=== PATIENT | male | born 1960 | race African-American/Black ===

== ENCOUNTER → 2018-05-09 | Outpatient (CLI) | payer OTHER ==
[2018-04-10 11:23] VITALS: BP 132/78
[~2018-05-09] MED LIST: AMLO10TA4 PO; ASPI-482 PO; ASPI81TA50 PO; CELE200C PO; CYCL10TA2 PO; EXEN10PE3 SQ; EXEN2PEN SQ; FLUT16SP2 NS; Fluconazole PO; GLIM4TAB2 PO; HYDR-2762 PO; INDA1.25 PO; IPRA4AER IH; METF100010 PO; METO-247 PO; PANT40TA5 PO; PROAIR HFA8.5 GM INH; SITA100T PO; TRIA15OI TP; VALS320T2 PO; [UNRECOGNIZED DRUG - CODE] MC
--- NOTE | 2018-05-10 15:22 | SLEEP ---
DATE OF STUDY: 05/09/2018 SLEEP STUDY ATTENDING PHYSICIAN: Dr. Segun Howard. REFERRED BY: Dr. Martinez. The patient is 57 years old who weighs 335 pounds with a BMI of 62. The patient's [place] score was 16. The patient gained 30 pounds since last sleep study in 2009. The patient underwent split night study at [facility]. During the night study, the patient spent 429 minutes in bed and slept for 365 minutes with a sleep efficiency of 85%. Sleep latency was 50 minutes with a REM latency of 357 minutes. Overall, sleep architecture showed increased stage 1 and stage 2 sleep, reduced slow wave and reduced REM sleep. During the initial diagnostic portion of the study, the patient slept for 147 minutes. During that time, the patient had no obstructive apneas. There was 1 mixed and 1 central apnea and 44 hypopneas. The patient's apnea hypopnea index was 19 per hour, supine index 19 per hour. REM sleep was not seen during the diagnostic portion of the study. EKG monitoring revealed normal sinus rhythm, average heart rate was 87 beats per minute. Nocturnal oximetry study revealed an average oxygen saturation of 93% with the lowest of 89%. 3% of time oxygen saturation remained between 80% and 89%. No clinically significant PLMS observed. The patient met the criteria for CPAP initiation. We started at 5 cm water and titrated up to 12 cm water. At the final pressure, the patient slept for 49 minutes. The patient had supine as well as REM sleep. The patient's AHI was reduced to 4 per hour and oxygen saturations remained above 90%. The patient used a large size nasal mask. IMPRESSION: 1. Moderate sleep apnea-hypopnea syndrome at an AHI of 19 per hour. Absence of REM sleep during the diagnostic portion of the study can underestimate the severity of sleep apnea. 2. No clinically significant periodic limb movements of sleep. 3. No clinically significant nocturnal hypoxia. RECOMMENDATIONS: 1. CPAP at 12 cm water completely eliminated the patient's sleep apnea and should be used on a nightly basis. 2. Follow up in 4-6 weeks to assess compliance with CPAP and to document clinical improvement. 3. Weight loss is strongly advised. 4. Avoid CITY MAGISTRATE depressants. 5. Caution regarding driving until symptoms of sleep apnea resolve with the use of CPAP. ALEXA GARCIA MD DR: PRETTY/mervat JOB#: [id number] / [id number] ZULEMA Maravilla MD, WILLIAM MD [facility]
== END | disposition home or self-care (01) ==
LOC: RT 17:45
PROVIDERS: ATTEND Internal Medicine Pulmonary Disease
DX: G47.33 Obstructive sleep apnea (adult) (pediatric) (principal)
CPT/HCPCS: 95810

== ENCOUNTER → 2018-07-05 | Outpatient (CLI) | payer OTHER ==
[2018-04-10 11:23] VITALS: BP 132/78
[~2018-07-05] MED LIST changes: +ALBU2.5V8 INH; -HYDR-2762 PO; +HYDR-2765 PO; -PROAIR HFA8.5 GM INH
--- NOTE | 2018-07-05 15:26 | RAD ---
CHEST PA LATERAL History: clearance for surgery, sob, hx of asthma, hx of copd and hypertension. Comparison: April 08, 2018 Heart size: Within normal limits. Radha/mediastinum: Within normal limits Lungs: Low lung volumes likely due to lack of inspiration. No focal consolidation. Mild linear markings likely due to atelectasis. Pleura: No evidence of pleural effusion. Pneumothorax: None visualized Bones: Regional skeleton appears grossly intact. Miscellaneous: None Impression: Low lung volumes, no consolidating infiltrate. Electronically signed by: Narendra Cai MD (07/05/2018 3:22 PM) [facility]
== END | disposition home or self-care (01) ==
LOC: RAD 13:40
PROVIDERS: ATTEND Internal Medicine Pulmonary Disease
DX: R06.02 Shortness of breath (principal); J44.9 Chronic obstructive pulmonary disease, unspecified; I10 Essential (primary) hypertension
CPT/HCPCS: 71046

== ENCOUNTER 2018-09-01 09:11 | Inpatient (IN) | payer OTHER ==
[~2018-09-01] VITALS: Ht 157.5 cm; Wt 142.6 kg
--- NOTE | 2018-09-01 09:53 | PHYS DOC ---
Past Medical History Past Medical History: A-Fib, Anxiety, Asthma, COPD, Diabetes-Type II, DVT, GERD , Hypertension, Other Additional Past Medical Histor: SLEEP APNEA, obesity Past Surgical History: Cholecystectomy, Tonsillectomy Alcohol Use: None Drug Use: None Adult General Chief Complaint Chief Complaint: CHEST PAIN HPI HPI Patient is a 58 year old male who presents with shortness of breath, chest pain, productive cough, vomiting, epigastric abdominal pain, and dizziness. Characterizes chest pain as a squeezing sensation, rated 8/10. No alleviating/aggravating factors. Reports shortness of breath woke him this morning at 0600. Reports blood tinged sputum x3 days. Denies fever or chills.[] Review of Systems Review of Systems Constitutional: Denies fever or chills [] Eyes: Denies change in visual acuity, redness, or eye pain [] HENT: Denies nasal congestion or sore throat [] Respiratory: Productive cough and shortness of breath. Denies hemoptysis [] Cardiovascular: No additional information not addressed in HPI [] GI: Epigastric abdominal pain, nausea, vomiting, Denies bloody stools or diarrhea [] : Denies dysuria or hematuria [] Musculoskeletal: Bilateral calf pain [] Integument: Denies rash or skin lesions [] Neurologic: Denies headache, focal weakness or sensory changes [] Endocrine: Denies polyuria or polydipsia [] All other systems were reviewed and found to be within normal limits, except as documented in this note. Current Medications Current Medications Current Medications Medications (Trade) Dose Ordered Sig/Yumi Start Time Stop Time Status Last Admin Dose Admin Info (CONTRAST GIVEN -- Rx MONITORING) 1 each PRN DAILY PRN 09/01/18 10:45 09/03/18 10:44 Iohexol (Omnipaque 350 Mg/ml) 90 ml 1X ONCE 09/01/18 10:45 09/01/18 10:46 DC 09/01/18 10:42 90 ML Ketorolac Tromethamine (Toradol 15mg Vial) 15 mg 1X ONCE 09/01/18 11:30 09/01/18 11:34 DC 09/01/18 11:49 15 MG Morphine Sulfate (Morphine Sulfate) 4 mg 1X ONCE 09/01/18 10:15 09/01/18 10:16 DC 09/01/18 10:19 4 MG Multi-Ingredient Mouthwash/Gargle (Gi Cocktail) 20 ml 1X ONCE 09/01/18 11:30 09/01/18 11:34 DC 09/01/18 11:49 20 ML Sodium Chloride 1,000 ml @ 100 mls/hr Q10H 09/01/18 11:30 09/02/18 11:29 09/01/18 11:51 100 MLS/HR Allergies Allergies Allergies Coded Allergies Type Severity Reaction Last Updated Verified No Known Drug Allergies 09/17/13 No Physical Exam Physical Exam Constitutional: Well developed, well nourished, MODERATE distress, non-toxic appearance. [] HENT: Normocephalic, atraumatic, bilateral external ears normal, oropharynx moist, no oral exudates, nose normal. [] Eyes: PERRLA, EOMI, conjunctiva normal, no discharge. [] Neck: Normal range of motion, no tenderness, supple, no stridor. [] Cardiovascular:Heart rate regular rhythm, no murmur [] Lungs & Thorax: Bilateral breath sounds clear to auscultation [] Abdomen: Bowel sounds normal, soft, EPIGASTRIC and periumbilical tenderness, no masses, no pulsatile masses. [] Skin: Warm, dry, no erythema, no rash. [] Back: No tenderness, no CVA tenderness. [] Extremities: No tenderness, no cyanosis, no clubbing, ROM intact, no edema. [] Neurologic: Alert and oriented X 3, normal motor function, normal sensory function, no focal deficits noted. [] Psychologic: Affect normal, judgement normal, mood anxious Current Patient Data Vital Signs Vital Signs Date Time Temp Pulse Resp B/P (MAP) Pulse Ox O2 Delivery O2 Flow Rate FiO2 09/01/18 10:49 20 96 Room Air 09/01/18 10:19 106 129/68 (88) 09/01/18 09:20 97.8 97.8 Lab Values Laboratory Tests Test 09/01/18 10:10 White Blood Count 18.5 x10^3/uL (4.0-11.0) H Red Blood Count 5.02 x10^6/uL (4.30-5.70) Hemoglobin 14.5 g/dL (13.0-17.5) Hematocrit 44.7 % (39.0-53.0) Mean Corpuscular Volume 89 fL (79-100) Mean Corpuscular Hemoglobin 29 pg (25-35) Mean Corpuscular Hemoglobin Concent 32 g/dL (31-37) Red Cell Distribution Width 14.9 % (11.5-14.5) H Platelet Count 262 x10^3/uL (140-400) Neutrophils (%) (Auto) 82 % (31-73) H Lymphocytes (%) (Auto) 9 % (24-48) L Monocytes (%) (Auto) 8 % (0-9) Eosinophils (%) (Auto) 1 % (0-3) Basophils (%) (Auto) 0 % (0-3) Neutrophils # (Auto) 15.1 x10^3uL (1.8-7.7) H Lymphocytes # (Auto) 1.7 x10^3/uL (1.0-4.8) Monocytes # (Auto) 1.5 x10^3/uL (0.0-1.1) H Eosinophils # (Auto) 0.1 x10^3/uL (0.0-0.7) Basophils # (Auto) 0.1 x10^3/uL (0.0-0.2) Prothrombin Time 12.9 SEC (11.7-14.0) Prothrombin Time INR 1.0 (0.8-1.1) Sodium Level 135 mmol/L (136-145) L Potassium Level 4.5 mmol/L (3.5-5.1) Chloride Level 96 mmol/L (98-107) L Carbon Dioxide Level 29 mmol/L (21-32) Anion Gap 10 (6-14) Blood Urea Nitrogen 47 mg/dL (8-26) H Creatinine 1.7 mg/dL (0.7-1.3) H Estimated GFR (Cockcroft-Gault) 50.5 BUN/Creatinine Ratio 28 (6-20) H Glucose Level 165 mg/dL (70-99) H Calcium Level 9.9 mg/dL (8.5-10.1) Total Bilirubin 0.3 mg/dL (0.2-1.0) Aspartate Amino Transferase (AST) 18 U/L (15-37) Alanine Aminotransferase (ALT) 68 U/L (16-63) H Alkaline Phosphatase 72 U/L (46-116) Troponin I Quantitative < 0.017 ng/mL (0.000-0.055) Total Protein 6.4 g/dL (6.4-8.2) Albumin 3.2 g/dL (3.4-5.0) L Albumin/Globulin Ratio 1.0 (1.0-1.7) Lipase 87 U/L (73-393) Laboratory Tests 09/01/18 10:10 Laboratory Tests 09/01/18 10:10 EKG EKG Sinus tachycardia, no ST segment changes, infrequent PVC, QTc 432 [] Radiology/Procedures Radiology/Procedures [] Impressions: IMPRESSION: 1. No acute intra-abdominal findings 2. Evaluation for pulmonary embolus is limited as there is not enough contrast within the pulmonary artery and its branches. 3. A 1.3 cm hypodensity identified in the right kidney which could be a intrarenal mass or cyst containing debris. Recommend follow-up nonemergent ultrasound kidneys for further evaluation. 4. Small hypodense nodules identified in the right and left lobes of thyroid gland with the largest measuring 1.8 cm on the right. Follow-up nonemergent ultrasound thyroid is recommended. Electronically signed by: Bubba Chan MD (09/01/2018 11:04 AM) [facility] DICTATED and SIGNED BY: BUBBA CHAN MD DATE: 09/01/18 1056 Course & Med Decision Making Course & Med Decision Making Pt is a 58 year old male with past medical history of hypertension, type 2 DM, asthma, obstructive sleep apnea, and anxiety presents with chest pain and abrupt onset shortness of breath. Pt has history of bilateral DVT approximately 1.5 years ago and has not been on anticoagulation since his cardiac catheterization 5 months ago. Cardiac cath indicated no coronary artery disease. Given the patient's history and symptom presentation, rule out PE vs. pneumonia vs. MSK related pain vs. anxiety. Pertinent Labs and Imaging studies reviewed. (See chart for details) Plan: EKG, no acute changes CXR CTA CT abdomen LE duplex, negative CBC, CMP final plan ct scan indeterminate for pe wbc unclear etiology. has been high in the past but also has been normal mild bump in creatinine, pt hydrated after contrast. will admit for serial trops, v/q scan and monitoring of the wbc/creatinine d/w riffel u/a pending Dragon Disclaimer Aniya Disclaimer This electronic medical record was generated, in whole or in part, using a voice recognition dictation system. Departure Departure Impression: Primary Impression: Leukocytosis Disposition: ADMITTED INPATIENT Condition: STABLE JORGE BATISTA MD Sep 01, 2018 09:53
[2018-09-01] MEDS ORDERED: MORPHINE SULFATE 4 MG/ML VIAL. IV ONE (10:15)
[2018-09-01 10:20] LABS: BASO # 0.1 x10^3/uL (0.0-0.2); BASO % 0 % (0-3); EOS # 0.1 x10^3/uL (0.0-0.7); EOS % 1 % (0-3); HEMATOCRIT 44.7 % (39.0-53.0); HEMOGLOBIN 14.5 g/dL (13.0-17.5); LYMPH # 1.7 x10^3/uL (1.0-4.8); LYMPH % 9 % (24-48); MEAN CORPUSCULAR HEMOGLOBIN 29 pg (25-35); MEAN CORPUSCULAR HGB CONC 32 g/dL (31-37); MEAN CORPUSCULAR VOLUME 89 fL (79-100); MONO # 1.5 x10^3/uL (0.0-1.1); MONO % 8 % (0-9); NEUT # 15.1 x10^3uL (1.8-7.7); NEUT % 82 % (31-73); PLATELET COUNT 262 x10^3/uL (140-400); RED BLOOD COUNT 5.02 x10^6/uL (4.30-5.70); RED CELL DISTRIBUTION WIDTH 14.9 % (11.5-14.5); WHITE BLOOD COUNT 18.5 x10^3/uL (4.0-11.0)
[2018-09-01 10:30] LABS: CALCIUM 9.9 mg/dL (8.5-10.1); CREATININE 1.7 mg/dL (0.7-1.3); GFR 50.5; POTASSIUM 4.5 mmol/L (3.5-5.1); PROTHROMBIN TIME PATIENT 12.9 SEC (11.7-14.0)
--- NOTE | 2018-09-01 10:30 | EKG ---
[facility] [address] [place] [address] Test Date: 2018-09-01 Test Time: 09:16:41 Pat Name: VANCE HERNANDEZ Department: Room: Gender: M Manager Contracting: JOSE FRANCISCO : 1960 Requested By: JORGE BATISTA Order Number: [id number] Reading MD: Andrzej Cooper Measurements Intervals [place] Rate: 106 P: 44 SC: 110 QRS: 0 QRSD: 78 T: 46 QT: 324 QTc: 432 Interpretive Statements SINUS TACHYCARDIA VENTRICULAR PREMATURE COMPLEX(ES) LEFTWARD AXIS Electronically Signed On 09-04-2018 10:46:30 FICTION AND NONFICTION AUTHOR by Andrzej Cooper
[2018-09-01] MEDS ORDERED: IV NORMAL SALINE 1000ML BAG 1,000 ML IV ONE (10:45)
[2018-09-01] MEDS ORDERED: IOHEXOL 350 MG/ML 100 ML VIAL. IV ONE (10:45)
[2018-09-01] MEDS ORDERED: CONTRAST GIVEN. MC PRN (10:45)
--- NOTE | 2018-09-01 10:45 | RAD ---
Examination: Lower Extremity Venous Doppler Ultrasound History: Bilateral lower extremity swelling Comparison: None Procedure: Sales scale, color flow 2D and spectal waveform analysis images are obtained with and without compression in the area of the common femoral vein, superficial femoral vein - femoral vein junction, main femoral vein (superficial femoral vein) and popliteal vein. Veins of the proximal calf are also imaged. Findings: There is normal duplex flow, color flow and compressibility of all visualized vein segments. No evidence of deep venous thrombus is present. Impression: No evidence of DVT the visualized bilateral lower extremity venous system. Electronically signed by: Bubba Chan MD (09/01/2018 10:42 AM) [place] [id number]
[2018-09-01 10:46] LABS: ALBUMIN 3.2 g/dL (3.4-5.0); TOTAL BILIRUBIN 0.3 mg/dL (0.2-1.0); TOTAL PROTEIN 6.4 g/dL (6.4-8.2)
--- NOTE | 2018-09-01 11:07 | RAD ---
Examination: CT angiography chest and CT abdomen pelvis with IV contrast HISTORY: History of chest pain, shortness of breath, history of pulmonary embolism, abdominal pain, swelling COMPARISON: None available TECHNIQUE: Axial CT angiography images were performed with IV contrast. Coronal and sagittal 3-D MIP reformats are performed. Axial CT images of the abdomen pelvis were performed with IV contrast. Cholecystectomy, so performed Exposure: One or more of the following individualized dose reduction techniques were utilized for this examination: 1. Automated exposure control 2. Adjustment of the mA and/or kV according to patient size 3. Use of iterative reconstruction technique. Findings: Small hypodense nodules identified in the right and left lobes of thyroid gland with the largest measuring 1.8 cm on the right. The central airways are patent The heart size grossly appears unremarkable No evidence of pericardial effusion The caliber of the aorta grossly appears unremarkable. There is not enough contrast within the pulmonary artery and its branches for evaluation of the pulmonary arteries Minimal bibasilar lung atelectasis. Calcified granulomas identified in the right upper lobe of the lung. The visualized liver, spleen, adrenals grossly appears unremarkable The stomach is mildly distended The visualized pancreas demonstrates mild fatty atrophic changes. Cholecystectomy changes identified Small bowel is nondilated. Feces and gas noted in the colon The urinary bladder is mildly distended. The bilateral kidneys enhance symmetrically. There is a hypodense structure identified in the right kidney measuring 1.3 cm. Urinary bladder is mildly distended. The caliber of the aorta grossly appears unremarkable Moderate degenerative changes visualized lumbar spine. Small fat-containing left inguinal hernia. IMPRESSION: 1. No acute intra-abdominal findings 2. Evaluation for pulmonary embolus is limited as there is not enough contrast within the pulmonary artery and its branches. 3. A 1.3 cm hypodensity identified in the right kidney which could be a intrarenal mass or cyst containing debris. Recommend follow-up nonemergent ultrasound kidneys for further evaluation. 4. Small hypodense nodules identified in the right and left lobes of thyroid gland with the largest measuring 1.8 cm on the right. Follow-up nonemergent ultrasound thyroid is recommended. Electronically signed by: Bubba Chan MD (09/01/2018 11:04 AM) [place] [id number]
--- NOTE | 2018-09-01 11:23 | RAD ---
Portable chest, 09/01/2018: HISTORY: Midsternal chest pain, dizziness Comparison is made to a study from 07/05/2018. The depth of inspiration is suboptimal. The heart is at the upper limits of normal in size. The pulmonary vascularity is normal. There is a calcified granuloma in the right lower chest. No acute infiltrate is seen. There is no evidence of pleural fluid. IMPRESSION: No acute cardiopulmonary abnormality is detected. Electronically signed by: Brennon Lewis MD (09/01/2018 11:20 AM) [facility]
[2018-09-01] MEDS ORDERED: KETOROLAC 15 MG/ML VIAL. IV ONE (11:30)
[2018-09-01] MEDS ORDERED: LIDO:MAALOX 1:1 20 ML SINGLE DOSE. SWSW ONE (11:30)
[2018-09-01] MEDS ORDERED: IV NORMAL SALINE 1000ML BAG 1,000 ML IV SCH (11:30)
[2018-09-01 12:13] LABS: BILIRUBIN,URINE NEGATIVE (NEG); CLARITY,URINE CLEAR; COLOR,URINE YELLOW; NITRITE,URINE NEGATIVE (NEG); PROTEIN,URINE NEGATIVE (NEG-TRACE); UROBILINOGEN,URINE 0.2 mg/dL (0.2 mg/dL)
[2018-09-01 12:19] LABS: BACTERIA,URINE FEW /HPF (0-FEW); RBC,URINE RARE /HPF (0-2); WBC,URINE RARE /HPF (0-4)
[2018-09-01 12:28] LABS: INFLUENZA A PATIENT NEGATIVE (NEGATIVE); INFLUENZA B PATIENT NEGATIVE (NEGATIVE)
[2018-09-01 12:50] VITALS: BP 117/59
--- NOTE | 2018-09-01 13:40 | PDOC1 ---
History and Physical Date of Admission Date of Admission DATE: 09/01/18 TIME: 13:39 Identification/Chief Complaint Chief Complaint Chest pain Source Source: Chart review, Patient History of Present Illness History of Present Illness 58 year old AA male w/ PMHx A Fib, HTN, BLE DVT, COPD, VIOLET, DM, OA, vit D deficiency, GERD, colon polyp, chronic back pain, cholecystectomy, tonsillectomy /adenoidectomy who presents with shortness of breath, chest pain, productive cough, vomiting, epigastric abdominal pain, and dizziness. Characterizes chest pain as a squeezing sensation, rated 8/10. No alleviating/aggravating factors. Reports shortness of breath woke him this morning at 0600. Reports blood tinged sputum x3 days. He has felt ill for 10 days, feels it began after shoveling snow. Reports stabbing pain from midchest to navel area - constant, worse w/ moving around and taking deep breaths, can be worse after eating as well. Also associated w/ weakness, dizziness, vomiting, and diarrhea. Meloxicam and ibuprofen didn't help pain at home. Has pain currently but hasn't had diarrhea today and tolerated a fish sandwich this afternoon w/o vomiting. Labs note WBC 18.5, BUN 47, Cr 1.7, ALT 68. Last A1c (in 03/2018) 8.8. Troponin Negative. No EKG abnormalities. Rapid flu negative in ED. No fevers On imaging: mildly distended stomach, mild fatty atrophic changes in pancreas, feces and gas in the colon, and unremarkable liver. Past Medical History Cardiovascular: AFIB, HTN Pulmonary: COPD, Other GI: GERD Heme/Onc: Other Musculoskeletal: Osteoarthritis Infectious disease: No pertinent hx Renal/: No pertinent hx Endocrine: Diabetes Past Surgical History Past Surgical History: Cholecystectomy, Tonsillectomy Family History Family History: Hypertension Social History ALCOHOL: none Drugs: None Current Medications Current Medications Current Medications Morphine Sulfate (Morphine Sulfate) 4 mg 1X ONCE IV Last administered on at 10:19; Start 09/01/18 at 10:15; Stop 09/01/18 at 10:16; Status DC Sodium Chloride 1,000 ml @ 1,000 mls/hr 1X ONCE IV Last administered on at 10:58; Start 09/01/18 at 10:45; Stop 09/01/18 at 11:44; Status DC Iohexol (Omnipaque 350 Mg/ml) 90 ml 1X ONCE IV Last administered on 09/01/18at 10:42; Start 09/01/18 at 10:45; Stop 09/01/18 at 10:46; Status DC Info (CONTRAST GIVEN -- Rx MONITORING) 1 each PRN DAILY PRN MC SEE COMMENTS; Start 09/01/18 at 10:45; Stop 09/03/18 at 10:44 Multi-Ingredient Mouthwash/Gargle (Gi Cocktail) 20 ml 1X ONCE SWSW Last administered on 09/01/18at 11:49; Start 09/01/18 at 11:30; Stop 09/01/18 at 11:34 ; Status DC Ketorolac Tromethamine (Toradol 15mg Vial) 15 mg 1X ONCE IV Last administered on 09/01/18at 11:49; Start 09/01/18 at 11:30; Stop 09/01/18 at 11:34; Status DC Sodium Chloride 1,000 ml @ 100 mls/hr Q10H IV Last administered on 09/01/18at 11:51; Start 09/01/18 at 11:30; Stop 09/02/18 at 11:29 Active Scripts Active [Fluconazole] 100 MG Tablet 200 Mg PO DAILY 14 Days Reported Proair Hfa Inhaler (Albuterol Sulfate) 8.5 Gm Hfa.aer.ad 1 Puff INH PRN Q4HRS PRN Hydrocodone-Apap 7.5-325 (Hydrocodone Bit/Acetaminophen) 1 Each Tablet 1 Tab PO PRN TID PRN Combivent Respimat Inhal (Ipratropium/Albuterol Sulfate) 4 Gm Aer.w.adap 2 Inh IH BID Triamcinolone Acetonide 0.1% Oint (Triamcinolone Acetonide) 15 Gm Oint...g. 1 Heriberto TP BID MIX WITH EUCERIN DIRECTED BY PHYSICIAN Rad (Sitagliptin Phosphate) 100 Mg Tablet 1 Tab PO DAILY Bydureon Pen (Exenatide Microspheres) 2 Mg/0.65 Ml Pen.injctr 2 Mg SQ WEEKLY Indapamide 1.25 Mg Tablet 1 Tab PO DAILY Glimepiride 4 Mg Tablet 1 Tab PO BID Cyclobenzaprine Hcl 10 Mg Tablet 1 Tab PO QHS Aspir 81 (Aspirin) 81 Mg Tablet.dr 81 Mg PO DAILY Celebrex (Celecoxib) 200 Mg Capsule 200 Mg PO DAILY Pantoprazole Sodium 40 Mg Tablet.dr 40 Mg PO DAILY Flonase (Fluticasone Propionate) 16 Gm [place].susp 16 Gm NS DAILY Diovan (Valsartan) 320 Mg Tablet 320 Mg PO DAILY Norvasc (Amlodipine Besylate) 10 Mg Tablet 10 Mg PO DAILY Metformin Hcl Er (Metformin Hcl) 1,000 Mg Tab.er.24 1,000 Mg PO BID Allergies Allergies: Coded Allergies: No Known Drug Allergies (Unverified , 09/17/13) ROS General: YES: Fatigue, Malaise, Appetite PSYCHOLOGICAL ROS: No: Anxiety, Behavioral Disorder, Concentration difficultie , Decreased libido, Depression, Disorientation, Hallucinations, Hostility, Irritablity, Memory difficulties, Mood Swings, Obsessive thoughts, Physical abuse, Sexual abuse, Sleep disturbances, Suicidal ideation, Other Eyes: No Blurry vision, No Decreased vision, No Double vision, No Dry eyes, No Excessive tearing, No Eye Pain, No Itchy Eyes, No Loss of vision, No Photophobia , No Scotomata, No Uses contacts, No Uses glasses, No Other HEENT: No: Heacaches, Visual Changes, Hearing change, Nasal congestion, Nasal discharge, Oral lesions, Sinus pain, Sore Throat, Epistaxis, Sneezing, Snoring, Tinnitus, Vertigo, Vocal changes, Other ALLERGY AND IMMUNOLOGY: No: Hives, Insect Bite Sensitivity, Itchy/Watery Eyes, Nasal Congestion, Post Nasal Drip, Seasonal Allergies, Other Hematological and Lymphatic: No: Bleeding Problems, Blood Clots, Blood Transfusions, Brusing, Night Sweats, Pallor, Swollen Lymph Nodes, Other ENDOCRINE: No: Breast Changes, Galactorrhea, Hair Pattern Changes, Hot Flashes , Malaise/lethargy, Mood Swings, Palpitations, Polydipsia/polyuria, Skin Changes , Temperature Intolerance, Unexpected Weight Changes, Other Breast: No New/Changing Breast Lumps, No Nipple changes, No Nipple discharge, No Other Respiratory: YES: Cough, Shortness of breath, Tachypnea, Wheezing; No: Hemoptysis, Orthopnea, Pleuritic Pain, SOB with excertion, Sputum Changes , Stridor, Other Cardiovascular: yes Chest Pain, yes Palpitations; No Orthopnea, No Paroxysmal Noc. Dyspnea, No Edema, No Lt Headedness, No Other Gastrointestinal: Yes Nausea, Yes Vomiting, Yes Abdominal Pain, Yes Diarrhea Genitourinary: No Dysuria, No Frequency, No Incontinence, No Hematuria, No Retention, No Discharge, No Urgency, No Pain, No Flank Pain, No Other, No , No , No , No , No , No , No Musculoskeletal: No Gait Disturbance, No Joint Pain, No Joint Stiffness, No Joint Swelling, No Muscle Pain, No Muscular Weakness, No Pain In:, No Swelling In:, No Other Neurological: No Behavorial Changes, No Bowel/Bladder ControlChng, No Confusion , No Dizziness, No Gait Disturbance, No Headaches, No Impaired Coord/balance, No Memory Loss, No Numbness/Tingling, No Seizures, No Speech Problems, No Tremors, No Visual Changes, No Weakness, No Other Skin: No Dry Skin, No Eczema, No Hair Changes, No Lumps, No Mole Changes, No Mottling, No Nail Changes, No Pruritus, No Rash, No Skin Lesion Changes, No Other, No Acne Physical Exam General: Alert, Oriented X3, Cooperative, No acute distress HEENT: Atraumatic, PERRLA, EOMI, Mucous membr. moist/pink Lungs: Other (Scattered wheezing) Heart: S1S2, irregularly irregular Abdomen: Normal bowel sounds, Soft, Other (diffuse mild tenderness) Rectal Exam: not examined Extremities: No clubbing, No cyanosis, No edema, Normal pulses, No tenderness/ swelling Skin: No rashes, No breakdown, No significant lesion Neuro: Normal gait, Normal speech, Strength at 5/5 X4 ext, Normal tone, Sensation intact, Cranial nerves 3-12 NL, Reflexes 2+ Psych/Mental Status: Mental status NL, Mood NL Vitals Vitals Vital Signs Date Time Temp Pulse Resp B/P (MAP) Pulse Ox O2 Delivery O2 Flow Rate FiO2 09/01/18 12:50 98.1 91 20 117/59 (78) 98 Room Air 98.1 Labs Labs Laboratory Tests Test 09/01/18 10:10 09/01/18 12:00 09/01/18 12:04 White Blood Count 18.5 x10^3/uL (4.0-11.0) Red Blood Count 5.02 x10^6/uL (4.30-5.70) Hemoglobin 14.5 g/dL (13.0-17.5) Hematocrit 44.7 % (39.0-53.0) Mean Corpuscular Volume 89 fL (79-100) Mean Corpuscular Hemoglobin 29 pg (25-35) Mean Corpuscular Hemoglobin Concent 32 g/dL (31-37) Red Cell Distribution Width 14.9 % (11.5-14.5) Platelet Count 262 x10^3/uL (140-400) Neutrophils (%) (Auto) 82 % (31-73) Lymphocytes (%) (Auto) 9 % (24-48) Monocytes (%) (Auto) 8 % (0-9) Eosinophils (%) (Auto) 1 % (0-3) Basophils (%) (Auto) 0 % (0-3) Neutrophils # (Auto) 15.1 x10^3uL (1.8-7.7) Lymphocytes # (Auto) 1.7 x10^3/uL (1.0-4.8) Monocytes # (Auto) 1.5 x10^3/uL (0.0-1.1) Eosinophils # (Auto) 0.1 x10^3/uL (0.0-0.7) Basophils # (Auto) 0.1 x10^3/uL (0.0-0.2) Prothrombin Time 12.9 SEC (11.7-14.0) Prothromb Time International Ratio 1.0 (0.8-1.1) Sodium Level 135 mmol/L (136-145) Potassium Level 4.5 mmol/L (3.5-5.1) Chloride Level 96 mmol/L (98-107) Carbon Dioxide Level 29 mmol/L (21-32) Anion Gap 10 (6-14) Blood Urea Nitrogen 47 mg/dL (8-26) Creatinine 1.7 mg/dL (0.7-1.3) Estimated GFR (Cockcroft-Gault) 50.5 BUN/Creatinine Ratio 28 (6-20) Glucose Level 165 mg/dL (70-99) Calcium Level 9.9 mg/dL (8.5-10.1) Total Bilirubin 0.3 mg/dL (0.2-1.0) Aspartate Amino Transf (AST/SGOT) 18 U/L (15-37) Alanine Aminotransferase (ALT/SGPT) 68 U/L (16-63) Alkaline Phosphatase 72 U/L (46-116) Troponin I Quantitative < 0.017 ng/mL (0.000-0.055) Total Protein 6.4 g/dL (6.4-8.2) Albumin 3.2 g/dL (3.4-5.0) Albumin/Globulin Ratio 1.0 (1.0-1.7) Lipase 87 U/L (73-393) Urine Collection Type Void Urine Color Yellow Urine Clarity Clear Urine pH 6.0 Urine Specific [place] >=1.030 Urine Protein Negative mg/dL (NEG-TRACE) Urine Glucose (UA) >=1000 mg/dL (NEG) Urine Ketones (Stick) Negative mg/dL (NEG) Urine Blood Negative (NEG) Urine Nitrite Negative (NEG) Urine Bilirubin Negative (NEG) Urine Urobilinogen Dipstick 0.2 mg/dL (0.2 mg/dL) Urine Leukocyte Esterase Negative (NEG) Urine RBC Rare /HPF (0-2) Urine WBC Rare /HPF (0-4) Urine Squamous Epithelial Cells None /LPF Urine Bacteria Few /HPF (0-FEW) Influenza Type A Antigen Negative (NEGATIVE) Influenza Type B Antigen Negative (NEGATIVE) Laboratory Tests Test 09/01/18 10:10 09/01/18 12:00 09/01/18 12:04 White Blood Count 18.5 x10^3/uL (4.0-11.0) Red Blood Count 5.02 x10^6/uL (4.30-5.70) Hemoglobin 14.5 g/dL (13.0-17.5) Hematocrit 44.7 % (39.0-53.0) Mean Corpuscular Volume 89 fL (79-100) Mean Corpuscular Hemoglobin 29 pg (25-35) Mean Corpuscular Hemoglobin Concent 32 g/dL (31-37) Red Cell Distribution Width 14.9 % (11.5-14.5) Platelet Count 262 x10^3/uL (140-400) Neutrophils (%) (Auto) 82 % (31-73) Lymphocytes (%) (Auto) 9 % (24-48) Monocytes (%) (Auto) 8 % (0-9) Eosinophils (%) (Auto) 1 % (0-3) Basophils (%) (Auto) 0 % (0-3) Neutrophils # (Auto) 15.1 x10^3uL (1.8-7.7) Lymphocytes # (Auto) 1.7 x10^3/uL (1.0-4.8) Monocytes # (Auto) 1.5 x10^3/uL (0.0-1.1) Eosinophils # (Auto) 0.1 x10^3/uL (0.0-0.7) Basophils # (Auto) 0.1 x10^3/uL (0.0-0.2) Prothrombin Time 12.9 SEC (11.7-14.0) Prothromb Time International Ratio 1.0 (0.8-1.1) Sodium Level 135 mmol/L (136-145) Potassium Level 4.5 mmol/L (3.5-5.1) Chloride Level 96 mmol/L (98-107) Carbon Dioxide Level 29 mmol/L (21-32) Anion Gap 10 (6-14) Blood Urea Nitrogen 47 mg/dL (8-26) Creatinine 1.7 mg/dL (0.7-1.3) Estimated GFR (Cockcroft-Gault) 50.5 BUN/Creatinine Ratio 28 (6-20) Glucose Level 165 mg/dL (70-99) Calcium Level 9.9 mg/dL (8.5-10.1) Total Bilirubin 0.3 mg/dL (0.2-1.0) Aspartate Amino Transf (AST/SGOT) 18 U/L (15-37) Alanine Aminotransferase (ALT/SGPT) 68 U/L (16-63) Alkaline Phosphatase 72 U/L (46-116) Troponin I Quantitative < 0.017 ng/mL (0.000-0.055) Total Protein 6.4 g/dL (6.4-8.2) Albumin 3.2 g/dL (3.4-5.0) Albumin/Globulin Ratio 1.0 (1.0-1.7) Lipase 87 U/L (73-393) Urine Collection Type Void Urine Color Yellow Urine Clarity Clear Urine pH 6.0 Urine Specific [place] >=1.030 Urine Protein Negative mg/dL (NEG-TRACE) Urine Glucose (UA) >=1000 mg/dL (NEG) Urine Ketones (Stick) Negative mg/dL (NEG) Urine Blood Negative (NEG) Urine Nitrite Negative (NEG) Urine Bilirubin Negative (NEG) Urine Urobilinogen Dipstick 0.2 mg/dL (0.2 mg/dL) Urine Leukocyte Esterase Negative (NEG) Urine RBC Rare /HPF (0-2) Urine WBC Rare /HPF (0-4) Urine Squamous Epithelial Cells None /LPF Urine Bacteria Few /HPF (0-FEW) Influenza Type A Antigen Negative (NEGATIVE) Influenza Type B Antigen Negative (NEGATIVE) Images Images CTA chest/abd/pelv - 1. No acute intra-abdominal findings 2. Evaluation for pulmonary embolus is limited as there is not enough contrast within the pulmonary artery and its branches. 3. A 1.3 cm hypodensity identified in the right kidney which could be a intrarenal mass or cyst containing debris. Recommend follow-up nonemergent ultrasound kidneys for further evaluation. 4. Small hypodense nodules identified in the right and left lobes of thyroid gland with the largest measuring 1.8 cm on the right. Follow-up nonemergent ultrasound thyroid is recommended. VTE Prophylaxis Ordered VTE Prophylaxis Devices: Yes VTE Pharmacological Prophylaxi: Yes Assessment/Plan Assessment/Plan A/P: Chest pain - trend trops. This may be esophageal considering his history of GERD and esophageal dilation. I will consult GI as well Abdominal pain - with N/V/D could be a viral gastroenteritis, ALT slightly elevated, otherwise his CT was not too revealing except for renal mass on right Dizziness - likely from his SHOSHANA, fluid loss from his GI illness. Will hydrate SIRS - meets sepsis criteria with Leukocytosis, tachycardia and viral gastroenteritis as likely source, it would not be prudent to empirically treat with antibiotics as he is hemodynamically stable, I would prefer GI consult, stool cultures, blood cultures, urine cultures and to give supportive care as the risk of antibiotics for a gastroenteritis causing side effects is high SHOSHANA - likely vasomotor nephropathy, will give fluids and check right kidney US Elevated ALT - can screen for hepatitis per patient request, check TSH, ferritin as well. No hx of alpha-1 and says he has screened negative for this in the past GERD - with h/o dysphagia/odynophagia - on PPI and H2 isela, recent EGD w/ dilation, tertiary contractions on esophagram A Fib and DVTs - on ASA VIOLET - on CPAP? DM - well managed on GLP-1, SGLT-2, metformin, sulfonylurea and insulin. will hold his GLP-1, SGLT-2, metformin, sulfonylurea for SHOSHANA. Basal bolus plus insulin while in house Morbid obesity - on phentermine and GLP-1 and has been counseled on weight loss. Will hold his weight loss meds whil acutely ill COPD - may be OHS, will give nebs for his wheezing. Right renal mass - looks irregular, will evaluate with US. No hx of hematuria Thyroid nodules - found incidentally. I did not palpate them initially. Will check TSH, thyroid US for large nodule is indicated FEN - LR 100cc/hr, ADA diet PPX - Heparin FULL CODE Inpatient for likely infectious gastroenteritis with intractable nausea and vomiting with multiple comorbids and meeting sepsis criteria, at least 2 midnights inpatient. NICOLETTE DOAN MD Sep 01, 2018 13:40
--- NOTE | 2018-09-01 14:21 | RAD ---
VQ Scan: Clinical History: Dyspnea. Technique: 18 mCi of xenon-133 was administered for ventilation scan and spot views were obtained on a gamma camera for a Nuclear Medicine ventilation examination. 5.5 mCi of Tc 99m MAA was administered intravenously and spot views were obtained on the gamma camera for a Nuclear Medicine perfusion examination. Static images were reviewed as a V/Q scan in order to exclude pulmonary embolism. Findings: There is mild diffuse heterogeneity of activity on the ventilation study. Perfusion images are homogeneous without perfusion defects. This is very low probability for pulmonary embolism based on the modified PIOPED criteria. Impression: Very low probability for pulmonary embolism. Electronically signed by: Bubba Chan MD (09/01/2018 2:18 PM) [place] [id number]
[2018-09-01 15:00] VITALS: BP 119/99
--- NOTE | 2018-09-01 15:00 | NUR ---
The patient, VANCE HERNANDEZ, 58 y/o, M admitted by NICOLETTE DOAN MD, was given written information regarding hospital policies, unit procedures and contact persons. Discussed risk of falls, activity, and diet. Valuables were checked and patient stated he did not have any he wanted to lock. Patient is resting comfortably in his bed, locked in low position, with call light within reach.
[2018-09-01] MEDS ORDERED: ONDANSETRON PF 4 MG/2 ML VIAL. IV PRN (15:45)
[2018-09-01] MEDS ORDERED: DEXTROSE 50% 25 GM / 50ML DISP.SYRIN. IV PRN (15:45)
[2018-09-01] MEDS ORDERED: LACTULOSE 20 GM/30 ML SOLUTION. PO PRN (15:45)
[2018-09-01] MEDS ORDERED: GLIM2TAB2 PO (16:43)
--- NOTE | 2018-09-01 16:45 | PDOC2 ---
GI CONSULT Reason For Consult: ALT elevated, gastroenteritis HPI: HPI: 58 y/o male who has been ill for 1.5 weeks since shoveling snow. Reports stabbing pain from midchest to nav area - constant, worse w/ moving around and taking deep breaths, can be worse after eating as well. Also associated w/ weakness, dizziness (feels like room is spinning and that he's moving), vomiting (immediately after eating - food and bile), and diarrhea. Meloxicam and ibuprofen didn't help pain at home. Has pain currently but hasn't had diarrhea today and tolerated a fish sandwich this afternoon w/o vomiting. Labs note WBC 18.5, BUN 47, Cr 1.7, ALT 68. Last A1c (in 03/2018) 8.8. Says glucose has been "good" at home - usually 140. On imaging: mildly distended stomach, mild fatty atrophic changes in pancreas, feces and gas in the colon, and unremarkable liver. H/o GERD on PPI Q a.m. and H2 isela Q p.m. GI cocktail might have helped a little in ER. We have seen him in the past for dysphagia/odynophagia (food caught in oropharynx, stabbing pain with swallowing) - esophagram last year showed mild tertiary contractions in distal esophagus. No hematemesis, hematochezia, or melena. Typically no diarrhea or constipation. Says he might have lost 8-10 pounds recently. S/p cholecystectomy for stone. Denies liver, pancreas, or PUD history history. Had EGD and colonoscopy at [facility] in May or June - says esophagus was dilated and colon polyp was removed. In addition to NSAIDs listed about, takes ASA (h/o A Fib and DVTs). PMH: PMH: A Fib, HTN, BLE DVT, COPD, VIOLET, DM, OA, vit D deficiency, GERD, colon polyp, chronic back pain cholecystectomy, tonsillectomy/adenoidectomy FH: Family History: DM, Other (CKD) Social History: Smoke: No ALCOHOL: none Drugs: None ROS: GEN: Denies fevers, chills, sweats HEENT: Denies blurred vision, sore throat CV: +chest pain RESP: +shortness of air +cough GI: Per HPI : Denies hematuria, dysuria ENDO: +weight loss NEURO: +dizziness MSK: +back pain +weakness SKIN: Denies jaundice, pruritus Vitals: Vitals: Vital Signs Date Time Temp Pulse Resp B/P (MAP) Pulse Ox O2 Delivery O2 Flow Rate FiO2 09/01/18 15:00 98.6 103 16 119/99 (106) 99 Room Air 98.6 Labs: Labs: Laboratory Tests Test 09/01/18 10:10 09/01/18 12:00 09/01/18 12:04 09/01/18 14:30 White Blood Count 18.5 x10^3/uL (4.0-11.0) Red Blood Count 5.02 x10^6/uL (4.30-5.70) Hemoglobin 14.5 g/dL (13.0-17.5) Hematocrit 44.7 % (39.0-53.0) Mean Corpuscular Volume 89 fL (79-100) Mean Corpuscular Hemoglobin 29 pg (25-35) Mean Corpuscular Hemoglobin Concent 32 g/dL (31-37) Red Cell Distribution Width 14.9 % (11.5-14.5) Platelet Count 262 x10^3/uL (140-400) Neutrophils (%) (Auto) 82 % (31-73) Lymphocytes (%) (Auto) 9 % (24-48) Monocytes (%) (Auto) 8 % (0-9) Eosinophils (%) (Auto) 1 % (0-3) Basophils (%) (Auto) 0 % (0-3) Neutrophils # (Auto) 15.1 x10^3uL (1.8-7.7) Lymphocytes # (Auto) 1.7 x10^3/uL (1.0-4.8) Monocytes # (Auto) 1.5 x10^3/uL (0.0-1.1) Eosinophils # (Auto) 0.1 x10^3/uL (0.0-0.7) Basophils # (Auto) 0.1 x10^3/uL (0.0-0.2) Prothrombin Time 12.9 SEC (11.7-14.0) Prothromb Time International Ratio 1.0 (0.8-1.1) Sodium Level 135 mmol/L (136-145) Potassium Level 4.5 mmol/L (3.5-5.1) Chloride Level 96 mmol/L (98-107) Carbon Dioxide Level 29 mmol/L (21-32) Anion Gap 10 (6-14) Blood Urea Nitrogen 47 mg/dL (8-26) Creatinine 1.7 mg/dL (0.7-1.3) Estimated GFR (Cockcroft-Gault) 50.5 BUN/Creatinine Ratio 28 (6-20) Glucose Level 165 mg/dL (70-99) Calcium Level 9.9 mg/dL (8.5-10.1) Total Bilirubin 0.3 mg/dL (0.2-1.0) Aspartate Amino Transf (AST/SGOT) 18 U/L (15-37) Alanine Aminotransferase (ALT/SGPT) 68 U/L (16-63) Alkaline Phosphatase 72 U/L (46-116) Troponin I Quantitative < 0.017 ng/mL (0.000-0.055) < 0.017 ng/mL (0.000-0.055) Total Protein 6.4 g/dL (6.4-8.2) Albumin 3.2 g/dL (3.4-5.0) Albumin/Globulin Ratio 1.0 (1.0-1.7) Lipase 87 U/L (73-393) Urine Collection Type Void Urine Color Yellow Urine Clarity Clear Urine pH 6.0 Urine Specific [place] >=1.030 Urine Protein Negative mg/dL (NEG-TRACE) Urine Glucose (UA) >=1000 mg/dL (NEG) Urine Ketones (Stick) Negative mg/dL (NEG) Urine Blood Negative (NEG) Urine Nitrite Negative (NEG) Urine Bilirubin Negative (NEG) Urine Urobilinogen Dipstick 0.2 mg/dL (0.2 mg/dL) Urine Leukocyte Esterase Negative (NEG) Urine RBC Rare /HPF (0-2) Urine WBC Rare /HPF (0-4) Urine Squamous Epithelial Cells None /LPF Urine Bacteria Few /HPF (0-FEW) Influenza Type A Antigen Negative (NEGATIVE) Influenza Type B Antigen Negative (NEGATIVE) Allergies: Coded Allergies: No Known Drug Allergies (Unverified , 09/17/13) Medications: Current Medications Medications (Trade) Dose Ordered Sig/Yumi Route PRN Reason Start Time Stop Time Status Last Admin Dose Admin Morphine Sulfate (Morphine Sulfate) 4 mg 1X ONCE IV 09/01/18 10:15 09/01/18 10:16 DC 09/01/18 10:19 Sodium Chloride 1,000 ml @ 1,000 mls/hr 1X ONCE IV 09/01/18 10:45 09/01/18 11:44 DC 09/01/18 10:58 Iohexol (Omnipaque 350 Mg/ml) 90 ml 1X ONCE IV 09/01/18 10:45 09/01/18 10:46 DC 09/01/18 10:42 Multi-Ingredient Mouthwash/Gargle (Gi Cocktail) 20 ml 1X ONCE SWSW 09/01/18 11:30 09/01/18 11:34 DC 09/01/18 11:49 Ketorolac Tromethamine (Toradol 15mg Vial) 15 mg 1X ONCE IV 09/01/18 11:30 09/01/18 11:34 DC 09/01/18 11:49 Sodium Chloride 1,000 ml @ 100 mls/hr Q10H IV 09/01/18 11:30 09/02/18 11:29 09/01/18 11:51 Imaging: Imaging: VQ scan 09/01/18 Impression: Very low probability for pulmonary embolism. Chest CTA, CT A/P Findings: Small hypodense nodules identified in the right and left lobes of thyroid gland with the largest measuring 1.8 cm on the right. The central airways are patent. The heart size grossly appears unremarkable. No evidence of pericardial effusion. The caliber of the aorta grossly appears unremarkable. There is not enough contrast within the pulmonary artery and its branches for evaluation of the pulmonary arteries. Minimal bibasilar lung atelectasis. Calcified granulomas identified in the right upper lobe of the lung. The visualized liver, spleen, adrenals grossly appears unremarkable. The stomach is mildly distended. The visualized pancreas demonstrates mild fatty atrophic changes. Cholecystectomy changes identified. Small bowel is nondilated. Feces and gas noted in the colon The urinary bladder is mildly distended. The bilateral kidneys enhance symmetrically. There is a hypodense structure identified in the right kidney measuring 1.3 cm. Urinary bladder is mildly distended. The caliber of the aorta grossly appears unremarkable Moderate degenerative changes visualized lumbar spine. Small fat-containing left inguinal hernia. IMPRESSION: 1. No acute intra-abdominal findings 2. Evaluation for pulmonary embolus is limited as there is not enough contrast within the pulmonary artery and its branches. 3. A 1.3 cm hypodensity identified in the right kidney which could be a intrarenal mass or cyst containing debris. Recommend follow-up nonemergent ultrasound kidneys for further evaluation. 4. Small hypodense nodules identified in the right and left lobes of thyroid gland with the largest measuring 1.8 cm on the right. Follow-up nonemergent ultrasound thyroid is recommended. BLE US Impression: No evidence of DVT the visualized bilateral lower extremity venous system. CXR IMPRESSION: No acute cardiopulmonary abnormality is detected. PE: GEN: looks a bit uncomfortable HEENT: Atraumatic, PERRL LUNGS: diminished anteriorly HEART: mild tachycardia, distant heart sounds, midchest TTP ABD: obese so exam a bit challenging, tender periumbilical area to epigastrium EXTREMITY: No edema SKIN: No rashes, no jaundice NEURO/PSYCH: A & O 3 A/P: A/P: Chest and abd pain, dizziness, n/v, diarrhea Leukocytosis, SHOSHANA, mildly elevated ALT GERD, h/o dysphagia/odynophagia (currently asymptomatic) - on PPI and H2 isela , recent EGD w/ dilation, tertiary contractions on esophagram CRC screen, h/o colon polyp - UTD (2018) S/p cholecystectomy +NSAIDs H/o A Fib and DVTs on ASA, VIOLET, DM, morbid obesity -- ?MSK ?infectious ?vertigo Agree w/ PPI and stool studies. Can use GI cocktail or viscous lidocaine PRN. Monitor LFTs, can check liver US. ?records from [facility] JULI DUTTON Sep 01, 2018 16:45
[2018-09-01] MEDS ORDERED: EMPA10TA PO (16:54)
[2018-09-01] MEDS ORDERED: MULT1TAB52 PO (16:54)
[2018-09-01] MEDS ORDERED: meloxicam (16:54)
[2018-09-01] MEDS ORDERED: PHEN37.53 PO (16:54)
[2018-09-01] MEDS: IV RINGERS,LACTATED 1000ML 1,000 ML IV SCH (17:16)
[2018-09-01] MEDS: ASPIRIN ENTERIC COATED 81 MG TABLET.DR. PO SCH (17:26)
[2018-09-01] MEDS: amLODIPine BESYLATE 10 MG TABLET PO SCH (17:26)
[2018-09-01] MEDS: PANTOPRAZOLE 40 MG TABLET.DR. PO SCH (17:26)
[2018-09-01] MEDS: INSULIN LISPRO 300 UNITS/3 ML INSULN.PEN. SQ SCH (17:29)
--- NOTE | 2018-09-01 17:58 | NUR ---
pt had several PVC's with some tachycardia. asymptomatic. pg sent to Dr. Zhang. New orders for morphine as pt is admitted with chest pain. this editorial writer inquired about cardiology consult. Not ordered at this time. Dr. Zhang will leave that up to Dr. Trotter's discretion tomorrow. IV protonix ordered but RN had already given PO. order for protonix nonadmin.
[2018-09-01] MEDS ORDERED: PANTOPRAZOLE IV PUSH 40 MG VIAL. IVP ONE (18:30)
[2018-09-01] MEDS: MORPHINE SULFATE 4 MG/ML VIAL. IV PRN ×2 (18:35→23:25)
[2018-09-01 19:00] VITALS: BP 96/58
[2018-09-01] MEDS: IPRATRPIUM/ALBUTEROL 0.5/2.5MG 3 ML NEBU. NEB SCH (19:49)
[2018-09-01] MEDS: CYCLOBENZAPRINE 10 MG TABLET. PO SCH (20:25)
[2018-09-01] MEDS: TRIAMCINOLONE ACETONIDE 0.1% TOPICAL OINTMENT 15GM TUBE. TP SCH (20:26)
[2018-09-01] MEDS ORDERED: NON FORMULARY ITEM (Ipratropium/Albuterol Sulfate (Combivent Respimat Inhal) 2 INH) IH SCH (21:00)
[2018-09-01] MEDS: HEPARIN for SUB-Q USE 5,000 UNIT/ML VIAL. SQ SCH (21:24)
[2018-09-01 23:00] VITALS: BP 110/66
[2018-09-02] VITALS (7 sets, daily range): BP systolic 105–133; BP diastolic 58–83
[2018-09-02] MEDS: LIDOCAINE 2% VISCOUS 15 ML SOLUTION. SWSW PRN ×3 (00:05→21:38)
[2018-09-02] MEDS: IV RINGERS,LACTATED 1000ML 1,000 ML IV SCH ×3 (02:57→23:34)
[2018-09-02 04:00] LABS: BASO % 0 % (0-3); EOS # 0.1 x10^3/uL (0.0-0.7); EOS % 1 % (0-3); HEMATOCRIT 40.3 % (39.0-53.0); HEMOGLOBIN 13.2 g/dL (13.0-17.5); LYMPH % 13 % (24-48); MEAN CORPUSCULAR HEMOGLOBIN 29 pg (25-35); MEAN CORPUSCULAR HGB CONC 33 g/dL (31-37); MEAN CORPUSCULAR VOLUME 89 fL (79-100); MONO # 1.4 x10^3/uL (0.0-1.1); MONO % 9 % (0-9); NEUT # 12.1 x10^3uL (1.8-7.7); NEUT % 77 % (31-73); PLATELET COUNT 228 x10^3/uL (140-400); RED BLOOD COUNT 4.51 x10^6/uL (4.30-5.70); RED CELL DISTRIBUTION WIDTH 14.8 % (11.5-14.5); WHITE BLOOD COUNT 15.7 x10^3/uL (4.0-11.0)
[2018-09-02 04:17] LABS: ALBUMIN 2.8 g/dL (3.4-5.0); CALCIUM 9.2 mg/dL (8.5-10.1); CREATININE 1.3 mg/dL (0.7-1.3); GFR 68.8; POTASSIUM 4.3 mmol/L (3.5-5.1); TOTAL BILIRUBIN 0.3 mg/dL (0.2-1.0); TOTAL PROTEIN 5.5 g/dL (6.4-8.2)
[2018-09-02] MEDS: HEPARIN for SUB-Q USE 5,000 UNIT/ML VIAL. SQ SCH ×3 (05:35→20:58)
[2018-09-02] MEDS: MORPHINE SULFATE 4 MG/ML VIAL. IV PRN ×2 (05:38→09:23)
[2018-09-02] MEDS: IPRATRPIUM/ALBUTEROL 0.5/2.5MG 3 ML NEBU. NEB SCH ×5 (07:18→20:02)
[2018-09-02] MEDS: INSULIN LISPRO 300 UNITS/3 ML INSULN.PEN. SQ SCH ×5 (08:00→17:18)
[2018-09-02] MEDS: HYDROcodone/APAP 7.5/325MG 1 TAB TABLET PO PRN (08:10)
[2018-09-02] MEDS: PANTOPRAZOLE 40 MG TABLET.DR. PO SCH (08:10)
--- NOTE | 2018-09-02 08:50 | RAD ---
Indication:elevated lfts, pain
prev ld. TECHNIQUE: Grayscale, color Doppler and spectral waveform is of the abdomen obtained. COMPARISON: CT abdomen pelvis from 09/01/2018. FINDINGS: Pancreas is not well visualized due to overlying bowel gas. Main portal vein is patent with hepatopedal flow. Liver measures 17 cm in longest dimension with diffusely increased echogenicity and decreased through transmission. CBD measures 3 mm in diameter and is within normal limits. Status post cholecystectomy. Right kidney measures 11.2 cm in length without hydronephrosis. There is a 1.7 x 1.6 x 1.7 cm hypoechoic mass in the right interpolar kidney without internal vascularity. IMPRESSION: 1. Hepatic steatosis. 2. Right renal lesion corresponding to abnormality seen on the same day CT. The hyperechoic nature of these lesion suggests internal fat contents however no fat density was appreciated on the CT abdomen pelvis. Differential diagnoses includes atypical angiomyolipoma, complicated cyst or solid renal neoplasm. Either a triple phase CT abdomen with renal mass protocol or MRI abdomen with IV contrast is recommended for further evaluation. Electronically signed by: Otis Weiss DO (09/02/2018 8:47 AM) [facility]
--- NOTE | 2018-09-02 08:51 | RAD ---
Indication: Mass seen on the right kidney. TECHNIQUE: Ultrasound of the kidneys COMPARISON: CT from same day FINDINGS: Suboptimal evaluation of kidneys. The right kidney measures 12.5 x 5.5 x 5.8 cm (longitudinal, AP, transverse) without hydronephrosis. The prevoid bladder volume of 228 cc. The left kidney measures 10.7 x 6.3 x 6.4 cm without hydronephrosis. No mass is seen in the right kidney although technique is suboptimal. IMPRESSION: Suboptimal visualization of right renal lesion seen on CT. MRI of the abdomen with IV contrast is recommended for further evaluation. Electronically signed by: Otis Weiss DO (09/02/2018 8:49 AM) [facility]
[2018-09-02] MEDS: amLODIPine BESYLATE 10 MG TABLET PO SCH (09:17)
[2018-09-02] MEDS: ASPIRIN ENTERIC COATED 81 MG TABLET.DR. PO SCH (09:17)
[2018-09-02] MEDS: TRIAMCINOLONE ACETONIDE 0.1% TOPICAL OINTMENT 15GM TUBE. TP SCH ×2 (09:18→10:02)
[2018-09-02] MEDS: FLUTICASONE 50MCG/NASAL SPRAY 16GM BOTTLE. NS SCH (10:02)
--- NOTE | 2018-09-02 12:59 | PDOC ---
PROGRESS NOTES Chief Complaint Chief Complaint Chest pain - esophageal w/ GERD and esophageal dilation. I Abdominal pain - with diarrhea - viral gastroenteritis, SIRS - meets sepsis criteria with Leukocytosis, tachycardia and viral gastroenteritis as likely source, vasomotor nephropathy, cont IV fluid Elevated ALT - A Fib and DVTs - on ASA VIOLET - mrobid obesity, BMI 56. DM - well managed on GLP-1, SGLT-2, metformin, sulfonylurea and insulin. History of Present Illness History of Present Illness some dyspnea, some weakness, diarrhea better stool shows white cells, no cx, Vitals Vitals Vital Signs Date Time Temp Pulse Resp B/P (MAP) Pulse Ox O2 Delivery O2 Flow Rate FiO2 09/02/18 12:32 97.4 96 17 133/83 (100) 96 Nasal Cannula 2.0 97.4 Physical Exam General: Alert, Oriented X3, Cooperative, No acute distress Lungs: Clear Abdomen: Normal bowel sounds, Soft, Other (diffuse mild tenderness) Extremities: No clubbing, No cyanosis, No edema, Normal pulses, No tenderness/ swelling Skin: No rashes, No breakdown, No significant lesion Labs LABS Laboratory Tests Test 09/01/18 14:30 09/01/18 16:28 09/01/18 17:45 09/01/18 17:46 Troponin I Quantitative < 0.017 ng/mL (0.000-0.055) < 0.017 ng/mL (0.000-0.055) Glucose (Fingerstick) 197 mg/dL (70-99) Thyroid Stimulating Hormone (TSH) 0.785 uIU/mL (0.358-3.74) Hepatitis A IgM Antibody Nonreactive (Nonreactive) Hepatitis B Surface Antigen Nonreactive (Nonreactive) Hepatitis B Core IgM Antibody Nonreactive (Nonreactive) Hepatitis C IgG Antibody Nonreactive (Nonreactive) Test 09/01/18 20:35 09/02/18 03:10 09/02/18 11:00 Glucose (Fingerstick) 170 mg/dL (70-99) 267 mg/dL (70-99) White Blood Count 15.7 x10^3/uL (4.0-11.0) Red Blood Count 4.51 x10^6/uL (4.30-5.70) Hemoglobin 13.2 g/dL (13.0-17.5) Hematocrit 40.3 % (39.0-53.0) Mean Corpuscular Volume 89 fL (79-100) Mean Corpuscular Hemoglobin 29 pg (25-35) Mean Corpuscular Hemoglobin Concent 33 g/dL (31-37) Red Cell Distribution Width 14.8 % (11.5-14.5) Platelet Count 228 x10^3/uL (140-400) Neutrophils (%) (Auto) 77 % (31-73) Lymphocytes (%) (Auto) 13 % (24-48) Monocytes (%) (Auto) 9 % (0-9) Eosinophils (%) (Auto) 1 % (0-3) Basophils (%) (Auto) 0 % (0-3) Neutrophils # (Auto) 12.1 x10^3uL (1.8-7.7) Lymphocytes # (Auto) 2.0 x10^3/uL (1.0-4.8) Monocytes # (Auto) 1.4 x10^3/uL (0.0-1.1) Eosinophils # (Auto) 0.1 x10^3/uL (0.0-0.7) Basophils # (Auto) 0.0 x10^3/uL (0.0-0.2) Sodium Level 135 mmol/L (136-145) Potassium Level 4.3 mmol/L (3.5-5.1) Chloride Level 98 mmol/L (98-107) Carbon Dioxide Level 27 mmol/L (21-32) Anion Gap 10 (6-14) Blood Urea Nitrogen 34 mg/dL (8-26) Creatinine 1.3 mg/dL (0.7-1.3) Estimated GFR (Cockcroft-Gault) 68.8 BUN/Creatinine Ratio 26 (6-20) Glucose Level 158 mg/dL (70-99) Calcium Level 9.2 mg/dL (8.5-10.1) Total Bilirubin 0.3 mg/dL (0.2-1.0) Aspartate Amino Transf (AST/SGOT) 14 U/L (15-37) Alanine Aminotransferase (ALT/SGPT) 53 U/L (16-63) Alkaline Phosphatase 61 U/L (46-116) Total Protein 5.5 g/dL (6.4-8.2) Albumin 2.8 g/dL (3.4-5.0) Albumin/Globulin Ratio 1.0 (1.0-1.7) Review of Systems Review of Systems loose stool, no n..v no fever Comment Review of Relevant I have reviewed the following items brigette (where applicable) has been applied. Labs Laboratory Tests Test 09/01/18 10:10 09/01/18 12:00 09/01/18 12:04 09/01/18 14:30 White Blood Count 18.5 x10^3/uL (4.0-11.0) Red Blood Count 5.02 x10^6/uL (4.30-5.70) Hemoglobin 14.5 g/dL (13.0-17.5) Hematocrit 44.7 % (39.0-53.0) Mean Corpuscular Volume 89 fL (79-100) Mean Corpuscular Hemoglobin 29 pg (25-35) Mean Corpuscular Hemoglobin Concent 32 g/dL (31-37) Red Cell Distribution Width 14.9 % (11.5-14.5) Platelet Count 262 x10^3/uL (140-400) Neutrophils (%) (Auto) 82 % (31-73) Lymphocytes (%) (Auto) 9 % (24-48) Monocytes (%) (Auto) 8 % (0-9) Eosinophils (%) (Auto) 1 % (0-3) Basophils (%) (Auto) 0 % (0-3) Neutrophils # (Auto) 15.1 x10^3uL (1.8-7.7) Lymphocytes # (Auto) 1.7 x10^3/uL (1.0-4.8) Monocytes # (Auto) 1.5 x10^3/uL (0.0-1.1) Eosinophils # (Auto) 0.1 x10^3/uL (0.0-0.7) Basophils # (Auto) 0.1 x10^3/uL (0.0-0.2) Prothrombin Time 12.9 SEC (11.7-14.0) Prothromb Time International Ratio 1.0 (0.8-1.1) Sodium Level 135 mmol/L (136-145) Potassium Level 4.5 mmol/L (3.5-5.1) Chloride Level 96 mmol/L (98-107) Carbon Dioxide Level 29 mmol/L (21-32) Anion Gap 10 (6-14) Blood Urea Nitrogen 47 mg/dL (8-26) Creatinine 1.7 mg/dL (0.7-1.3) Estimated GFR (Cockcroft-Gault) 50.5 BUN/Creatinine Ratio 28 (6-20) Glucose Level 165 mg/dL (70-99) Calcium Level 9.9 mg/dL (8.5-10.1) Total Bilirubin 0.3 mg/dL (0.2-1.0) Aspartate Amino Transf (AST/SGOT) 18 U/L (15-37) Alanine Aminotransferase (ALT/SGPT) 68 U/L (16-63) Alkaline Phosphatase 72 U/L (46-116) Troponin I Quantitative < 0.017 ng/mL (0.000-0.055) < 0.017 ng/mL (0.000-0.055) Total Protein 6.4 g/dL (6.4-8.2) Albumin 3.2 g/dL (3.4-5.0) Albumin/Globulin Ratio 1.0 (1.0-1.7) Lipase 87 U/L (73-393) Urine Collection Type Void Urine Color Yellow Urine Clarity Clear Urine pH 6.0 Urine Specific [place] >=1.030 Urine Protein Negative mg/dL (NEG-TRACE) Urine Glucose (UA) >=1000 mg/dL (NEG) Urine Ketones (Stick) Negative mg/dL (NEG) Urine Blood Negative (NEG) Urine Nitrite Negative (NEG) Urine Bilirubin Negative (NEG) Urine Urobilinogen Dipstick 0.2 mg/dL (0.2 mg/dL) Urine Leukocyte Esterase Negative (NEG) Urine RBC Rare /HPF (0-2) Urine WBC Rare /HPF (0-4) Urine Squamous Epithelial Cells None /LPF Urine Bacteria Few /HPF (0-FEW) Influenza Type A Antigen Negative (NEGATIVE) Influenza Type B Antigen Negative (NEGATIVE) Test 09/01/18 16:28 09/01/18 17:45 09/01/18 17:46 09/01/18 20:35 Glucose (Fingerstick) 197 mg/dL (70-99) 170 mg/dL (70-99) Thyroid Stimulating Hormone (TSH) 0.785 uIU/mL (0.358-3.74) Troponin I Quantitative < 0.017 ng/mL (0.000-0.055) Hepatitis A IgM Antibody Nonreactive (Nonreactive) Hepatitis B Surface Antigen Nonreactive (Nonreactive) Hepatitis B Core IgM Antibody Nonreactive (Nonreactive) Hepatitis C IgG Antibody Nonreactive (Nonreactive) Test 09/02/18 03:10 09/02/18 11:00 White Blood Count 15.7 x10^3/uL (4.0-11.0) Red Blood Count 4.51 x10^6/uL (4.30-5.70) Hemoglobin 13.2 g/dL (13.0-17.5) Hematocrit 40.3 % (39.0-53.0) Mean Corpuscular Volume 89 fL (79-100) Mean Corpuscular Hemoglobin 29 pg (25-35) Mean Corpuscular Hemoglobin Concent 33 g/dL (31-37) Red Cell Distribution Width 14.8 % (11.5-14.5) Platelet Count 228 x10^3/uL (140-400) Neutrophils (%) (Auto) 77 % (31-73) Lymphocytes (%) (Auto) 13 % (24-48) Monocytes (%) (Auto) 9 % (0-9) Eosinophils (%) (Auto) 1 % (0-3) Basophils (%) (Auto) 0 % (0-3) Neutrophils # (Auto) 12.1 x10^3uL (1.8-7.7) Lymphocytes # (Auto) 2.0 x10^3/uL (1.0-4.8) Monocytes # (Auto) 1.4 x10^3/uL (0.0-1.1) Eosinophils # (Auto) 0.1 x10^3/uL (0.0-0.7) Basophils # (Auto) 0.0 x10^3/uL (0.0-0.2) Sodium Level 135 mmol/L (136-145) Potassium Level 4.3 mmol/L (3.5-5.1) Chloride Level 98 mmol/L (98-107) Carbon Dioxide Level 27 mmol/L (21-32) Anion Gap 10 (6-14) Blood Urea Nitrogen 34 mg/dL (8-26) Creatinine 1.3 mg/dL (0.7-1.3) Estimated GFR (Cockcroft-Gault) 68.8 BUN/Creatinine Ratio 26 (6-20) Glucose Level 158 mg/dL (70-99) Calcium Level 9.2 mg/dL (8.5-10.1) Total Bilirubin 0.3 mg/dL (0.2-1.0) Aspartate Amino Transf (AST/SGOT) 14 U/L (15-37) Alanine Aminotransferase (ALT/SGPT) 53 U/L (16-63) Alkaline Phosphatase 61 U/L (46-116) Total Protein 5.5 g/dL (6.4-8.2) Albumin 2.8 g/dL (3.4-5.0) Albumin/Globulin Ratio 1.0 (1.0-1.7) Glucose (Fingerstick) 267 mg/dL (70-99) Laboratory Tests Test 09/01/18 14:30 09/01/18 16:28 09/01/18 17:45 09/01/18 17:46 Troponin I Quantitative < 0.017 ng/mL (0.000-0.055) < 0.017 ng/mL (0.000-0.055) Glucose (Fingerstick) 197 mg/dL (70-99) Thyroid Stimulating Hormone (TSH) 0.785 uIU/mL (0.358-3.74) Hepatitis A IgM Antibody Nonreactive (Nonreactive) Hepatitis B Surface Antigen Nonreactive (Nonreactive) Hepatitis B Core IgM Antibody Nonreactive (Nonreactive) Hepatitis C IgG Antibody Nonreactive (Nonreactive) Test 09/01/18 20:35 09/02/18 03:10 09/02/18 11:00 Glucose (Fingerstick) 170 mg/dL (70-99) 267 mg/dL (70-99) White Blood Count 15.7 x10^3/uL (4.0-11.0) Red Blood Count 4.51 x10^6/uL (4.30-5.70) Hemoglobin 13.2 g/dL (13.0-17.5) Hematocrit 40.3 % (39.0-53.0) Mean Corpuscular Volume 89 fL (79-100) Mean Corpuscular Hemoglobin 29 pg (25-35) Mean Corpuscular Hemoglobin Concent 33 g/dL (31-37) Red Cell Distribution Width 14.8 % (11.5-14.5) Platelet Count 228 x10^3/uL (140-400) Neutrophils (%) (Auto) 77 % (31-73) Lymphocytes (%) (Auto) 13 % (24-48) Monocytes (%) (Auto) 9 % (0-9) Eosinophils (%) (Auto) 1 % (0-3) Basophils (%) (Auto) 0 % (0-3) Neutrophils # (Auto) 12.1 x10^3uL (1.8-7.7) Lymphocytes # (Auto) 2.0 x10^3/uL (1.0-4.8) Monocytes # (Auto) 1.4 x10^3/uL (0.0-1.1) Eosinophils # (Auto) 0.1 x10^3/uL (0.0-0.7) Basophils # (Auto) 0.0 x10^3/uL (0.0-0.2) Sodium Level 135 mmol/L (136-145) Potassium Level 4.3 mmol/L (3.5-5.1) Chloride Level 98 mmol/L (98-107) Carbon Dioxide Level 27 mmol/L (21-32) Anion Gap 10 (6-14) Blood Urea Nitrogen 34 mg/dL (8-26) Creatinine 1.3 mg/dL (0.7-1.3) Estimated GFR (Cockcroft-Gault) 68.8 BUN/Creatinine Ratio 26 (6-20) Glucose Level 158 mg/dL (70-99) Calcium Level 9.2 mg/dL (8.5-10.1) Total Bilirubin 0.3 mg/dL (0.2-1.0) Aspartate Amino Transf (AST/SGOT) 14 U/L (15-37) Alanine Aminotransferase (ALT/SGPT) 53 U/L (16-63) Alkaline Phosphatase 61 U/L (46-116) Total Protein 5.5 g/dL (6.4-8.2) Albumin 2.8 g/dL (3.4-5.0) Albumin/Globulin Ratio 1.0 (1.0-1.7) Microbiology 09/01/18 Fecal Leukocyte Stain - Final, Complete Medications Current Medications Morphine Sulfate (Morphine Sulfate) 4 mg 1X ONCE IV Last administered on at 10:19; Start 09/01/18 at 10:15; Stop 09/01/18 at 10:16; Status DC Sodium Chloride 1,000 ml @ 1,000 mls/hr 1X ONCE IV Last administered on 10:58; Start 09/01/18 at 10:45; Stop 09/01/18 at 11:44; Status DC Iohexol (Omnipaque 350 Mg/ml) 90 ml 1X ONCE IV Last administered on 09/01/18at 10:42; Start 09/01/18 at 10:45; Stop 09/01/18 at 10:46; Status DC Info (CONTRAST GIVEN -- Rx MONITORING) 1 each PRN DAILY PRN MC SEE COMMENTS; Start 09/01/18 at 10:45; Stop 09/03/18 at 10:44 Multi-Ingredient Mouthwash/Gargle (Gi Cocktail) 20 ml 1X ONCE SWSW Last administered on 09/01/18at 11:49; Start 09/01/18 at 11:30; Stop 09/01/18 at 11:34 ; Status DC Ketorolac Tromethamine (Toradol 15mg Vial) 15 mg 1X ONCE IV Last administered on 09/01/18at 11:49; Start 09/01/18 at 11:30; Stop 09/01/18 at 11:34; Status DC Sodium Chloride 1,000 ml @ 100 mls/hr Q10H IV Last administered on 09/01/18at 11:51; Start 09/01/18 at 11:30; Stop 09/01/18 at 17:48; Status DC Albuterol Sulfate (Ventolin Neb Soln) 2.5 mg PRN Q4HRS PRN INH SHORTNESS OF BREATH; Start 09/01/18 at 15:45 Amlodipine Besylate (Norvasc) 10 mg DAILY PO Last administered on 09/02/18 09: 17; Start 09/01/18 at 17:00 Aspirin (Ecotrin) 81 mg DAILY PO Last administered on 09/02/18 09:17; Start at 17:00 Cyclobenzaprine HCl (Flexeril) 10 mg QHS PO Last administered on 09/01/18 20: 25; Start 09/01/18 at 21:00 Fluticasone Propionate (Flonase) 1 spray DAILY NS Last administered on 10:02; Start 09/02/18 at 09:00 Acetaminophen/ Hydrocodone Bitart (Lortab 7.5/325) 1 tab PRN TID PRN PO PAIN Last administered on 09/02/18 08:10; Start 09/01/18 at 15:45 Pantoprazole Sodium (Protonix) 40 mg DAILYAC PO Last administered on 09/02/18 08:10; Start 09/01/18 at 17:00 Triamcinolone Acetonide (Kenalog) 1 heriberto BID TP Last administered on 09/02/18at 10:02; Start 09/01/18 at 21:00 Non-Formulary Medication (Ipratropium/ Albuterol Sulfate (Combivent Respimat Inhal)) 2 inh BID IH ; Start 09/01/18 at 21:00; Status UNV Ringer's Solution 1,000 ml @ 100 mls/hr Q10H IV Last administered on at 02:57; Start 09/01/18 at 15:36 Ondansetron HCl (Zofran) 4 mg PRN Q6HRS PRN IV NAUSEA/VOMITING; Start 09/01/18 at 15:45 Acetaminophen (Tylenol) 650 mg PRN Q6HRS PRN PO Headaches, Temp > 101.5F; Start 09/01/18 at 15:45 Lactulose (Lactulose) 20 gm PRN Q12HR PRN PO CONSTIPATION; Start 09/01/18 at 15 :45 Heparin Sodium (Porcine) (Heparin Sodium) 5,000 unit Q8HRS SQ Last administered on 09/02/18at 05:35; Start 09/01/18 at 22:00 Insulin Human Lispro (HumaLOG) 0-7 UNITS TIDWMEALS SQ Last administered on 09/02at 12:05; Start 09/01/18 at 17:00 Dextrose (Dextrose 50%-Water Syringe) 12.5 gm PRN Q15MIN PRN IV SEE COMMENTS; Start 09/01/18 at 15:45 Albuterol/ Ipratropium (Duoneb) 3 ml RTBID NEB Last administered on 09/02/18at 07:18; Start 09/01/18 at 20:00; Stop 09/02/18 at 07:34; Status DC Lidocaine HCl (Viscous Lidocaine) 15 ml PRN Q4HRS PRN SWSW chest/abd pain Last administered on 09/02/18at 10:57; Start 09/01/18 at 16:45 Pantoprazole Sodium (PROTONIX VIAL for IV PUSH) 40 mg 1X ONCE IVP ; Start 09/01 at 18:30; Stop 09/01/18 at 18:31; Status DC Morphine Sulfate (Morphine Sulfate) 2 mg PRN Q3HRS PRN IV PAIN Last administered on 09/02/18at 09:23; Start 09/01/18 at 18:00 Albuterol/ Ipratropium (Duoneb) 3 ml RTQID NEB ; Start 09/02/18 at 08:00 Insulin Human Lispro (HumaLOG) 8 units TIDWMEALS SQ Last administered on at 12:06; Start 09/02/18 at 12:00 Active Scripts Active Reported Jardiance (Empagliflozin) 10 Mg Tablet 10 Mg PO DAILY Phentermine Hcl 37.5 Mg Capsule 1 Cap PO DAILYWBKFT 30 Days Multivitamins (Multivitamin) 1 Each Tablet 1 Tab PO DAILY 30 Days [meloxicam] Glimepiride 2 Mg Tablet 2 Mg PO BID 30 Days Proair Hfa Inhaler (Albuterol Sulfate) 8.5 Gm Hfa.aer.ad 1 Puff INH PRN Q4HRS PRN Hydrocodone-Apap 7.5-325 (Hydrocodone Bit/Acetaminophen) 1 Each Tablet 1 Tab PO PRN TID PRN Combivent Respimat Inhal (Ipratropium/Albuterol Sulfate) 4 Gm Aer.w.adap 2 Inh IH BID Triamcinolone Acetonide 0.1% Oint (Triamcinolone Acetonide) 15 Gm Oint...g. 1 Heriberto TP BID MIX WITH EUCERIN DIRECTED BY PHYSICIAN Manny Pen (Exenatide Microspheres) 2 Mg/0.65 Ml Pen.injctr 2 Mg SQ WEEKLY Indapamide 1.25 Mg Tablet 1 Tab PO DAILY Cyclobenzaprine Hcl 10 Mg Tablet 1 Tab PO QHS Aspir 81 (Aspirin) 81 Mg Tablet.dr 81 Mg PO DAILY Celebrex (Celecoxib) 200 Mg Capsule 200 Mg PO DAILY Pantoprazole Sodium 40 Mg Tablet.dr 40 Mg PO DAILY Flonase (Fluticasone Propionate) 16 Gm [place].susp 16 Gm NS DAILY Diovan (Valsartan) 320 Mg Tablet 320 Mg PO DAILY Norvasc (Amlodipine Besylate) 10 Mg Tablet 10 Mg PO DAILY Metformin Hcl Er (Metformin Hcl) 1,000 Mg Tab.er.24 500 Mg PO DAILY 30 Days Vitals/I & O Vital Sign - Last 24 Hours 09/01/18 09/01/18 09/01/18 09/01/18 15:00 15:00 17:26 18:35 Temp 98.6 98.6 Pulse 103 103 Resp 16 18 B/P (MAP) 119/99 (106) 119/99 Pulse Ox 99 O2 Delivery Room Air Room Air Room Air 09/01/18 09/01/18 09/01/18 09/01/18 19:00 19:26 19:54 23:00 Temp 98.5 97.8 98.5 97.8 Pulse 87 81 Resp 18 18 B/P (MAP) 96/58 (71) 110/66 (81) Pulse Ox 94 98 97 O2 Delivery Room Air Room Air Room Air Room Air 09/01/18 09/02/18 09/02/18 09/02/18 23:25 02:55 05:38 07:00 Temp 97.7 97.4 97.7 97.4 Pulse 82 107 Resp 18 18 B/P (MAP) 123/66 (85) 131/76 (94) Pulse Ox 97 96 96 97 O2 Delivery Nasal Cannula Nasal Cannula Nasal Cannula Nasal Cannula O2 Flow Rate 2.0 2.0 2.0 2.0 09/02/18 09/02/18 09/02/18 09/02/18 07:19 07:50 08:10 09:17 Pulse 107 B/P (MAP) 131/76 Pulse Ox 97 97 O2 Delivery Nasal Cannula Nasal Cannula Nasal Cannula O2 Flow Rate 2.0 2.0 2.0 09/02/18 09/02/18 09/02/18 09/02/18 09:23 09:53 09:53 12:32 Temp 97.4 97.4 Pulse 96 Resp 17 17 B/P (MAP) 133/83 (100) Pulse Ox 97 97 96 O2 Delivery Nasal Cannula Nasal Cannula Nasal Cannula Nasal Cannula O2 Flow Rate 2.0 2.0 2.0 2.0 Intake and Output 09/01/18 09/01/18 09/02/18 15:00 23:00 07:00 Intake Total 1000 ml 780 ml 360 ml Balance 1000 ml 780 ml 360 ml MAY FOLEY MD Sep 02, 2018 12:59
--- NOTE | 2018-09-02 13:22 | PDOC ---
G I PROGRESS NOTE Subjective Still some upper abdominal discomfort. Diarrhea better. Physical Exam Lungs clear. RRR Abdomen soft, mild diffuse tenderness. Review of Relevant I have reviewed the following items brigette (where applicable) has been applied. Labs Laboratory Tests Test 09/01/18 10:10 09/01/18 12:00 09/01/18 12:04 09/01/18 14:30 White Blood Count 18.5 x10^3/uL (4.0-11.0) Red Blood Count 5.02 x10^6/uL (4.30-5.70) Hemoglobin 14.5 g/dL (13.0-17.5) Hematocrit 44.7 % (39.0-53.0) Mean Corpuscular Volume 89 fL (79-100) Mean Corpuscular Hemoglobin 29 pg (25-35) Mean Corpuscular Hemoglobin Concent 32 g/dL (31-37) Red Cell Distribution Width 14.9 % (11.5-14.5) Platelet Count 262 x10^3/uL (140-400) Neutrophils (%) (Auto) 82 % (31-73) Lymphocytes (%) (Auto) 9 % (24-48) Monocytes (%) (Auto) 8 % (0-9) Eosinophils (%) (Auto) 1 % (0-3) Basophils (%) (Auto) 0 % (0-3) Neutrophils # (Auto) 15.1 x10^3uL (1.8-7.7) Lymphocytes # (Auto) 1.7 x10^3/uL (1.0-4.8) Monocytes # (Auto) 1.5 x10^3/uL (0.0-1.1) Eosinophils # (Auto) 0.1 x10^3/uL (0.0-0.7) Basophils # (Auto) 0.1 x10^3/uL (0.0-0.2) Prothrombin Time 12.9 SEC (11.7-14.0) Prothromb Time International Ratio 1.0 (0.8-1.1) Sodium Level 135 mmol/L (136-145) Potassium Level 4.5 mmol/L (3.5-5.1) Chloride Level 96 mmol/L (98-107) Carbon Dioxide Level 29 mmol/L (21-32) Anion Gap 10 (6-14) Blood Urea Nitrogen 47 mg/dL (8-26) Creatinine 1.7 mg/dL (0.7-1.3) Estimated GFR (Cockcroft-Gault) 50.5 BUN/Creatinine Ratio 28 (6-20) Glucose Level 165 mg/dL (70-99) Calcium Level 9.9 mg/dL (8.5-10.1) Total Bilirubin 0.3 mg/dL (0.2-1.0) Aspartate Amino Transf (AST/SGOT) 18 U/L (15-37) Alanine Aminotransferase (ALT/SGPT) 68 U/L (16-63) Alkaline Phosphatase 72 U/L (46-116) Troponin I Quantitative < 0.017 ng/mL (0.000-0.055) < 0.017 ng/mL (0.000-0.055) Total Protein 6.4 g/dL (6.4-8.2) Albumin 3.2 g/dL (3.4-5.0) Albumin/Globulin Ratio 1.0 (1.0-1.7) Lipase 87 U/L (73-393) Urine Collection Type Void Urine Color Yellow Urine Clarity Clear Urine pH 6.0 Urine Specific [place] >=1.030 Urine Protein Negative mg/dL (NEG-TRACE) Urine Glucose (UA) >=1000 mg/dL (NEG) Urine Ketones (Stick) Negative mg/dL (NEG) Urine Blood Negative (NEG) Urine Nitrite Negative (NEG) Urine Bilirubin Negative (NEG) Urine Urobilinogen Dipstick 0.2 mg/dL (0.2 mg/dL) Urine Leukocyte Esterase Negative (NEG) Urine RBC Rare /HPF (0-2) Urine WBC Rare /HPF (0-4) Urine Squamous Epithelial Cells None /LPF Urine Bacteria Few /HPF (0-FEW) Influenza Type A Antigen Negative (NEGATIVE) Influenza Type B Antigen Negative (NEGATIVE) Test 09/01/18 16:28 09/01/18 17:45 09/01/18 17:46 09/01/18 20:35 Glucose (Fingerstick) 197 mg/dL (70-99) 170 mg/dL (70-99) Thyroid Stimulating Hormone (TSH) 0.785 uIU/mL (0.358-3.74) Troponin I Quantitative < 0.017 ng/mL (0.000-0.055) Hepatitis A IgM Antibody Nonreactive (Nonreactive) Hepatitis B Surface Antigen Nonreactive (Nonreactive) Hepatitis B Core IgM Antibody Nonreactive (Nonreactive) Hepatitis C IgG Antibody Nonreactive (Nonreactive) Test 09/02/18 03:10 09/02/18 11:00 White Blood Count 15.7 x10^3/uL (4.0-11.0) Red Blood Count 4.51 x10^6/uL (4.30-5.70) Hemoglobin 13.2 g/dL (13.0-17.5) Hematocrit 40.3 % (39.0-53.0) Mean Corpuscular Volume 89 fL (79-100) Mean Corpuscular Hemoglobin 29 pg (25-35) Mean Corpuscular Hemoglobin Concent 33 g/dL (31-37) Red Cell Distribution Width 14.8 % (11.5-14.5) Platelet Count 228 x10^3/uL (140-400) Neutrophils (%) (Auto) 77 % (31-73) Lymphocytes (%) (Auto) 13 % (24-48) Monocytes (%) (Auto) 9 % (0-9) Eosinophils (%) (Auto) 1 % (0-3) Basophils (%) (Auto) 0 % (0-3) Neutrophils # (Auto) 12.1 x10^3uL (1.8-7.7) Lymphocytes # (Auto) 2.0 x10^3/uL (1.0-4.8) Monocytes # (Auto) 1.4 x10^3/uL (0.0-1.1) Eosinophils # (Auto) 0.1 x10^3/uL (0.0-0.7) Basophils # (Auto) 0.0 x10^3/uL (0.0-0.2) Sodium Level 135 mmol/L (136-145) Potassium Level 4.3 mmol/L (3.5-5.1) Chloride Level 98 mmol/L (98-107) Carbon Dioxide Level 27 mmol/L (21-32) Anion Gap 10 (6-14) Blood Urea Nitrogen 34 mg/dL (8-26) Creatinine 1.3 mg/dL (0.7-1.3) Estimated GFR (Cockcroft-Gault) 68.8 BUN/Creatinine Ratio 26 (6-20) Glucose Level 158 mg/dL (70-99) Calcium Level 9.2 mg/dL (8.5-10.1) Total Bilirubin 0.3 mg/dL (0.2-1.0) Aspartate Amino Transf (AST/SGOT) 14 U/L (15-37) Alanine Aminotransferase (ALT/SGPT) 53 U/L (16-63) Alkaline Phosphatase 61 U/L (46-116) Total Protein 5.5 g/dL (6.4-8.2) Albumin 2.8 g/dL (3.4-5.0) Albumin/Globulin Ratio 1.0 (1.0-1.7) Glucose (Fingerstick) 267 mg/dL (70-99) Laboratory Tests Test 09/01/18 14:30 09/01/18 16:28 09/01/18 17:45 09/01/18 17:46 Troponin I Quantitative < 0.017 ng/mL (0.000-0.055) < 0.017 ng/mL (0.000-0.055) Glucose (Fingerstick) 197 mg/dL (70-99) Thyroid Stimulating Hormone (TSH) 0.785 uIU/mL (0.358-3.74) Hepatitis A IgM Antibody Nonreactive (Nonreactive) Hepatitis B Surface Antigen Nonreactive (Nonreactive) Hepatitis B Core IgM Antibody Nonreactive (Nonreactive) Hepatitis C IgG Antibody Nonreactive (Nonreactive) Test 09/01/18 20:35 09/02/18 03:10 09/02/18 11:00 Glucose (Fingerstick) 170 mg/dL (70-99) 267 mg/dL (70-99) White Blood Count 15.7 x10^3/uL (4.0-11.0) Red Blood Count 4.51 x10^6/uL (4.30-5.70) Hemoglobin 13.2 g/dL (13.0-17.5) Hematocrit 40.3 % (39.0-53.0) Mean Corpuscular Volume 89 fL (79-100) Mean Corpuscular Hemoglobin 29 pg (25-35) Mean Corpuscular Hemoglobin Concent 33 g/dL (31-37) Red Cell Distribution Width 14.8 % (11.5-14.5) Platelet Count 228 x10^3/uL (140-400) Neutrophils (%) (Auto) 77 % (31-73) Lymphocytes (%) (Auto) 13 % (24-48) Monocytes (%) (Auto) 9 % (0-9) Eosinophils (%) (Auto) 1 % (0-3) Basophils (%) (Auto) 0 % (0-3) Neutrophils # (Auto) 12.1 x10^3uL (1.8-7.7) Lymphocytes # (Auto) 2.0 x10^3/uL (1.0-4.8) Monocytes # (Auto) 1.4 x10^3/uL (0.0-1.1) Eosinophils # (Auto) 0.1 x10^3/uL (0.0-0.7) Basophils # (Auto) 0.0 x10^3/uL (0.0-0.2) Sodium Level 135 mmol/L (136-145) Potassium Level 4.3 mmol/L (3.5-5.1) Chloride Level 98 mmol/L (98-107) Carbon Dioxide Level 27 mmol/L (21-32) Anion Gap 10 (6-14) Blood Urea Nitrogen 34 mg/dL (8-26) Creatinine 1.3 mg/dL (0.7-1.3) Estimated GFR (Cockcroft-Gault) 68.8 BUN/Creatinine Ratio 26 (6-20) Glucose Level 158 mg/dL (70-99) Calcium Level 9.2 mg/dL (8.5-10.1) Total Bilirubin 0.3 mg/dL (0.2-1.0) Aspartate Amino Transf (AST/SGOT) 14 U/L (15-37) Alanine Aminotransferase (ALT/SGPT) 53 U/L (16-63) Alkaline Phosphatase 61 U/L (46-116) Total Protein 5.5 g/dL (6.4-8.2) Albumin 2.8 g/dL (3.4-5.0) Albumin/Globulin Ratio 1.0 (1.0-1.7) Microbiology 09/01/18 Fecal Leukocyte Stain - Final, Complete: Procedure Result FECAL WBC,GRAM STAIN Final WBCS OCCASIONAL Vitals/I & O Vital Sign - Last 24 Hours 09/01/18 09/01/18 09/01/18 09/01/18 15:00 15:00 17:26 18:35 Temp 98.6 98.6 Pulse 103 103 Resp 16 18 B/P (MAP) 119/99 (106) 119/99 Pulse Ox 99 O2 Delivery Room Air Room Air Room Air 09/01/18 09/01/18 09/01/18 09/01/18 19:00 19:26 19:54 23:00 Temp 98.5 97.8 98.5 97.8 Pulse 87 81 Resp 18 18 B/P (MAP) 96/58 (71) 110/66 (81) Pulse Ox 94 98 97 O2 Delivery Room Air Room Air Room Air Room Air 09/01/18 09/02/18 09/02/18 09/02/18 23:25 02:55 05:38 07:00 Temp 97.7 97.4 97.7 97.4 Pulse 82 107 Resp 18 18 B/P (MAP) 123/66 (85) 131/76 (94) Pulse Ox 97 96 96 97 O2 Delivery Nasal Cannula Nasal Cannula Nasal Cannula Nasal Cannula O2 Flow Rate 2.0 2.0 2.0 2.0 09/02/18 09/02/18 09/02/18 09/02/18 07:19 07:50 08:10 09:17 Pulse 107 B/P (MAP) 131/76 Pulse Ox 97 97 O2 Delivery Nasal Cannula Nasal Cannula Nasal Cannula O2 Flow Rate 2.0 2.0 2.0 09/02/18 09/02/18 09/02/18 09/02/18 09:23 09:53 09:53 12:32 Temp 97.4 97.4 Pulse 96 Resp 17 17 B/P (MAP) 133/83 (100) Pulse Ox 97 97 96 O2 Delivery Nasal Cannula Nasal Cannula Nasal Cannula Nasal Cannula O2 Flow Rate 2.0 2.0 2.0 2.0 Intake and Output 09/01/18 09/01/18 09/02/18 14:59 22:59 06:59 Intake Total 1000 ml 780 ml 360 ml Balance 1000 ml 780 ml 360 ml Assessment Likely infectious syndrome, likely viral. Plan of Care Note Continue general support, symptomatic treatment. PIERO WALDEN MD Sep 02, 2018 13:22
[2018-09-02] MEDS: VANCOMYCIN 125 MG/2.5 ML ORAL SOLUTION. PO SCH ×2 (15:27→20:54)
[2018-09-02] MEDS: CYCLOBENZAPRINE 10 MG TABLET. PO SCH (20:54)
[2018-09-03 03:00] VITALS: BP 104/74
[2018-09-03] MEDS: HYDROcodone/APAP 7.5/325MG 1 TAB TABLET PO PRN ×2 (03:56→13:55)
[2018-09-03] MEDS: ALBUTEROL SULFATE 2.5 MG/3 ML NEBU. INH PRN (04:11)
[2018-09-03] MEDS: HEPARIN for SUB-Q USE 5,000 UNIT/ML VIAL. SQ SCH ×3 (05:50→22:13)
[2018-09-03 07:00] VITALS: BP 116/81
[2018-09-03] MEDS: PANTOPRAZOLE 40 MG TABLET.DR. PO SCH (07:26)
--- NOTE | 2018-09-03 07:48 | PDOC ---
PROGRESS NOTES Chief Complaint Chief Complaint Chest pain - esophageal w/ GERD and esophageal dilation. C. difficile infection - with Abdominal pain/diarrhea. Community acquired Sepsis - 2/2 c. diff with Leukocytosis, tachycardia SHOSHANA - Vasomotor nephropathy, cont IV fluid Elevated ALT - A Fib and DVTs - on ASA VIOLET - mrobid obesity, BMI 56. DM - well managed on GLP-1, SGLT-2, metformin, sulfonylurea and insulin. History of Present Illness History of Present Illness 58yo male admitted with abdominal pain and diarrhea. Found with c. difficile positive, likely community acquired. some dyspnea, some weakness, diarrhea better. His substernal and epigastric pain improved with viscous lidocaine. stool shows white cells, C. diff positive from admission stool orders. Started oral vancomycin yesterday. Plan: Cont vancomycin oral, likely 20 day course, will d/w GI D/W GI outpatient f/u after d/c. Vitals Vitals Vital Signs Date Time Temp Pulse Resp B/P (MAP) Pulse Ox O2 Delivery O2 Flow Rate FiO2 09/03/18 07:31 Nasal Cannula 2.0 09/03/18 04:56 96 09/03/18 03:00 97.7 87 18 104/74 (84) 97.7 Physical Exam General: Alert, Oriented X3, Cooperative, No acute distress Lungs: Clear Abdomen: Normal bowel sounds, Soft, Other (diffuse mild tenderness) Extremities: No clubbing, No cyanosis, No edema, Normal pulses, No tenderness/ swelling Skin: No rashes, No breakdown, No significant lesion Labs LABS Laboratory Tests Test 09/02/18 11:00 09/02/18 16:44 09/02/18 20:35 Glucose (Fingerstick) 267 mg/dL (70-99) 105 mg/dL (70-99) 213 mg/dL (70-99) Comment Review of Relevant I have reviewed the following items brigette (where applicable) has been applied. Labs Laboratory Tests Test 09/01/18 10:10 09/01/18 12:00 09/01/18 12:04 09/01/18 14:30 White Blood Count 18.5 x10^3/uL (4.0-11.0) Red Blood Count 5.02 x10^6/uL (4.30-5.70) Hemoglobin 14.5 g/dL (13.0-17.5) Hematocrit 44.7 % (39.0-53.0) Mean Corpuscular Volume 89 fL (79-100) Mean Corpuscular Hemoglobin 29 pg (25-35) Mean Corpuscular Hemoglobin Concent 32 g/dL (31-37) Red Cell Distribution Width 14.9 % (11.5-14.5) Platelet Count 262 x10^3/uL (140-400) Neutrophils (%) (Auto) 82 % (31-73) Lymphocytes (%) (Auto) 9 % (24-48) Monocytes (%) (Auto) 8 % (0-9) Eosinophils (%) (Auto) 1 % (0-3) Basophils (%) (Auto) 0 % (0-3) Neutrophils # (Auto) 15.1 x10^3uL (1.8-7.7) Lymphocytes # (Auto) 1.7 x10^3/uL (1.0-4.8) Monocytes # (Auto) 1.5 x10^3/uL (0.0-1.1) Eosinophils # (Auto) 0.1 x10^3/uL (0.0-0.7) Basophils # (Auto) 0.1 x10^3/uL (0.0-0.2) Prothrombin Time 12.9 SEC (11.7-14.0) Prothromb Time International Ratio 1.0 (0.8-1.1) Sodium Level 135 mmol/L (136-145) Potassium Level 4.5 mmol/L (3.5-5.1) Chloride Level 96 mmol/L (98-107) Carbon Dioxide Level 29 mmol/L (21-32) Anion Gap 10 (6-14) Blood Urea Nitrogen 47 mg/dL (8-26) Creatinine 1.7 mg/dL (0.7-1.3) Estimated GFR (Cockcroft-Gault) 50.5 BUN/Creatinine Ratio 28 (6-20) Glucose Level 165 mg/dL (70-99) Calcium Level 9.9 mg/dL (8.5-10.1) Total Bilirubin 0.3 mg/dL (0.2-1.0) Aspartate Amino Transf (AST/SGOT) 18 U/L (15-37) Alanine Aminotransferase (ALT/SGPT) 68 U/L (16-63) Alkaline Phosphatase 72 U/L (46-116) Troponin I Quantitative < 0.017 ng/mL (0.000-0.055) < 0.017 ng/mL (0.000-0.055) Total Protein 6.4 g/dL (6.4-8.2) Albumin 3.2 g/dL (3.4-5.0) Albumin/Globulin Ratio 1.0 (1.0-1.7) Lipase 87 U/L (73-393) Urine Collection Type Void Urine Color Yellow Urine Clarity Clear Urine pH 6.0 Urine Specific [place] >=1.030 Urine Protein Negative mg/dL (NEG-TRACE) Urine Glucose (UA) >=1000 mg/dL (NEG) Urine Ketones (Stick) Negative mg/dL (NEG) Urine Blood Negative (NEG) Urine Nitrite Negative (NEG) Urine Bilirubin Negative (NEG) Urine Urobilinogen Dipstick 0.2 mg/dL (0.2 mg/dL) Urine Leukocyte Esterase Negative (NEG) Urine RBC Rare /HPF (0-2) Urine WBC Rare /HPF (0-4) Urine Squamous Epithelial Cells None /LPF Urine Bacteria Few /HPF (0-FEW) Influenza Type A Antigen Negative (NEGATIVE) Influenza Type B Antigen Negative (NEGATIVE) Test 09/01/18 16:28 09/01/18 17:30 09/01/18 17:45 09/01/18 17:46 Glucose (Fingerstick) 197 mg/dL (70-99) Clostridium difficile Toxin B Gene Positive (Negative) Thyroid Stimulating Hormone (TSH) 0.785 uIU/mL (0.358-3.74) Troponin I Quantitative < 0.017 ng/mL (0.000-0.055) Hepatitis A IgM Antibody Nonreactive (Nonreactive) Hepatitis B Surface Antigen Nonreactive (Nonreactive) Hepatitis B Core IgM Antibody Nonreactive (Nonreactive) Hepatitis C IgG Antibody Nonreactive (Nonreactive) Test 09/01/18 20:35 09/02/18 03:10 09/02/18 07:37 09/02/18 11:00 Glucose (Fingerstick) 170 mg/dL (70-99) 150 mg/dL (70-99) 267 mg/dL (70-99) White Blood Count 15.7 x10^3/uL (4.0-11.0) Red Blood Count 4.51 x10^6/uL (4.30-5.70) Hemoglobin 13.2 g/dL (13.0-17.5) Hematocrit 40.3 % (39.0-53.0) Mean Corpuscular Volume 89 fL (79-100) Mean Corpuscular Hemoglobin 29 pg (25-35) Mean Corpuscular Hemoglobin Concent 33 g/dL (31-37) Red Cell Distribution Width 14.8 % (11.5-14.5) Platelet Count 228 x10^3/uL (140-400) Neutrophils (%) (Auto) 77 % (31-73) Lymphocytes (%) (Auto) 13 % (24-48) Monocytes (%) (Auto) 9 % (0-9) Eosinophils (%) (Auto) 1 % (0-3) Basophils (%) (Auto) 0 % (0-3) Neutrophils # (Auto) 12.1 x10^3uL (1.8-7.7) Lymphocytes # (Auto) 2.0 x10^3/uL (1.0-4.8) Monocytes # (Auto) 1.4 x10^3/uL (0.0-1.1) Eosinophils # (Auto) 0.1 x10^3/uL (0.0-0.7) Basophils # (Auto) 0.0 x10^3/uL (0.0-0.2) Sodium Level 135 mmol/L (136-145) Potassium Level 4.3 mmol/L (3.5-5.1) Chloride Level 98 mmol/L (98-107) Carbon Dioxide Level 27 mmol/L (21-32) Anion Gap 10 (6-14) Blood Urea Nitrogen 34 mg/dL (8-26) Creatinine 1.3 mg/dL (0.7-1.3) Estimated GFR (Cockcroft-Gault) 68.8 BUN/Creatinine Ratio 26 (6-20) Glucose Level 158 mg/dL (70-99) Calcium Level 9.2 mg/dL (8.5-10.1) Total Bilirubin 0.3 mg/dL (0.2-1.0) Aspartate Amino Transf (AST/SGOT) 14 U/L (15-37) Alanine Aminotransferase (ALT/SGPT) 53 U/L (16-63) Alkaline Phosphatase 61 U/L (46-116) Total Protein 5.5 g/dL (6.4-8.2) Albumin 2.8 g/dL (3.4-5.0) Albumin/Globulin Ratio 1.0 (1.0-1.7) Test 09/02/18 16:44 09/02/18 20:35 Glucose (Fingerstick) 105 mg/dL (70-99) 213 mg/dL (70-99) Laboratory Tests Test 09/02/18 11:00 09/02/18 16:44 09/02/18 20:35 Glucose (Fingerstick) 267 mg/dL (70-99) 105 mg/dL (70-99) 213 mg/dL (70-99) Microbiology 09/01/18 Fecal Leukocyte Stain - Final, Complete Medications Current Medications Morphine Sulfate (Morphine Sulfate) 4 mg 1X ONCE IV Last administered on at 10:19; Start 09/01/18 at 10:15; Stop 09/01/18 at 10:16; Status DC Sodium Chloride 1,000 ml @ 1,000 mls/hr 1X ONCE IV Last administered on at 10:58; Start 09/01/18 at 10:45; Stop 09/01/18 at 11:44; Status DC Iohexol (Omnipaque 350 Mg/ml) 90 ml 1X ONCE IV Last administered on 09/01/18at 10:42; Start 09/01/18 at 10:45; Stop 09/01/18 at 10:46; Status DC Info (CONTRAST GIVEN -- Rx MONITORING) 1 each PRN DAILY PRN MC SEE COMMENTS; Start 09/01/18 at 10:45; Stop 09/03/18 at 10:44 Multi-Ingredient Mouthwash/Gargle (Gi Cocktail) 20 ml 1X ONCE SWSW Last administered on 09/01/18at 11:49; Start 09/01/18 at 11:30; Stop 09/01/18 at 11:34 ; Status DC Ketorolac Tromethamine (Toradol 15mg Vial) 15 mg 1X ONCE IV Last administered on 09/01/18at 11:49; Start 09/01/18 at 11:30; Stop 09/01/18 at 11:34; Status DC Sodium Chloride 1,000 ml @ 100 mls/hr Q10H IV Last administered on 09/01/18 11:51; Start 09/01/18 at 11:30; Stop 09/01/18 at 17:48; Status DC Albuterol Sulfate (Ventolin Neb Soln) 2.5 mg PRN Q4HRS PRN INH SHORTNESS OF BREATH Last administered on 09/03/18 04:11; Start 09/01/18 at 15:45 Amlodipine Besylate (Norvasc) 10 mg DAILY PO Last administered on 09/02/18 09: 17; Start 09/01/18 at 17:00 Aspirin (Ecotrin) 81 mg DAILY PO Last administered on 09/02/18 09:17; Start at 17:00 Cyclobenzaprine HCl (Flexeril) 10 mg QHS PO Last administered on 09/02/18 20: 54; Start 09/01/18 at 21:00 Fluticasone Propionate (Flonase) 1 spray DAILY NS Last administered on 10:02; Start 09/02/18 at 09:00 Acetaminophen/ Hydrocodone Bitart (Lortab 7.5/325) 1 tab PRN TID PRN PO PAIN Last administered on 09/03/18 03:56; Start 09/01/18 at 15:45 Pantoprazole Sodium (Protonix) 40 mg DAILYAC PO Last administered on 09/03/18 07:26; Start 09/01/18 at 17:00 Triamcinolone Acetonide (Kenalog) 1 heriberto BID TP Last administered on 09/02/18 10:02; Start 09/01/18 at 21:00 Non-Formulary Medication (Ipratropium/ Albuterol Sulfate (Combivent Respimat Inhal)) 2 inh BID IH ; Start 09/01/18 at 21:00; Status UNV Ringer's Solution 1,000 ml @ 100 mls/hr Q10H IV Last administered on 23:34; Start 09/01/18 at 15:36 Ondansetron HCl (Zofran) 4 mg PRN Q6HRS PRN IV NAUSEA/VOMITING; Start 09/01/18 at 15:45 Acetaminophen (Tylenol) 650 mg PRN Q6HRS PRN PO Headaches, Temp > 101.5F; Start 09/01/18 at 15:45 Lactulose (Lactulose) 20 gm PRN Q12HR PRN PO CONSTIPATION; Start 09/01/18 at 15 :45 Heparin Sodium (Porcine) (Heparin Sodium) 5,000 unit Q8HRS SQ Last administered on 09/03/18at 05:50; Start 09/01/18 at 22:00 Insulin Human Lispro (HumaLOG) 0-7 UNITS TIDWMEALS SQ Last administered on 09/02at 12:05; Start 09/01/18 at 17:00 Dextrose (Dextrose 50%-Water Syringe) 12.5 gm PRN Q15MIN PRN IV SEE COMMENTS; Start 09/01/18 at 15:45 Albuterol/ Ipratropium (Duoneb) 3 ml RTBID NEB Last administered on 09/02/18 07:18; Start 09/01/18 at 20:00; Stop 09/02/18 at 07:34; Status DC Lidocaine HCl (Viscous Lidocaine) 15 ml PRN Q4HRS PRN SWSW chest/abd pain Last administered on 09/02/18at 21:38; Start 09/01/18 at 16:45 Pantoprazole Sodium (PROTONIX VIAL for IV PUSH) 40 mg 1X ONCE IVP ; Start 09/01 at 18:30; Stop 09/01/18 at 18:31; Status DC Morphine Sulfate (Morphine Sulfate) 2 mg PRN Q3HRS PRN IV PAIN Last administered on 09/02/18 09:23; Start 09/01/18 at 18:00 Albuterol/ Ipratropium (Duoneb) 3 ml RTQID NEB Last administered on 09/02/18at 20:02; Start 09/02/18 at 08:00 Insulin Human Lispro (HumaLOG) 8 units TIDWMEALS SQ Last administered on 17:18; Start 09/02/18 at 12:00 Vancomycin HCl (Vancomycin Oral Solution) 125 mg [id number] PO Last administered on 09/02/18 20:54; Start 09/02/18 at 15:00 Active Scripts Active Reported Jardiance (Empagliflozin) 10 Mg Tablet 10 Mg PO DAILY Phentermine Hcl 37.5 Mg Capsule 1 Cap PO [id number] 30 Days Multivitamins (Multivitamin) 1 Each Tablet 1 Tab PO DAILY 30 Days [meloxicam] Glimepiride 2 Mg Tablet 2 Mg PO BID 30 Days Proair Hfa Inhaler (Albuterol Sulfate) 8.5 Gm Hfa.aer.ad 1 Puff INH PRN Q4HRS PRN Hydrocodone-Apap 7.5-325 (Hydrocodone Bit/Acetaminophen) 1 Each Tablet 1 Tab PO PRN TID PRN Combivent Respimat Inhal (Ipratropium/Albuterol Sulfate) 4 Gm Aer.w.adap 2 Inh IH BID Triamcinolone Acetonide 0.1% Oint (Triamcinolone Acetonide) 15 Gm Oint...g. 1 Heriberto TP BID MIX WITH EUCERIN DIRECTED BY PHYSICIAN Manny Pen (Exenatide Microspheres) 2 Mg/0.65 Ml Pen.injctr 2 Mg SQ WEEKLY Indapamide 1.25 Mg Tablet 1 Tab PO DAILY Cyclobenzaprine Hcl 10 Mg Tablet 1 Tab PO QHS Aspir 81 (Aspirin) 81 Mg Tablet.dr 81 Mg PO DAILY Celebrex (Celecoxib) 200 Mg Capsule 200 Mg PO DAILY Pantoprazole Sodium 40 Mg Tablet.dr 40 Mg PO DAILY Flonase (Fluticasone Propionate) 16 Gm [place].susp 16 Gm NS DAILY Diovan (Valsartan) 320 Mg Tablet 320 Mg PO DAILY Norvasc (Amlodipine Besylate) 10 Mg Tablet 10 Mg PO DAILY Metformin Hcl Er (Metformin Hcl) 1,000 Mg Tab.er.24 500 Mg PO DAILY 30 Days Vitals/I & O Vital Sign - Last 24 Hours 09/02/18 09/02/18 09/02/18 09/02/18 07:50 08:10 09:17 09:23 Pulse 107 Resp 17 B/P (MAP) 131/76 Pulse Ox 97 O2 Delivery Nasal Cannula Nasal Cannula Nasal Cannula O2 Flow Rate 2.0 2.0 2.0 09/02/18 09/02/18 09/02/18 09/02/18 09:53 11:00 12:32 12:57 Temp 97.4 97.4 97.4 97.4 Pulse 96 96 Resp 17 17 B/P (MAP) 133/83 (100) 133/83 (100) Pulse Ox 97 96 96 96 O2 Delivery Nasal Cannula Nasal Cannula Nasal Cannula Nasal Cannula O2 Flow Rate 2.0 2.0 2.0 2.0 09/02/18 09/02/18 09/02/18 09/02/18 15:00 16:31 19:00 19:51 Temp 97.6 98.4 97.6 98.4 Pulse 101 91 Resp 18 20 B/P (MAP) 105/70 (82) 115/58 (77) Pulse Ox 97 97 96 O2 Delivery Room Air Nasal Cannula Room Air Nasal Cannula O2 Flow Rate 2.0 2.0 09/02/18 09/02/18 09/03/18 09/03/18 20:03 23:00 03:00 03:56 Temp 97.8 97.7 97.8 97.7 Pulse 79 87 Resp 18 18 B/P (MAP) 120/66 (84) 104/74 (84) Pulse Ox 99 97 97 O2 Delivery Nasal Cannula Room Air Room Air Nasal Cannula O2 Flow Rate 2.0 2.0 09/03/18 09/03/18 09/03/18 04:02 04:56 07:31 Pulse Ox 96 96 O2 Delivery Nasal Cannula Nasal Cannula Nasal Cannula O2 Flow Rate 2.0 2.0 2.0 Intake and Output 09/02/18 09/02/18 09/03/18 14:59 22:59 06:59 Intake Total 360 ml 660 ml 780 ml Balance 360 ml 660 ml 780 ml NICOLETTE DOAN MD Sep 03, 2018 07:48
[2018-09-03] MEDS: INSULIN LISPRO 300 UNITS/3 ML INSULN.PEN. SQ SCH ×6 (08:00→17:28)
[2018-09-03] MEDS: ASPIRIN ENTERIC COATED 81 MG TABLET.DR. PO SCH (08:20)
[2018-09-03] MEDS: FLUTICASONE 50MCG/NASAL SPRAY 16GM BOTTLE. NS SCH (08:21)
[2018-09-03] MEDS: amLODIPine BESYLATE 10 MG TABLET PO SCH (08:21)
[2018-09-03] MEDS: TRIAMCINOLONE ACETONIDE 0.1% TOPICAL OINTMENT 15GM TUBE. TP SCH ×2 (08:22→21:00)
[2018-09-03] MEDS: VANCOMYCIN 125 MG/2.5 ML ORAL SOLUTION. PO SCH ×4 (08:26→20:59)
[2018-09-03] MEDS: IPRATRPIUM/ALBUTEROL 0.5/2.5MG 3 ML NEBU. NEB SCH ×4 (08:38→19:15)
[2018-09-03 08:52] LABS: ALBUMIN 2.7 g/dL (3.4-5.0); ALBUMIN/GLOBULIN RATIO 0.8 (1.0-1.7); CALCIUM 9.4 mg/dL (8.5-10.1); CREATININE 1.2 mg/dL (0.7-1.3); GFR 75.5; POTASSIUM 3.9 mmol/L (3.5-5.1); TOTAL BILIRUBIN 0.3 mg/dL (0.2-1.0); TOTAL PROTEIN 6.1 g/dL (6.4-8.2)
--- NOTE | 2018-09-03 09:01 | RAD ---
Thyroid ultrasound History: Thyroid nodule. COMPARISON: None Right thyroid measures 5.1 x 2.4 x 2.5 cm. Left thyroid measures 4.2 x 2.2 x 1.5 cm. This mass measures 5 mm. Multiple thyroid nodules are seen bilaterally and at the isthmus. Largest right side nodule is at the mid posterior lateral aspect measuring 17 x 17 x 13 mm. This demonstrates a mixed nature. Second largest nodule is at the left isthmus, measuring 12 x 10 x 8 mm with a heterogeneous but mostly solid nature and mild vascularity particularly around the margins. This also demonstrates some apparent reflectors or microcalcification. Smaller nodules are identified, particularly in the left upper thyroid in the lower right thyroid. IMPRESSION: 1. Multiple thyroid nodules. 2. Largest is on the right, measuring 17 x 17 x 13 mm with heterogeneous appearance. 2. Second largest is at the left isthmus, demonstrating mild vascularity and microcalcification. Electronically signed by: Narendra Cai MD (09/03/2018 8:58 AM) [facility]
[2018-09-03] MEDS: ACETAMINOPHEN 325 MG TABLET. PO PRN ×2 (09:14→19:09)
[2018-09-03] MEDS: IV RINGERS,LACTATED 1000ML 1,000 ML IV SCH ×2 (09:15→21:00)
[2018-09-03 11:00] VITALS: BP 131/108
--- NOTE | 2018-09-03 12:41 | PDOC ---
G I PROGRESS NOTE Subjective Says eating better. Physical Exam Lungs clear. RRR Abdomen soft, not tender. Review of Relevant I have reviewed the following items brigette (where applicable) has been applied. Labs Laboratory Tests Test 09/01/18 14:30 09/01/18 16:28 09/01/18 17:30 09/01/18 17:45 Troponin I Quantitative < 0.017 ng/mL (0.000-0.055) Glucose (Fingerstick) 197 mg/dL (70-99) Clostridium difficile Toxin B Gene Positive (Negative) Thyroid Stimulating Hormone (TSH) 0.785 uIU/mL (0.358-3.74) Test 09/01/18 17:46 09/01/18 20:35 09/02/18 03:10 09/02/18 07:37 Troponin I Quantitative < 0.017 ng/mL (0.000-0.055) Hepatitis A IgM Antibody Nonreactive (Nonreactive) Hepatitis B Surface Antigen Nonreactive (Nonreactive) Hepatitis B Core IgM Antibody Nonreactive (Nonreactive) Hepatitis C IgG Antibody Nonreactive (Nonreactive) Glucose (Fingerstick) 170 mg/dL (70-99) 150 mg/dL (70-99) White Blood Count 15.7 x10^3/uL (4.0-11.0) Red Blood Count 4.51 x10^6/uL (4.30-5.70) Hemoglobin 13.2 g/dL (13.0-17.5) Hematocrit 40.3 % (39.0-53.0) Mean Corpuscular Volume 89 fL (79-100) Mean Corpuscular Hemoglobin 29 pg (25-35) Mean Corpuscular Hemoglobin Concent 33 g/dL (31-37) Red Cell Distribution Width 14.8 % (11.5-14.5) Platelet Count 228 x10^3/uL (140-400) Neutrophils (%) (Auto) 77 % (31-73) Lymphocytes (%) (Auto) 13 % (24-48) Monocytes (%) (Auto) 9 % (0-9) Eosinophils (%) (Auto) 1 % (0-3) Basophils (%) (Auto) 0 % (0-3) Neutrophils # (Auto) 12.1 x10^3uL (1.8-7.7) Lymphocytes # (Auto) 2.0 x10^3/uL (1.0-4.8) Monocytes # (Auto) 1.4 x10^3/uL (0.0-1.1) Eosinophils # (Auto) 0.1 x10^3/uL (0.0-0.7) Basophils # (Auto) 0.0 x10^3/uL (0.0-0.2) Sodium Level 135 mmol/L (136-145) Potassium Level 4.3 mmol/L (3.5-5.1) Chloride Level 98 mmol/L (98-107) Carbon Dioxide Level 27 mmol/L (21-32) Anion Gap 10 (6-14) Blood Urea Nitrogen 34 mg/dL (8-26) Creatinine 1.3 mg/dL (0.7-1.3) Estimated GFR (Cockcroft-Gault) 68.8 BUN/Creatinine Ratio 26 (6-20) Glucose Level 158 mg/dL (70-99) Calcium Level 9.2 mg/dL (8.5-10.1) Total Bilirubin 0.3 mg/dL (0.2-1.0) Aspartate Amino Transf (AST/SGOT) 14 U/L (15-37) Alanine Aminotransferase (ALT/SGPT) 53 U/L (16-63) Alkaline Phosphatase 61 U/L (46-116) Total Protein 5.5 g/dL (6.4-8.2) Albumin 2.8 g/dL (3.4-5.0) Albumin/Globulin Ratio 1.0 (1.0-1.7) Test 09/02/18 11:00 09/02/18 16:44 09/02/18 20:35 09/03/18 06:50 Glucose (Fingerstick) 267 mg/dL (70-99) 105 mg/dL (70-99) 213 mg/dL (70-99) Sodium Level 135 mmol/L (136-145) Potassium Level 3.9 mmol/L (3.5-5.1) Chloride Level 100 mmol/L (98-107) Carbon Dioxide Level 26 mmol/L (21-32) Anion Gap 9 (6-14) Blood Urea Nitrogen 25 mg/dL (8-26) Creatinine 1.2 mg/dL (0.7-1.3) Estimated GFR (Cockcroft-Gault) 75.5 BUN/Creatinine Ratio 21 (6-20) Glucose Level 150 mg/dL (70-99) Calcium Level 9.4 mg/dL (8.5-10.1) Total Bilirubin 0.3 mg/dL (0.2-1.0) Aspartate Amino Transf (AST/SGOT) 18 U/L (15-37) Alanine Aminotransferase (ALT/SGPT) 53 U/L (16-63) Alkaline Phosphatase 59 U/L (46-116) Total Protein 6.1 g/dL (6.4-8.2) Albumin 2.7 g/dL (3.4-5.0) Albumin/Globulin Ratio 0.8 (1.0-1.7) Test 09/03/18 08:00 09/03/18 11:10 Glucose (Fingerstick) 149 mg/dL (70-99) 134 mg/dL (70-99) Laboratory Tests Test 09/02/18 16:44 09/02/18 20:35 09/03/18 06:50 09/03/18 08:00 Glucose (Fingerstick) 105 mg/dL (70-99) 213 mg/dL (70-99) 149 mg/dL (70-99) Sodium Level 135 mmol/L (136-145) Potassium Level 3.9 mmol/L (3.5-5.1) Chloride Level 100 mmol/L (98-107) Carbon Dioxide Level 26 mmol/L (21-32) Anion Gap 9 (6-14) Blood Urea Nitrogen 25 mg/dL (8-26) Creatinine 1.2 mg/dL (0.7-1.3) Estimated GFR (Cockcroft-Gault) 75.5 BUN/Creatinine Ratio 21 (6-20) Glucose Level 150 mg/dL (70-99) Calcium Level 9.4 mg/dL (8.5-10.1) Total Bilirubin 0.3 mg/dL (0.2-1.0) Aspartate Amino Transf (AST/SGOT) 18 U/L (15-37) Alanine Aminotransferase (ALT/SGPT) 53 U/L (16-63) Alkaline Phosphatase 59 U/L (46-116) Total Protein 6.1 g/dL (6.4-8.2) Albumin 2.7 g/dL (3.4-5.0) Albumin/Globulin Ratio 0.8 (1.0-1.7) Test 09/03/18 11:10 Glucose (Fingerstick) 134 mg/dL (70-99) Microbiology 09/01/18 Fecal Leukocyte Stain - Final, Complete Now C.diff positive. On vanc. Vitals/I & O Vital Sign - Last 24 Hours 09/02/18 09/02/18 09/02/18 09/02/18 12:57 15:00 16:31 19:00 Temp 97.6 98.4 97.6 98.4 Pulse 101 91 Resp 18 20 B/P (MAP) 105/70 (82) 115/58 (77) Pulse Ox 96 97 97 96 O2 Delivery Nasal Cannula Room Air Nasal Cannula Room Air O2 Flow Rate 2.0 2.0 09/02/18 09/02/18 09/02/18 09/03/18 19:51 20:03 23:00 03:00 Temp 97.8 97.7 97.8 97.7 Pulse 79 87 Resp 18 18 B/P (MAP) 120/66 (84) 104/74 (84) Pulse Ox 99 97 O2 Delivery Nasal Cannula Nasal Cannula Room Air Room Air O2 Flow Rate 2.0 2.0 09/03/18 09/03/18 09/03/18 09/03/18 03:56 04:02 04:56 07:00 Temp 98.1 98.1 Pulse 100 Resp 16 B/P (MAP) 116/81 (93) Pulse Ox 97 96 96 93 O2 Delivery Nasal Cannula Nasal Cannula Nasal Cannula Room Air O2 Flow Rate 2.0 2.0 2.0 09/03/18 09/03/18 09/03/18 09/03/18 07:31 08:21 08:38 11:00 Temp 98.1 98.1 Pulse 100 81 Resp 16 B/P (MAP) 116/81 131/108 (116) Pulse Ox 98 97 O2 Delivery Nasal Cannula Room Air Room Air O2 Flow Rate 2.0 09/03/18 11:52 O2 Delivery Room Air Intake and Output 09/02/18 09/02/18 09/03/18 14:59 22:59 06:59 Intake Total 360 ml 660 ml 780 ml Balance 360 ml 660 ml 780 ml Assessment Gastroenteritis, better C.diff positive, on treatment. Plan of Care: Continue current Tx, Mgmt Plan of Care Note Home if eating OK. Finish C.diff treatment as outpatient. PIEOR WALDEN MD Sep 03, 2018 12:41
[2018-09-03 15:00] VITALS: BP 114/82
[2018-09-03 19:00] VITALS: BP 133/78
[2018-09-03] MEDS: CYCLOBENZAPRINE 10 MG TABLET. PO SCH (20:59)
[2018-09-03] MEDS: FAMOTIDINE 20 MG TABLET. PO SCH (20:59)
[2018-09-03] MEDS: LIDOCAINE 2% VISCOUS 15 ML SOLUTION. SWSW PRN (20:59)
[2018-09-03] MEDS: MORPHINE SULFATE 4 MG/ML VIAL. IV PRN (21:47)
[2018-09-03 23:00] VITALS: BP 126/78
[2018-09-04] MEDS: HYDROcodone/APAP 7.5/325MG 1 TAB TABLET PO PRN (00:15)
[2018-09-04 03:00] VITALS: BP 144/94
[2018-09-04] MEDS: HEPARIN for SUB-Q USE 5,000 UNIT/ML VIAL. SQ SCH ×3 (06:15→22:00)
[2018-09-04] MEDS: MORPHINE SULFATE 4 MG/ML VIAL. IV PRN ×2 (06:20→21:13)
[2018-09-04 06:40] LABS: ALBUMIN 2.8 g/dL (3.4-5.0); ALBUMIN/GLOBULIN RATIO 0.8 (1.0-1.7); CALCIUM 9.3 mg/dL (8.5-10.1); CREATININE 1.1 mg/dL (0.7-1.3); GFR 83.5; POTASSIUM 4.3 mmol/L (3.5-5.1); TOTAL BILIRUBIN 0.2 mg/dL (0.2-1.0); TOTAL PROTEIN 6.2 g/dL (6.4-8.2)
[2018-09-04 07:00] VITALS: BP 154/84
[2018-09-04] MEDS: IPRATRPIUM/ALBUTEROL 0.5/2.5MG 3 ML NEBU. NEB SCH ×4 (07:27→19:54)
[2018-09-04] MEDS: INSULIN LISPRO 300 UNITS/3 ML INSULN.PEN. SQ SCH ×6 (08:00→18:07)
[2018-09-04] MEDS: FLUTICASONE 50MCG/NASAL SPRAY 16GM BOTTLE. NS SCH (08:18)
[2018-09-04] MEDS: ASPIRIN ENTERIC COATED 81 MG TABLET.DR. PO SCH (08:19)
[2018-09-04] MEDS: FAMOTIDINE 20 MG TABLET. PO SCH ×2 (08:19→21:12)
[2018-09-04] MEDS: LIDOCAINE 2% VISCOUS 15 ML SOLUTION. SWSW PRN ×3 (08:21→23:56)
[2018-09-04] MEDS: VANCOMYCIN 125 MG/2.5 ML ORAL SOLUTION. PO SCH ×4 (08:21→21:12)
[2018-09-04] MEDS: TRIAMCINOLONE ACETONIDE 0.1% TOPICAL OINTMENT 15GM TUBE. TP SCH ×2 (08:21→21:00)
--- NOTE | 2018-09-04 09:56 | NUR ---
IP: Pt is C.diff + requiring contact plus precautions using brown sign.
[2018-09-04 11:00] VITALS: BP 126/94
--- NOTE | 2018-09-04 11:48 | PDOC ---
PROGRESS NOTES Chief Complaint Chief Complaint C. difficile , community acquired-first episode Chest pain - esophageal w/ GERD and esophageal dilation. Sepsis - 2/2 c. diff with Leukocytosis, tachycardia SHOSHANA - Vasomotor nephropathy, cont IV fluid Elevated ALT - A Fib and DVTs - on ASA VIOLET - mrobid obesity, BMI 56. DM - well managed on GLP-1, SGLT-2, metformin, sulfonylurea and insulin. History of Present Illness History of Present Illness Still having loose stools, 6 episodes today No fever WBC 15 from 18 C. difficile B toxin + Potassium and creatinine good NO Issues with swallowing, but still poor intake Plan: Continue vancomycin 4 times a day started by colleague Continue IVF Ringer lactate-please rehook him back-has gotten 6 bags so far Not ready to DC yet Monitor leukocytosis, check CBC again tomorrow Vitals Vitals Vital Signs Date Time Temp Pulse Resp B/P (MAP) Pulse Ox O2 Delivery O2 Flow Rate FiO2 09/04/18 11:00 97.8 100 18 126/94 (105) 99 Room Air 97.8 09/04/18 07:27 2.0 Physical Exam General: Alert, Oriented X3, Cooperative, No acute distress Lungs: Clear Abdomen: Normal bowel sounds, Soft, Other (diffuse mild tenderness, hyper active bowel sounds) Extremities: No clubbing, No cyanosis, No edema, Normal pulses, No tenderness/ swelling Skin: No rashes, No breakdown, No significant lesion Labs LABS Laboratory Tests Test 09/03/18 16:58 09/03/18 20:52 09/04/18 05:50 09/04/18 07:30 Glucose (Fingerstick) 184 mg/dL (70-99) 161 mg/dL (70-99) 142 mg/dL (70-99) Sodium Level 137 mmol/L (136-145) Potassium Level 4.3 mmol/L (3.5-5.1) Chloride Level 100 mmol/L (98-107) Carbon Dioxide Level 26 mmol/L (21-32) Anion Gap 11 (6-14) Blood Urea Nitrogen 22 mg/dL (8-26) Creatinine 1.1 mg/dL (0.7-1.3) Estimated GFR (Cockcroft-Gault) 83.5 BUN/Creatinine Ratio 20 (6-20) Glucose Level 165 mg/dL (70-99) Calcium Level 9.3 mg/dL (8.5-10.1) Total Bilirubin 0.2 mg/dL (0.2-1.0) Aspartate Amino Transf (AST/SGOT) 23 U/L (15-37) Alanine Aminotransferase (ALT/SGPT) 62 U/L (16-63) Alkaline Phosphatase 59 U/L (46-116) Total Protein 6.2 g/dL (6.4-8.2) Albumin 2.8 g/dL (3.4-5.0) Albumin/Globulin Ratio 0.8 (1.0-1.7) Review of Systems Review of Systems Diarrhea, some mild abdominal cramping, the rest of ROS 14 point negative Comment Review of Relevant I have reviewed the following items brigette (where applicable) has been applied. Labs Laboratory Tests Test 09/02/18 16:44 09/02/18 20:35 09/03/18 06:50 09/03/18 08:00 Glucose (Fingerstick) 105 mg/dL (70-99) 213 mg/dL (70-99) 149 mg/dL (70-99) Sodium Level 135 mmol/L (136-145) Potassium Level 3.9 mmol/L (3.5-5.1) Chloride Level 100 mmol/L (98-107) Carbon Dioxide Level 26 mmol/L (21-32) Anion Gap 9 (6-14) Blood Urea Nitrogen 25 mg/dL (8-26) Creatinine 1.2 mg/dL (0.7-1.3) Estimated GFR (Cockcroft-Gault) 75.5 BUN/Creatinine Ratio 21 (6-20) Glucose Level 150 mg/dL (70-99) Calcium Level 9.4 mg/dL (8.5-10.1) Total Bilirubin 0.3 mg/dL (0.2-1.0) Aspartate Amino Transf (AST/SGOT) 18 U/L (15-37) Alanine Aminotransferase (ALT/SGPT) 53 U/L (16-63) Alkaline Phosphatase 59 U/L (46-116) Total Protein 6.1 g/dL (6.4-8.2) Albumin 2.7 g/dL (3.4-5.0) Albumin/Globulin Ratio 0.8 (1.0-1.7) Test 09/03/18 11:10 09/03/18 16:58 2/24/19 20:52 09/04/18 05:50 Glucose (Fingerstick) 134 mg/dL (70-99) 184 mg/dL (70-99) 161 mg/dL (70-99) Sodium Level 137 mmol/L (136-145) Potassium Level 4.3 mmol/L (3.5-5.1) Chloride Level 100 mmol/L (98-107) Carbon Dioxide Level 26 mmol/L (21-32) Anion Gap 11 (6-14) Blood Urea Nitrogen 22 mg/dL (8-26) Creatinine 1.1 mg/dL (0.7-1.3) Estimated GFR (Cockcroft-Gault) 83.5 BUN/Creatinine Ratio 20 (6-20) Glucose Level 165 mg/dL (70-99) Calcium Level 9.3 mg/dL (8.5-10.1) Total Bilirubin 0.2 mg/dL (0.2-1.0) Aspartate Amino Transf (AST/SGOT) 23 U/L (15-37) Alanine Aminotransferase (ALT/SGPT) 62 U/L (16-63) Alkaline Phosphatase 59 U/L (46-116) Total Protein 6.2 g/dL (6.4-8.2) Albumin 2.8 g/dL (3.4-5.0) Albumin/Globulin Ratio 0.8 (1.0-1.7) Test 09/04/18 07:30 Glucose (Fingerstick) 142 mg/dL (70-99) Laboratory Tests Test 09/03/18 16:58 09/03/18 20:52 09/04/18 05:50 09/04/18 07:30 Glucose (Fingerstick) 184 mg/dL (70-99) 161 mg/dL (70-99) 142 mg/dL (70-99) Sodium Level 137 mmol/L (136-145) Potassium Level 4.3 mmol/L (3.5-5.1) Chloride Level 100 mmol/L (98-107) Carbon Dioxide Level 26 mmol/L (21-32) Anion Gap 11 (6-14) Blood Urea Nitrogen 22 mg/dL (8-26) Creatinine 1.1 mg/dL (0.7-1.3) Estimated GFR (Cockcroft-Gault) 83.5 BUN/Creatinine Ratio 20 (6-20) Glucose Level 165 mg/dL (70-99) Calcium Level 9.3 mg/dL (8.5-10.1) Total Bilirubin 0.2 mg/dL (0.2-1.0) Aspartate Amino Transf (AST/SGOT) 23 U/L (15-37) Alanine Aminotransferase (ALT/SGPT) 62 U/L (16-63) Alkaline Phosphatase 59 U/L (46-116) Total Protein 6.2 g/dL (6.4-8.2) Albumin 2.8 g/dL (3.4-5.0) Albumin/Globulin Ratio 0.8 (1.0-1.7) Microbiology 09/01/18 Stool Culture - Preliminary, Resulted 09/01/18 Stool Culture Result 1 (FOREST) - Preliminary, Resulted 09/01/18 Campylobacter Antigen Assay - Preliminary, Resulted 09/01/18 Campylobactor Result 1 - Preliminary, Resulted 09/01/18 Shiga Toxin Test, Resulted Pending Medications Current Medications Morphine Sulfate (Morphine Sulfate) 4 mg 1X ONCE IV Last administered on at 10:19; Start 09/01/18 at 10:15; Stop 09/01/18 at 10:16; Status DC Sodium Chloride 1,000 ml @ 1,000 mls/hr 1X ONCE IV Last administered on at 10:58; Start 09/01/18 at 10:45; Stop 09/01/18 at 11:44; Status DC Iohexol (Omnipaque 350 Mg/ml) 90 ml 1X ONCE IV Last administered on 09/01/18at 10:42; Start 09/01/18 at 10:45; Stop 09/01/18 at 10:46; Status DC Info (CONTRAST GIVEN -- Rx MONITORING) 1 each PRN DAILY PRN MC SEE COMMENTS; Start 09/01/18 at 10:45; Stop 09/03/18 at 10:44; Status DC Multi-Ingredient Mouthwash/Gargle (Gi Cocktail) 20 ml 1X ONCE SWSW Last administered on 09/01/18at 11:49; Start 09/01/18 at 11:30; Stop 09/01/18 at 11:34 ; Status DC Ketorolac Tromethamine (Toradol 15mg Vial) 15 mg 1X ONCE IV Last administered on 2/22/19at 11:49; Start 09/01/18 at 11:30; Stop 09/01/18 at 11:34; Status DC Sodium Chloride 1,000 ml @ 100 mls/hr Q10H IV Last administered on 09/01/18 11:51; Start 09/01/18 at 11:30; Stop 09/01/18 at 17:48; Status DC Albuterol Sulfate (Ventolin Neb Soln) 2.5 mg PRN Q4HRS PRN INH SHORTNESS OF BREATH Last administered on 09/03/18 04:11; Start 09/01/18 at 15:45 Amlodipine Besylate (Norvasc) 10 mg DAILY PO Last administered on 09/03/18 08: 21; Start 09/01/18 at 17:00 Aspirin (Ecotrin) 81 mg DAILY PO Last administered on 09/04/18 08:19; Start at 17:00 Cyclobenzaprine HCl (Flexeril) 10 mg QHS PO Last administered on 09/03/18 20: 59; Start 09/01/18 at 21:00 Fluticasone Propionate (Flonase) 1 spray DAILY NS Last administered on 08:18; Start 09/02/18 at 09:00 Acetaminophen/ Hydrocodone Bitart (Lortab 7.5/325) 1 tab PRN TID PRN PO PAIN Last administered on 09/04/18 00:15; Start 09/01/18 at 15:45 Pantoprazole Sodium (Protonix) 40 mg DAILYAC PO Last administered on 09/03/18 07:26; Start 09/01/18 at 17:00; Stop 09/03/18 at 16:55; Status DC Triamcinolone Acetonide (Kenalog) 1 heriberto BID TP Last administered on 09/04/18 08:21; Start 09/01/18 at 21:00 Non-Formulary Medication (Ipratropium/ Albuterol Sulfate (Combivent Respimat Inhal)) 2 inh BID IH ; Start 09/01/18 at 21:00; Status UNV Ringer's Solution 1,000 ml @ 100 mls/hr Q10H IV Last administered on at 21:00; Start 09/01/18 at 15:36 Ondansetron HCl (Zofran) 4 mg PRN Q6HRS PRN IV NAUSEA/VOMITING; Start 09/01/18 at 15:45 Acetaminophen (Tylenol) 650 mg PRN Q6HRS PRN PO Headaches, Temp > 101.5F Last administered on 09/03/18 19:09; Start 09/01/18 at 15:45 Lactulose (Lactulose) 20 gm PRN Q12HR PRN PO CONSTIPATION; Start 09/01/18 at 15 :45 Heparin Sodium (Porcine) (Heparin Sodium) 5,000 unit Q8HRS SQ Last administered on 09/04/18 06:15; Start 09/01/18 at 22:00 Insulin Human Lispro (HumaLOG) 0-7 UNITS TIDWMEALS SQ Last administered on 09/03 17:28; Start 09/01/18 at 17:00 Dextrose (Dextrose 50%-Water Syringe) 12.5 gm PRN Q15MIN PRN IV SEE COMMENTS; Start 09/01/18 at 15:45 Albuterol/ Ipratropium (Duoneb) 3 ml RTBID NEB Last administered on 09/02/18 07:18; Start 09/01/18 at 20:00; Stop 09/02/18 at 07:34; Status DC Lidocaine HCl (Viscous Lidocaine) 15 ml PRN Q4HRS PRN SWSW chest/abd pain Last administered on 09/04/18 08:21; Start 09/01/18 at 16:45 Pantoprazole Sodium (PROTONIX VIAL for IV PUSH) 40 mg 1X ONCE IVP ; Start 09/01 at 18:30; Stop 09/01/18 at 18:31; Status DC Morphine Sulfate (Morphine Sulfate) 2 mg PRN Q3HRS PRN IV PAIN Last administered on 09/04/18 06:20; Start 09/01/18 at 18:00 Albuterol/ Ipratropium (Duoneb) 3 ml RTQID NEB Last administered on 09/04/18 07:27; Start 09/02/18 at 08:00 Insulin Human Lispro (HumaLOG) 8 units TIDWMEALS SQ Last administered on 08:31; Start 09/02/18 at 12:00 Vancomycin HCl (Vancomycin Oral Solution) 125 mg [id number] PO Last administered on 09/04/18at 08:21; Start 09/02/18 at 15:00 Famotidine (Pepcid) 20 mg BID PO Last administered on 09/04/18at 08:19; Start at 21:00 Active Scripts Active Reported Jardiance (Empagliflozin) 10 Mg Tablet 10 Mg PO DAILY Phentermine Hcl 37.5 Mg Capsule 1 Cap PO [id number] 30 Days Multivitamins (Multivitamin) 1 Each Tablet 1 Tab PO DAILY 30 Days [meloxicam] Glimepiride 2 Mg Tablet 2 Mg PO BID 30 Days Proair Hfa Inhaler (Albuterol Sulfate) 8.5 Gm Hfa.aer.ad 1 Puff INH PRN Q4HRS PRN Hydrocodone-Apap 7.5-325 (Hydrocodone Bit/Acetaminophen) 1 Each Tablet 1 Tab PO PRN TID PRN Combivent Respimat Inhal (Ipratropium/Albuterol Sulfate) 4 Gm Aer.w.adap 2 Inh IH BID Triamcinolone Acetonide 0.1% Oint (Triamcinolone Acetonide) 15 Gm Oint...g. 1 Heriberto TP BID MIX WITH EUCERIN DIRECTED BY PHYSICIAN Manny Pen (Exenatide Microspheres) 2 Mg/0.65 Ml Pen.injctr 2 Mg SQ WEEKLY Indapamide 1.25 Mg Tablet 1 Tab PO DAILY Cyclobenzaprine Hcl 10 Mg Tablet 1 Tab PO QHS Aspir 81 (Aspirin) 81 Mg Tablet.dr 81 Mg PO DAILY Celebrex (Celecoxib) 200 Mg Capsule 200 Mg PO DAILY Pantoprazole Sodium 40 Mg Tablet.dr 40 Mg PO DAILY Flonase (Fluticasone Propionate) 16 Gm [place].susp 16 Gm NS DAILY Diovan (Valsartan) 320 Mg Tablet 320 Mg PO DAILY Norvasc (Amlodipine Besylate) 10 Mg Tablet 10 Mg PO DAILY Metformin Hcl Er (Metformin Hcl) 1,000 Mg Tab.er.24 500 Mg PO DAILY 30 Days Vitals/I & O Vital Sign - Last 24 Hours 09/03/18 09/03/18 09/03/18 09/03/18 11:52 13:55 15:00 15:39 Temp 98.2 98.2 Pulse 103 Resp 18 B/P (MAP) 114/82 (93) Pulse Ox 98 O2 Delivery Room Air Room Air Room Air Nasal Cannula O2 Flow Rate 2.0 09/03/18 09/03/18 09/03/18 09/03/18 19:00 19:15 19:45 21:47 Temp 98.2 98.2 Pulse 89 Resp 20 B/P (MAP) 133/78 (96) Pulse Ox 97 O2 Delivery Room Air Nasal Cannula Nasal Cannula Nasal Cannula O2 Flow Rate 2.0 2.0 2.0 09/03/18 09/03/18 09/04/18 09/04/18 22:14 23:00 00:15 01:15 Temp 97.7 97.7 Pulse 89 Resp 18 B/P (MAP) 126/78 (94) Pulse Ox 97 O2 Delivery Nasal Cannula Room Air Nasal Cannula Nasal Cannula O2 Flow Rate 2.0 2.0 2.0 09/04/18 09/04/18 09/04/18 09/04/18 03:00 06:20 07:00 07:27 Temp 97.3 98.6 97.3 98.6 Pulse 87 88 Resp 18 16 B/P (MAP) 144/94 (111) 154/84 (107) Pulse Ox 98 100 100 O2 Delivery Room Air Room Air Nasal Cannula Nasal Cannula O2 Flow Rate 2.0 2.0 09/04/18 11:00 Temp 97.8 97.8 Pulse 100 Resp 18 B/P (MAP) 126/94 (105) Pulse Ox 99 O2 Delivery Room Air Intake and Output 09/03/18 09/03/18 09/04/18 15:00 23:00 07:00 Intake Total 360 ml 590 ml Balance 360 ml 590 ml ALMA SEGURA MD Sep 04, 2018 11:48
--- NOTE | 2018-09-04 12:37 | PDOC ---
Subjective: Subjective: Ongoing diarrhea - says 6 times overnight and 5 times so far today. Less chest/upper abd pain, gets some lower abd cramping. Tolerating PO. Objective: Vital Signs: Vital Signs Date Time Temp Pulse Resp B/P (MAP) Pulse Ox O2 Delivery O2 Flow Rate FiO2 09/04/18 11:49 Room Air 09/04/18 11:00 97.8 100 18 126/94 (105) 99 97.8 09/04/18 07:27 2.0 Labs: Laboratory Tests Test 09/03/18 16:58 09/03/18 20:52 09/04/18 05:50 09/04/18 07:30 Glucose (Fingerstick) 184 mg/dL 161 mg/dL 142 mg/dL Sodium Level 137 mmol/L Potassium Level 4.3 mmol/L Chloride Level 100 mmol/L Carbon Dioxide Level 26 mmol/L Anion Gap 11 Blood Urea Nitrogen 22 mg/dL Creatinine 1.1 mg/dL Estimated GFR (Cockcroft-Gault) 83.5 BUN/Creatinine Ratio 20 Glucose Level 165 mg/dL Calcium Level 9.3 mg/dL Total Bilirubin 0.2 mg/dL Aspartate Amino Transf (AST/SGOT) 23 U/L Alanine Aminotransferase (ALT/SGPT) 62 U/L Alkaline Phosphatase 59 U/L Total Protein 6.2 g/dL Albumin 2.8 g/dL Albumin/Globulin Ratio 0.8 Test 09/04/18 11:56 Glucose (Fingerstick) 103 mg/dL STOOL CULTURE Preliminary Preliminary report STOOL CULT RES 1 Preliminary Comment Microbiological testing to rule out the presence of possible pathogens is in progress. MANUELY Preliminary Preliminary report CAMPY RES 1 Preliminary Comment No Campylobacter species isolated. Performed at: [address], [place], [place] [id number] Nuclear Security Officer: FIDEL Lozada MD, Phone: [phone] SHIGA TOXIN PENDING FECAL WBC,GRAM STAIN Final WBCS OCCASIONAL Imaging: RUQ US IMPRESSION: 1. Hepatic steatosis. 2. Right renal lesion corresponding to abnormality seen on the same day CT. The hyperechoic nature of these lesion suggests internal fat contents however no fat density was appreciated on the CT abdomen pelvis. Differential diagnoses includes atypical angiomyolipoma, complicated cyst or solid renal neoplasm. Either a triple phase CT abdomen with renal mass protocol or MRI abdomen with IV contrast is recommended for further evaluation. Renal US IMPRESSION: Suboptimal visualization of right renal lesion seen on CT. MRI of the abdomen with IV contrast is recommended for further evaluation. Thyroid US IMPRESSION: 1. Multiple thyroid nodules. 2. Largest is on the right, measuring 17 x 17 x 13 mm with heterogeneous appearance. 3. Second largest is at the left isthmus, demonstrating mild vascularity and microcalcification. PE: GEN: NAD - sitting on edge of bed LUNGS: RT present for breathing treatment HEART: RRR ABD: obese, less tender NEURO/PSYCH: A & O 3 A/P: C Diff Leukocytosis (better), SHOSHANA (resolved) Mildly elevated ALT (resolved) - Hep panel neg, hepatic steatosis on US Thyroid nodules, right renal lesion -- Continue vanco for C Diff. Note PPI was stopped and he is now on H2 isela BID. JULI DUTTON Sep 04, 2018 12:37
[2018-09-04] MEDS: IV RINGERS,LACTATED 1000ML 1,000 ML IV SCH ×3 (13:36→23:57)
[2018-09-04] MEDS: amLODIPine BESYLATE 10 MG TABLET PO SCH (13:46)
[2018-09-04 15:00] VITALS: BP 159/95
[2018-09-04 19:00] VITALS: BP 119/82
[2018-09-04] MEDS: CYCLOBENZAPRINE 10 MG TABLET. PO SCH (21:12)
--- NOTE | 2018-09-04 22:14 | NUR ---
Patient has Heparin ordered Q8HRS, however, held 2200 dose due to previous dose was not given till 1806.
[2018-09-04 23:02] VITALS: BP 132/84
[2018-09-05 03:07] VITALS: BP 126/73
[2018-09-05] MEDS: LIDOCAINE 2% VISCOUS 15 ML SOLUTION. SWSW PRN (04:08)
[2018-09-05] MEDS: MORPHINE SULFATE 4 MG/ML VIAL. IV PRN ×2 (04:09→23:47)
[2018-09-05] MEDS: ALBUTEROL SULFATE 2.5 MG/3 ML NEBU. INH PRN ×2 (04:25→23:15)
[2018-09-05] MEDS: HEPARIN for SUB-Q USE 5,000 UNIT/ML VIAL. SQ SCH (05:45)
[2018-09-05 07:00] VITALS: BP 129/81
[2018-09-05 07:22] LABS: BASO # 0.1 x10^3/uL (0.0-0.2); BASO % 0 % (0-3); EOS # 0.1 x10^3/uL (0.0-0.7); EOS % 1 % (0-3); HEMATOCRIT 41.8 % (39.0-53.0); HEMOGLOBIN 13.5 g/dL (13.0-17.5); LYMPH # 2.8 x10^3/uL (1.0-4.8); LYMPH % 20 % (24-48); MEAN CORPUSCULAR HEMOGLOBIN 29 pg (25-35); MEAN CORPUSCULAR HGB CONC 32 g/dL (31-37); MEAN CORPUSCULAR VOLUME 91 fL (79-100); MONO # 1.5 x10^3/uL (0.0-1.1); MONO % 11 % (0-9); NEUT # 9.8 x10^3uL (1.8-7.7); NEUT % 68 % (31-73); PLATELET COUNT 219 x10^3/uL (140-400); RED BLOOD COUNT 4.61 x10^6/uL (4.30-5.70); RED CELL DISTRIBUTION WIDTH 15.5 % (11.5-14.5); WHITE BLOOD COUNT 14.3 x10^3/uL (4.0-11.0)
[2018-09-05] MEDS: IPRATRPIUM/ALBUTEROL 0.5/2.5MG 3 ML NEBU. NEB SCH ×4 (07:42→19:21)
[2018-09-05] MEDS: INSULIN LISPRO 300 UNITS/3 ML INSULN.PEN. SQ SCH ×6 (08:00→17:15)
--- NOTE | 2018-09-05 08:32 | NUR ---
SW following pt for anticipated dc needs. Chart reviewed. Pt lives at home with spouse. Rehab screen recommend PT/OT eval and tx order. ALYSSA Agudelo to order PT/OT. No SW needs indicated at this time. Will continue to evaluate needs.
[2018-09-05] MEDS: FAMOTIDINE 20 MG TABLET. PO SCH ×2 (08:48→21:03)
[2018-09-05] MEDS: amLODIPine BESYLATE 10 MG TABLET PO SCH (08:48)
[2018-09-05] MEDS: ASPIRIN ENTERIC COATED 81 MG TABLET.DR. PO SCH (08:48)
[2018-09-05] MEDS: FLUTICASONE 50MCG/NASAL SPRAY 16GM BOTTLE. NS SCH (08:48)
[2018-09-05] MEDS: TRIAMCINOLONE ACETONIDE 0.1% TOPICAL OINTMENT 15GM TUBE. TP SCH ×2 (08:49→21:00)
[2018-09-05] MEDS: IV RINGERS,LACTATED 1000ML 1,000 ML IV SCH (09:01)
[2018-09-05] MEDS: VANCOMYCIN 125 MG/2.5 ML ORAL SOLUTION. PO SCH ×4 (09:02→21:03)
[2018-09-05 11:00] VITALS: BP 148/94
--- NOTE | 2018-09-05 12:28 | PDOC ---
PROGRESS NOTES Chief Complaint Chief Complaint C. difficile , community acquired-first episode Chest pain - esophageal w/ GERD and esophageal dilation. Odynophagia Sepsis - 2/2 c. diff with Leukocytosis, tachycardia SHOSHANA - Vasomotor nephropathy, cont IV fluid Elevated ALT - A Fib and DVTs - on ASA VIOLET - mrobid obesity, BMI 56. DM - well managed on GLP-1, SGLT-2, metformin, sulfonylurea and insulin. History of Present Illness History of Present Illness 6 Stools last night, 4 stools today Hearty appetite Electrolytes okay Lactated Ringer's running at 100 mL an hour reports of odynophagia today-GI aware Now I see he has history of esophageal dilatation on my note Viscous lidocaine is helping somewhat PLAN: Continue vancomycin I did continue lactated Ringer's for now maybe current one to consume Continue Viscous Lidocaine until further conditions by GI Vitals Vitals Vital Signs Date Time Temp Pulse Resp B/P (MAP) Pulse Ox O2 Delivery O2 Flow Rate FiO2 09/05/18 11:02 Room Air 09/05/18 11:00 97.3 96 18 148/94 (112) 99 97.3 09/04/18 21:45 2.0 Physical Exam General: Alert, Oriented X3, Cooperative, No acute distress Lungs: Clear Abdomen: Normal bowel sounds, Soft, Other (diffuse mild tenderness, hyper active bowel sounds) Extremities: No clubbing, No cyanosis, No edema, Normal pulses, No tenderness/ swelling Skin: No rashes, No breakdown, No significant lesion Labs LABS Laboratory Tests Test 09/04/18 16:44 09/04/18 20:26 09/05/18 06:27 09/05/18 07:12 Glucose (Fingerstick) 148 mg/dL (70-99) 171 mg/dL (70-99) 138 mg/dL (70-99) White Blood Count 14.3 x10^3/uL (4.0-11.0) Red Blood Count 4.61 x10^6/uL (4.30-5.70) Hemoglobin 13.5 g/dL (13.0-17.5) Hematocrit 41.8 % (39.0-53.0) Mean Corpuscular Volume 91 fL (79-100) Mean Corpuscular Hemoglobin 29 pg (25-35) Mean Corpuscular Hemoglobin Concent 32 g/dL (31-37) Red Cell Distribution Width 15.5 % (11.5-14.5) Platelet Count 219 x10^3/uL (140-400) Neutrophils (%) (Auto) 68 % (31-73) Lymphocytes (%) (Auto) 20 % (24-48) Monocytes (%) (Auto) 11 % (0-9) Eosinophils (%) (Auto) 1 % (0-3) Basophils (%) (Auto) 0 % (0-3) Neutrophils # (Auto) 9.8 x10^3uL (1.8-7.7) Lymphocytes # (Auto) 2.8 x10^3/uL (1.0-4.8) Monocytes # (Auto) 1.5 x10^3/uL (0.0-1.1) Eosinophils # (Auto) 0.1 x10^3/uL (0.0-0.7) Basophils # (Auto) 0.1 x10^3/uL (0.0-0.2) Erythrocyte Sedimentation Rate 9 (0-15) Test 09/05/18 11:07 Glucose (Fingerstick) 122 mg/dL (70-99) Review of Systems Review of Systems odynophagia, diarrhea, the rest of ROS 14 point negative Comment Review of Relevant I have reviewed the following items brigette (where applicable) has been applied. Labs Laboratory Tests Test 09/03/18 16:58 09/03/18 20:52 09/04/18 05:50 09/04/18 07:30 Glucose (Fingerstick) 184 mg/dL (70-99) 161 mg/dL (70-99) 142 mg/dL (70-99) Sodium Level 137 mmol/L (136-145) Potassium Level 4.3 mmol/L (3.5-5.1) Chloride Level 100 mmol/L (98-107) Carbon Dioxide Level 26 mmol/L (21-32) Anion Gap 11 (6-14) Blood Urea Nitrogen 22 mg/dL (8-26) Creatinine 1.1 mg/dL (0.7-1.3) Estimated GFR (Cockcroft-Gault) 83.5 BUN/Creatinine Ratio 20 (6-20) Glucose Level 165 mg/dL (70-99) Calcium Level 9.3 mg/dL (8.5-10.1) Total Bilirubin 0.2 mg/dL (0.2-1.0) Aspartate Amino Transf (AST/SGOT) 23 U/L (15-37) Alanine Aminotransferase (ALT/SGPT) 62 U/L (16-63) Alkaline Phosphatase 59 U/L (46-116) Total Protein 6.2 g/dL (6.4-8.2) Albumin 2.8 g/dL (3.4-5.0) Albumin/Globulin Ratio 0.8 (1.0-1.7) Test 09/04/18 11:56 09/04/18 16:44 09/04/18 20:26 09/05/18 06:27 Glucose (Fingerstick) 103 mg/dL (70-99) 148 mg/dL (70-99) 171 mg/dL (70-99) White Blood Count 14.3 x10^3/uL (4.0-11.0) Red Blood Count 4.61 x10^6/uL (4.30-5.70) Hemoglobin 13.5 g/dL (13.0-17.5) Hematocrit 41.8 % (39.0-53.0) Mean Corpuscular Volume 91 fL (79-100) Mean Corpuscular Hemoglobin 29 pg (25-35) Mean Corpuscular Hemoglobin Concent 32 g/dL (31-37) Red Cell Distribution Width 15.5 % (11.5-14.5) Platelet Count 219 x10^3/uL (140-400) Neutrophils (%) (Auto) 68 % (31-73) Lymphocytes (%) (Auto) 20 % (24-48) Monocytes (%) (Auto) 11 % (0-9) Eosinophils (%) (Auto) 1 % (0-3) Basophils (%) (Auto) 0 % (0-3) Neutrophils # (Auto) 9.8 x10^3uL (1.8-7.7) Lymphocytes # (Auto) 2.8 x10^3/uL (1.0-4.8) Monocytes # (Auto) 1.5 x10^3/uL (0.0-1.1) Eosinophils # (Auto) 0.1 x10^3/uL (0.0-0.7) Basophils # (Auto) 0.1 x10^3/uL (0.0-0.2) Erythrocyte Sedimentation Rate 9 (0-15) Test 09/05/18 07:12 09/05/18 11:07 Glucose (Fingerstick) 138 mg/dL (70-99) 122 mg/dL (70-99) Laboratory Tests Test 09/04/18 16:44 09/04/18 20:26 09/05/18 06:27 09/05/18 07:12 Glucose (Fingerstick) 148 mg/dL (70-99) 171 mg/dL (70-99) 138 mg/dL (70-99) White Blood Count 14.3 x10^3/uL (4.0-11.0) Red Blood Count 4.61 x10^6/uL (4.30-5.70) Hemoglobin 13.5 g/dL (13.0-17.5) Hematocrit 41.8 % (39.0-53.0) Mean Corpuscular Volume 91 fL (79-100) Mean Corpuscular Hemoglobin 29 pg (25-35) Mean Corpuscular Hemoglobin Concent 32 g/dL (31-37) Red Cell Distribution Width 15.5 % (11.5-14.5) Platelet Count 219 x10^3/uL (140-400) Neutrophils (%) (Auto) 68 % (31-73) Lymphocytes (%) (Auto) 20 % (24-48) Monocytes (%) (Auto) 11 % (0-9) Eosinophils (%) (Auto) 1 % (0-3) Basophils (%) (Auto) 0 % (0-3) Neutrophils # (Auto) 9.8 x10^3uL (1.8-7.7) Lymphocytes # (Auto) 2.8 x10^3/uL (1.0-4.8) Monocytes # (Auto) 1.5 x10^3/uL (0.0-1.1) Eosinophils # (Auto) 0.1 x10^3/uL (0.0-0.7) Basophils # (Auto) 0.1 x10^3/uL (0.0-0.2) Erythrocyte Sedimentation Rate 9 (0-15) Test 09/05/18 11:07 Glucose (Fingerstick) 122 mg/dL (70-99) Microbiology 09/01/18 Stool Culture - Preliminary, Resulted 09/01/18 Stool Culture Result 1 (FOREST) - Preliminary, Resulted 09/01/18 Campylobacter Antigen Assay - Preliminary, Resulted 09/01/18 Campylobactor Result 1 - Preliminary, Resulted 09/01/18 Shiga Toxin Test - Final, Resulted Medications Current Medications Morphine Sulfate (Morphine Sulfate) 4 mg 1X ONCE IV Last administered on at 10:19; Start 09/01/18 at 10:15; Stop 09/01/18 at 10:16; Status DC Sodium Chloride 1,000 ml @ 1,000 mls/hr 1X ONCE IV Last administered on at 10:58; Start 09/01/18 at 10:45; Stop 09/01/18 at 11:44; Status DC Iohexol (Omnipaque 350 Mg/ml) 90 ml 1X ONCE IV Last administered on 09/01/18at 10:42; Start 09/01/18 at 10:45; Stop 09/01/18 at 10:46; Status DC Info (CONTRAST GIVEN -- Rx MONITORING) 1 each PRN DAILY PRN MC SEE COMMENTS; Start 09/01/18 at 10:45; Stop 09/03/18 at 10:44; Status DC Multi-Ingredient Mouthwash/Gargle (Gi Cocktail) 20 ml 1X ONCE SWSW Last administered on 09/01/18at 11:49; Start 09/01/18 at 11:30; Stop 09/01/18 at 11:34 ; Status DC Ketorolac Tromethamine (Toradol 15mg Vial) 15 mg 1X ONCE IV Last administered on 09/01/18at 11:49; Start 09/01/18 at 11:30; Stop 09/01/18 at 11:34; Status DC Sodium Chloride 1,000 ml @ 100 mls/hr Q10H IV Last administered on 09/01/18at 11:51; Start 09/01/18 at 11:30; Stop 09/01/18 at 17:48; Status DC Albuterol Sulfate (Ventolin Neb Soln) 2.5 mg PRN Q4HRS PRN INH SHORTNESS OF BREATH Last administered on 09/05/18at 04:25; Start 09/01/18 at 15:45 Amlodipine Besylate (Norvasc) 10 mg DAILY PO Last administered on 09/05/18at 08: 48; Start 09/01/18 at 17:00 Aspirin (Ecotrin) 81 mg DAILY PO Last administered on 09/05/18 08:48; Start at 17:00 Cyclobenzaprine HCl (Flexeril) 10 mg QHS PO Last administered on 09/04/18 21: 12; Start 09/01/18 at 21:00 Fluticasone Propionate (Flonase) 1 spray DAILY NS Last administered on 08:48; Start 09/02/18 at 09:00 Acetaminophen/ Hydrocodone Bitart (Lortab 7.5/325) 1 tab PRN TID PRN PO PAIN Last administered on 09/05/18 00:00; Start 09/01/18 at 15:45 Pantoprazole Sodium (Protonix) 40 mg DAILYAC PO Last administered on 09/03/18 07:26; Start 09/01/18 at 17:00; Stop 09/03/18 at 16:55; Status DC Triamcinolone Acetonide (Kenalog) 1 heriberto BID TP Last administered on 09/05/18 08:49; Start 09/01/18 at 21:00 Non-Formulary Medication (Ipratropium/ Albuterol Sulfate (Combivent Respimat Inhal)) 2 inh BID IH ; Start 09/01/18 at 21:00; Status UNV Ringer's Solution 1,000 ml @ 100 mls/hr Q10H IV Last administered on 09:01; Start 09/01/18 at 15:36 Ondansetron HCl (Zofran) 4 mg PRN Q6HRS PRN IV NAUSEA/VOMITING; Start 09/01/18 at 15:45 Acetaminophen (Tylenol) 650 mg PRN Q6HRS PRN PO Headaches, Temp > 101.5F Last administered on 09/03/18 19:09; Start 09/01/18 at 15:45 Lactulose (Lactulose) 20 gm PRN Q12HR PRN PO CONSTIPATION; Start 09/01/18 at 15 :45 Heparin Sodium (Porcine) (Heparin Sodium) 5,000 unit Q8HRS SQ Last administered on 09/05/18 05:45; Start 09/01/18 at 22:00; Stop 09/05/18 at 09:08 ; Status DC Insulin Human Lispro (HumaLOG) 0-7 UNITS TIDWMEALS SQ Last administered on 09/03 17:28; Start 09/01/18 at 17:00 Dextrose (Dextrose 50%-Water Syringe) 12.5 gm PRN Q15MIN PRN IV SEE COMMENTS; Start 09/01/18 at 15:45 Albuterol/ Ipratropium (Duoneb) 3 ml RTBID NEB Last administered on 09/02/18at 07:18; Start 09/01/18 at 20:00; Stop 09/02/18 at 07:34; Status DC Lidocaine HCl (Viscous Lidocaine) 15 ml PRN Q4HRS PRN SWSW chest/abd pain Last administered on 09/05/18 04:08; Start 09/01/18 at 16:45 Pantoprazole Sodium (PROTONIX VIAL for IV PUSH) 40 mg 1X ONCE IVP ; Start 09/01 at 18:30; Stop 09/01/18 at 18:31; Status DC Morphine Sulfate (Morphine Sulfate) 2 mg PRN Q3HRS PRN IV PAIN Last administered on 09/05/18 04:09; Start 09/01/18 at 18:00 Albuterol/ Ipratropium (Duoneb) 3 ml RTQID NEB Last administered on 09/05/18 11:02; Start 09/02/18 at 08:00 Insulin Human Lispro (HumaLOG) 8 units TIDWMEALS SQ Last administered on 08:59; Start 09/02/18 at 12:00 Vancomycin HCl (Vancomycin Oral Solution) 125 mg [id number] PO Last administered on 09/05/18 09:02; Start 09/02/18 at 15:00 Famotidine (Pepcid) 20 mg BID PO Last administered on 09/05/18 08:48; Start at 21:00 Active Scripts Active Reported Jardiance (Empagliflozin) 10 Mg Tablet 10 Mg PO DAILY Phentermine Hcl 37.5 Mg Capsule 1 Cap PO [id number] 30 Days Multivitamins (Multivitamin) 1 Each Tablet 1 Tab PO DAILY 30 Days [meloxicam] Glimepiride 2 Mg Tablet 2 Mg PO BID 30 Days Proair Hfa Inhaler (Albuterol Sulfate) 8.5 Gm Hfa.aer.ad 1 Puff INH PRN Q4HRS PRN Hydrocodone-Apap 7.5-325 (Hydrocodone Bit/Acetaminophen) 1 Each Tablet 1 Tab PO PRN TID PRN Combivent Respimat Inhal (Ipratropium/Albuterol Sulfate) 4 Gm Aer.w.adap 2 Inh IH BID Triamcinolone Acetonide 0.1% Oint (Triamcinolone Acetonide) 15 Gm Oint...g. 1 Heriberto TP BID MIX WITH EUCERIN DIRECTED BY PHYSICIAN Manny Pen (Exenatide Microspheres) 2 Mg/0.65 Ml Pen.injctr 2 Mg SQ WEEKLY Indapamide 1.25 Mg Tablet 1 Tab PO DAILY Cyclobenzaprine Hcl 10 Mg Tablet 1 Tab PO QHS Aspir 81 (Aspirin) 81 Mg Tablet.dr 81 Mg PO DAILY Celebrex (Celecoxib) 200 Mg Capsule 200 Mg PO DAILY Pantoprazole Sodium 40 Mg Tablet.dr 40 Mg PO DAILY Flonase (Fluticasone Propionate) [address]susp 16 Gm NS DAILY Diovan (Valsartan) 320 Mg Tablet 320 Mg PO DAILY Norvasc (Amlodipine Besylate) 10 Mg Tablet 10 Mg PO DAILY Metformin Hcl Er (Metformin Hcl) 1,000 Mg Tab.er.24 500 Mg PO DAILY 30 Days Vitals/I & O Vital Sign - Last 24 Hours 09/04/18 09/04/18 09/04/18 09/04/18 13:46 15:00 16:04 19:00 Temp 97.4 98.6 97.4 98.6 Pulse 100 105 94 Resp 20 20 B/P (MAP) 126/94 159/95 (116) 119/82 (94) Pulse Ox 97 99 O2 Delivery Room Air Room Air 09/04/18 09/04/18 09/04/18 09/04/18 19:45 19:57 21:13 21:45 Pulse Ox 97 O2 Delivery Room Air Room Air Room Air O2 Flow Rate 2.0 09/04/18 09/05/18 09/05/18 09/05/18 23:02 00:00 01:04 03:07 Temp 98.0 98.5 98.0 98.5 Pulse 89 90 Resp 20 20 B/P (MAP) 132/84 (100) 126/73 (90) Pulse Ox 99 99 O2 Delivery Nasal Cannula Room Air Room Air Nasal Cannula 09/05/18 09/05/18 09/05/18 09/05/18 04:09 04:25 04:40 07:00 Temp 97.5 97.5 Pulse 97 Resp 20 B/P (MAP) 129/81 (97) Pulse Ox 98 O2 Delivery Room Air Room Air Room Air Room Air 09/05/18 09/05/18 09/05/18 09/05/18 07:43 08:00 08:48 11:00 Temp 97.3 97.3 Pulse 97 96 Resp 18 B/P (MAP) 129/81 148/94 (112) Pulse Ox 100 99 O2 Delivery Room Air Room Air Room Air 09/05/18 11:02 O2 Delivery Room Air Intake and Output 09/04/18 09/04/18 09/05/18 14:59 22:59 06:59 Intake Total 740 ml 250 ml 1000 ml Balance 740 ml 250 ml 1000 ml ALMA SEGURA MD Sep 05, 2018 12:28
[2018-09-05 15:19] VITALS: BP 140/78
--- NOTE | 2018-09-05 15:19 | PDOC ---
Subjective: Subjective: Hurts to swallow - lidocaine helps. Food also gets stuck in upper throat sometimes but then goes down w/ water. Tolerating PO though. Diarrhea ongoing but pain is better. Objective: Vital Signs: Vital Signs Date Time Temp Pulse Resp B/P (MAP) Pulse Ox O2 Delivery O2 Flow Rate FiO2 09/05/18 11:02 Room Air 09/05/18 11:00 97.3 96 18 148/94 (112) 99 97.3 09/04/18 21:45 2.0 Labs: Laboratory Tests Test 09/04/18 16:44 09/04/18 20:26 09/05/18 06:27 09/05/18 07:12 Glucose (Fingerstick) 148 mg/dL 171 mg/dL 138 mg/dL White Blood Count 14.3 x10^3/uL Red Blood Count 4.61 x10^6/uL Hemoglobin 13.5 g/dL Hematocrit 41.8 % Mean Corpuscular Volume 91 fL Mean Corpuscular Hemoglobin 29 pg Mean Corpuscular Hemoglobin Concent 32 g/dL Red Cell Distribution Width 15.5 % Platelet Count 219 x10^3/uL Neutrophils (%) (Auto) 68 % Lymphocytes (%) (Auto) 20 % Monocytes (%) (Auto) 11 % Eosinophils (%) (Auto) 1 % Basophils (%) (Auto) 0 % Neutrophils # (Auto) 9.8 x10^3uL Lymphocytes # (Auto) 2.8 x10^3/uL Monocytes # (Auto) 1.5 x10^3/uL Eosinophils # (Auto) 0.1 x10^3/uL Basophils # (Auto) 0.1 x10^3/uL Erythrocyte Sedimentation Rate 9 Test 09/05/18 11:07 Glucose (Fingerstick) 122 mg/dL PE: GEN: NAD LUNGS: CTAB HEART: RRR ABD: obese, non-tender NEURO/PSYCH: A & O 3 A/P: C Diff - diarrhea ongoing, abd pain better ?odynophagia/dysphagia - on BID H2 isela andn lidocaine -- Has had recent EGD w/ dilation and also esophagram last year w/ presbyesophagus. Will review swallowing complaints w/ Dr. Mckenzie. JULI DUTTON Sep 05, 2018 15:19
[2018-09-05] MEDS: FLUCONAZOLE 100 MG TABLET. PO SCH (17:07)
[2018-09-05 19:00] VITALS: BP 132/80
[2018-09-05] MEDS: CYCLOBENZAPRINE 10 MG TABLET. PO SCH (21:03)
[2018-09-05] MEDS: HYDROcodone/APAP 7.5/325MG 1 TAB TABLET PO PRN ×2 (21:09)
[2018-09-05 23:00] VITALS: BP 126/70
[2018-09-06 03:00] VITALS: BP 136/87
[2018-09-06] MEDS: ALBUTEROL SULFATE 2.5 MG/3 ML NEBU. INH PRN (03:54)
[2018-09-06 07:00] VITALS: BP 143/86
[2018-09-06] MEDS: IPRATRPIUM/ALBUTEROL 0.5/2.5MG 3 ML NEBU. NEB SCH ×4 (07:50→20:11)
[2018-09-06] MEDS: INSULIN LISPRO 300 UNITS/3 ML INSULN.PEN. SQ SCH ×6 (08:00→17:31)
[2018-09-06 08:24] LABS: CALCIUM 9.6 mg/dL (8.5-10.1); CREATININE 0.9 mg/dL (0.7-1.3); GFR 105.2; POTASSIUM 4.1 mmol/L (3.5-5.1)
[2018-09-06] MEDS: VANCOMYCIN 125 MG/2.5 ML ORAL SOLUTION. PO SCH ×4 (09:31→21:18)
[2018-09-06] MEDS: HYDROcodone/APAP 7.5/325MG 1 TAB TABLET PO PRN ×2 (09:31→14:36)
[2018-09-06] MEDS: FAMOTIDINE 20 MG TABLET. PO SCH (09:32)
[2018-09-06] MEDS: FLUCONAZOLE 100 MG TABLET. PO SCH (09:32)
[2018-09-06] MEDS: FLUTICASONE 50MCG/NASAL SPRAY 16GM BOTTLE. NS SCH (09:33)
[2018-09-06] MEDS: amLODIPine BESYLATE 10 MG TABLET PO SCH (09:33)
[2018-09-06] MEDS: ASPIRIN ENTERIC COATED 81 MG TABLET.DR. PO SCH (09:33)
[2018-09-06] MEDS: TRIAMCINOLONE ACETONIDE 0.1% TOPICAL OINTMENT 15GM TUBE. TP SCH ×2 (10:38→21:00)
[2018-09-06 11:00] VITALS: BP 134/84
[2018-09-06] MEDS ORDERED: PERFLUTREN PROTEIN-A MICROSPHR 0.22 MG/ML 3 ML VIAL. IV ONE ×2 (13:00→13:05)
--- NOTE | 2018-09-06 14:26 | CARD ---
MR#: [id number] Date of Study: 09/06/2018 Ordering Physician: NICOLETTE DOAN, Referring Physician: NICOLETTE DOAN, Tech: Yanci Farnsworth [facility] APPROVED REPORT EXAM: Two-dimensional echocardiogram with contrast. Other Information Quality : Technically LimitedHR: 102bpm Rhythm : OtherTechnically limited study due to body habitus. INDICATION Arrhythmia Echo Enhancing Agent Indication: Endocardial border delineation Agent/Amount Used: Optison 1mL 2D DIMENSIONS RVDd2.7 (2.9-3.5cm)Left Atrium(2D)3.7 (1.6-4.0cm) IVSd1.3 (0.7-1.1cm)Aortic Root(2D)2.8 (2.0-3.7cm) LVDd3.1 (3.9-5.9cm)LVOT Diameter2.2 (1.8-2.4cm) PWd1.0 (0.7-1.1cm)LVDs1.9 (2.5-4.0cm) FS (%) 39.2 %SV27.3 ml M-Mode DIMENSIONS Left Atrium(MM)3.68 (2.5-4.0cm)Aortic Root3.10 (2.2-3.7cm) Aortic Valve AoV Peak Zach.173.3cm/sAoV VTI32.1cm AO Peak GR.12.0mmHgLVOT Peak Zach.153.4cm/s AO Mean GR.7mmHgAVA (VMAX)3.30cm2 JOSE L (VTI)3.20cm2 Mitral Valve MV E Kvfrnekb46.5cm/sMV DECEL [id number] MV A Akokjysy51.1cm/sE/A Ratio0.7 Pulmonary Valve PV Peak Ezpqrurg105.0cm/s LEFT VENTRICLE Technically difficult study. The left ventricle cavity is mildly decreased in size. There is borderli ne to mild concentric left ventricular hypertrophy. The left ventricle is hyperdynamic. The Ejection Fraction is 65-70%. There is normal LV segmental wall motion. Transmitral Doppler flow pattern is abn ormal. RIGHT VENTRICLE The right ventricle is normal size. There is normal right ventricular wall thickness. The right ventr icular systolic function is normal. ATRIA The left atrium size is normal. The right atrium size is normal. The interatrial septum is intact wit h no evidence for an atrial septal defect or patent foramen ovale as noted on 2-D or Doppler imaging. AORTIC VALVE The aortic valve is not well visualized. Doppler and Color Flow revealed no significant aortic regurg itation. There is no significant aortic valvular stenosis. MITRAL VALVE The mitral valve is normal in structure and function. There is no evidence of mitral valve prolapse. There is no mitral valve stenosis. Doppler and Color Flow revealed mild mitral valve regurgitation. TRICUSPID VALVE The tricuspid valve is not well visualized. Doppler and Color Flow revealed no tricuspid valve regurg itation noted. There is no tricuspid valve prolapse or vegetation. There is no tricuspid valve stenos is. PULMONIC VALVE The pulmonic valve is not well visualized. GREAT VESSELS The aortic root is normal in size. The ascending aorta is normal in size. PERICARDIAL EFFUSION There is no evidence of significant pericardial effusion. Critical Notification Critical Value: No <Conclusion> Technically difficult study. The left ventricle cavity is mildly decreased in size. The left ventricle is hyperdynamic. The Ejection Fraction is 65-70%. There is borderline to mild concentric left ventricular hypertrophy. There is no significant aortic valvular stenosis. Doppler and Color Flow revealed no significant aortic regurgitation. Doppler and Color Flow revealed mild mitral valve regurgitation. Doppler and Color Flow revealed no tricuspid valve regurgitation noted. Signed by : Andrzej Cooper MD Electronically Approved : 09/06/2018 14:25:22
[2018-09-06] MEDS ORDERED: PERFLUTREN PROTEIN-A MICROSPHR 0.22 MG/ML 3 ML VIAL. IV PRN (14:30)
--- NOTE | 2018-09-06 14:57 | PDOC ---
Subjective: Subjective: Diarrhea better. Now food is NOT getting stuck but still hurts to swallow - even saliva (but manages to eat). Objective: Vital Signs: Vital Signs Date Time Temp Pulse Resp B/P (MAP) Pulse Ox O2 Delivery O2 Flow Rate FiO2 09/06/18 14:36 16 Room Air 09/06/18 11:00 97.9 92 134/84 (101) 97 2.0 97.9 Labs: Laboratory Tests Test 09/05/18 16:18 09/05/18 20:31 09/06/18 06:57 09/06/18 07:45 Glucose (Fingerstick) 157 mg/dL 176 mg/dL 132 mg/dL Sodium Level 140 mmol/L Potassium Level 4.1 mmol/L Chloride Level 103 mmol/L Carbon Dioxide Level 26 mmol/L Anion Gap 11 Blood Urea Nitrogen 22 mg/dL Creatinine 0.9 mg/dL Estimated GFR (Cockcroft-Gault) 105.2 Glucose Level 131 mg/dL Calcium Level 9.6 mg/dL Test 09/06/18 11:49 Glucose (Fingerstick) 126 mg/dL STOOL CULTURE Preliminary Preliminary report STOOL CULT RES 1 Preliminary Comment Microbiological testing to rule out the presence of possible pathogens is in progress. CAMPY Final Final report CAMPY RES 1 Final Comment No Campylobacter species isolated. SHIGA TOXIN Final Negative Imaging: Echocardiogram <Conclusion> Technically difficult study. The left ventricle cavity is mildly decreased in size. The left ventricle is hyperdynamic. The Ejection Fraction is 65-70%. There is borderline to mild concentric left ventricular hypertrophy. There is no significant aortic valvular stenosis. Doppler and Color Flow revealed no significant aortic regurgitation. Doppler and Color Flow revealed mild mitral valve regurgitation. Doppler and Color Flow revealed no tricuspid valve regurgitation noted. PE: GEN: NAD LUNGS: CTAB HEART: RRR ABD: obese, non-tender NEURO/PSYCH: A & O 3 A/P: C Diff - improved w/ vanco Dysphagia - better Odynophagia - ongoing, has viscous lidocaine and empiric Diflucan, recent EGD and esophagram GERD -- Try PPI in place of H2 isela. JULI DUTTON Sep 06, 2018 14:57 MASOUD REGAN MD Sep 06, 2018 15:10
[2018-09-06 15:00] VITALS: BP 138/86
--- NOTE | 2018-09-06 16:26 | PDOC2 ---
DEVI AUSTIN [employer] CLE[employer]ER 09/06/18 1626: CARDIAC CONSULT DATE OF CONSULT Date of Consult DATE: 09/06/18 TIME: 1210 REASON FOR CONSULT Reason for Consult: Trigeminy REFERRING PHYSICIAN Referring Physician: Silas SOURCE Source: Chart review, Patient HISTORY OF PRESENT ILLNESS HISTORY OF PRESENT ILLNESS This is a pleasant 58 yo AA male admitted for complains of nausea, vomiting, diarrhea, and abdominal pain. Reports that no further n/v but still having diarrhea. He has been noted with Cdiff and is being treated by GI. No known hx of falls, injury and has been checked heart miller with [facility] recently and no significant CAD was noted. Consult is for arrhythmia with frequent PVCs but this is asymptomatic. No exertional CP but has been hving some SOA and also productive coughing and has been noted with possible pneumonia. 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 PAST MEDICAL HISTORY Past Medical History Cardiovascular: AFIB, HTN Pulmonary: COPD, LE bilateral LE DVT treated with 2 yrs coumadin, Uses PRN O2 and CPAP GI: GERD Heme/Onc: Other Musculoskeletal: Osteoarthritis Infectious disease: No pertinent hx Renal/: No pertinent hx Endocrine: Diabetes PAST SURGICAL HISTORY Past Surgical History: Cholecystectomy, Tonsillectomy, Other (Oral surgery for his VIOLET) FAMILY HISTORY Family History: Hypertension SOCIAL HISTORY Smoke: No ALCOHOL: none Drugs: None CURRENT MEDICATIONS CURRENT MEDICATIONS Current Medications Medications (Trade) Dose Ordered Sig/Yumi Route PRN Reason Start Time Stop Time Status Last Admin Dose Admin Fluconazole (Diflucan) 100 mg DAILY PO 09/05/18 17:00 09/06/18 09:32 ALLERGIES ALLERGIES: Coded Allergies: No Known Drug Allergies (Unverified , 09/17/13) ROS Review of System 14 point ROS evaluated with pertinent positives noted per HPI PHYSICAL EXAM General: Alert, Oriented X3, Cooperative, No acute distress HEENT: Atraumatic, Mucous membr. moist/pink Heart: Regular rate (SR), Normal S1, Normal S2, Other (distant heart sounds) Extremities: No cyanosis, Other (1+ bilateral LE pitting edema) Skin: No breakdown, No significant lesion Neuro: Normal speech, Sensation intact Psych/Mental Status: Mental status NL, Mood NL MUSCULOSKELETAL: Osteoarthritic changes both hands VITALS VITALS Vital Signs Date Time Temp Pulse Resp B/P (MAP) Pulse Ox O2 Delivery O2 Flow Rate FiO2 09/06/18 15:36 99 Nasal Cannula 2.0 09/06/18 14:36 16 09/06/18 11:00 97.9 92 134/84 (101) 97.9 LABS Lab: Laboratory Tests Test 09/05/18 16:18 09/05/18 20:31 09/06/18 06:57 09/06/18 07:45 Glucose (Fingerstick) 157 mg/dL (70-99) 176 mg/dL (70-99) 132 mg/dL (70-99) Sodium Level 140 mmol/L (136-145) Potassium Level 4.1 mmol/L (3.5-5.1) Chloride Level 103 mmol/L (98-107) Carbon Dioxide Level 26 mmol/L (21-32) Anion Gap 11 (6-14) Blood Urea Nitrogen 22 mg/dL (8-26) Creatinine 0.9 mg/dL (0.7-1.3) Estimated GFR (Cockcroft-Gault) 105.2 Glucose Level 131 mg/dL (70-99) Calcium Level 9.6 mg/dL (8.5-10.1) Test 09/06/18 11:49 Glucose (Fingerstick) 126 mg/dL (70-99) ASSESSMENT/PLAN ASSESSMENT/PLAN 1. Atypical CP: GI induced with n/v. known nml LHC. 2. Sepsis: BP stable. improved. 3. Cdiff 4. SHOSHANA: resolved with hydration 5. Arrhythmia: PVCs. This is asymptomatic. Likelyinduced by metabolic derangement. 6. PAFIB? per Hx. none so far. 7. Hx of LE DVT: 2004 8. VIOLET 9. DM2/HLP Recommendations 1. Check Mg, replace if needed. TTE. 2. Note TTE and outpt holter is a consideration to also clarify afib burden and PVC burden. 3. Continue with ASA. SHELIA BUCHANAN MD 09/06/18 9472: CARDIAC CONSULT ASSESSMENT/PLAN ASSESSMENT/PLAN Patient seen and examined. Agree with ASSOCIATE MERCHANT's assessment and plan CP with atypical features and most probably GI etiology NV ruled out 2D echo showed normal LV function without any wall motion abnormalities Agree with outpatient event monitor to assess arrhythmia burden Thank you for your consultation. DEVI AUSTIN APRN Sep 06, 2018 16:26 SHELIA BUCHANAN MD Sep 06, 2018 21:53
[2018-09-06] MEDS ORDERED: MAGNESIUM SULFATE 2GM 50 ML IV ONE (17:30)
[2018-09-06 19:00] VITALS: BP 133/88
[2018-09-06] MEDS: CYCLOBENZAPRINE 10 MG TABLET. PO SCH (21:18)
[2018-09-06] MEDS: LACTOBACILLUS RHAMNOSUS GG 1 CAPSULE. PO SCH (21:18)
[2018-09-06] MEDS: MORPHINE SULFATE 4 MG/ML VIAL. IV PRN (21:57)
[2018-09-06 23:04] VITALS: BP 136/84
[2018-09-07] MEDS: ALBUTEROL SULFATE 2.5 MG/3 ML NEBU. INH PRN ×2 (00:03→03:41)
--- NOTE | 2018-09-07 00:03 | PN ---
DATE: 09/06/2018 SUBJECTIVE: The patient is still having loose BM, but no blood. Hemodynamically stable. No fevers. No white count. On vancomycin q.i.d. by GI. But now called by RNmable, the patient did claim palpitations. The patient does not have any personal history of CAD. OBJECTIVE: GENERAL: Awake, alert, oriented x 3, not in acute respiratory distress. HEENT: Unremarkable. LUNGS: Clear to auscultation bilaterally. HEART: Normal rate and rhythm. ABDOMEN: Hyperactive bowel sounds, no guarding. GENITALIA: Appropriate for age. EXTREMITIES: Negative edema. Pulses full and equal. No pallor or cyanosis of nailbed. ASSESSMENT AND PLAN: 1. Trigeminy -- check stat labs including electrolytes, calcium, mag. Consult Cardiology. 2. 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 - he is off lactated Ringer's. So far, p.o. intake is very good. 3. Obesity. 4. Hypertension, otherwise controlled. PLAN: 1. As above. Stat electrolytes and labs. Consult Cardiology. 2. Keep tele monitor. ALMA SEGURA MD DR: /nts JOB#: [id number] / [id number]
[2018-09-07 04:15] VITALS: BP 131/79
[2018-09-07 07:00] VITALS: BP 131/83
[2018-09-07] MEDS: IPRATRPIUM/ALBUTEROL 0.5/2.5MG 3 ML NEBU. NEB SCH ×2 (07:18→11:03)
[2018-09-07] MEDS ORDERED: PANTOPRAZOLE 40 MG TABLET.DR. PO SCH (07:30)
[2018-09-07] MEDS: INSULIN LISPRO 300 UNITS/3 ML INSULN.PEN. SQ SCH ×4 (08:00→12:48)
--- NOTE | 2018-09-07 08:54 | NUR ---
ABIOLA following pt. PT recommends SNU and OT is pending. Spoke with pt about SNU options and insurance coverage. Pt declined SNU and reported he would like to go home with home health. Pt agreeable with [facility]. ABIOLA will arrange HH upon dc. FABIANA RN. Will continue to follow.
[2018-09-07] MEDS: VANCOMYCIN 125 MG/2.5 ML ORAL SOLUTION. PO SCH ×2 (09:00→12:41)
[2018-09-07] MEDS: FLUTICASONE 50MCG/NASAL SPRAY 16GM BOTTLE. NS SCH (09:00)
[2018-09-07] MEDS: amLODIPine BESYLATE 10 MG TABLET PO SCH (09:02)
[2018-09-07] MEDS: FLUCONAZOLE 100 MG TABLET. PO SCH (09:02)
[2018-09-07] MEDS: LACTOBACILLUS RHAMNOSUS GG 1 CAPSULE. PO SCH (09:03)
[2018-09-07] MEDS: HYDROcodone/APAP 7.5/325MG 1 TAB TABLET PO PRN (09:03)
[2018-09-07] MEDS: ASPIRIN ENTERIC COATED 81 MG TABLET.DR. PO SCH (09:03)
[2018-09-07] MEDS: TRIAMCINOLONE ACETONIDE 0.1% TOPICAL OINTMENT 15GM TUBE. TP SCH (09:04)
[2018-09-07] MEDS ORDERED: MAGNESIUM SULFATE 1GM 100 ML IV ONE (09:30)
--- NOTE | 2018-09-07 09:49 | PDOC ---
LYNSEY LOPEZ LINE PATROLLER 09/07/18 0949: CARDIO Progress Notes Date and Time Date of Service 09/07/18 Time of Evaluation 0940 Subjective Subjective: No Chest Pain, No shortness of breath, No Palpitations, Other ( diarrhea ongoing ) Vitals Vitals Vital Signs Date Time Temp Pulse Resp B/P (MAP) Pulse Ox O2 Delivery O2 Flow Rate FiO2 09/07/18 09:03 Room Air 09/07/18 09:02 105 124/92 09/07/18 07:00 97.7 18 99 97.7 09/07/18 03:42 2.0 Weight Weight [ ] Input and Output Intake and Output Intake and Output 09/07/18 07:00 Intake Total 660 ml Balance 660 ml Intake Oral 660 ml # Voids 5 Laboratory Labs Laboratory Tests Test 09/06/18 11:49 09/06/18 17:16 09/06/18 20:24 09/07/18 07:39 Glucose (Fingerstick) 126 mg/dL (70-99) 147 mg/dL (70-99) 112 mg/dL (70-99) 119 mg/dL (70-99) Microbiology Micro Microbiology 09/01/18 Stool Culture - Final, Complete 09/01/18 Stool Culture Result 1 (FOREST) - Final, Complete 09/01/18 Campylobacter Antigen Assay - Final, Complete 09/01/18 Campylobactor Result 1 - Final, Complete 09/01/18 Shiga Toxin Test - Final, Complete Physical Exam HEENT: Neck Supple W Full Motion Chest: Symmetric LUNGS: Clear to Auscultation Heart: S1S2, RRR (SR with occasional PVCs), no murmurs, irregularly irregular Abdomen: Soft N/T, Other (obese ) Extremities: Other (1+ bilateral LE edema ) Neurology: alert, oriented, follow commands Assessment Assessment 1. Atypical CP: GI induced with n/v. known nml LHC. Echo showed normal LV systolic function. No WMA. 2. Leukocytosis, c-diff, sepsis 3. SHOSHANA: resolved with hydration 4. Arrhythmia: PVCs. This is asymptomatic. Likely induced by metabolic derangement. Improved with replacement 5. PAFIB; maintaining SR 6. Hx of LE DVT: 2004 7. VIOLET 8. DM2/HLP 9. Hypomagnesemia Recommendations BMP, Mg. Replace electrolytes as warranted Will plan for outpatient event monitor to note arrhythmia burden, guide OAC therapy Continue with ASA for stroke prophylaxis F/u in our office with Dr. Medina in 4 weeks. SHELIA MEDINA MD 09/08/18 0722: CARDIO Progress Notes Assessment Assessment Patient seen and examined 09/07/18. Agree with SUPERVISORY HISTORIAN's assessment and plan. Chest pain noncardiac and most probably GI etiology Agree with outpatient event monitor to assess arrhythmia burden Follow-up with our office in 1 month LYNSEY LOPEZ APRN Sep 07, 2018 09:49 SHELIA MEDINA MD Sep 08, 2018 07:22
[2018-09-07 10:14] LABS: CALCIUM 9.2 mg/dL (8.5-10.1); CREATININE 1.1 mg/dL (0.7-1.3); GFR 83.5; POTASSIUM 4.4 mmol/L (3.5-5.1)
--- NOTE | 2018-09-07 10:59 | PDOC ---
Subjective: Subjective: Says diarrhea, dysphagia, and odynophagia are better. Objective: Vital Signs: Vital Signs Date Time Temp Pulse Resp B/P (MAP) Pulse Ox O2 Delivery O2 Flow Rate FiO2 09/07/18 09:03 Room Air 09/07/18 09:02 105 124/92 09/07/18 07:00 97.7 18 99 97.7 09/07/18 03:42 2.0 Labs: Laboratory Tests Test 09/06/18 11:49 09/06/18 17:16 09/06/18 20:24 09/07/18 07:39 Glucose (Fingerstick) 126 mg/dL 147 mg/dL 112 mg/dL 119 mg/dL Test 09/07/18 09:55 Sodium Level 134 mmol/L Potassium Level 4.4 mmol/L Chloride Level 99 mmol/L Carbon Dioxide Level 20 mmol/L Anion Gap 15 Blood Urea Nitrogen 20 mg/dL Creatinine 1.1 mg/dL Estimated GFR (Cockcroft-Gault) 83.5 Glucose Level 198 mg/dL Calcium Level 9.2 mg/dL Magnesium Level 2.0 mg/dL PE: GEN: NAD LUNGS: room air HEART: RRR ABD: obese, non-tender NEURO/PSYCH: A & O 3 A/P: C Diff -diarrhea improved Dysphagia/odynophagia - better -- Continue vanco, PPI, and empiric Diflucan. JULI DUTTON Sep 07, 2018 10:59
[2018-09-07 11:00] VITALS: BP 136/92
[2018-09-07] MEDS ORDERED: VANC500V PO (12:07)
[2018-09-07] MEDS ORDERED: Fluconazole PO (12:07)
--- NOTE | 2018-09-07 12:08 | DISCH ---
DISCHARGE WITH HOME HEALTH DISCHARGE INFORMATION: Discharge Date: Sep 07, 2018 Condition on Discharge: Stable CODE STATUS: Code Status: Full HOME HEALTH: Face to Face: I certify this patient is under my care and that I, or a nurse practitioner or physician's assistant boys track coach working with me, had a face to face encounter that meets the physician face to face encounter requirements with this patient on []. 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 POST DISCHARGE ORDERS: Activity Instructions for Disc: Resume previous activity Weight Bearing Status after Di: Full weight bearing DIET AFTER DISCHARGE: Cardiac CHECKS AFTER DISCHARGE: Checks after discharge: Check blood press - daily, Check blood sugar, ac/hs TREATMENT/EQUIPMENT ORDERS: Adaptive Equipment Issued: None CERTIFICATION STATEMENT: Certification Statement: Certification Statement: Based on the above finding, I certify that this patient is confined to the home and needs intermittent senior living care, physical therapy and/or speech therapy, or continues to need occupational therapy.~ This patient is under my care, and I have initiated the establishment of the plan of care.~ This patient will be followed by myself or a community physician who will periodically review the plan of care. Home Meds Active Scripts [Fluconazole] 100 MG TABLET No Conflict Check, 100 MG PO DAILY for fumgal infectioj MDD 1 for 14 Days, #14 TAB Prov:ALMA SEGURA MD 09/07/18 Vancomycin Hcl (VANCOMYCIN HCL) 500 Mg Vial, 125 MG PO [id number] for c diff MDD 1 for 14 Days, #12 EACH Prov:ALMA SEGURA MD 09/07/18 Reported Medications Empagliflozin (Jardiance) 10 Mg Tablet, 10 MG PO DAILY for diabetes , TAB 09/01/18 Phentermine Hcl (PHENTERMINE HCL) 37.5 Mg Capsule, 1 CAP PO DAILYWBKFT for weight loss for 30 Days, #30 CAP 2 Refills 09/01/18 Multivitamin (MULTIVITAMINS) 1 Each Tablet, 1 TAB PO DAILY for supplement for 30 Days, #30 TAB 3 Refills 09/01/18 [meloxicam] No Conflict Check 09/01/18 Glimepiride (GLIMEPIRIDE) 2 Mg Tablet, 2 MG PO BID for Diabetes for 30 Days, # 60 TAB 09/01/18 Albuterol Sulfate (PROAIR HFA INHALER) 8.5 Gm Hfa.aer.ad, 1 PUFF INH PRN Q4HRS PRN for SHORTNESS OF BREATH, INHALER 0 Refills 03/15/18 Hydrocodone Bit/Acetaminophen (HYDROCODONE-APAP 7.5-325 ) 1 Each Tablet, 1 TAB PO PRN TID PRN for PAIN, TAB 0 Refills 03/15/18 Ipratropium/Albuterol Sulfate (COMBIVENT RESPIMAT INHAL) 4 Gm Aer.w.adap, 2 INH IH BID, INHALER 03/15/18 Triamcinolone Acetonide (TRIAMCINOLONE ACETONIDE 0.1% OINT) 15 Gm Oint...g., 1 ALISON TP BID for WOUND CARE, #1 TUBE MIX WITH EUCERIN DIRECTED BY PHYSICIAN 03/15/18 Exenatide Microspheres (Bydureon Pen) 2 Mg/0.65 Ml Pen.injctr, 2 MG SQ WEEKLY, EACH 03/15/18 Indapamide (INDAPAMIDE) 1.25 Mg Tablet, 1 TAB PO DAILY, #30 TAB 5 Refills 03/15/18 Cyclobenzaprine Hcl (CYCLOBENZAPRINE HCL) 10 Mg Tablet, 1 TAB PO QHS, #30 TAB 03/15/18 Aspirin (ASPIR 81) 81 Mg Tablet.dr, 81 MG PO DAILY 09/17/13 Celecoxib (CELEBREX) 200 Mg Capsule, 200 MG PO DAILY 09/17/13 Pantoprazole Sodium (PANTOPRAZOLE SODIUM) 40 Mg Tablet.dr, 40 MG PO DAILY 09/17/13 Fluticasone Propionate (FLONASE) 16 Gm [place].susp, 16 GM NS DAILY 09/17/13 Valsartan (DIOVAN) 320 Mg Tablet, 320 MG PO DAILY 09/17/13 Amlodipine Besylate (NORVASC) 10 Mg Tablet, 10 MG PO DAILY 09/17/13 Metformin Hcl (METFORMIN HCL ER) 1,000 Mg Tab.er.24, 500 MG PO DAILY for Diabetes for 30 Days 09/17/13 Discontinued Reported Medications Glimepiride (GLIMEPIRIDE) 4 Mg Tablet, 1 TAB PO BID, #180 TAB 1 Refill 03/15/18 ALMA SEGURA MD Sep 07, 2018 12:08
--- NOTE | 2018-09-07 12:12 | PDOC3 ---
Discharge Summary Visit Information Date of Admission: Sep 01, 2018 Date of Discharge: Sep 07, 2018 Final Diagnosis 1. Trigeminy --normal echo, for outpatient event monitor 2. 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 - he is off lactated Ringer's. So far, p.o. intake is very good. 3. Obesity. 4. Hypertension, otherwise controlled. #5:hypomagnesemia, mild, 1.7 Brief Hospital Course Allergies Allergies Coded Allergies Type Severity Reaction Last Updated Verified No Known Drug Allergies 09/17/13 No Vital Signs Vital Signs Date Time Temp Pulse Resp B/P (MAP) Pulse Ox O2 Delivery O2 Flow Rate FiO2 09/07/18 11:04 Room Air 09/07/18 11:00 98.0 97 18 136/92 (107) 98 98.0 09/07/18 03:42 2.0 Lab Results Laboratory Tests Test 09/05/18 16:18 09/05/18 20:31 09/06/18 06:57 09/06/18 07:45 Glucose (Fingerstick) 157 mg/dL (70-99) 176 mg/dL (70-99) 132 mg/dL (70-99) Sodium Level 140 mmol/L (136-145) Potassium Level 4.1 mmol/L (3.5-5.1) Chloride Level 103 mmol/L (98-107) Carbon Dioxide Level 26 mmol/L (21-32) Anion Gap 11 (6-14) Blood Urea Nitrogen 22 mg/dL (8-26) Creatinine 0.9 mg/dL (0.7-1.3) Estimated GFR (Cockcroft-Gault) 105.2 Glucose Level 131 mg/dL (70-99) Calcium Level 9.6 mg/dL (8.5-10.1) Magnesium Level 1.7 mg/dL (1.8-2.4) Test 09/06/18 11:49 09/06/18 17:16 09/06/18 20:24 09/07/18 07:39 Glucose (Fingerstick) 126 mg/dL (70-99) 147 mg/dL (70-99) 112 mg/dL (70-99) 119 mg/dL (70-99) Test 09/07/18 09:55 09/07/18 11:01 Sodium Level 134 mmol/L (136-145) Potassium Level 4.4 mmol/L (3.5-5.1) Chloride Level 99 mmol/L (98-107) Carbon Dioxide Level 20 mmol/L (21-32) Anion Gap 15 (6-14) Blood Urea Nitrogen 20 mg/dL (8-26) Creatinine 1.1 mg/dL (0.7-1.3) Estimated GFR (Cockcroft-Gault) 83.5 Glucose Level 198 mg/dL (70-99) Calcium Level 9.2 mg/dL (8.5-10.1) Magnesium Level 2.0 mg/dL (1.8-2.4) Glucose (Fingerstick) 133 mg/dL (70-99) Laboratory Tests Test 09/06/18 17:16 09/06/18 20:24 09/07/18 07:39 09/07/18 09:55 Glucose (Fingerstick) 147 mg/dL (70-99) 112 mg/dL (70-99) 119 mg/dL (70-99) Sodium Level 134 mmol/L (136-145) Potassium Level 4.4 mmol/L (3.5-5.1) Chloride Level 99 mmol/L (98-107) Carbon Dioxide Level 20 mmol/L (21-32) Anion Gap 15 (6-14) Blood Urea Nitrogen 20 mg/dL (8-26) Creatinine 1.1 mg/dL (0.7-1.3) Estimated GFR (Cockcroft-Gault) 83.5 Glucose Level 198 mg/dL (70-99) Calcium Level 9.2 mg/dL (8.5-10.1) Magnesium Level 2.0 mg/dL (1.8-2.4) Test 09/07/18 11:01 Glucose (Fingerstick) 133 mg/dL (70-99) Brief Hospital Course Mr. Rivera is a 58 old male otherwise previously healthy except for hypertension, comes in because of first episode C. difficile. 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 Vancomycin 4 times a day by mouth - bowel movements are loose but no significant blood\, about 4 episodes in a day. Hemodynamically stable and has very hearty appetite. Lites are otherwise good with only mild hypomagnesemia to 1.7 The course remarkable for trigeminy no known personal CAD or arrhythmias. Planned for outpatient event monitor. Echocardiogram is good Consults performed GI, etiology Procedures performed echocardiogram Discharge Information Condition at Discharge: Improved Disposition/Orders: D/C to Home w/ HH Scheduled Amlodipine Besylate (Norvasc) 10 Mg Tablet, 10 MG PO DAILY, (Reported) Entered as Reported by: Pamella Murillo on 09/17/132303 Last Action: Continued on 09/01/181543 by NICOLETTE DOAN MD Aspirin (Aspir 81) 81 Mg Tablet.dr, 81 MG PO DAILY, (Reported) Entered as Reported by: Pamella Murillo on 09/17/132303 Last Action: Continued on 09/01/181544 by NICOLETTE DOAN MD Celecoxib (Celebrex) 200 Mg Capsule, 200 MG PO DAILY, (Reported) Entered as Reported by: Pamella Murillo on 09/17/132303 Last Action: HELD on 09/01/181543 by NICOLETTE DOAN MD Cyclobenzaprine Hcl (Cyclobenzaprine Hcl) 10 Mg Tablet, 1 TAB PO QHS, #30 ( Reported) Entered as Reported by: YOLIE LOVELL on 03/15/182203 Last Action: Continued on 09/01/181544 by NICOLETTE DOAN MD Empagliflozin (Jardiance) 10 Mg Tablet, 10 MG PO DAILY for diabetes , (Reported) Entered as Reported by: DANTE KLINE RN on 09/01/181653 Last Taken: Unknown Dose on 08/31/18 0900 Last Action: New Order on 1653 by DANTE KLINE RN Exenatide Microspheres (Bydureon Pen) 2 Mg/0.65 Ml Pen.injctr, 2 MG SQ WEEKLY, ( Reported) Entered as Reported by: YOLIE LOVELL on 03/15/182203 Last Action: HELD on 09/01/181543 by NICOLETTE DOAN MD Fluticasone Propionate (Flonase) 16 Gm [place].susp, 16 GM NS DAILY, (Reported) Entered as Reported by: Pamella Murillo on 09/17/132303 Last Action: Continued on 09/01/181544 by NICOLETTE DOAN MD Glimepiride (Glimepiride) 2 Mg Tablet, 2 MG PO BID for Diabetes for 30 Days, # 60 (Reported) Entered as Reported by: DANTE KLINE RN on 09/01/181642 Last Action: New Order on 09/01/181642 by DANTE KLINE RN Indapamide (Indapamide) 1.25 Mg Tablet, 1 TAB PO DAILY, #30 Ref 5 (Reported) Entered as Reported by: YOLIE LOVELL on 03/15/182203 Last Action: HELD on 09/01/181543 by NICOLETTE DOAN MD Ipratropium/Albuterol Sulfate (Combivent Respimat Inhal) 4 Gm Aer.w.adap, 2 INH IH BID, (Reported) Entered as Reported by: YOLIE LOVELL on 03/15/182203 Last Action: Converted on 09/01/181544 by NICOLETTE DOAN MD Metformin Hcl (Metformin Hcl Er) 1,000 Mg Tab.er.24, 500 MG PO DAILY for Diabetes for 30 Days, (Reported) Entered as Reported by: Pamella Murillo on 09/17/132303 Last Action: Edited on 09/01/181639 by DANTE KLINE RN Multivitamin (Multivitamins) 1 Each Tablet, 1 TAB PO DAILY for supplement for 30 Days, #30 Ref 3 (Reported) Entered as Reported by: DANTE KLINE RN on 09/01/181653 Last Taken: Unknown Dose on 08/31/18 09 Last Action: New Order on 1653 by DANTE KLINE RN Pantoprazole Sodium (Pantoprazole Sodium) 40 Mg Tablet.dr, 40 MG PO DAILY, ( Reported) Entered as Reported by: Pamella Murillo on 09/17/132303 Last Action: Continued on 09/01/181544 by NICOLETTE DOAN MD Phentermine Hcl (Phentermine Hcl) 37.5 Mg Capsule, 1 CAP PO DAILYWBKFT for weight loss for 30 Days, #30 Ref 2 (Reported) Entered as Reported by: DANTE KLINE RN on 09/01/181653 Last Taken: Unknown Dose on 08/31/18 0900 Last Action: New Order on 1653 by DANTE KLINE RN Triamcinolone Acetonide (Triamcinolone Acetonide 0.1% Oint) 15 Gm Oint...g., 1 ALISON TP BID for WOUND CARE, #1 (Reported) MIX WITH EUCERIN DIRECTED BY PHYSICIAN Entered as Reported by: YOLIE LOVELL on 03/15/182203 Last Action: Continued on 09/01/181544 by NICOLETTE DOAN MD Valsartan (Diovan) 320 Mg Tablet, 320 MG PO DAILY, (Reported) Entered as Reported by: Pamella Murillo on 09/17/132303 Last Action: HELD on 09/01/181543 by NICOLETTE DOAN MD Vancomycin Hcl (Vancomycin Hcl) 500 Mg Vial, 125 MG PO [id number] for c diff MDD 1 for 14 Days, #12 Prescribed by: ALMA SEGURA on 09/07/18 1207 [Fluconazole] 100 MG TABLET, 100 MG PO DAILY for fumgal infectioj MDD 1 for 14 Days, #14 Prescribed by: ALMA SEGURA on 09/07/18 1207 Scheduled PRN Albuterol Sulfate (Proair Hfa Inhaler) 8.5 Gm Hfa.aer.ad, 1 PUFF INH PRN Q4HRS PRN for SHORTNESS OF BREATH, Ref 0 (Reported) Entered as Reported by: YOLIE LOVELL on 03/15/182203 Last Action: Continued on 09/01/181543 by NICOLETTE DOAN MD Hydrocodone Bit/Acetaminophen (Hydrocodone-Apap 7.5-325 ) 1 Each Tablet, 1 TAB PO PRN TID PRN for PAIN, Ref 0 (Reported) Entered as Reported by: YOLIE LOVELL on 03/15/182203 Last Action: Continued on 09/01/181544 by NICOLETTE DOAN MD Miscellaneous Medications [meloxicam] , (Reported) Entered as Reported by: DANTE KLINE RN on 09/01/181653 Last Action: New Order on 09/01/181653 by DANTE KLINE RN Discontinued Medications Glimepiride (Glimepiride) 4 Mg Tablet, 1 TAB PO BID, #180 Ref 1 (Reported) Discontinued Reason: Prescription changed Entered as Reported by: YOLIE LOVELL on 03/15/182203 Last Action: HELD on 09/01/18 154 by MD IMELDA ROSAS CHERRIE Y MD Sep 07, 2018 12:12
[2018-09-07 12:15] LABS: BASO # 0.1 x10^3/uL (0.0-0.2); BASO % 1 % (0-3); EOS # 0.1 x10^3/uL (0.0-0.7); EOS % 1 % (0-3); HEMATOCRIT 41.1 % (39.0-53.0); HEMOGLOBIN 13.4 g/dL (13.0-17.5); LYMPH % 18 % (24-48); MEAN CORPUSCULAR HEMOGLOBIN 29 pg (25-35); MEAN CORPUSCULAR HGB CONC 33 g/dL (31-37); MEAN CORPUSCULAR VOLUME 90 fL (79-100); MONO # 1.1 x10^3/uL (0.0-1.1); MONO % 7 % (0-9); NEUT # 12.3 x10^3uL (1.8-7.7); NEUT % 74 % (31-73); PLATELET COUNT 224 x10^3/uL (140-400); RED BLOOD COUNT 4.58 x10^6/uL (4.30-5.70); RED CELL DISTRIBUTION WIDTH 15.7 % (11.5-14.5); WHITE BLOOD COUNT 16.6 x10^3/uL (4.0-11.0)
--- NOTE | 2018-09-07 12:24 | PDOC ---
Provider Note Provider Note Pt uncomfortable discharging claims he still sick WBC repeat 16, we did review he did not get any steroids No fevers He does have C. difficile. I am unsure as to why he would get the idea that someone told him his WBC should be less than 12 before dc Plan: anyways I did hold discharge today, difficult discharging today with the above issues ALMA SEGURA MD Sep 07, 2018 12:24
--- NOTE | 2018-09-07 12:24 | NUR ---
ABIOLA following pt. ABIOLA phoned and faxed orders to [facility]. RN notified.
[2018-09-07] MEDS: ACETAMINOPHEN 325 MG TABLET. PO PRN (12:42)
--- NOTE | 2018-09-07 14:34 | NUR ---
Discharge Note: VANCE HERNANDEZ [address] [place] [address] Discharge instructions and discharge home medications reviewed with Patient and a copy given. All questions have been answered and understanding verbalized. The following instructions and handouts were given: new medication info, c diff info, hypomagnesia info, discharge instructions. Discontinued lines and drains: Peripheral IV intact. Patient discharged to Home w/services with Spouse via Wheelchair at 1435.
== END 2018-09-07 14:35 | disposition home health service (06) | DRG 871 ==
LOC: ER 09:11 → 5 NORTH 11:30
PROVIDERS: ADMIT Internal Medicine; ATTEND Internal Medicine
DX: A41.9 Sepsis, unspecified organism (principal); N17.0 Acute kidney failure with tubular necrosis; A04.72 Enterocolitis due to Clostridium difficile, not specified as recurrent; Z68.43 Body mass index [BMI] 50.0-59.9, adult; K21.9 Gastro-esophageal reflux disease without esophagitis; F41.9 Anxiety disorder, unspecified; M19.90 Unspecified osteoarthritis, unspecified site; E04.2 Nontoxic multinodular goiter; E11.9 Type 2 diabetes mellitus without complications; E78.5 Hyperlipidemia, unspecified; E83.42 Hypomagnesemia; G89.29 Other chronic pain; E66.01 Morbid (severe) obesity due to excess calories; J44.9 Chronic obstructive pulmonary disease, unspecified; I49.3 Ventricular premature depolarization; R07.89 Other chest pain; N28.89 Other specified disorders of kidney and ureter; I10 Essential (primary) hypertension; I48.91 Unspecified atrial fibrillation; G47.33 Obstructive sleep apnea (adult) (pediatric); K76.0 Fatty (change of) liver, not elsewhere classified; R13.10 Dysphagia, unspecified; Z79.82 Long term (current) use of aspirin; Z79.84 Long term (current) use of oral hypoglycemic drugs; Z82.49 Family history of ischemic heart disease and other diseases of the circulatory system; Z79.899 Other long term (current) drug therapy; Z86.010 Personal history of colon polyps; Z86.718 Personal history of other venous thrombosis and embolism; Z90.49 Acquired absence of other specified parts of digestive tract; R00.8 Other abnormalities of heart beat
CPT/HCPCS: 99285; C8929; 36415; 71045; 71275; 74177; 76536; 76705; 76770; 78582; 80048; 80053; 81001; 82962; 83690; 83735; 84443; 84484; 85025; 85610; 85651; 86705; 86709; 86803; 87045; 87205; 87340; 87493; 87804; 93005; 93970; 94640; 94760; 96361; 96374; 96375; A9540; A9558; J1644; J1815; J1885; J2270; J3475; J7030; J7120; J7613; J7620; Q9956; Q9967; 97110; 97116

== ENCOUNTER 2018-09-09 11:43 | Inpatient (IN) | payer OTHER ==
[~2018-09-09] VITALS: Ht 157.5 cm; Wt 137.9 kg
[~2018-09-09 11:43] MED LIST changes: +EMPA10TA PO; +GLIM2TAB2 PO; +MULT1TAB52 PO; +PHEN37.53 PO; +VANC500V PO; +meloxicam
[2018-09-09] MEDS ORDERED: IV NORMAL SALINE 1000ML BAG 1,000 ML IV SCH (12:20)
--- NOTE | 2018-09-09 12:25 | PHYS DOC ---
Past Medical History Past Medical History: A-Fib, Anxiety, Asthma, COPD, Diabetes-Type II, DVT, GERD , Hypertension, Other Additional Past Medical Histor: SLEEP APNEA, OBESITY Past Surgical History: Cholecystectomy, Tonsillectomy Alcohol Use: None Drug Use: None Adult General Chief Complaint Chief Complaint: CHEST PAIN HPI HPI Patient is a 58 year old male who presents with chest pain, nausea, vomiting, and diarrhea. Patient was released from the hospital 2 days ago after being admitted for the same thing and ultimately diagnosed with Clostridium difficile. Patient denies any blood in his stool or emesis. Patient reports that he was feeling better prior to discharge but has been unable to tolerate any oral intake since arriving at home. Denies any worsening of the chest discomfort with exertion. Patient's history is significant for diabetes and high blood pressure as well.[] Review of Systems Review of Systems Constitutional: Denies fever or chills [] Eyes: Denies change in visual acuity, redness, or eye pain [] HENT: Denies nasal congestion or sore throat [] Respiratory: Denies cough or shortness of breath [] Cardiovascular: No additional information not addressed in HPI [] GI: See history of present illness[] : Denies dysuria or hematuria [] Musculoskeletal: Denies back pain or joint pain [] Integument: Denies rash or skin lesions [] Neurologic: Denies headache, focal weakness or sensory changes [] Endocrine: Denies polyuria or polydipsia [] All other systems were reviewed and found to be within normal limits, except as documented in this note. Current Medications Current Medications Current Medications Medications (Trade) Dose Ordered Sig/[facility] Start Time Stop Time Status Last Admin Dose Admin Aspirin (Children'S Aspirin) 324 mg 1X ONCE 09/09/18 12:30 09/09/18 12:31 DC 09/09/18 12:53 324 MG Hyoscyamine (Anaspaz) 0.125 mg ONCE ONCE 09/09/18 12:30 09/09/18 12:31 DC Ketorolac Tromethamine (Toradol 30mg Vial) 30 mg 1X ONCE 09/09/18 12:30 09/09/18 12:31 DC 09/09/18 12:53 30 MG Prochlorperazine Edisylate (Compazine) 5 mg 1X ONCE 09/09/18 12:30 09/09/18 12:31 DC 09/09/18 12:53 5 MG Sodium Chloride 1,000 ml @ 1,000 mls/hr Q1H 09/09/18 12:20 09/09/18 13:19 09/09/18 12:54 1,000 MLS/HR Allergies Allergies Allergies Coded Allergies Type Severity Reaction Last Updated Verified No Known Drug Allergies 09/17/13 No Physical Exam Physical Exam Constitutional: Well developed, well nourished, no acute distress, non-toxic appearance. [] HENT: Normocephalic, atraumatic, bilateral external ears normal, oropharynx moist, no oral exudates, nose normal. [] Eyes: PERRLA, EOMI, conjunctiva normal, no discharge. [] Neck: Normal range of motion, no tenderness, supple, no stridor. [] Cardiovascular:Heart rate is tachycardic with a regular rhythm, no murmur [] Lungs & Thorax: Bilateral breath sounds clear to auscultation [] Abdomen: Bowel sounds normal, soft, no tenderness, no masses, no pulsatile masses. [] Skin: Warm, dry, no erythema, no rash. [] Back: No tenderness, no CVA tenderness. [] Extremities: No tenderness, no cyanosis, no clubbing, ROM intact, no edema. [] Neurologic: Alert and oriented X 3, normal motor function, normal sensory function, no focal deficits noted. [] Psychologic: Affect normal, judgement normal, mood normal. [] Current Patient Data Vital Signs Vital Signs Date Time Temp Pulse Resp B/P (MAP) Pulse Ox O2 Delivery O2 Flow Rate FiO2 09/09/18 11:47 97.4 134 16 165/133 (144) 97 Room Air 97.4 Lab Values Laboratory Tests Test 09/09/18 12:06 White Blood Count 14.8 x10^3/uL (4.0-11.0) H Red Blood Count 4.83 x10^6/uL (4.30-5.70) Hemoglobin 14.1 g/dL (13.0-17.5) Hematocrit 43.2 % (39.0-53.0) Mean Corpuscular Volume 90 fL (79-100) Mean Corpuscular Hemoglobin 29 pg (25-35) Mean Corpuscular Hemoglobin Concent 33 g/dL (31-37) Red Cell Distribution Width 15.8 % (11.5-14.5) H Platelet Count 282 x10^3/uL (140-400) Neutrophils (%) (Auto) 74 % (31-73) H Lymphocytes (%) (Auto) 17 % (24-48) L Monocytes (%) (Auto) 9 % (0-9) Eosinophils (%) (Auto) 0 % (0-3) Basophils (%) (Auto) 1 % (0-3) Neutrophils # (Auto) 10.9 x10^3uL (1.8-7.7) H Lymphocytes # (Auto) 2.5 x10^3/uL (1.0-4.8) Monocytes # (Auto) 1.3 x10^3/uL (0.0-1.1) H Eosinophils # (Auto) 0.1 x10^3/uL (0.0-0.7) Basophils # (Auto) 0.1 x10^3/uL (0.0-0.2) Prothrombin Time 12.1 SEC (11.7-14.0) Prothrombin Time INR 0.9 (0.8-1.1) Sodium Level 140 mmol/L (136-145) Potassium Level 4.0 mmol/L (3.5-5.1) Chloride Level 103 mmol/L (98-107) Carbon Dioxide Level 22 mmol/L (21-32) Anion Gap 15 (6-14) H Blood Urea Nitrogen 18 mg/dL (8-26) Creatinine 1.3 mg/dL (0.7-1.3) Estimated GFR (Cockcroft-Gault) 68.8 BUN/Creatinine Ratio 14 (6-20) Glucose Level 178 mg/dL (70-99) H Calcium Level 9.6 mg/dL (8.5-10.1) Magnesium Level 2.4 mg/dL (1.8-2.4) Total Bilirubin 0.4 mg/dL (0.2-1.0) Aspartate Amino Transferase (AST) 31 U/L (15-37) Alanine Aminotransferase (ALT) 97 U/L (16-63) H Alkaline Phosphatase 89 U/L (46-116) Troponin I Quantitative < 0.017 ng/mL (0.000-0.055) Total Protein 6.7 g/dL (6.4-8.2) Albumin 3.5 g/dL (3.4-5.0) Albumin/Globulin Ratio 1.1 (1.0-1.7) Lipase 260 U/L (73-393) Laboratory Tests 09/09/18 12:06 Laboratory Tests 09/09/18 12:06 EKG EKG EKG shows a sinus tachycardia at 128 bpm, normal axis, QTC is 444 ms, frequent PVCs at trigeminy, no ST elevations, when compared with EKG of 12/04/2010, rate and PVCs are new. This was interpreted by me at 1158[] Radiology/Procedures Radiology/Procedures Technique: AP view of the chest was obtained at 09/09/2018 12:20 PM. Comparison: None. Findings: The cardiomediastinal silhouette is normal. The pulmonary vasculature is normal. The lungs and pleural margins are clear. Impression: No evidence of an acute cardiopulmonary process.[] Course & Med Decision Making Course & Med Decision Making Pertinent Labs and Imaging studies reviewed. (See chart for details) ED course: Patient arrived, was placed in bed, and tolerated exam well. IV access was established he was given IV fluids, his heart rate improved. Consultation was made with the hospitalist service who graciously accepted the patient for admission. Patient was admitted in improved condition. Discussed findings with the patient and his family who voiced understanding. All questions were answered. Medical decision making: This is a 58-year-old male with hypertension diabetes presents with chest pain. He was recently discharged from the hospital after diagnosis of C. difficile. It appears that has been unable to tolerate oral intake since discharge given his elevated heart rate, he is being admitted for further inpatient management and evaluation.[] Dragon Disclaimer Dragon Disclaimer This electronic medical record was generated, in whole or in part, using a voice recognition dictation system. Departure Departure Impression: Primary Impression: Chest pain Additional Impressions: C. difficile diarrhea Nausea, vomiting, and diarrhea Failure of outpatient treatment Disposition: 01 HOME, SELF-CARE Admitting Physician: Alka Mcfarlane Condition: IMPROVED Referrals: NETTIE BROWNING MD (PCP) Problem Qualifiers Primary Impression: Chest pain Chest pain type: unspecified Qualified Codes: R07.9 - Chest pain, unspecified LEANA MORGAN DO Sep 09, 2018 12:25
[2018-09-09 12:30] LABS: BASO # 0.1 x10^3/uL (0.0-0.2); BASO % 1 % (0-3); EOS # 0.1 x10^3/uL (0.0-0.7); EOS % 0 % (0-3); HEMATOCRIT 43.2 % (39.0-53.0); HEMOGLOBIN 14.1 g/dL (13.0-17.5); LYMPH # 2.5 x10^3/uL (1.0-4.8); LYMPH % 17 % (24-48); MEAN CORPUSCULAR HEMOGLOBIN 29 pg (25-35); MEAN CORPUSCULAR HGB CONC 33 g/dL (31-37); MEAN CORPUSCULAR VOLUME 90 fL (79-100); MONO # 1.3 x10^3/uL (0.0-1.1); MONO % 9 % (0-9); NEUT # 10.9 x10^3uL (1.8-7.7); NEUT % 74 % (31-73); PLATELET COUNT 282 x10^3/uL (140-400); RED BLOOD COUNT 4.83 x10^6/uL (4.30-5.70); RED CELL DISTRIBUTION WIDTH 15.8 % (11.5-14.5); WHITE BLOOD COUNT 14.8 x10^3/uL (4.0-11.0)
[2018-09-09] MEDS ORDERED: HYOSCYAMINE 0.125 MG TAB.RAPDIS PO ONE (12:30)
[2018-09-09] MEDS ORDERED: KETOROLAC 30 MG/ML VIAL. IV ONE (12:30)
[2018-09-09] MEDS ORDERED: ASPIRIN CHEWABLE 81 MG TABLET. PO ONE (12:30)
[2018-09-09] MEDS ORDERED: PROCHLORPERAZINE 10 MG/2 ML VIAL. IV ONE (12:30)
[2018-09-09 12:38] LABS: PROTHROMBIN TIME PATIENT 12.1 SEC (11.7-14.0)
[2018-09-09 12:40] LABS: CALCIUM 9.6 mg/dL (8.5-10.1); CREATININE 1.3 mg/dL (0.7-1.3); GFR 68.8
[2018-09-09 12:46] LABS: ALBUMIN 3.5 g/dL (3.4-5.0); ALBUMIN/GLOBULIN RATIO 1.1 (1.0-1.7); TOTAL BILIRUBIN 0.4 mg/dL (0.2-1.0); TOTAL PROTEIN 6.7 g/dL (6.4-8.2)
--- NOTE | 2018-09-09 12:56 | RAD ---
PORTABLE CHEST 1V Clinical History: CHEST PAIN Technique: AP view of the chest was obtained at 09/09/2018 12:20 PM. Comparison: None. Findings: The cardiomediastinal silhouette is normal. The pulmonary vasculature is normal. The lungs and pleural margins are clear. Impression: No evidence of an acute cardiopulmonary process. Electronically signed by: Devonte Mary III, MD (09/09/2018 12:53 PM) [facility]
[2018-09-09] MEDS: IV NORMAL SALINE 1000ML BAG 1,000 ML IV SCH ×2 (13:12→22:00)
[2018-09-09] MEDS ORDERED: ACETAMINOPHEN 325 MG TABLET. PO PRN (13:15)
[2018-09-09] MEDS ORDERED: ONDANSETRON PF 4 MG/2 ML VIAL. IV PRN (13:15)
[2018-09-09 14:20] VITALS: BP 122/84
--- NOTE | 2018-09-09 15:07 | PDOC1 ---
History and Physical Date of Admission Date of Admission DATE: 09/09/18 TIME: 15:07 Source Source: Caregiver, Chart review, Patient History of Present Illness History of Present Illness Mr. Rivera, is a 58 year old male, just DC here a few days ago with colitis , on PO vanc for c. diff. He presented to ER with nausea vomiting, and diarrhea. he reports he cannot keep meds or food down today. chest pain, but after vomiting, just DC 2 days ago, no bleeding, but marked waekenss some new dyspnea Past Medical History Cardiovascular: AFIB, HTN Pulmonary: COPD, Other GI: GERD Heme/Onc: Other Musculoskeletal: Osteoarthritis Infectious disease: No pertinent hx Renal/: No pertinent hx Endocrine: Diabetes Past Surgical History Past Surgical History: Cholecystectomy, Tonsillectomy, Other Family History Family History: Heart Disease, Hypertension Social History Smoke: No ALCOHOL: none Drugs: None Current Problem List Problem List Problems Medical Problems: (1) Failure of outpatient treatment Status: Acute (2) Nausea, vomiting, and diarrhea Status: Acute Current Medications Current Medications Current Medications Sodium Chloride 1,000 ml @ 1,000 mls/hr Q1H IV Last administered on 09/09/18at 12:54; Start 09/09/18 at 12:20; Stop 09/09/18 at 13:19; Status DC Prochlorperazine Edisylate (Compazine) 5 mg 1X ONCE IV Last administered on 09/09/18at 12:53; Start 09/09/18 at 12:30; Stop 09/09/18 at 12:31; Status DC Ketorolac Tromethamine (Toradol 30mg Vial) 30 mg 1X ONCE IV Last administered on 09/09/18at 12:53; Start 09/09/18 at 12:30; Stop 09/09/18 at 12:31; Status DC Hyoscyamine (Anaspaz) 0.125 mg ONCE ONCE PO ; Start 09/09/18 at 12:30; Stop 09/09 at 12:31; Status DC Aspirin (Children'S Aspirin) 324 mg 1X ONCE PO Last administered on 09/09/18at 12:53; Start 09/09/18 at 12:30; Stop 09/09/18 at 12:31; Status DC Ondansetron HCl (Zofran) 4 mg PRN Q8HRS PRN IV NAUSEA/VOMITING; Start 09/09/18 at 13:15; Stop 09/10/18 at 13:14 Sodium Chloride 1,000 ml @ 200 mls/hr Q5H IV ; Start 09/09/18 at 13:12; Stop 09/10/18 at 13:11 Acetaminophen (Tylenol) 650 mg PRN Q4HRS PRN PO FEVER; Start 09/09/18 at 13:15; Stop 09/10/18 at 13:14 Active Scripts Active [Fluconazole] 100 MG Tablet 100 Mg PO DAILY MDD 1 14 Days Vancomycin Hcl 500 Mg Vial 125 Mg PO [id number] MDD 1 14 Days Reported Jardiance (Empagliflozin) 10 Mg Tablet 10 Mg PO DAILY Phentermine Hcl 37.5 Mg Capsule 1 Cap PO [id number] 30 Days Multivitamins (Multivitamin) 1 Each Tablet 1 Tab PO DAILY 30 Days Glimepiride 2 Mg Tablet 2 Mg PO BID 30 Days Proair Hfa Inhaler (Albuterol Sulfate) 8.5 Gm Hfa.aer.ad 1 Puff INH PRN Q4HRS PRN Hydrocodone-Apap 7.5-325 (Hydrocodone Bit/Acetaminophen) 1 Each Tablet 1 Tab PO PRN TID PRN Combivent Respimat Inhal (Ipratropium/Albuterol Sulfate) 4 Gm Aer.w.adap 2 Inh IH BID Triamcinolone Acetonide 0.1% Oint (Triamcinolone Acetonide) 15 Gm Oint...g. 1 Heriberto TP BID MIX WITH EUCERIN DIRECTED BY PHYSICIAN Manny Pen (Exenatide Microspheres) 2 Mg/0.65 Ml Pen.injctr 2 Mg SQ WEEKLY Indapamide 1.25 Mg Tablet 1 Tab PO DAILY Cyclobenzaprine Hcl 10 Mg Tablet 1 Tab PO QHS Aspir 81 (Aspirin) 81 Mg Tablet.dr 81 Mg PO DAILY Pantoprazole Sodium 40 Mg Tablet.dr 40 Mg PO DAILY Flonase (Fluticasone Propionate) 16 Gm [place].susp 16 Gm NS DAILY Diovan (Valsartan) 320 Mg Tablet 320 Mg PO DAILY Norvasc (Amlodipine Besylate) 10 Mg Tablet 10 Mg PO DAILY Metformin Hcl Er (Metformin Hcl) 1,000 Mg Tab.er.24 500 Mg PO DAILY 30 Days Allergies Allergies: Coded Allergies: No Known Drug Allergies (Unverified , 09/17/13) ROS General: YES: Chills, Fatigue PSYCHOLOGICAL ROS: YES: Sleep disturbances Eyes: No Blurry vision, No Decreased vision, No Double vision, No Dry eyes, No Excessive tearing, No Eye Pain, No Itchy Eyes, No Loss of vision, No Photophobia , No [place]omata, No Uses contacts, No Uses glasses, No Other HEENT: YES: [place]acaches Respiratory: YES: SOB with excertion; No: Cough, Hemoptysis, Orthopnea, Pleuritic Pain, Shortness of breath, Sputum Changes, Stridor, Tachypnea, Wheezing, Other Cardiovascular: yes Edema; No Chest Pain, No Palpitations, No Orthopnea, No Paroxysmal Noc. Dyspnea, No Lt Headedness, No Other Gastrointestinal: Yes Nausea, Yes Vomiting, Yes Abdominal Pain Musculoskeletal: Yes Joint Pain, Yes Joint Stiffness Neurological: No Behavorial Changes, No Bowel/Bladder ControlChng, No Confusion , No Dizziness, No Gait Disturbance, No Headaches, No Impaired Coord/balance, No Memory Loss, No Numbness/Tingling, No Seizures, No Speech Problems, No Tremors, No Visual Changes, No Weakness, No Other Skin: No Dry Skin, No Eczema, No Hair Changes, No Lumps, No Mole Changes, No Mottling, No Nail Changes, No Pruritus, No Rash, No Skin Lesion Changes, No Other, No Acne Physical Exam General: Alert, Oriented X3, mild distress, moderate distress HEENT: Atraumatic, EOMI, Mucous membr. moist/pink Lungs: Clear to auscultation, Normal air movement Heart: S1S2, no murmurs, other Abdomen: Other (obese, tender, lower tender and diffuse) Extremities: No cyanosis, Normal pulses, Other (1+ edema) Skin: No rashes, No significant lesion Neuro: Normal tone Psych/Mental Status: Mood NL (distress, ), Other Vitals Vitals Vital Signs Date Time Temp Pulse Resp B/P (MAP) Pulse Ox O2 Delivery O2 Flow Rate FiO2 09/09/18 14:20 97.4 104 19 122/84 (97) 100 Room Air 97.4 Labs Labs Laboratory Tests Test 09/09/18 12:06 White Blood Count 14.8 x10^3/uL (4.0-11.0) Red Blood Count 4.83 x10^6/uL (4.30-5.70) Hemoglobin 14.1 g/dL (13.0-17.5) Hematocrit 43.2 % (39.0-53.0) Mean Corpuscular Volume 90 fL (79-100) Mean Corpuscular Hemoglobin 29 pg (25-35) Mean Corpuscular Hemoglobin Concent 33 g/dL (31-37) Red Cell Distribution Width 15.8 % (11.5-14.5) Platelet Count 282 x10^3/uL (140-400) Neutrophils (%) (Auto) 74 % (31-73) Lymphocytes (%) (Auto) 17 % (24-48) Monocytes (%) (Auto) 9 % (0-9) Eosinophils (%) (Auto) 0 % (0-3) Basophils (%) (Auto) 1 % (0-3) Neutrophils # (Auto) 10.9 x10^3uL (1.8-7.7) Lymphocytes # (Auto) 2.5 x10^3/uL (1.0-4.8) Monocytes # (Auto) 1.3 x10^3/uL (0.0-1.1) Eosinophils # (Auto) 0.1 x10^3/uL (0.0-0.7) Basophils # (Auto) 0.1 x10^3/uL (0.0-0.2) Prothrombin Time 12.1 SEC (11.7-14.0) Prothromb Time International Ratio 0.9 (0.8-1.1) Sodium Level 140 mmol/L (136-145) Potassium Level 4.0 mmol/L (3.5-5.1) Chloride Level 103 mmol/L (98-107) Carbon Dioxide Level 22 mmol/L (21-32) Anion Gap 15 (6-14) Blood Urea Nitrogen 18 mg/dL (8-26) Creatinine 1.3 mg/dL (0.7-1.3) Estimated GFR (Cockcroft-Gault) 68.8 BUN/Creatinine Ratio 14 (6-20) Glucose Level 178 mg/dL (70-99) Calcium Level 9.6 mg/dL (8.5-10.1) Magnesium Level 2.4 mg/dL (1.8-2.4) Total Bilirubin 0.4 mg/dL (0.2-1.0) Aspartate Amino Transf (AST/SGOT) 31 U/L (15-37) Alanine Aminotransferase (ALT/SGPT) 97 U/L (16-63) Alkaline Phosphatase 89 U/L (46-116) Troponin I Quantitative < 0.017 ng/mL (0.000-0.055) Total Protein 6.7 g/dL (6.4-8.2) Albumin 3.5 g/dL (3.4-5.0) Albumin/Globulin Ratio 1.1 (1.0-1.7) Lipase 260 U/L (73-393) Laboratory Tests Test 09/09/18 12:06 White Blood Count 14.8 x10^3/uL (4.0-11.0) Red Blood Count 4.83 x10^6/uL (4.30-5.70) Hemoglobin 14.1 g/dL (13.0-17.5) Hematocrit 43.2 % (39.0-53.0) Mean Corpuscular Volume 90 fL (79-100) Mean Corpuscular Hemoglobin 29 pg (25-35) Mean Corpuscular Hemoglobin Concent 33 g/dL (31-37) Red Cell Distribution Width 15.8 % (11.5-14.5) Platelet Count 282 x10^3/uL (140-400) Neutrophils (%) (Auto) 74 % (31-73) Lymphocytes (%) (Auto) 17 % (24-48) Monocytes (%) (Auto) 9 % (0-9) Eosinophils (%) (Auto) 0 % (0-3) Basophils (%) (Auto) 1 % (0-3) Neutrophils # (Auto) 10.9 x10^3uL (1.8-7.7) Lymphocytes # (Auto) 2.5 x10^3/uL (1.0-4.8) Monocytes # (Auto) 1.3 x10^3/uL (0.0-1.1) Eosinophils # (Auto) 0.1 x10^3/uL (0.0-0.7) Basophils # (Auto) 0.1 x10^3/uL (0.0-0.2) Prothrombin Time 12.1 SEC (11.7-14.0) Prothromb Time International Ratio 0.9 (0.8-1.1) Sodium Level 140 mmol/L (136-145) Potassium Level 4.0 mmol/L (3.5-5.1) Chloride Level 103 mmol/L (98-107) Carbon Dioxide Level 22 mmol/L (21-32) Anion Gap 15 (6-14) Blood Urea Nitrogen 18 mg/dL (8-26) Creatinine 1.3 mg/dL (0.7-1.3) Estimated GFR (Cockcroft-Gault) 68.8 BUN/Creatinine Ratio 14 (6-20) Glucose Level 178 mg/dL (70-99) Calcium Level 9.6 mg/dL (8.5-10.1) Magnesium Level 2.4 mg/dL (1.8-2.4) Total Bilirubin 0.4 mg/dL (0.2-1.0) Aspartate Amino Transf (AST/SGOT) 31 U/L (15-37) Alanine Aminotransferase (ALT/SGPT) 97 U/L (16-63) Alkaline Phosphatase 89 U/L (46-116) Troponin I Quantitative < 0.017 ng/mL (0.000-0.055) Total Protein 6.7 g/dL (6.4-8.2) Albumin 3.5 g/dL (3.4-5.0) Albumin/Globulin Ratio 1.1 (1.0-1.7) Lipase 260 U/L (73-393) VTE Prophylaxis Ordered VTE Prophylaxis Devices: Yes VTE Pharmacological Prophylaxi: Yes Assessment/Plan Assessment/Plan nausea and vomiting and diarrhea recent known C diff iinfectino, on PO vanc, cont vanc, and add IV flagyl - consult ID, nausea and vomiting and diarrhea, consult GI morbid obesity, BMI 55 chronic htn and diastolic CHF Dm2, admit MAY FOLEY MD Sep 09, 2018 15:07
[2018-09-09] MEDS: MULTIVITAMIN with MINERAL TABLET. PO SCH (16:00)
[2018-09-09] MEDS: GLIMEPIRIDE 2 MG TABLET. PO SCH (16:15)
[2018-09-09] MEDS: metFORMIN XR 500 MG TAB.ER.24H PO SCH (16:15)
[2018-09-09] MEDS: ASPIRIN ENTERIC COATED 81 MG TABLET.DR. PO SCH (16:15)
[2018-09-09] MEDS: PANTOPRAZOLE 40 MG TABLET.DR. PO SCH (16:15)
[2018-09-09] MEDS: amLODIPine BESYLATE 10 MG TABLET PO SCH (16:16)
[2018-09-09] MEDS: HYDROcodone/APAP 7.5/325MG 1 TAB TABLET PO PRN ×2 (16:17→21:18)
[2018-09-09] MEDS: VANCOMYCIN 125 MG/2.5 ML ORAL SOLUTION. PO SCH ×2 (16:18→20:42)
[2018-09-09] MEDS: INDAPAMIDE 2.5 MG TABLET PO SCH (16:23)
[2018-09-09] MEDS: IPRATRPIUM/ALBUTEROL 0.5/2.5MG 3 ML NEBU. NEB SCH (19:19)
[2018-09-09 19:27] VITALS: BP 133/79
[2018-09-09] MEDS: CYCLOBENZAPRINE 10 MG TABLET. PO SCH (20:42)
[2018-09-09] MEDS: TRIAMCINOLONE ACETONIDE 0.1% TOPICAL OINTMENT 15GM TUBE. TP SCH (20:43)
[2018-09-09] MEDS ORDERED: NON FORMULARY ITEM (Ipratropium/Albuterol Sulfate (Combivent Respimat Inhal) 2 INH) IH SCH (21:00)
[2018-09-09 22:11] VITALS: BP 140/84
[2018-09-09] MEDS: ALBUTEROL SULFATE 2.5 MG/3 ML NEBU. INH PRN (23:08)
[2018-09-10 02:16] VITALS: BP 129/71
[2018-09-10] MEDS: ALBUTEROL SULFATE 2.5 MG/3 ML NEBU. INH PRN ×2 (03:35→23:09)
[2018-09-10] MEDS: HYDROcodone/APAP 7.5/325MG 1 TAB TABLET PO PRN ×2 (03:48→09:05)
[2018-09-10] MEDS: IV NORMAL SALINE 1000ML BAG 1,000 ML IV SCH ×3 (04:12→09:04)
[2018-09-10 05:05] LABS: BASO # 0.1 x10^3/uL (0.0-0.2); BASO % 1 % (0-3); EOS # 0.1 x10^3/uL (0.0-0.7); EOS % 1 % (0-3); HEMATOCRIT 37.5 % (39.0-53.0); HEMOGLOBIN 12.1 g/dL (13.0-17.5); LYMPH # 2.8 x10^3/uL (1.0-4.8); LYMPH % 22 % (24-48); MEAN CORPUSCULAR HEMOGLOBIN 29 pg (25-35); MEAN CORPUSCULAR HGB CONC 32 g/dL (31-37); MEAN CORPUSCULAR VOLUME 90 fL (79-100); MONO # 1.2 x10^3/uL (0.0-1.1); MONO % 9 % (0-9); NEUT # 8.4 x10^3uL (1.8-7.7); NEUT % 67 % (31-73); PLATELET COUNT 241 x10^3/uL (140-400); RED BLOOD COUNT 4.14 x10^6/uL (4.30-5.70); WHITE BLOOD COUNT 12.5 x10^3/uL (4.0-11.0)
[2018-09-10 05:41] LABS: ALBUMIN 2.7 g/dL (3.4-5.0); ALBUMIN/GLOBULIN RATIO 0.9 (1.0-1.7); CALCIUM 8.2 mg/dL (8.5-10.1); GFR 93.2; POTASSIUM 3.3 mmol/L (3.5-5.1); TOTAL BILIRUBIN 0.3 mg/dL (0.2-1.0); TOTAL PROTEIN 5.8 g/dL (6.4-8.2)
[2018-09-10] MEDS: PANTOPRAZOLE 40 MG TABLET.DR. PO SCH (05:47)
[2018-09-10 07:00] VITALS: BP 145/72
--- NOTE | 2018-09-10 07:55 | EKG ---
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
[2018-09-10] MEDS ORDERED: NON FORMULARY ITEM (Phentermine Hcl 1 CAP) PO SCH (08:00)
[2018-09-10] MEDS: IPRATRPIUM/ALBUTEROL 0.5/2.5MG 3 ML NEBU. NEB SCH ×2 (08:35→19:46)
[2018-09-10] MEDS: VANCOMYCIN 125 MG/2.5 ML ORAL SOLUTION. PO SCH ×4 (08:58→20:50)
[2018-09-10] MEDS: FLUTICASONE 50MCG/NASAL SPRAY 16GM BOTTLE. NS SCH (08:58)
[2018-09-10] MEDS: INDAPAMIDE 2.5 MG TABLET PO SCH (08:59)
[2018-09-10] MEDS: metFORMIN XR 500 MG TAB.ER.24H PO SCH (09:00)
[2018-09-10] MEDS: amLODIPine BESYLATE 10 MG TABLET PO SCH (09:00)
[2018-09-10] MEDS: NON FORMULARY ITEM (Empagliflozin (Jardiance) 10 MG) PO SCH (09:00)
[2018-09-10] MEDS: MULTIVITAMIN with MINERAL TABLET. PO SCH (09:00)
[2018-09-10] MEDS: GLIMEPIRIDE 2 MG TABLET. PO SCH ×2 (09:00→17:20)
[2018-09-10] MEDS: ASPIRIN ENTERIC COATED 81 MG TABLET.DR. PO SCH (09:00)
[2018-09-10] MEDS: LACTOBACILLUS RHAMNOSUS GG 1 CAPSULE. PO SCH ×2 (09:05→20:50)
[2018-09-10] MEDS: TRIAMCINOLONE ACETONIDE 0.1% TOPICAL OINTMENT 15GM TUBE. TP SCH ×2 (09:09→20:50)
[2018-09-10 09:46] LABS: BILIRUBIN,URINE NEGATIVE (NEG); CLARITY,URINE CLEAR; COLOR,URINE YELLOW; NITRITE,URINE NEGATIVE (NEG); PH,URINE 5.5; PROTEIN,URINE NEGATIVE (NEG-TRACE); UROBILINOGEN,URINE 0.2 mg/dL (0.2 mg/dL)
[2018-09-10 09:56] LABS: RBC,URINE 0 /HPF (0-2); SQUAMOUS EPITHELIAL CELL,UR OCC /LPF
[2018-09-10 09:57] LABS: BACTERIA,URINE 0 /HPF (0-FEW); WBC,URINE OCC /HPF (0-4)
[2018-09-10 11:00] VITALS: BP 125/80
--- NOTE | 2018-09-10 11:19 | PDOC ---
Infectious Disease Note Vital Sign Vital Signs Vital Signs Date Time Temp Pulse Resp B/P (MAP) Pulse Ox O2 Delivery O2 Flow Rate FiO2 09/10/18 10:05 22 92 Room Air 2.0 09/10/18 09:00 110 145/72 09/10/18 07:00 98.2 98.2 Labs Lab Laboratory Tests Test 09/09/18 12:06 09/09/18 16:20 09/09/18 16:55 09/09/18 19:45 White Blood Count 14.8 x10^3/uL (4.0-11.0) Red Blood Count 4.83 x10^6/uL (4.30-5.70) Hemoglobin 14.1 g/dL (13.0-17.5) Hematocrit 43.2 % (39.0-53.0) Mean Corpuscular Volume 90 fL (79-100) Mean Corpuscular Hemoglobin 29 pg (25-35) Mean Corpuscular Hemoglobin Concent 33 g/dL (31-37) Red Cell Distribution Width 15.8 % (11.5-14.5) Platelet Count 282 x10^3/uL (140-400) Neutrophils (%) (Auto) 74 % (31-73) Lymphocytes (%) (Auto) 17 % (24-48) Monocytes (%) (Auto) 9 % (0-9) Eosinophils (%) (Auto) 0 % (0-3) Basophils (%) (Auto) 1 % (0-3) Neutrophils # (Auto) 10.9 x10^3uL (1.8-7.7) Lymphocytes # (Auto) 2.5 x10^3/uL (1.0-4.8) Monocytes # (Auto) 1.3 x10^3/uL (0.0-1.1) Eosinophils # (Auto) 0.1 x10^3/uL (0.0-0.7) Basophils # (Auto) 0.1 x10^3/uL (0.0-0.2) Prothrombin Time 12.1 SEC (11.7-14.0) Prothromb Time International Ratio 0.9 (0.8-1.1) Sodium Level 140 mmol/L (136-145) Potassium Level 4.0 mmol/L (3.5-5.1) Chloride Level 103 mmol/L (98-107) Carbon Dioxide Level 22 mmol/L (21-32) Anion Gap 15 (6-14) Blood Urea Nitrogen 18 mg/dL (8-26) Creatinine 1.3 mg/dL (0.7-1.3) Estimated GFR (Cockcroft-Gault) 68.8 BUN/Creatinine Ratio 14 (6-20) Glucose Level 178 mg/dL (70-99) Calcium Level 9.6 mg/dL (8.5-10.1) Magnesium Level 2.4 mg/dL (1.8-2.4) Total Bilirubin 0.4 mg/dL (0.2-1.0) Aspartate Amino Transf (AST/SGOT) 31 U/L (15-37) Alanine Aminotransferase (ALT/SGPT) 97 U/L (16-63) Alkaline Phosphatase 89 U/L (46-116) Troponin I Quantitative < 0.017 ng/mL (0.000-0.055) < 0.017 ng/mL (0.000-0.055) < 0.017 ng/mL (0.000-0.055) Total Protein 6.7 g/dL (6.4-8.2) Albumin 3.5 g/dL (3.4-5.0) Albumin/Globulin Ratio 1.1 (1.0-1.7) Lipase 260 U/L (73-393) Glucose (Fingerstick) 131 mg/dL (70-99) Lactic Acid Level 1.6 mmol/L (0.4-2.0) Test 09/09/18 20:28 09/10/18 03:50 09/10/18 07:48 09/10/18 09:40 Glucose (Fingerstick) 119 mg/dL (70-99) 105 mg/dL (70-99) White Blood Count 12.5 x10^3/uL (4.0-11.0) Red Blood Count 4.14 x10^6/uL (4.30-5.70) Hemoglobin 12.1 g/dL (13.0-17.5) Hematocrit 37.5 % (39.0-53.0) Mean Corpuscular Volume 90 fL (79-100) Mean Corpuscular Hemoglobin 29 pg (25-35) Mean Corpuscular Hemoglobin Concent 32 g/dL (31-37) Red Cell Distribution Width 16.0 % (11.5-14.5) Platelet Count 241 x10^3/uL (140-400) Neutrophils (%) (Auto) 67 % (31-73) Lymphocytes (%) (Auto) 22 % (24-48) Monocytes (%) (Auto) 9 % (0-9) Eosinophils (%) (Auto) 1 % (0-3) Basophils (%) (Auto) 1 % (0-3) Neutrophils # (Auto) 8.4 x10^3uL (1.8-7.7) Lymphocytes # (Auto) 2.8 x10^3/uL (1.0-4.8) Monocytes # (Auto) 1.2 x10^3/uL (0.0-1.1) Eosinophils # (Auto) 0.1 x10^3/uL (0.0-0.7) Basophils # (Auto) 0.1 x10^3/uL (0.0-0.2) Sodium Level 138 mmol/L (136-145) Potassium Level 3.3 mmol/L (3.5-5.1) Chloride Level 105 mmol/L (98-107) Carbon Dioxide Level 23 mmol/L (21-32) Anion Gap 10 (6-14) Blood Urea Nitrogen 15 mg/dL (8-26) Creatinine 1.0 mg/dL (0.7-1.3) Estimated GFR (Cockcroft-Gault) 93.2 BUN/Creatinine Ratio 15 (6-20) Glucose Level 85 mg/dL (70-99) Calcium Level 8.2 mg/dL (8.5-10.1) Total Bilirubin 0.3 mg/dL (0.2-1.0) Aspartate Amino Transf (AST/SGOT) 27 U/L (15-37) Alanine Aminotransferase (ALT/SGPT) 81 U/L (16-63) Alkaline Phosphatase 70 U/L (46-116) Total Protein 5.8 g/dL (6.4-8.2) Albumin 2.7 g/dL (3.4-5.0) Albumin/Globulin Ratio 0.9 (1.0-1.7) Urine Collection Type Unknown Urine Color Yellow Urine Clarity Clear Urine pH 5.5 Urine Specific [place] <=1.005 Urine Protein Negative mg/dL (NEG-TRACE) Urine Glucose (UA) Negative mg/dL (NEG) Urine Ketones (Stick) Negative mg/dL (NEG) Urine Blood Negative (NEG) Urine Nitrite Negative (NEG) Urine Bilirubin Negative (NEG) Urine Urobilinogen Dipstick 0.2 mg/dL (0.2 mg/dL) Urine Leukocyte Esterase Negative (NEG) Urine RBC 0 /HPF (0-2) Urine WBC Occ /HPF (0-4) Urine Squamous Epithelial Cells Occ /LPF Urine Bacteria 0 /HPF (0-FEW) Objective Assessment h/o c. difficile associated diarrhea from 09/01/18. Leukocytosis , improving Morbid obesity, BMI 55 Diabetes II A fib Plan Plan of Care continue po vancomycin QID d/c Flagyl Maintain hydration Contact isolation Thank you [id number] Attending Co-Sign The patient was seen and interviewed as well as examined at the bedside. The chart was reviewed. The case was discussed. Agree with the plan of care. GAUTAM SPENCER APRN Sep 10, 2018 11:19 KELLY LIVINGSTON MD Sep 10, 2018 11:34
--- NOTE | 2018-09-10 11:59 | PDOC ---
PROGRESS NOTES History of Present Illness History of Present Illness Assessment/Plan Assessment/Plan nausea and vomiting and diarrhea recent known C diff iinfectino, on PO vanc, cont vanc, and add IV flagyl - consult ID, nausea and vomiting and diarrhea, consult GI morbid obesity, BMI 55 chronic htn and diastolic CHF Dm2, SIRS Trigeminy --normal echo, NEEDS outpatient event monitor KNOWN TO CARDIOLOGY CP with atypical features and most probably GI etiology NC ruled out LAST WEEK 2D echo showed normal LV function without any wall motion abnormalities 08/29 hypokalemia drop in hgb sec to re- hydration continue po vancomycin QID d/c Flagyl IV hydration TELE ID CONSULT replace k GI CONSULT 09/10 hypokalemic still has diarrhea, 4 stools not improved gi consulted Vitals Vitals Vital Signs Date Time Temp Pulse Resp B/P (MAP) Pulse Ox O2 Delivery O2 Flow Rate FiO2 09/10/18 11:00 97.8 95 18 125/80 (95) 98 97.8 09/10/18 10:05 Room Air 2.0 Physical Exam General: Alert, Oriented X3, Cooperative, No acute distress Heart: Regular rate Lungs: Clear Abdomen: Other (obese, tender, lower tender and diffuse) Extremities: No cyanosis, Normal pulses, Other (1+ edema) Skin: No rashes, No significant lesion Labs LABS Laboratory Tests Test 09/09/18 12:06 09/09/18 16:20 09/09/18 16:55 09/09/18 19:45 White Blood Count 14.8 x10^3/uL (4.0-11.0) Red Blood Count 4.83 x10^6/uL (4.30-5.70) Hemoglobin 14.1 g/dL (13.0-17.5) Hematocrit 43.2 % (39.0-53.0) Mean Corpuscular Volume 90 fL (79-100) Mean Corpuscular Hemoglobin 29 pg (25-35) Mean Corpuscular Hemoglobin Concent 33 g/dL (31-37) Red Cell Distribution Width 15.8 % (11.5-14.5) Platelet Count 282 x10^3/uL (140-400) Neutrophils (%) (Auto) 74 % (31-73) Lymphocytes (%) (Auto) 17 % (24-48) Monocytes (%) (Auto) 9 % (0-9) Eosinophils (%) (Auto) 0 % (0-3) Basophils (%) (Auto) 1 % (0-3) Neutrophils # (Auto) 10.9 x10^3uL (1.8-7.7) Lymphocytes # (Auto) 2.5 x10^3/uL (1.0-4.8) Monocytes # (Auto) 1.3 x10^3/uL (0.0-1.1) Eosinophils # (Auto) 0.1 x10^3/uL (0.0-0.7) Basophils # (Auto) 0.1 x10^3/uL (0.0-0.2) Prothrombin Time 12.1 SEC (11.7-14.0) Prothromb Time International Ratio 0.9 (0.8-1.1) Sodium Level 140 mmol/L (136-145) Potassium Level 4.0 mmol/L (3.5-5.1) Chloride Level 103 mmol/L (98-107) Carbon Dioxide Level 22 mmol/L (21-32) Anion Gap 15 (6-14) Blood Urea Nitrogen 18 mg/dL (8-26) Creatinine 1.3 mg/dL (0.7-1.3) Estimated GFR (Cockcroft-Gault) 68.8 BUN/Creatinine Ratio 14 (6-20) Glucose Level 178 mg/dL (70-99) Calcium Level 9.6 mg/dL (8.5-10.1) Magnesium Level 2.4 mg/dL (1.8-2.4) Total Bilirubin 0.4 mg/dL (0.2-1.0) Aspartate Amino Transf (AST/SGOT) 31 U/L (15-37) Alanine Aminotransferase (ALT/SGPT) 97 U/L (16-63) Alkaline Phosphatase 89 U/L (46-116) Troponin I Quantitative < 0.017 ng/mL (0.000-0.055) < 0.017 ng/mL (0.000-0.055) < 0.017 ng/mL (0.000-0.055) Total Protein 6.7 g/dL (6.4-8.2) Albumin 3.5 g/dL (3.4-5.0) Albumin/Globulin Ratio 1.1 (1.0-1.7) Lipase 260 U/L (73-393) Glucose (Fingerstick) 131 mg/dL (70-99) Lactic Acid Level 1.6 mmol/L (0.4-2.0) Test 09/09/18 20:28 09/10/18 03:50 09/10/18 07:48 09/10/18 09:40 Glucose (Fingerstick) 119 mg/dL (70-99) 105 mg/dL (70-99) White Blood Count 12.5 x10^3/uL (4.0-11.0) Red Blood Count 4.14 x10^6/uL (4.30-5.70) Hemoglobin 12.1 g/dL (13.0-17.5) Hematocrit 37.5 % (39.0-53.0) Mean Corpuscular Volume 90 fL (79-100) Mean Corpuscular Hemoglobin 29 pg (25-35) Mean Corpuscular Hemoglobin Concent 32 g/dL (31-37) Red Cell Distribution Width 16.0 % (11.5-14.5) Platelet Count 241 x10^3/uL (140-400) Neutrophils (%) (Auto) 67 % (31-73) Lymphocytes (%) (Auto) 22 % (24-48) Monocytes (%) (Auto) 9 % (0-9) Eosinophils (%) (Auto) 1 % (0-3) Basophils (%) (Auto) 1 % (0-3) Neutrophils # (Auto) 8.4 x10^3uL (1.8-7.7) Lymphocytes # (Auto) 2.8 x10^3/uL (1.0-4.8) Monocytes # (Auto) 1.2 x10^3/uL (0.0-1.1) Eosinophils # (Auto) 0.1 x10^3/uL (0.0-0.7) Basophils # (Auto) 0.1 x10^3/uL (0.0-0.2) Sodium Level 138 mmol/L (136-145) Potassium Level 3.3 mmol/L (3.5-5.1) Chloride Level 105 mmol/L (98-107) Carbon Dioxide Level 23 mmol/L (21-32) Anion Gap 10 (6-14) Blood Urea Nitrogen 15 mg/dL (8-26) Creatinine 1.0 mg/dL (0.7-1.3) Estimated GFR (Cockcroft-Gault) 93.2 BUN/Creatinine Ratio 15 (6-20) Glucose Level 85 mg/dL (70-99) Calcium Level 8.2 mg/dL (8.5-10.1) Total Bilirubin 0.3 mg/dL (0.2-1.0) Aspartate Amino Transf (AST/SGOT) 27 U/L (15-37) Alanine Aminotransferase (ALT/SGPT) 81 U/L (16-63) Alkaline Phosphatase 70 U/L (46-116) Total Protein 5.8 g/dL (6.4-8.2) Albumin 2.7 g/dL (3.4-5.0) Albumin/Globulin Ratio 0.9 (1.0-1.7) Urine Collection Type Unknown Urine Color Yellow Urine Clarity Clear Urine pH 5.5 Urine Specific [place] <=1.005 Urine Protein Negative mg/dL (NEG-TRACE) Urine Glucose (UA) Negative mg/dL (NEG) Urine Ketones (Stick) Negative mg/dL (NEG) Urine Blood Negative (NEG) Urine Nitrite Negative (NEG) Urine Bilirubin Negative (NEG) Urine Urobilinogen Dipstick 0.2 mg/dL (0.2 mg/dL) Urine Leukocyte Esterase Negative (NEG) Urine RBC 0 /HPF (0-2) Urine WBC Occ /HPF (0-4) Urine Squamous Epithelial Cells Occ /LPF Urine Bacteria 0 /HPF (0-FEW) Test 09/10/18 11:25 Glucose (Fingerstick) 100 mg/dL (70-99) Assessment and Plan Assessmemt and Plan Problems Medical Problems: (1) Failure of outpatient treatment Status: Acute (2) Nausea, vomiting, and diarrhea Status: Acute Comment Review of Relevant I have reviewed the following items brigette (where applicable) has been applied. Labs Laboratory Tests Test 09/09/18 12:06 09/09/18 16:20 09/09/18 16:55 09/09/18 19:45 White Blood Count 14.8 x10^3/uL (4.0-11.0) Red Blood Count 4.83 x10^6/uL (4.30-5.70) Hemoglobin 14.1 g/dL (13.0-17.5) Hematocrit 43.2 % (39.0-53.0) Mean Corpuscular Volume 90 fL (79-100) Mean Corpuscular Hemoglobin 29 pg (25-35) Mean Corpuscular Hemoglobin Concent 33 g/dL (31-37) Red Cell Distribution Width 15.8 % (11.5-14.5) Platelet Count 282 x10^3/uL (140-400) Neutrophils (%) (Auto) 74 % (31-73) Lymphocytes (%) (Auto) 17 % (24-48) Monocytes (%) (Auto) 9 % (0-9) Eosinophils (%) (Auto) 0 % (0-3) Basophils (%) (Auto) 1 % (0-3) Neutrophils # (Auto) 10.9 x10^3uL (1.8-7.7) Lymphocytes # (Auto) 2.5 x10^3/uL (1.0-4.8) Monocytes # (Auto) 1.3 x10^3/uL (0.0-1.1) Eosinophils # (Auto) 0.1 x10^3/uL (0.0-0.7) Basophils # (Auto) 0.1 x10^3/uL (0.0-0.2) Prothrombin Time 12.1 SEC (11.7-14.0) Prothromb Time International Ratio 0.9 (0.8-1.1) Sodium Level 140 mmol/L (136-145) Potassium Level 4.0 mmol/L (3.5-5.1) Chloride Level 103 mmol/L (98-107) Carbon Dioxide Level 22 mmol/L (21-32) Anion Gap 15 (6-14) Blood Urea Nitrogen 18 mg/dL (8-26) Creatinine 1.3 mg/dL (0.7-1.3) Estimated GFR (Cockcroft-Gault) 68.8 BUN/Creatinine Ratio 14 (6-20) Glucose Level 178 mg/dL (70-99) Calcium Level 9.6 mg/dL (8.5-10.1) Magnesium Level 2.4 mg/dL (1.8-2.4) Total Bilirubin 0.4 mg/dL (0.2-1.0) Aspartate Amino Transf (AST/SGOT) 31 U/L (15-37) Alanine Aminotransferase (ALT/SGPT) 97 U/L (16-63) Alkaline Phosphatase 89 U/L (46-116) Troponin I Quantitative < 0.017 ng/mL (0.000-0.055) < 0.017 ng/mL (0.000-0.055) < 0.017 ng/mL (0.000-0.055) Total Protein 6.7 g/dL (6.4-8.2) Albumin 3.5 g/dL (3.4-5.0) Albumin/Globulin Ratio 1.1 (1.0-1.7) Lipase 260 U/L (73-393) Glucose (Fingerstick) 131 mg/dL (70-99) Lactic Acid Level 1.6 mmol/L (0.4-2.0) Test 09/09/18 20:28 09/10/18 03:50 09/10/18 07:48 09/10/18 09:40 Glucose (Fingerstick) 119 mg/dL (70-99) 105 mg/dL (70-99) White Blood Count 12.5 x10^3/uL (4.0-11.0) Red Blood Count 4.14 x10^6/uL (4.30-5.70) Hemoglobin 12.1 g/dL (13.0-17.5) Hematocrit 37.5 % (39.0-53.0) Mean Corpuscular Volume 90 fL (79-100) Mean Corpuscular Hemoglobin 29 pg (25-35) Mean Corpuscular Hemoglobin Concent 32 g/dL (31-37) Red Cell Distribution Width 16.0 % (11.5-14.5) Platelet Count 241 x10^3/uL (140-400) Neutrophils (%) (Auto) 67 % (31-73) Lymphocytes (%) (Auto) 22 % (24-48) Monocytes (%) (Auto) 9 % (0-9) Eosinophils (%) (Auto) 1 % (0-3) Basophils (%) (Auto) 1 % (0-3) Neutrophils # (Auto) 8.4 x10^3uL (1.8-7.7) Lymphocytes # (Auto) 2.8 x10^3/uL (1.0-4.8) Monocytes # (Auto) 1.2 x10^3/uL (0.0-1.1) Eosinophils # (Auto) 0.1 x10^3/uL (0.0-0.7) Basophils # (Auto) 0.1 x10^3/uL (0.0-0.2) Sodium Level 138 mmol/L (136-145) Potassium Level 3.3 mmol/L (3.5-5.1) Chloride Level 105 mmol/L (98-107) Carbon Dioxide Level 23 mmol/L (21-32) Anion Gap 10 (6-14) Blood Urea Nitrogen 15 mg/dL (8-26) Creatinine 1.0 mg/dL (0.7-1.3) Estimated GFR (Cockcroft-Gault) 93.2 BUN/Creatinine Ratio 15 (6-20) Glucose Level 85 mg/dL (70-99) Calcium Level 8.2 mg/dL (8.5-10.1) Total Bilirubin 0.3 mg/dL (0.2-1.0) Aspartate Amino Transf (AST/SGOT) 27 U/L (15-37) Alanine Aminotransferase (ALT/SGPT) 81 U/L (16-63) Alkaline Phosphatase 70 U/L (46-116) Total Protein 5.8 g/dL (6.4-8.2) Albumin 2.7 g/dL (3.4-5.0) Albumin/Globulin Ratio 0.9 (1.0-1.7) Urine Collection Type Unknown Urine Color Yellow Urine Clarity Clear Urine pH 5.5 Urine Specific [place] <=1.005 Urine Protein Negative mg/dL (NEG-TRACE) Urine Glucose (UA) Negative mg/dL (NEG) Urine Ketones (Stick) Negative mg/dL (NEG) Urine Blood Negative (NEG) Urine Nitrite Negative (NEG) Urine Bilirubin Negative (NEG) Urine Urobilinogen Dipstick 0.2 mg/dL (0.2 mg/dL) Urine Leukocyte Esterase Negative (NEG) Urine RBC 0 /HPF (0-2) Urine WBC Occ /HPF (0-4) Urine Squamous Epithelial Cells Occ /LPF Urine Bacteria 0 /HPF (0-FEW) Test 09/10/18 11:25 Glucose (Fingerstick) 100 mg/dL (70-99) Laboratory Tests Test 09/09/18 12:06 09/09/18 16:20 09/09/18 16:55 09/09/18 19:45 White Blood Count 14.8 x10^3/uL (4.0-11.0) Red Blood Count 4.83 x10^6/uL (4.30-5.70) Hemoglobin 14.1 g/dL (13.0-17.5) Hematocrit 43.2 % (39.0-53.0) Mean Corpuscular Volume 90 fL (79-100) Mean Corpuscular Hemoglobin 29 pg (25-35) Mean Corpuscular Hemoglobin Concent 33 g/dL (31-37) Red Cell Distribution Width 15.8 % (11.5-14.5) Platelet Count 282 x10^3/uL (140-400) Neutrophils (%) (Auto) 74 % (31-73) Lymphocytes (%) (Auto) 17 % (24-48) Monocytes (%) (Auto) 9 % (0-9) Eosinophils (%) (Auto) 0 % (0-3) Basophils (%) (Auto) 1 % (0-3) Neutrophils # (Auto) 10.9 x10^3uL (1.8-7.7) Lymphocytes # (Auto) 2.5 x10^3/uL (1.0-4.8) Monocytes # (Auto) 1.3 x10^3/uL (0.0-1.1) Eosinophils # (Auto) 0.1 x10^3/uL (0.0-0.7) Basophils # (Auto) 0.1 x10^3/uL (0.0-0.2) Prothrombin Time 12.1 SEC (11.7-14.0) Prothromb Time International Ratio 0.9 (0.8-1.1) Sodium Level 140 mmol/L (136-145) Potassium Level 4.0 mmol/L (3.5-5.1) Chloride Level 103 mmol/L (98-107) Carbon Dioxide Level 22 mmol/L (21-32) Anion Gap 15 (6-14) Blood Urea Nitrogen 18 mg/dL (8-26) Creatinine 1.3 mg/dL (0.7-1.3) Estimated GFR (Cockcroft-Gault) 68.8 BUN/Creatinine Ratio 14 (6-20) Glucose Level 178 mg/dL (70-99) Calcium Level 9.6 mg/dL (8.5-10.1) Magnesium Level 2.4 mg/dL (1.8-2.4) Total Bilirubin 0.4 mg/dL (0.2-1.0) Aspartate Amino Transf (AST/SGOT) 31 U/L (15-37) Alanine Aminotransferase (ALT/SGPT) 97 U/L (16-63) Alkaline Phosphatase 89 U/L (46-116) Troponin I Quantitative < 0.017 ng/mL (0.000-0.055) < 0.017 ng/mL (0.000-0.055) < 0.017 ng/mL (0.000-0.055) Total Protein 6.7 g/dL (6.4-8.2) Albumin 3.5 g/dL (3.4-5.0) Albumin/Globulin Ratio 1.1 (1.0-1.7) Lipase 260 U/L (73-393) Glucose (Fingerstick) 131 mg/dL (70-99) Lactic Acid Level 1.6 mmol/L (0.4-2.0) Test 09/09/18 20:28 09/10/18 03:50 09/10/18 07:48 09/10/18 09:40 Glucose (Fingerstick) 119 mg/dL (70-99) 105 mg/dL (70-99) White Blood Count 12.5 x10^3/uL (4.0-11.0) Red Blood Count 4.14 x10^6/uL (4.30-5.70) Hemoglobin 12.1 g/dL (13.0-17.5) Hematocrit 37.5 % (39.0-53.0) Mean Corpuscular Volume 90 fL (79-100) Mean Corpuscular Hemoglobin 29 pg (25-35) Mean Corpuscular Hemoglobin Concent 32 g/dL (31-37) Red Cell Distribution Width 16.0 % (11.5-14.5) Platelet Count 241 x10^3/uL (140-400) Neutrophils (%) (Auto) 67 % (31-73) Lymphocytes (%) (Auto) 22 % (24-48) Monocytes (%) (Auto) 9 % (0-9) Eosinophils (%) (Auto) 1 % (0-3) Basophils (%) (Auto) 1 % (0-3) Neutrophils # (Auto) 8.4 x10^3uL (1.8-7.7) Lymphocytes # (Auto) 2.8 x10^3/uL (1.0-4.8) Monocytes # (Auto) 1.2 x10^3/uL (0.0-1.1) Eosinophils # (Auto) 0.1 x10^3/uL (0.0-0.7) Basophils # (Auto) 0.1 x10^3/uL (0.0-0.2) Sodium Level 138 mmol/L (136-145) Potassium Level 3.3 mmol/L (3.5-5.1) Chloride Level 105 mmol/L (98-107) Carbon Dioxide Level 23 mmol/L (21-32) Anion Gap 10 (6-14) Blood Urea Nitrogen 15 mg/dL (8-26) Creatinine 1.0 mg/dL (0.7-1.3) Estimated GFR (Cockcroft-Gault) 93.2 BUN/Creatinine Ratio 15 (6-20) Glucose Level 85 mg/dL (70-99) Calcium Level 8.2 mg/dL (8.5-10.1) Total Bilirubin 0.3 mg/dL (0.2-1.0) Aspartate Amino Transf (AST/SGOT) 27 U/L (15-37) Alanine Aminotransferase (ALT/SGPT) 81 U/L (16-63) Alkaline Phosphatase 70 U/L (46-116) Total Protein 5.8 g/dL (6.4-8.2) Albumin 2.7 g/dL (3.4-5.0) Albumin/Globulin Ratio 0.9 (1.0-1.7) Urine Collection Type Unknown Urine Color Yellow Urine Clarity Clear Urine pH 5.5 Urine Specific [place] <=1.005 Urine Protein Negative mg/dL (NEG-TRACE) Urine Glucose (UA) Negative mg/dL (NEG) Urine Ketones (Stick) Negative mg/dL (NEG) Urine Blood Negative (NEG) Urine Nitrite Negative (NEG) Urine Bilirubin Negative (NEG) Urine Urobilinogen Dipstick 0.2 mg/dL (0.2 mg/dL) Urine Leukocyte Esterase Negative (NEG) Urine RBC 0 /HPF (0-2) Urine WBC Occ /HPF (0-4) Urine Squamous Epithelial Cells Occ /LPF Urine Bacteria 0 /HPF (0-FEW) Test 09/10/18 11:25 Glucose (Fingerstick) 100 mg/dL (70-99) Medications Current Medications Sodium Chloride 1,000 ml @ 1,000 mls/hr Q1H IV Last administered on 09/09/18 12:54; Start 09/09/18 at 12:20; Stop 09/09/18 at 13:19; Status DC Prochlorperazine Edisylate (Compazine) 5 mg 1X ONCE IV Last administered on 09/09/18at 12:53; Start 09/09/18 at 12:30; Stop 09/09/18 at 12:31; Status DC Ketorolac Tromethamine (Toradol 30mg Vial) 30 mg 1X ONCE IV Last administered on 09/09/18 12:53; Start 09/09/18 at 12:30; Stop 09/09/18 at 12:31; Status DC Hyoscyamine (Anaspaz) 0.125 mg ONCE ONCE PO Last administered on 09/09/18at 12: 30; Start 09/09/18 at 12:30; Stop 09/09/18 at 12:31; Status DC Aspirin (Children'S Aspirin) 324 mg 1X ONCE PO Last administered on 09/09/18 12:53; Start 09/09/18 at 12:30; Stop 09/09/18 at 12:31; Status DC Ondansetron HCl (Zofran) 4 mg PRN Q8HRS PRN IV NAUSEA/VOMITING Last administered on 09/10/18at 05:56; Start 09/09/18 at 13:15; Stop 09/10/18 at 13:14 Sodium Chloride 1,000 ml @ 200 mls/hr Q5H IV Last administered on 09/10/18 04: 42; Start 09/09/18 at 13:12; Stop 09/10/18 at 13:11 Acetaminophen (Tylenol) 650 mg PRN Q4HRS PRN PO FEVER; Start 09/09/18 at 13:15; Stop 09/10/18 at 13:14 Metronidazole 100 ml @ 100 mls/hr Q8HRS IV Last administered on 09/10/18at 05:47 ; Start 09/09/18 at 22:00; Stop 09/10/18 at 11:06; Status DC Metronidazole 100 ml @ 100 mls/hr 1X ONCE IV Last administered on 09/09/18 16 :15; Start 09/09/18 at 15:15; Stop 09/09/18 at 16:14; Status DC Vancomycin HCl (Vancomycin Oral Solution) 125 mg [id number] PO Last administered on 09/10/18 08:58; Start 09/09/18 at 17:00 Albuterol Sulfate (Ventolin Neb Soln) 2.5 mg PRN Q4HRS PRN INH SHORTNESS OF BREATH Last administered on 09/10/18 03:35; Start 09/09/18 at 15:15 Amlodipine Besylate (Norvasc) 10 mg DAILY PO Last administered on 09/10/18 09: 00; Start 09/09/18 at 16:00 Aspirin (Ecotrin) 81 mg DAILY PO Last administered on 09/10/18 09:00; Start 09/09/18 at 16:00 Cyclobenzaprine HCl (Flexeril) 10 mg QHS PO Last administered on 09/09/18 20:42 ; Start 09/09/18 at 21:00 Fluticasone Propionate (Flonase) 2 spray DAILY NS Last administered on 08:58; Start 09/10/18 at 09:00 Glimepiride (Amaryl) 2 mg BIDWMEALS PO Last administered on 09/10/18 09:00; Start 09/09/18 at 17:00 Acetaminophen/ Hydrocodone Bitart (Lortab 7.5/325) 1 tab PRN TID PRN PO PAIN Last administered on 09/10/18 09:05; Start 09/09/18 at 15:15 Pantoprazole Sodium (Protonix) 40 mg DAILYAC PO Last administered on 09/10/18 05:47; Start 09/09/18 at 16:00 Triamcinolone Acetonide (Kenalog) 1 heriberto BID TP Last administered on 09/10/18 09 :09; Start 09/09/18 at 21:00 Non-Formulary Medication (Empagliflozin (Jardiance)) 10 mg DAILY PO ; Start 09/10 at 09:00; Status UNV Non-Formulary Medication (Exenatide Microspheres (Bydureon Pen)) 2 mg WEEKLY SQ ; Start 09/16/18 at 09:00; Status UNV Indapamide (Lozol) 1.25 mg DAILY PO Last administered on 09/10/18at 08:59; Start 09/09/18 at 16:00 Non-Formulary Medication (Ipratropium/ Albuterol Sulfate (Combivent Respimat Inhal)) 2 inh BID IH ; Start 09/09/18 at 21:00; Stop 09/09/18 at 21:00; Status DC Metformin HCl (Glucophage Xr) 500 mg DAILYWBKFT PO Last administered on at 09:00; Start 09/09/18 at 16:00 Multivitamins (Thera M Plus) 1 tab DAILY PO Last administered on 09/10/18at 09:00 ; Start 09/09/18 at 16:00 Non-Formulary Medication (Phentermine Hcl ) 1 cap DAILYWBKFT PO ; Start 09/10/18 at 08:00; Status UNV Enoxaparin Sodium (Lovenox Per Pharmacy Prophylaxis Dosing) 1 each PRN DAILY PRN MC SEE COMMENTS; Start 09/09/18 at 15:15 Albuterol/ Ipratropium (Duoneb) 3 ml RTBID NEB Last administered on 09/10/18at 08 :35; Start 09/09/18 at 20:00 Enoxaparin Sodium (Lovenox 60mg Syringe) 60 mg Q12HR SQ Last administered on 09/10/18at 08:59; Start 09/09/18 at 21:00 Lactobacillus Rhamnosus (Culturelle) 1 cap BID PO Last administered on at 09:05; Start 09/10/18 at 09:00 Active Scripts Active [Fluconazole] 100 MG Tablet 100 Mg PO DAILY MDD 1 14 Days Vancomycin Hcl 500 Mg Vial 125 Mg PO [id number] MDD 1 14 Days Reported Jardiance (Empagliflozin) 10 Mg Tablet 10 Mg PO DAILY Phentermine Hcl 37.5 Mg Capsule 1 Cap PO DAILYWBKFT 30 Days Multivitamins (Multivitamin) 1 Each Tablet 1 Tab PO DAILY 30 Days Glimepiride 2 Mg Tablet 2 Mg PO BID 30 Days Proair Hfa Inhaler (Albuterol Sulfate) 8.5 Gm Hfa.aer.ad 1 Puff INH PRN Q4HRS PRN Hydrocodone-Apap 7.5-325 (Hydrocodone Bit/Acetaminophen) 1 Each Tablet 1 Tab PO PRN TID PRN Combivent Respimat Inhal (Ipratropium/Albuterol Sulfate) 4 Gm Aer.w.adap 2 Inh IH BID Triamcinolone Acetonide 0.1% Oint (Triamcinolone Acetonide) 15 Gm Oint...g. 1 Heriberto TP BID MIX WITH EUCERIN DIRECTED BY PHYSICIAN Manny Pen (Exenatide Microspheres) 2 Mg/0.65 Ml Pen.injctr 2 Mg SQ WEEKLY Indapamide 1.25 Mg Tablet 1 Tab PO DAILY Cyclobenzaprine Hcl 10 Mg Tablet 1 Tab PO QHS Aspir 81 (Aspirin) 81 Mg Tablet.dr 81 Mg PO DAILY Pantoprazole Sodium 40 Mg Tablet.dr 40 Mg PO DAILY Flonase (Fluticasone Propionate) 16 Gm [place].susp 16 Gm NS DAILY Diovan (Valsartan) 320 Mg Tablet 320 Mg PO DAILY Norvasc (Amlodipine Besylate) 10 Mg Tablet 10 Mg PO DAILY Metformin Hcl Er (Metformin Hcl) 1,000 Mg Tab.er.24 500 Mg PO DAILY 30 Days Vitals/I & O Vital Sign - Last 24 Hours 09/09/18 09/09/18 09/09/18 09/09/18 12:30 13:00 13:30 14:20 Temp 97.4 97.4 Pulse 110 112 108 104 Resp 14 16 23 19 B/P (MAP) 234/161 (185) 121/78 (92) 110/54 (72) 122/84 (97) Pulse Ox 99 99 99 100 O2 Delivery Room Air Room Air Room Air Room Air 09/09/18 09/09/18 09/09/18 09/09/18 16:16 16:17 16:29 19:21 Pulse 104 Resp 22 B/P (MAP) 122/84 Pulse Ox 100 98 O2 Delivery Room Air Room Air 09/09/18 09/09/18 09/09/18 09/09/18 19:27 20:00 21:18 22:11 Temp 97.9 97.9 97.9 97.9 Pulse 104 90 Resp 18 20 16 B/P (MAP) 133/79 (97) 140/84 (102) Pulse Ox 100 100 100 O2 Delivery Room Air Room Air Room Air Nasal Cannula O2 Flow Rate 2.0 09/09/18 09/10/18 09/10/18 09/10/18 23:09 02:16 03:36 03:48 Temp 98.5 98.5 Pulse 82 Resp 16 18 B/P (MAP) 129/71 (90) Pulse Ox 99 100 100 100 O2 Delivery Room Air Nasal Cannula Nasal Cannula Room Air O2 Flow Rate 2.0 2.0 2.0 09/10/18 09/10/18 09/10/18 09/10/18 07:00 08:38 09:00 09:05 Temp 98.2 98.2 Pulse 110 110 Resp 18 22 B/P (MAP) 145/72 (96) 145/72 Pulse Ox 96 92 O2 Delivery Room Air Nasal Cannula O2 Flow Rate 2.0 09/10/18 09/10/18 10:05 11:00 Temp 97.8 97.8 Pulse 95 Resp 22 18 B/P (MAP) 125/80 (95) Pulse Ox 92 98 O2 Delivery Room Air O2 Flow Rate 2.0 Intake and Output 09/09/18 09/09/18 09/10/18 15:00 23:00 07:00 Intake Total 660 ml 600 ml Balance 660 ml 600 ml JANE OSBORNE MD Sep 10, 2018 11:59
[2018-09-10 15:00] VITALS: BP 145/83
[2018-09-10] MEDS ORDERED: POTASSIUM CHLORIDE 20 MEQ TABLET.ER. PO ONE (17:00)
[2018-09-10 19:00] VITALS: BP 127/74
[2018-09-10] MEDS: CYCLOBENZAPRINE 10 MG TABLET. PO SCH (20:50)
[2018-09-10 22:47] VITALS: BP 127/94
[2018-09-11 02:58] VITALS: BP 155/99
--- NOTE | 2018-09-11 04:05 | CONS ---
DATE OF CONSULTATION: 09/10/2018 REQUESTING PHYSICIAN: Dr. Mcfarlane. REASON FOR CONSULTATION: Recurrent Clostridium difficile. HISTORY OF PRESENT ILLNESS: This patient is a 58-year-old male who was recently hospitalized for abdominal pain and diarrhea. He tested positive for Clostridium difficile on 09/01, first episode. At that time, an abdomen/pelvis CT scan was unremarkable for acute findings. He was discharged home on 09/07/2018 on a 14-day course of oral vancomycin. The patient says for the past 3 days or so, he has been having six to seven episodes of diarrhea a day with urgency and at times incontinence. He complains of bloating, cramps, nausea and vomiting. He says he has been having some fevers and chills. His appetite has been down and he feels he has been urinating less than usual. He denies antibiotic use other than the oral vancomycin within the last 6 months. PAST MEDICAL HISTORY: Clostridium difficile from 09/01/2018. Atrial fibrillation, hypertension, DVT, COPD, asthma, sleep apnea, morbid obesity, GERD, arthritis, diabetes mellitus type 2 and anxiety. PAST SURGICAL HISTORY: Tonsillectomy, adenoidectomy, cardiac catheterization, colon polyp removal, esophageal dilatation and cholecystectomy. FAMILY HISTORY: Positive for myocardial infarction, kidney failure, diabetes mellitus and CVA. SOCIAL HISTORY: The patient is and lives at home. Nonsmoker. ALLERGIES: No known drug allergies. MEDICATIONS: Oral vancomycin, metronidazole, probiotics, other antibiotics are available and have been reviewed on the SEP. REVIEW OF SYSTEMS: Per HPI, otherwise, all other review of systems are negative. PHYSICAL EXAMINATION: VITAL SIGNS: Temperature is 98.2, blood pressure 145/72, heart rate 110, respiratory rate 22, pulse oximetry 92% on 2 liters oxygen. BMI 55.6. GENERAL: The patient is propped up in bed, alert, in no apparent distress. HEENT: Pupils equally round. Normal conjunctivae. Oral cavity: Pharynx pink and moist. NECK: Supple. LUNGS: Clear to auscultation. HEART: S1 and S2. ABDOMEN: Obese, soft, mildly tender throughout. No rebound. EXTREMITIES: No gross edema or cyanosis. SKIN: Warm without generalized rash. NEUROLOGIC: Alert and oriented x 3. No focal deficits. LABORATORY DATA: Today's WBC 12.5 from 14.8, hemoglobin 12.1, platelets 241,000. Creatinine 1.0, BUN 15, sodium 138, potassium 3.3, glucose 85. Lactic acid 1.6, total bilirubin 0.3, AST 27, ALT 81, albumin 2.7. Troponin less than 0.017. Urinalysis from 09/10/2018 unremarkable for infection. IMAGING STUDIES: Chest x-ray from 09/09/2018 showed no evidence of acute cardiopulmonary process. IMPRESSION: 1. History of Clostridium difficile associated diarrhea from 09/01/2018. 2. Leukocytosis, improving. 3. Morbid obesity with a BMI ____. 4. Diabetes type 2. 5. Atrial fibrillation. PLAN: Continue the oral vancomycin q.i.d. No need for metronidazole. Maintain hydration. He is to remain in contact isolation. Thank you, Dr. Mcfarlane for asking us to participate in this patient's care. Should you have further questions or concerns, please call. KELLY LIVINGSTON MD DR: SYD/mervat JOB#: [id number] / [id number]
[2018-09-11] MEDS: ALBUTEROL SULFATE 2.5 MG/3 ML NEBU. INH PRN ×3 (04:24→23:31)
[2018-09-11 05:49] LABS: BASO # 0.1 x10^3/uL (0.0-0.2); BASO % 1 % (0-3); EOS # 0.2 x10^3/uL (0.0-0.7); EOS % 1 % (0-3); HEMATOCRIT 40.7 % (39.0-53.0); HEMOGLOBIN 13.4 g/dL (13.0-17.5); LYMPH # 3.1 x10^3/uL (1.0-4.8); LYMPH % 24 % (24-48); MEAN CORPUSCULAR HEMOGLOBIN 30 pg (25-35); MEAN CORPUSCULAR HGB CONC 33 g/dL (31-37); MEAN CORPUSCULAR VOLUME 90 fL (79-100); MONO # 1.2 x10^3/uL (0.0-1.1); MONO % 10 % (0-9); NEUT # 8.3 x10^3uL (1.8-7.7); NEUT % 64 % (31-73); PLATELET COUNT 270 x10^3/uL (140-400); RED BLOOD COUNT 4.52 x10^6/uL (4.30-5.70); RED CELL DISTRIBUTION WIDTH 15.9 % (11.5-14.5); WHITE BLOOD COUNT 12.8 x10^3/uL (4.0-11.0)
[2018-09-11 05:55] LABS: CALCIUM 9.2 mg/dL (8.5-10.1); CREATININE 1.1 mg/dL (0.7-1.3); GFR 83.5; POTASSIUM 3.8 mmol/L (3.5-5.1)
[2018-09-11] MEDS: DEXTROSE 50% 25 GM / 50ML DISP.SYRIN. IV PRN ×2 (06:33→11:51)
[2018-09-11] MEDS: PANTOPRAZOLE 40 MG TABLET.DR. PO SCH ×2 (06:33→16:37)
[2018-09-11 07:05] VITALS: BP 129/72
--- NOTE | 2018-09-11 07:39 | NUR ---
Chart review done. Pt readmitted w/ nausea, vomiting and diarrhea after recent discharge last week. Chart indicates continued weakness. Pt may benefit from PT/OT Eval and Treat. Addendum: 09/11/18 at 0740 by AMBER AGUAOY OT Amended: Links added.
[2018-09-11] MEDS: IPRATRPIUM/ALBUTEROL 0.5/2.5MG 3 ML NEBU. NEB SCH ×2 (07:53→20:53)
[2018-09-11] MEDS: GLIMEPIRIDE 2 MG TABLET. PO SCH (08:00)
[2018-09-11] MEDS: metFORMIN XR 500 MG TAB.ER.24H PO SCH (08:01)
[2018-09-11] MEDS: POTASSIUM CHLORIDE 20 MEQ TABLET.ER. PO SCH (08:01)
--- NOTE | 2018-09-11 08:26 | PDOC ---
PROGRESS NOTES Chief Complaint Chief Complaint Chest pain - esophageal w/ GERD and esophageal dilation. C. difficile infection - with Abdominal pain/diarrhea. Community acquired Sepsis - 2/2 c. diff with Leukocytosis, tachycardia SHOSHANA - Vasomotor nephropathy, cont IV fluid Elevated ALT - prior A Fib and DVTs - on ASA VIOLET Morbid obesity, BMI 56. DM - well managed on GLP-1, SGLT-2, metformin, sulfonylurea and insulin. chronic htn and diastolic CHF SIRS Trigeminy --normal echo, NEEDS outpatient event monitor KNOWN TO CARDIOLOGY hypokalemia drop in hgb sec to re- hydration History of Present Illness History of Present Illness 58yo male w/ PMHx DM admitted with Nausea, vomiting, abdominal pain and diarrhea. Found with c. difficile positive on 09/02/18, likely community acquired was discharged and readmitted. some dyspnea, some weakness, diarrhea better. His substernal and epigastric pain improved with viscous lidocaine. Had hypoglycemia this morning in the 50s. Not able to eat much beyond clear diet Increased oral vancomycin yesterday and added IV flagyl as he was vomiting x2 A/P: Hypokalemic - cont replacement Hypoglycemia - start protocol, IV dextrose for 50 x2, hold sulfonylurea C. diff - add back flagyl Vomiting/Nausea - cont meds. Appreciate GI input Vitals Vitals Vital Signs Date Time Temp Pulse Resp B/P (MAP) Pulse Ox O2 Delivery O2 Flow Rate FiO2 09/11/18 07:54 100 Room Air 09/11/18 07:05 98.0 89 14 129/72 (91) 98.0 09/11/18 04:24 2.0 Physical Exam General: Alert, Oriented X3, Cooperative, No acute distress Heart: Regular rate Lungs: Clear Abdomen: Other (obese, tender, lower tender and diffuse) Extremities: No cyanosis, Normal pulses, Other (1+ edema) Skin: No rashes, No significant lesion Labs LABS Laboratory Tests Test 09/10/18 09:40 09/10/18 11:25 09/10/18 17:03 09/10/18 20:13 Urine Collection Type Unknown Urine Color Yellow Urine Clarity Clear Urine pH 5.5 Urine Specific [place] <=1.005 Urine Protein Negative mg/dL (NEG-TRACE) Urine Glucose (UA) Negative mg/dL (NEG) Urine Ketones (Stick) Negative mg/dL (NEG) Urine Blood Negative (NEG) Urine Nitrite Negative (NEG) Urine Bilirubin Negative (NEG) Urine Urobilinogen Dipstick 0.2 mg/dL (0.2 mg/dL) Urine Leukocyte Esterase Negative (NEG) Urine RBC 0 /HPF (0-2) Urine WBC Occ /HPF (0-4) Urine Squamous Epithelial Cells Occ /LPF Urine Bacteria 0 /HPF (0-FEW) Glucose (Fingerstick) 100 mg/dL (70-99) 75 mg/dL (70-99) 77 mg/dL (70-99) Test 09/11/18 04:55 09/11/18 06:20 09/11/18 07:04 White Blood Count 12.8 x10^3/uL (4.0-11.0) Red Blood Count 4.52 x10^6/uL (4.30-5.70) Hemoglobin 13.4 g/dL (13.0-17.5) Hematocrit 40.7 % (39.0-53.0) Mean Corpuscular Volume 90 fL (79-100) Mean Corpuscular Hemoglobin 30 pg (25-35) Mean Corpuscular Hemoglobin Concent 33 g/dL (31-37) Red Cell Distribution Width 15.9 % (11.5-14.5) Platelet Count 270 x10^3/uL (140-400) Neutrophils (%) (Auto) 64 % (31-73) Lymphocytes (%) (Auto) 24 % (24-48) Monocytes (%) (Auto) 10 % (0-9) Eosinophils (%) (Auto) 1 % (0-3) Basophils (%) (Auto) 1 % (0-3) Neutrophils # (Auto) 8.3 x10^3uL (1.8-7.7) Lymphocytes # (Auto) 3.1 x10^3/uL (1.0-4.8) Monocytes # (Auto) 1.2 x10^3/uL (0.0-1.1) Eosinophils # (Auto) 0.2 x10^3/uL (0.0-0.7) Basophils # (Auto) 0.1 x10^3/uL (0.0-0.2) Sodium Level 139 mmol/L (136-145) Potassium Level 3.8 mmol/L (3.5-5.1) Chloride Level 104 mmol/L (98-107) Carbon Dioxide Level 22 mmol/L (21-32) Anion Gap 13 (6-14) Blood Urea Nitrogen 7 mg/dL (8-26) Creatinine 1.1 mg/dL (0.7-1.3) Estimated GFR (Cockcroft-Gault) 83.5 Glucose Level 70 mg/dL (70-99) Calcium Level 9.2 mg/dL (8.5-10.1) Glucose (Fingerstick) 59 mg/dL (70-99) 95 mg/dL (70-99) Assessment and Plan Assessmemt and Plan Problems Medical Problems: (1) Failure of outpatient treatment Status: Acute (2) Nausea, vomiting, and diarrhea Status: Acute Comment Review of Relevant I have reviewed the following items brigette (where applicable) has been applied. Labs Laboratory Tests Test 09/09/18 12:06 09/09/18 16:20 09/09/18 16:55 09/09/18 19:45 White Blood Count 14.8 x10^3/uL (4.0-11.0) Red Blood Count 4.83 x10^6/uL (4.30-5.70) Hemoglobin 14.1 g/dL (13.0-17.5) Hematocrit 43.2 % (39.0-53.0) Mean Corpuscular Volume 90 fL (79-100) Mean Corpuscular Hemoglobin 29 pg (25-35) Mean Corpuscular Hemoglobin Concent 33 g/dL (31-37) Red Cell Distribution Width 15.8 % (11.5-14.5) Platelet Count 282 x10^3/uL (140-400) Neutrophils (%) (Auto) 74 % (31-73) Lymphocytes (%) (Auto) 17 % (24-48) Monocytes (%) (Auto) 9 % (0-9) Eosinophils (%) (Auto) 0 % (0-3) Basophils (%) (Auto) 1 % (0-3) Neutrophils # (Auto) 10.9 x10^3uL (1.8-7.7) Lymphocytes # (Auto) 2.5 x10^3/uL (1.0-4.8) Monocytes # (Auto) 1.3 x10^3/uL (0.0-1.1) Eosinophils # (Auto) 0.1 x10^3/uL (0.0-0.7) Basophils # (Auto) 0.1 x10^3/uL (0.0-0.2) Prothrombin Time 12.1 SEC (11.7-14.0) Prothromb Time International Ratio 0.9 (0.8-1.1) Sodium Level 140 mmol/L (136-145) Potassium Level 4.0 mmol/L (3.5-5.1) Chloride Level 103 mmol/L (98-107) Carbon Dioxide Level 22 mmol/L (21-32) Anion Gap 15 (6-14) Blood Urea Nitrogen 18 mg/dL (8-26) Creatinine 1.3 mg/dL (0.7-1.3) Estimated GFR (Cockcroft-Gault) 68.8 BUN/Creatinine Ratio 14 (6-20) Glucose Level 178 mg/dL (70-99) Calcium Level 9.6 mg/dL (8.5-10.1) Magnesium Level 2.4 mg/dL (1.8-2.4) Total Bilirubin 0.4 mg/dL (0.2-1.0) Aspartate Amino Transf (AST/SGOT) 31 U/L (15-37) Alanine Aminotransferase (ALT/SGPT) 97 U/L (16-63) Alkaline Phosphatase 89 U/L (46-116) Troponin I Quantitative < 0.017 ng/mL (0.000-0.055) < 0.017 ng/mL (0.000-0.055) < 0.017 ng/mL (0.000-0.055) Total Protein 6.7 g/dL (6.4-8.2) Albumin 3.5 g/dL (3.4-5.0) Albumin/Globulin Ratio 1.1 (1.0-1.7) Lipase 260 U/L (73-393) Glucose (Fingerstick) 131 mg/dL (70-99) Lactic Acid Level 1.6 mmol/L (0.4-2.0) Test 09/09/18 20:28 09/10/18 03:50 09/10/18 07:48 09/10/18 09:40 Glucose (Fingerstick) 119 mg/dL (70-99) 105 mg/dL (70-99) White Blood Count 12.5 x10^3/uL (4.0-11.0) Red Blood Count 4.14 x10^6/uL (4.30-5.70) Hemoglobin 12.1 g/dL (13.0-17.5) Hematocrit 37.5 % (39.0-53.0) Mean Corpuscular Volume 90 fL (79-100) Mean Corpuscular Hemoglobin 29 pg (25-35) Mean Corpuscular Hemoglobin Concent 32 g/dL (31-37) Red Cell Distribution Width 16.0 % (11.5-14.5) Platelet Count 241 x10^3/uL (140-400) Neutrophils (%) (Auto) 67 % (31-73) Lymphocytes (%) (Auto) 22 % (24-48) Monocytes (%) (Auto) 9 % (0-9) Eosinophils (%) (Auto) 1 % (0-3) Basophils (%) (Auto) 1 % (0-3) Neutrophils # (Auto) 8.4 x10^3uL (1.8-7.7) Lymphocytes # (Auto) 2.8 x10^3/uL (1.0-4.8) Monocytes # (Auto) 1.2 x10^3/uL (0.0-1.1) Eosinophils # (Auto) 0.1 x10^3/uL (0.0-0.7) Basophils # (Auto) 0.1 x10^3/uL (0.0-0.2) Sodium Level 138 mmol/L (136-145) Potassium Level 3.3 mmol/L (3.5-5.1) Chloride Level 105 mmol/L (98-107) Carbon Dioxide Level 23 mmol/L (21-32) Anion Gap 10 (6-14) Blood Urea Nitrogen 15 mg/dL (8-26) Creatinine 1.0 mg/dL (0.7-1.3) Estimated GFR (Cockcroft-Gault) 93.2 BUN/Creatinine Ratio 15 (6-20) Glucose Level 85 mg/dL (70-99) Calcium Level 8.2 mg/dL (8.5-10.1) Total Bilirubin 0.3 mg/dL (0.2-1.0) Aspartate Amino Transf (AST/SGOT) 27 U/L (15-37) Alanine Aminotransferase (ALT/SGPT) 81 U/L (16-63) Alkaline Phosphatase 70 U/L (46-116) Total Protein 5.8 g/dL (6.4-8.2) Albumin 2.7 g/dL (3.4-5.0) Albumin/Globulin Ratio 0.9 (1.0-1.7) Urine Collection Type Unknown Urine Color Yellow Urine Clarity Clear Urine pH 5.5 Urine Specific [place] <=1.005 Urine Protein Negative mg/dL (NEG-TRACE) Urine Glucose (UA) Negative mg/dL (NEG) Urine Ketones (Stick) Negative mg/dL (NEG) Urine Blood Negative (NEG) Urine Nitrite Negative (NEG) Urine Bilirubin Negative (NEG) Urine Urobilinogen Dipstick 0.2 mg/dL (0.2 mg/dL) Urine Leukocyte Esterase Negative (NEG) Urine RBC 0 /HPF (0-2) Urine WBC Occ /HPF (0-4) Urine Squamous Epithelial Cells Occ /LPF Urine Bacteria 0 /HPF (0-FEW) Test 09/10/18 11:25 09/10/18 17:03 09/10/18 20:13 09/11/18 04:55 Glucose (Fingerstick) 100 mg/dL (70-99) 75 mg/dL (70-99) 77 mg/dL (70-99) White Blood Count 12.8 x10^3/uL (4.0-11.0) Red Blood Count 4.52 x10^6/uL (4.30-5.70) Hemoglobin 13.4 g/dL (13.0-17.5) Hematocrit 40.7 % (39.0-53.0) Mean Corpuscular Volume 90 fL (79-100) Mean Corpuscular Hemoglobin 30 pg (25-35) Mean Corpuscular Hemoglobin Concent 33 g/dL (31-37) Red Cell Distribution Width 15.9 % (11.5-14.5) Platelet Count 270 x10^3/uL (140-400) Neutrophils (%) (Auto) 64 % (31-73) Lymphocytes (%) (Auto) 24 % (24-48) Monocytes (%) (Auto) 10 % (0-9) Eosinophils (%) (Auto) 1 % (0-3) Basophils (%) (Auto) 1 % (0-3) Neutrophils # (Auto) 8.3 x10^3uL (1.8-7.7) Lymphocytes # (Auto) 3.1 x10^3/uL (1.0-4.8) Monocytes # (Auto) 1.2 x10^3/uL (0.0-1.1) Eosinophils # (Auto) 0.2 x10^3/uL (0.0-0.7) Basophils # (Auto) 0.1 x10^3/uL (0.0-0.2) Sodium Level 139 mmol/L (136-145) Potassium Level 3.8 mmol/L (3.5-5.1) Chloride Level 104 mmol/L (98-107) Carbon Dioxide Level 22 mmol/L (21-32) Anion Gap 13 (6-14) Blood Urea Nitrogen 7 mg/dL (8-26) Creatinine 1.1 mg/dL (0.7-1.3) Estimated GFR (Cockcroft-Gault) 83.5 Glucose Level 70 mg/dL (70-99) Calcium Level 9.2 mg/dL (8.5-10.1) Test 09/11/18 06:20 09/11/18 07:04 Glucose (Fingerstick) 59 mg/dL (70-99) 95 mg/dL (70-99) Laboratory Tests Test 09/10/18 09:40 09/10/18 11:25 09/10/18 17:03 09/10/18 20:13 Urine Collection Type Unknown Urine Color Yellow Urine Clarity Clear Urine pH 5.5 Urine Specific [place] <=1.005 Urine Protein Negative mg/dL (NEG-TRACE) Urine Glucose (UA) Negative mg/dL (NEG) Urine Ketones (Stick) Negative mg/dL (NEG) Urine Blood Negative (NEG) Urine Nitrite Negative (NEG) Urine Bilirubin Negative (NEG) Urine Urobilinogen Dipstick 0.2 mg/dL (0.2 mg/dL) Urine Leukocyte Esterase Negative (NEG) Urine RBC 0 /HPF (0-2) Urine WBC Occ /HPF (0-4) Urine Squamous Epithelial Cells Occ /LPF Urine Bacteria 0 /HPF (0-FEW) Glucose (Fingerstick) 100 mg/dL (70-99) 75 mg/dL (70-99) 77 mg/dL (70-99) Test 09/11/18 04:55 09/11/18 06:20 09/11/18 07:04 White Blood Count 12.8 x10^3/uL (4.0-11.0) Red Blood Count 4.52 x10^6/uL (4.30-5.70) Hemoglobin 13.4 g/dL (13.0-17.5) Hematocrit 40.7 % (39.0-53.0) Mean Corpuscular Volume 90 fL (79-100) Mean Corpuscular Hemoglobin 30 pg (25-35) Mean Corpuscular Hemoglobin Concent 33 g/dL (31-37) Red Cell Distribution Width 15.9 % (11.5-14.5) Platelet Count 270 x10^3/uL (140-400) Neutrophils (%) (Auto) 64 % (31-73) Lymphocytes (%) (Auto) 24 % (24-48) Monocytes (%) (Auto) 10 % (0-9) Eosinophils (%) (Auto) 1 % (0-3) Basophils (%) (Auto) 1 % (0-3) Neutrophils # (Auto) 8.3 x10^3uL (1.8-7.7) Lymphocytes # (Auto) 3.1 x10^3/uL (1.0-4.8) Monocytes # (Auto) 1.2 x10^3/uL (0.0-1.1) Eosinophils # (Auto) 0.2 x10^3/uL (0.0-0.7) Basophils # (Auto) 0.1 x10^3/uL (0.0-0.2) Sodium Level 139 mmol/L (136-145) Potassium Level 3.8 mmol/L (3.5-5.1) Chloride Level 104 mmol/L (98-107) Carbon Dioxide Level 22 mmol/L (21-32) Anion Gap 13 (6-14) Blood Urea Nitrogen 7 mg/dL (8-26) Creatinine 1.1 mg/dL (0.7-1.3) Estimated GFR (Cockcroft-Gault) 83.5 Glucose Level 70 mg/dL (70-99) Calcium Level 9.2 mg/dL (8.5-10.1) Glucose (Fingerstick) 59 mg/dL (70-99) 95 mg/dL (70-99) Medications Current Medications Sodium Chloride 1,000 ml @ 1,000 mls/hr Q1H IV Last administered on 09/09/18 12:54; Start 09/09/18 at 12:20; Stop 09/09/18 at 13:19; Status DC Prochlorperazine Edisylate (Compazine) 5 mg 1X ONCE IV Last administered on 12:53; Start 09/09/18 at 12:30; Stop 09/09/18 at 12:31; Status DC Ketorolac Tromethamine (Toradol 30mg Vial) 30 mg 1X ONCE IV Last administered on 09/09/18 12:53; Start 09/09/18 at 12:30; Stop 09/09/18 at 12:31; Status DC Hyoscyamine (Anaspaz) 0.125 mg ONCE ONCE PO Last administered on 09/09/18 12: 30; Start 09/09/18 at 12:30; Stop 09/09/18 at 12:31; Status DC Aspirin (Children'S Aspirin) 324 mg 1X ONCE PO Last administered on 09/09/18 12:53; Start 09/09/18 at 12:30; Stop 09/09/18 at 12:31; Status DC Ondansetron HCl (Zofran) 4 mg PRN Q8HRS PRN IV NAUSEA/VOMITING Last administered on 09/10/18 05:56; Start 09/09/18 at 13:15; Stop 09/10/18 at 13:14; Status DC Sodium Chloride 1,000 ml @ 200 mls/hr Q5H IV Last administered on 09/10/18 04: 42; Start 09/09/18 at 13:12; Stop 09/10/18 at 13:11; Status DC Acetaminophen (Tylenol) 650 mg PRN Q4HRS PRN PO FEVER; Start 09/09/18 at 13:15; Stop 09/10/18 at 13:14; Status DC Metronidazole 100 ml @ 100 mls/hr Q8HRS IV Last administered on 09/10/18 05:47 ; Start 09/09/18 at 22:00; Stop 09/10/18 at 11:06; Status DC Metronidazole 100 ml @ 100 mls/hr 1X ONCE IV Last administered on 09/09/18 16 :15; Start 09/09/18 at 15:15; Stop 09/09/18 at 16:14; Status DC Vancomycin HCl (Vancomycin Oral Solution) 125 mg [id number] PO Last administered on 09/10/18 20:50; Start 09/09/18 at 17:00 Albuterol Sulfate (Ventolin Neb Soln) 2.5 mg PRN Q4HRS PRN INH SHORTNESS OF BREATH Last administered on 09/11/18 04:24; Start 09/09/18 at 15:15 Amlodipine Besylate (Norvasc) 10 mg DAILY PO Last administered on 09/10/18 09: 00; Start 09/09/18 at 16:00 Aspirin (Ecotrin) 81 mg DAILY PO Last administered on 09/10/18 09:00; Start 09/09/18 at 16:00 Cyclobenzaprine HCl (Flexeril) 10 mg QHS PO Last administered on 09/10/18 20:50 ; Start 09/09/18 at 21:00 Fluticasone Propionate (Flonase) 2 spray DAILY NS Last administered on 08:58; Start 09/10/18 at 09:00 Glimepiride (Amaryl) 2 mg BIDWMEALS PO Last administered on 09/11/18 08:00; Start 09/09/18 at 17:00 Acetaminophen/ Hydrocodone Bitart (Lortab 7.5/325) 1 tab PRN TID PRN PO PAIN Last administered on 09/10/18 09:05; Start 09/09/18 at 15:15 Pantoprazole Sodium (Protonix) 40 mg DAILYAC PO Last administered on 09/11/18 06:33; Start 09/09/18 at 16:00 Triamcinolone Acetonide (Kenalog) 1 heriberto BID TP Last administered on 09/10/18 20 :50; Start 09/09/18 at 21:00 Non-Formulary Medication (Empagliflozin (Jardiance)) 10 mg DAILY PO ; Start 09/10 at 09:00; Status UNV Non-Formulary Medication (Exenatide Microspheres (Bydureon Pen)) 2 mg WEEKLY SQ ; Start 09/16/18 at 09:00; Status UNV Indapamide (Lozol) 1.25 mg DAILY PO Last administered on 09/10/18 08:59; Start 09/09/18 at 16:00 Non-Formulary Medication (Ipratropium/ Albuterol Sulfate (Combivent Respimat Inhal)) 2 inh BID IH ; Start 09/09/18 at 21:00; Stop 09/09/18 at 21:00; Status DC Metformin HCl (Glucophage Xr) 500 mg DAILYWBKFT PO Last administered on 08:01; Start 09/09/18 at 16:00 Multivitamins (Thera M Plus) 1 tab DAILY PO Last administered on 09/10/18 09:00 ; Start 09/09/18 at 16:00 Non-Formulary Medication (Phentermine Hcl ) 1 cap DAILYWBKFT PO ; Start 09/10/18 at 08:00; Status UNV Enoxaparin Sodium (Lovenox Per Pharmacy Prophylaxis Dosing) 1 each PRN DAILY PRN MC SEE COMMENTS; Start 09/09/18 at 15:15 Albuterol/ Ipratropium (Duoneb) 3 ml RTBID NEB Last administered on 09/11/18 07 :53; Start 09/09/18 at 20:00 Enoxaparin Sodium (Lovenox 60mg Syringe) 60 mg Q12HR SQ Last administered on 20:52; Start 09/09/18 at 21:00 Lactobacillus Rhamnosus (Culturelle) 1 cap BID PO Last administered on at 20:50; Start 09/10/18 at 09:00 Potassium Chloride (Klor-Con) 40 meq 1X ONCE PO Last administered on 09/10/18 17:20; Start 09/10/18 at 17:00; Stop 09/10/18 at 17:01; Status DC Potassium Chloride (Klor-Con) 20 meq DAILYWBKFT PO Last administered on 08:01; Start 09/11/18 at 08:00 Dextrose (Dextrose 50%-Water Syringe) 12.5 gm PRN Q15MIN PRN IV SEE COMMENTS Last administered on 09/11/18at 06:33; Start 09/11/18 at 06:30 Active Scripts Active [Fluconazole] 100 MG Tablet 100 Mg PO DAILY MDD 1 14 Days Vancomycin Hcl 500 Mg Vial 125 Mg PO [id number] MDD 1 14 Days Reported Jardiance (Empagliflozin) 10 Mg Tablet 10 Mg PO DAILY Phentermine Hcl 37.5 Mg Capsule 1 Cap PO DAILYWBKFT 30 Days Multivitamins (Multivitamin) 1 Each Tablet 1 Tab PO DAILY 30 Days Glimepiride 2 Mg Tablet 2 Mg PO BID 30 Days Proair Hfa Inhaler (Albuterol Sulfate) 8.5 Gm Hfa.aer.ad 1 Puff INH PRN Q4HRS PRN Hydrocodone-Apap 7.5-325 (Hydrocodone Bit/Acetaminophen) 1 Each Tablet 1 Tab PO PRN TID PRN Combivent Respimat Inhal (Ipratropium/Albuterol Sulfate) 4 Gm Aer.w.adap 2 Inh IH BID Triamcinolone Acetonide 0.1% Oint (Triamcinolone Acetonide) 15 Gm Oint...g. 1 Heriberto TP BID MIX WITH EUCERIN DIRECTED BY PHYSICIAN Manny Pen (Exenatide Microspheres) 2 Mg/0.65 Ml Pen.injctr 2 Mg SQ WEEKLY Indapamide 1.25 Mg Tablet 1 Tab PO DAILY Cyclobenzaprine Hcl 10 Mg Tablet 1 Tab PO QHS Aspir 81 (Aspirin) 81 Mg Tablet.dr 81 Mg PO DAILY Pantoprazole Sodium 40 Mg Tablet.dr 40 Mg PO DAILY Flonase (Fluticasone Propionate) 16 Gm [place].susp 16 Gm NS DAILY Diovan (Valsartan) 320 Mg Tablet 320 Mg PO DAILY Norvasc (Amlodipine Besylate) 10 Mg Tablet 10 Mg PO DAILY Metformin Hcl Er (Metformin Hcl) 1,000 Mg Tab.er.24 500 Mg PO DAILY 30 Days Vitals/I & O Vital Sign - Last 24 Hours 09/10/18 09/10/18 09/10/18 09/10/18 08:38 09:00 09:05 10:05 Pulse 110 Resp 22 22 B/P (MAP) 145/72 Pulse Ox 92 92 O2 Delivery Room Air Nasal Cannula Room Air O2 Flow Rate 2.0 2.0 09/10/18 09/10/18 09/10/18 09/10/18 11:00 15:00 19:00 19:47 Temp 97.8 97.5 97.8 97.5 Pulse 95 96 93 Resp 18 20 18 B/P (MAP) 125/80 (95) 145/83 (103) 127/74 (91) Pulse Ox 98 99 96 92 O2 Delivery Nasal Cannula Room Air O2 Flow Rate 2.0 09/10/18 09/10/18 09/10/18 09/11/18 20:00 22:47 23:09 02:58 Temp 97.7 98.3 97.7 98.3 Pulse 94 97 Resp 18 B/P (MAP) 127/94 (105) 155/99 (117) Pulse Ox 94 98 97 O2 Delivery Room Air Nasal Cannula Nasal Cannula Nasal Cannula O2 Flow Rate 2.0 2.0 2.0 2.0 09/11/18 09/11/18 09/11/18 04:24 07:05 07:54 Temp 98.0 98.0 Pulse 89 Resp 14 B/P (MAP) 129/72 (91) Pulse Ox 98 100 100 O2 Delivery Nasal Cannula Room Air Room Air O2 Flow Rate 2.0 Intake and Output 09/10/18 09/10/18 09/11/18 14:59 22:59 06:59 Intake Total 2000 ml 300 ml 120 ml Output Total 400 ml Balance 1600 ml 300 ml 120 ml NICOLETTE DOAN MD Sep 11, 2018 08:26
[2018-09-11] MEDS: NON FORMULARY ITEM (Empagliflozin (Jardiance) 10 MG) PO SCH (09:00)
--- NOTE | 2018-09-11 09:07 | PDOC ---
Infectious Disease Note Subjective: Subjective Pt has loose bm, 6 yesterday and 2 this am some nausea tolerating liquids well no f/c/v ROS: ROS Negative except for above. Vital Signs: Vital Signs Vital Signs Date Time Temp Pulse Resp B/P (MAP) Pulse Ox O2 Delivery O2 Flow Rate FiO2 09/11/18 07:54 100 Room Air 09/11/18 07:05 98.0 89 14 129/72 (91) 98.0 09/11/18 04:24 2.0 Physical Exam: PHYSICAL EXAM GENERAL: The patient is sitting in bed, alert, in no apparent distress. HEENT: Pupils equally round. Normal conjunctivae. Oral cavity: Pharynx pink and moist. NECK: Supple. LUNGS: Clear to auscultation. HEART: S1 and S2. ABDOMEN: Obese, soft, mildly tender throughout. No rebound. EXTREMITIES: No gross edema or cyanosis. SKIN: Warm without generalized rash. NEUROLOGIC: Alert and oriented x 3. No focal deficits. Medications: Inpatient Meds: Current Medications Medications (Trade) Dose Ordered Sig/Yumi Start Time Stop Time Status Last Admin Dose Admin Acetaminophen (Tylenol) 650 mg PRN Q4HRS PRN 09/09/18 13:15 09/10/18 13:14 DC Acetaminophen/ Hydrocodone Bitart (Lortab 7.5/325) 1 tab PRN TID PRN 09/09/18 15:15 09/10/18 09:05 1 TAB Albuterol Sulfate (Ventolin Neb Soln) 2.5 mg PRN Q4HRS PRN 09/09/18 15:15 09/11/18 04:24 2.5 MG Albuterol/ Ipratropium (Duoneb) 3 ml RTBID 09/09/18 20:00 09/11/18 07:53 3 ML Amlodipine Besylate (Norvasc) 10 mg DAILY 09/09/18 16:00 09/10/18 09:00 10 MG Aspirin (Children'S Aspirin) 324 mg 1X ONCE 09/09/18 12:30 09/09/18 12:31 DC 09/09/18 12:53 324 MG Aspirin (Ecotrin) 81 mg DAILY 09/09/18 16:00 09/10/18 09:00 81 MG Cyclobenzaprine HCl (Flexeril) 10 mg QHS 09/09/18 21:00 09/10/18 20:50 10 MG Dextrose (Dextrose 50%-Water Syringe) 12.5 gm PRN Q15MIN PRN 09/11/18 06:30 09/11/18 06:33 12.5 GM Enoxaparin Sodium (Lovenox 60mg Syringe) 60 mg Q12HR 09/09/18 21:00 09/10/18 20:52 60 MG Enoxaparin Sodium (Lovenox Per Pharmacy Prophylaxis Dosing) 1 each PRN DAILY PRN 09/09/18 15:15 Fluticasone Propionate (Flonase) 2 spray DAILY 09/10/18 09:00 09/10/18 08:58 2 SPRAY Glimepiride (Amaryl) 2 mg BIDWMEALS 09/09/18 17:00 09/11/18 08:00 2 MG Hyoscyamine (Anaspaz) 0.125 mg ONCE ONCE 09/09/18 12:30 09/09/18 12:31 DC 09/09/18 12:30 0.125 MG Indapamide (Lozol) 1.25 mg DAILY 09/09/18 16:00 09/10/18 08:59 1.25 MG Ketorolac Tromethamine (Toradol 30mg Vial) 30 mg 1X ONCE 09/09/18 12:30 09/09/18 12:31 DC 09/09/18 12:53 30 MG Lactobacillus Rhamnosus (Culturelle) 1 cap BID 09/10/18 09:00 09/10/18 20:50 1 CAP Metformin HCl (Glucophage Xr) 500 mg DAILYWBKFT 09/09/18 16:00 09/11/18 08:01 500 MG Metronidazole 100 ml @ 100 mls/hr 1X ONCE 09/09/18 15:15 09/09/18 16:14 DC 09/09/18 16:15 100 MLS/HR Multivitamins (Thera M Plus) 1 tab DAILY 09/09/18 16:00 09/10/18 09:00 1 TAB Non-Formulary Medication (Empagliflozin (Jardiance)) 10 mg DAILY 09/10/18 09:00 UNV Non-Formulary Medication (Exenatide Microspheres (Bydureon Pen)) 2 mg WEEKLY 09/16/18 09:00 UNV Non-Formulary Medication (Ipratropium/ Albuterol Sulfate (Combivent Respimat Inhal)) 2 inh BID 09/09/18 21:00 09/09/18 21:00 DC Non-Formulary Medication (Phentermine Hcl ) 1 cap DAILYWBKFT 09/10/18 08:00 UNV Ondansetron HCl (Zofran) 4 mg PRN Q8HRS PRN 09/09/18 13:15 09/10/18 13:14 DC 09/10/18 05:56 4 MG Pantoprazole Sodium (Protonix) 40 mg DAILYAC 09/09/18 16:00 09/11/18 06:33 40 MG Potassium Chloride (Klor-Con) 20 meq [id number] 09/11/18 08:00 09/11/18 08:01 20 MEQ Prochlorperazine Edisylate (Compazine) 5 mg 1X ONCE 09/09/18 12:30 09/09/18 12:31 DC 09/09/18 12:53 5 MG Sodium Chloride 1,000 ml @ 200 mls/hr Q5H 09/09/18 13:12 09/10/18 13:11 DC 09/10/18 04:42 200 MLS/HR Triamcinolone Acetonide (Kenalog) 1 daly BID 09/09/18 21:00 09/10/18 20:50 1 DALY Vancomycin HCl (Vancomycin Oral Solution) 125 mg [id number] 09/09/18 17:00 09/10/18 20:50 125 MG Labs: Lab Laboratory Tests Test 09/10/18 09:40 09/10/18 11:25 09/10/18 17:03 09/10/18 20:13 Urine Collection Type Unknown Urine Color Yellow Urine Clarity Clear Urine pH 5.5 Urine Specific Jenison <=1.005 Urine Protein Negative mg/dL (NEG-TRACE) Urine Glucose (UA) Negative mg/dL (NEG) Urine Ketones (Stick) Negative mg/dL (NEG) Urine Blood Negative (NEG) Urine Nitrite Negative (NEG) Urine Bilirubin Negative (NEG) Urine Urobilinogen Dipstick 0.2 mg/dL (0.2 mg/dL) Urine Leukocyte Esterase Negative (NEG) Urine RBC 0 /HPF (0-2) Urine WBC Occ /HPF (0-4) Urine Squamous Epithelial Cells Occ /LPF Urine Bacteria 0 /HPF (0-FEW) Glucose (Fingerstick) 100 mg/dL (70-99) 75 mg/dL (70-99) 77 mg/dL (70-99) Test 09/11/18 04:55 09/11/18 06:20 09/11/18 07:04 White Blood Count 12.8 x10^3/uL (4.0-11.0) Red Blood Count 4.52 x10^6/uL (4.30-5.70) Hemoglobin 13.4 g/dL (13.0-17.5) Hematocrit 40.7 % (39.0-53.0) Mean Corpuscular Volume 90 fL (79-100) Mean Corpuscular Hemoglobin 30 pg (25-35) Mean Corpuscular Hemoglobin Concent 33 g/dL (31-37) Red Cell Distribution Width 15.9 % (11.5-14.5) Platelet Count 270 x10^3/uL (140-400) Neutrophils (%) (Auto) 64 % (31-73) Lymphocytes (%) (Auto) 24 % (24-48) Monocytes (%) (Auto) 10 % (0-9) Eosinophils (%) (Auto) 1 % (0-3) Basophils (%) (Auto) 1 % (0-3) Neutrophils # (Auto) 8.3 x10^3uL (1.8-7.7) Lymphocytes # (Auto) 3.1 x10^3/uL (1.0-4.8) Monocytes # (Auto) 1.2 x10^3/uL (0.0-1.1) Eosinophils # (Auto) 0.2 x10^3/uL (0.0-0.7) Basophils # (Auto) 0.1 x10^3/uL (0.0-0.2) Sodium Level 139 mmol/L (136-145) Potassium Level 3.8 mmol/L (3.5-5.1) Chloride Level 104 mmol/L (98-107) Carbon Dioxide Level 22 mmol/L (21-32) Anion Gap 13 (6-14) Blood Urea Nitrogen 7 mg/dL (8-26) Creatinine 1.1 mg/dL (0.7-1.3) Estimated GFR (Cockcroft-Gault) 83.5 Glucose Level 70 mg/dL (70-99) Calcium Level 9.2 mg/dL (8.5-10.1) Glucose (Fingerstick) 59 mg/dL (70-99) 95 mg/dL (70-99) Objective: Assessment: 1. History of Clostridium difficile associated diarrhea from 09/01/2018. 2. Leukocytosis, improving. 3. Morbid obesity with a BMI ____. 4. Diabetes type 2. 5. Atrial fibrillation. PLAN: Continue the oral vancomycin q.i.d. No need for metronidazole. Maintain hydration. He is to remain in contact isolation Plan: Plan of Care continue po vancomycin QID but inc dose to 250mg po qid off IV flagyl 09/10 Maintain hydration Contact isolation MARCOS LIVINGSTON MD Sep 11, 2018 09:07
--- NOTE | 2018-09-11 09:31 | NUR ---
IP: Pt is C.diff + on 09/01/18 an continues to have diarrhea. Pt to be in contact plus precautions using brown sign.
[2018-09-11] MEDS: VANCOMYCIN 125 MG/2.5 ML ORAL SOLUTION. PO SCH ×4 (09:35→21:13)
[2018-09-11] MEDS: amLODIPine BESYLATE 10 MG TABLET PO SCH (09:37)
[2018-09-11] MEDS: LACTOBACILLUS RHAMNOSUS GG 1 CAPSULE. PO SCH ×2 (09:37→21:12)
[2018-09-11] MEDS: ASPIRIN ENTERIC COATED 81 MG TABLET.DR. PO SCH (09:38)
[2018-09-11] MEDS: MULTIVITAMIN with MINERAL TABLET. PO SCH (09:38)
[2018-09-11] MEDS: INDAPAMIDE 2.5 MG TABLET PO SCH (09:39)
[2018-09-11] MEDS: FLUTICASONE 50MCG/NASAL SPRAY 16GM BOTTLE. NS SCH (09:41)
[2018-09-11] MEDS: TRIAMCINOLONE ACETONIDE 0.1% TOPICAL OINTMENT 15GM TUBE. TP SCH ×2 (09:42→21:14)
--- NOTE | 2018-09-11 10:10 | PDOC ---
Subjective: Subjective: Please see GI consult from 09/01/18 and following progress notes through 09/07. Asked to see now for "C Diff recurrent." Went home, says diarrhea worsened and n/v w/ dysphagia/odynophagia recurred, back to ER on 09/09 and admitted. Per RN - several stools overnight, none this morning. ID following - on vanco. He tells me he can swallow liquids okay but anything more gets stuck in midchest - sometimes coughs up, sometimes retches/vomits. Also hurts to swallow. Was taking vanco and PPI at home but not Diflucan. Objective: Vital Signs: Vital Signs Date Time Temp Pulse Resp B/P (MAP) Pulse Ox O2 Delivery O2 Flow Rate FiO2 09/11/18 09:37 89 129/72 09/11/18 07:54 100 Room Air 09/11/18 07:05 98.0 14 98.0 09/11/18 04:24 2.0 Labs: Laboratory Tests Test 09/10/18 11:25 09/10/18 17:03 09/10/18 20:13 09/11/18 04:55 Glucose (Fingerstick) 100 mg/dL 75 mg/dL 77 mg/dL White Blood Count 12.8 x10^3/uL Red Blood Count 4.52 x10^6/uL Hemoglobin 13.4 g/dL Hematocrit 40.7 % Mean Corpuscular Volume 90 fL Mean Corpuscular Hemoglobin 30 pg Mean Corpuscular Hemoglobin Concent 33 g/dL Red Cell Distribution Width 15.9 % Platelet Count 270 x10^3/uL Neutrophils (%) (Auto) 64 % Lymphocytes (%) (Auto) 24 % Monocytes (%) (Auto) 10 % Eosinophils (%) (Auto) 1 % Basophils (%) (Auto) 1 % Neutrophils # (Auto) 8.3 x10^3uL Lymphocytes # (Auto) 3.1 x10^3/uL Monocytes # (Auto) 1.2 x10^3/uL Eosinophils # (Auto) 0.2 x10^3/uL Basophils # (Auto) 0.1 x10^3/uL Sodium Level 139 mmol/L Potassium Level 3.8 mmol/L Chloride Level 104 mmol/L Carbon Dioxide Level 22 mmol/L Anion Gap 13 Blood Urea Nitrogen 7 mg/dL Creatinine 1.1 mg/dL Estimated GFR (Cockcroft-Gault) 83.5 Glucose Level 70 mg/dL Calcium Level 9.2 mg/dL Test 09/11/18 06:20 09/11/18 07:04 Glucose (Fingerstick) 59 mg/dL 95 mg/dL PE: GEN: NAD LUNGS: room air HEART: RRR ABD: obese, vaguely tender middle, NABS NEURO/PSYCH: A & O 3 A/P: Recurrent dysphagia/odynophagia/vomiting C Diff diarrhea H/o atypical CP and arrhythmia - plans for outpt even monitor per cardiology recs last admission CRC screen - UTD Leukocytosis, hypokalemia (resolved) Mildly elevated ALT - present last admission as well, neg Hep panel and hepatic steatosis on imaging -- Past workup includes EGD w/ dilation at [facility] in 05/2018 (records requested but not received last admission) and esophagram w/ tertiary contractions in 2017. Reviewed w/ Dr. Mckenzie - add Diflucan again. Continue vanco per ID. Continue PPI - will try BID. Can also try lidocaine again - this helped last time. Does have DM - could consider GES but issues seem more related to swallowing at this point. JULI DUTTON Sep 11, 2018 10:10
[2018-09-11] MEDS ORDERED: LIDOCAINE 2% VISCOUS 15 ML SOLUTION. SWSW PRN (10:15)
[2018-09-11] MEDS: FLUCONAZOLE 100 MG TABLET. PO SCH (10:31)
[2018-09-11 10:54] VITALS: BP 129/74
--- NOTE | 2018-09-11 12:20 | NUR ---
SW following pt for anticipated dc needs. Chart reviewed and discussed with RN. Pt lives at home with spouse. Rehab screen recommend PT/OT eval and tx order. Discussed with RN and RN reported pt does not need Skilled intervention. Pt was recently discharged home with [facility]. Will continue to evaluate dc needs. Discussed with Physician as well.
[2018-09-11] MEDS: HYDROcodone/APAP 7.5/325MG 1 TAB TABLET PO PRN ×2 (12:32→16:56)
[2018-09-11 15:00] VITALS: BP 141/80
[2018-09-11] MEDS ORDERED: DEXTROSE 50% 25 GM / 50ML DISP.SYRIN. IV PRN (15:00)
[2018-09-11] MEDS: INSULIN LISPRO 300 UNITS/3 ML INSULN.PEN. SQ SCH (17:00)
[2018-09-11 19:00] VITALS: BP 138/89
[2018-09-11] MEDS: CYCLOBENZAPRINE 10 MG TABLET. PO SCH (21:12)
[2018-09-11 23:00] VITALS: BP 132/85
[2018-09-12 03:00] VITALS: BP 123/79
[2018-09-12] MEDS: ALBUTEROL SULFATE 2.5 MG/3 ML NEBU. INH PRN ×2 (04:00→23:20)
[2018-09-12] MEDS: HYDROcodone/APAP 7.5/325MG 1 TAB TABLET PO PRN ×2 (04:48→18:30)
[2018-09-12] MEDS: PANTOPRAZOLE 40 MG TABLET.DR. PO SCH ×2 (06:03→16:30)
[2018-09-12 07:00] VITALS: BP 153/88
[2018-09-12] MEDS: IPRATRPIUM/ALBUTEROL 0.5/2.5MG 3 ML NEBU. NEB SCH ×2 (07:42→19:25)
[2018-09-12] MEDS: INSULIN LISPRO 300 UNITS/3 ML INSULN.PEN. SQ SCH ×3 (08:00→17:00)
[2018-09-12] MEDS: POTASSIUM CHLORIDE 20 MEQ TABLET.ER. PO SCH (08:00)
[2018-09-12] MEDS: metFORMIN XR 500 MG TAB.ER.24H PO SCH (08:00)
[2018-09-12] MEDS ORDERED: ACETAMINOPHEN 325 MG TABLET. PO PRN (08:15)
[2018-09-12] MEDS: FLUTICASONE 50MCG/NASAL SPRAY 16GM BOTTLE. NS SCH (09:29)
[2018-09-12] MEDS: VANCOMYCIN 125 MG/2.5 ML ORAL SOLUTION. PO SCH ×4 (09:29→21:07)
[2018-09-12] MEDS: INDAPAMIDE 2.5 MG TABLET PO SCH (09:30)
[2018-09-12] MEDS: TRIAMCINOLONE ACETONIDE 0.1% TOPICAL OINTMENT 15GM TUBE. TP SCH ×2 (09:31→21:08)
[2018-09-12] MEDS: amLODIPine BESYLATE 10 MG TABLET PO SCH (09:32)
[2018-09-12] MEDS: MULTIVITAMIN with MINERAL TABLET. PO SCH (09:32)
[2018-09-12] MEDS: ASPIRIN ENTERIC COATED 81 MG TABLET.DR. PO SCH (09:32)
[2018-09-12] MEDS: LACTOBACILLUS RHAMNOSUS GG 1 CAPSULE. PO SCH ×2 (09:32→21:06)
[2018-09-12] MEDS: FLUCONAZOLE 100 MG TABLET. PO SCH (09:32)
--- NOTE | 2018-09-12 10:21 | PDOC ---
Infectious Disease Note Subjective: Subjective Pt cont to have loose bm, nausea is somewhat better, no vomiting tolerating liquids well no f/c/v ROS: ROS Negative except for above. Vital Signs: Vital Signs Vital Signs Date Time Temp Pulse Resp B/P (MAP) Pulse Ox O2 Delivery O2 Flow Rate FiO2 09/12/18 09:32 110 138/96 09/12/18 08:10 Room Air 2.0 09/12/18 07:34 98 09/12/18 07:00 98.1 18 98.1 Physical Exam: PHYSICAL EXAM GENERAL: The patient is sitting in bed, alert, in no apparent distress. HEENT: Pupils equally round. Normal conjunctivae. Oral cavity: Pharynx pink and moist. NECK: Supple. LUNGS: Clear to auscultation. HEART: S1 and S2. ABDOMEN: Obese, soft, mildly tender throughout. No rebound. EXTREMITIES: No gross edema or cyanosis. SKIN: Warm without generalized rash. NEUROLOGIC: Alert and oriented x 3. No focal deficits. Medications: Inpatient Meds: Current Medications Medications (Trade) Dose Ordered Sig/Yumi Start Time Stop Time Status Last Admin Dose Admin Acetaminophen (Tylenol) 650 mg PRN Q6HRS PRN 09/12/18 08:15 09/12/18 08:38 650 MG Acetaminophen/ Hydrocodone Bitart (Lortab 7.5/325) 1 tab PRN TID PRN 09/09/18 15:15 09/12/18 04:48 1 TAB Albuterol Sulfate (Ventolin Neb Soln) 2.5 mg PRN Q4HRS PRN 09/09/18 15:15 09/12/18 04:00 2.5 MG Albuterol/ Ipratropium (Duoneb) 3 ml RTBID 09/09/18 20:00 09/12/18 07:42 3 ML Amlodipine Besylate (Norvasc) 10 mg DAILY 09/09/18 16:00 09/12/18 09:32 10 MG Aspirin (Children'S Aspirin) 324 mg 1X ONCE 09/09/18 12:30 09/09/18 12:31 DC 09/09/18 12:53 324 MG Aspirin (Ecotrin) 81 mg DAILY 09/09/18 16:00 09/12/18 09:32 81 MG Cyclobenzaprine HCl (Flexeril) 10 mg QHS 09/09/18 21:00 09/11/18 21:12 10 MG Dextrose (Dextrose 50%-Water Syringe) 12.5 gm PRN Q15MIN PRN 09/11/18 15:00 Enoxaparin Sodium (Lovenox 60mg Syringe) 60 mg Q12HR 09/09/18 21:00 09/12/18 09:33 60 MG Enoxaparin Sodium (Lovenox Per Pharmacy Prophylaxis Dosing) 1 each PRN DAILY PRN 09/09/18 15:15 Fluconazole (Diflucan) 100 mg DAILY 09/11/18 10:30 09/12/18 09:32 100 MG Fluticasone Propionate (Flonase) 2 spray DAILY 09/10/18 09:00 09/12/18 09:29 2 SPRAY Glimepiride (Amaryl) 2 mg BIDWMEALS 09/09/18 17:00 09/11/18 14:52 DC 09/11/18 08:00 2 MG Hyoscyamine (Anaspaz) 0.125 mg ONCE ONCE 09/09/18 12:30 09/09/18 12:31 DC 09/09/18 12:30 0.125 MG Indapamide (Lozol) 1.25 mg DAILY 09/09/18 16:00 09/12/18 09:30 1.25 MG Insulin Human Lispro (HumaLOG) 0-5 UNITS TIDWMEALS 09/11/18 17:00 Ketorolac Tromethamine (Toradol 30mg Vial) 30 mg 1X ONCE 09/09/18 12:30 09/09/18 12:31 DC 09/09/18 12:53 30 MG Lactobacillus Rhamnosus (Culturelle) 1 cap BID 09/10/18 09:00 09/12/18 09:32 1 CAP Lidocaine HCl (Viscous Lidocaine) 15 ml PRN Q4HRS PRN 09/11/18 10:15 Metformin HCl (Glucophage Xr) 500 mg DAILYWBKFT 09/09/18 16:00 09/12/18 08:00 500 MG Metronidazole 100 ml @ 100 mls/hr Q8HRS 09/11/18 14:00 09/12/18 06:03 100 MLS/HR Multivitamins (Thera M Plus) 1 tab DAILY 09/09/18 16:00 09/12/18 09:32 1 TAB Non-Formulary Medication (Empagliflozin (Jardiance)) 10 mg DAILY 09/10/18 09:00 09/11/18 14:55 DC Non-Formulary Medication (Exenatide Microspheres (Bydureon Pen)) 2 mg WEEKLY 09/16/18 09:00 09/16/18 09:00 DC Non-Formulary Medication (Ipratropium/ Albuterol Sulfate (Combivent Respimat Inhal)) 2 inh BID 09/09/18 21:00 09/09/18 21:00 DC Non-Formulary Medication (Phentermine Hcl ) 1 cap DAILYWBKFT 09/10/18 08:00 UNV Ondansetron HCl (Zofran) 4 mg PRN Q8HRS PRN 09/09/18 13:15 09/10/18 13:14 DC 09/10/18 05:56 4 MG Pantoprazole Sodium (Protonix) 40 mg BIDAC 09/11/18 16:30 09/12/18 06:03 40 MG Potassium Chloride (Klor-Con) 20 meq DAILYWBKFT 09/11/18 08:00 09/12/18 08:00 20 MEQ Prochlorperazine Edisylate (Compazine) 5 mg 1X ONCE 09/09/18 12:30 09/09/18 12:31 DC 09/09/18 12:53 5 MG Sodium Chloride 1,000 ml @ 200 mls/hr Q5H 09/09/18 13:12 09/10/18 13:11 DC 09/10/18 04:42 200 MLS/HR Triamcinolone Acetonide (Kenalog) 1 daly BID 09/09/18 21:00 09/12/18 09:31 1 DALY Vancomycin HCl (Vancomycin Oral Solution) 250 mg [id number] 09/11/18 13:00 09/12/18 09:29 250 MG Labs: Lab Laboratory Tests Test 09/11/18 11:39 09/11/18 12:06 09/11/18 16:55 09/11/18 20:07 Glucose (Fingerstick) 50 mg/dL (70-99) 83 mg/dL (70-99) 83 mg/dL (70-99) 78 mg/dL (70-99) Test 09/12/18 07:45 Glucose (Fingerstick) 85 mg/dL (70-99) Objective: Assessment: 1. Clostridium difficile associated diarrhea from 09/01/2018 POA 2. Leukocytosis, improving. 3. Morbid obesity 4. Diabetes type 2. 5. Atrial fibrillation. 6. ? dysphagia with nausea and vomiting Plan: Plan of Care continue po vancomycin QID cont IV flagyl 3/ GI following Maintain hydration Contact isolation MARCOS LIVINGSTON MD Sep 12, 2018 10:21
[2018-09-12 11:00] VITALS: BP 139/83
--- NOTE | 2018-09-12 12:47 | PDOC ---
Subjective: Subjective: Couldn't swallow pudding but can swallow clear liquids. Hurts and gets stuck in midchest. Ongoing diarrhea. Objective: Vital Signs: Vital Signs Date Time Temp Pulse Resp B/P (MAP) Pulse Ox O2 Delivery O2 Flow Rate FiO2 09/12/18 11:00 97.7 93 18 139/83 (101) 99 Room Air 2.0 97.7 Labs: Laboratory Tests Test 09/11/18 16:55 09/11/18 20:07 09/12/18 07:45 09/12/18 10:59 Glucose (Fingerstick) 83 mg/dL 78 mg/dL 85 mg/dL 61 mg/dL PE: GEN: NAD LUNGS: CTAB HEART: RRR ABD: obese, vague discomfort NEURO/PSYCH: A & O 3 A/P: Recurrent dysphagia/odynophagia C Diff diarrhea -- Note vanco dose increased. No abd imaging this time - check x-ray. No improvement w/ Diflucan this time. Need to d/w Dr. Mckenzie. ?repeat esophagram ?EGD JULI DUTTON Sep 12, 2018 12:47
[2018-09-12 15:00] VITALS: BP 130/77
[2018-09-12] MEDS ORDERED: IV NORMAL SALINE 1000ML BAG 1,000 ML IV ONE (15:30)
--- NOTE | 2018-09-12 15:33 | PDOC ---
PROGRESS NOTES Chief Complaint Chief Complaint Chest pain secondary to- esophageal stricture w/ GERD and esophageal dilation. C. difficile infection - with Abdominal pain/diarrhea. Community acquired Sepsis - 2/2 c. diff with Leukocytosis, tachycardia SHOSHANA - Vasomotor nephropathy, cont IV fluid Elevated ALT - prior A Fib and DVTs - on ASA VIOLET Morbid obesity, BMI 56. DM - well managed on GLP-1, SGLT-2, metformin, sulfonylurea and insulin. chronic htn and diastolic CHF SIRS Trigeminy --normal echo, NEEDS outpatient event monitor KNOWN TO CARDIOLOGY hypokalemia drop in hgb sec to re- hydration Plan: Follow GI recommendations Continue with IV antibiotics and oral vancomycin for C. difficile Continue with supportive measures We'll do IV fluid resuscitation given his lack of by mouth intake and decrease in urine output History of Present Illness History of Present Illness Patient continues to have abdominal discomfort secondary to his C. difficile infection. The patient continues to also have esophageal discomfort despite recommendations from GI health care consultant. Recommendations greatly appreciated will follow up on the latest orders Vitals Vitals Vital Signs Date Time Temp Pulse Resp B/P (MAP) Pulse Ox O2 Delivery O2 Flow Rate FiO2 09/12/18 11:00 97.7 93 18 139/83 (101) 99 Room Air 2.0 97.7 Physical Exam Physical Exam GENERAL: The patient is sitting in bed, alert, in no apparent distress. HEENT: Pupils equally round. Normal conjunctivae. Oral cavity: Pharynx pink and moist. NECK: Supple. LUNGS: Clear to auscultation. HEART: S1 and S2. ABDOMEN: Obese, soft, mildly tender throughout. No rebound. EXTREMITIES: No gross edema or cyanosis. SKIN: Warm without generalized rash. NEUROLOGIC: Alert and oriented x 3. No focal deficits. General: Alert, Oriented X3, Cooperative, No acute distress Heart: Regular rate Lungs: Clear Abdomen: Other (obese, tender, lower tender and diffuse) Extremities: No cyanosis, Normal pulses, Other (1+ edema) Skin: No rashes, No significant lesion Labs LABS Laboratory Tests Test 09/11/18 16:55 09/11/18 20:07 09/12/18 07:45 09/12/18 10:59 Glucose (Fingerstick) 83 mg/dL (70-99) 78 mg/dL (70-99) 85 mg/dL (70-99) 61 mg/dL (70-99) Assessment and Plan Assessmemt and Plan Problems Medical Problems: (1) Failure of outpatient treatment Status: Acute (2) Nausea, vomiting, and diarrhea Status: Acute Comment Review of Relevant I have reviewed the following items brigette (where applicable) has been applied. Labs Laboratory Tests Test 09/10/18 17:03 09/10/18 20:13 09/11/18 04:55 09/11/18 06:20 Glucose (Fingerstick) 75 mg/dL (70-99) 77 mg/dL (70-99) 59 mg/dL (70-99) White Blood Count 12.8 x10^3/uL (4.0-11.0) Red Blood Count 4.52 x10^6/uL (4.30-5.70) Hemoglobin 13.4 g/dL (13.0-17.5) Hematocrit 40.7 % (39.0-53.0) Mean Corpuscular Volume 90 fL (79-100) Mean Corpuscular Hemoglobin 30 pg (25-35) Mean Corpuscular Hemoglobin Concent 33 g/dL (31-37) Red Cell Distribution Width 15.9 % (11.5-14.5) Platelet Count 270 x10^3/uL (140-400) Neutrophils (%) (Auto) 64 % (31-73) Lymphocytes (%) (Auto) 24 % (24-48) Monocytes (%) (Auto) 10 % (0-9) Eosinophils (%) (Auto) 1 % (0-3) Basophils (%) (Auto) 1 % (0-3) Neutrophils # (Auto) 8.3 x10^3uL (1.8-7.7) Lymphocytes # (Auto) 3.1 x10^3/uL (1.0-4.8) Monocytes # (Auto) 1.2 x10^3/uL (0.0-1.1) Eosinophils # (Auto) 0.2 x10^3/uL (0.0-0.7) Basophils # (Auto) 0.1 x10^3/uL (0.0-0.2) Sodium Level 139 mmol/L (136-145) Potassium Level 3.8 mmol/L (3.5-5.1) Chloride Level 104 mmol/L (98-107) Carbon Dioxide Level 22 mmol/L (21-32) Anion Gap 13 (6-14) Blood Urea Nitrogen 7 mg/dL (8-26) Creatinine 1.1 mg/dL (0.7-1.3) Estimated GFR (Cockcroft-Gault) 83.5 Glucose Level 70 mg/dL (70-99) Calcium Level 9.2 mg/dL (8.5-10.1) Test 09/11/18 07:04 09/11/18 11:39 09/11/18 12:06 09/11/18 16:55 Glucose (Fingerstick) 95 mg/dL (70-99) 50 mg/dL (70-99) 83 mg/dL (70-99) 83 mg/dL (70-99) Test 09/11/18 20:07 09/12/18 07:45 09/12/18 10:59 Glucose (Fingerstick) 78 mg/dL (70-99) 85 mg/dL (70-99) 61 mg/dL (70-99) Laboratory Tests Test 09/11/18 16:55 09/11/18 20:07 09/12/18 07:45 09/12/18 10:59 Glucose (Fingerstick) 83 mg/dL (70-99) 78 mg/dL (70-99) 85 mg/dL (70-99) 61 mg/dL (70-99) Medications Current Medications Sodium Chloride 1,000 ml @ 1,000 mls/hr Q1H IV Last administered on 09/09/18 12:54; Start 09/09/18 at 12:20; Stop 09/09/18 at 13:19; Status DC Prochlorperazine Edisylate (Compazine) 5 mg 1X ONCE IV Last administered on 09/09/18at 12:53; Start 09/09/18 at 12:30; Stop 09/09/18 at 12:31; Status DC Ketorolac Tromethamine (Toradol 30mg Vial) 30 mg 1X ONCE IV Last administered on 09/09/18at 12:53; Start 09/09/18 at 12:30; Stop 09/09/18 at 12:31; Status DC Hyoscyamine (Anaspaz) 0.125 mg ONCE ONCE PO Last administered on 09/09/18at 12: 30; Start 09/09/18 at 12:30; Stop 09/09/18 at 12:31; Status DC Aspirin (Children'S Aspirin) 324 mg 1X ONCE PO Last administered on 09/09/18at 12:53; Start 09/09/18 at 12:30; Stop 09/09/18 at 12:31; Status DC Ondansetron HCl (Zofran) 4 mg PRN Q8HRS PRN IV NAUSEA/VOMITING Last administered on 09/10/18 05:56; Start 09/09/18 at 13:15; Stop 09/10/18 at 13:14; Status DC Sodium Chloride 1,000 ml @ 200 mls/hr Q5H IV Last administered on 09/10/18 04: 42; Start 09/09/18 at 13:12; Stop 09/10/18 at 13:11; Status DC Acetaminophen (Tylenol) 650 mg PRN Q4HRS PRN PO FEVER; Start 09/09/18 at 13:15; Stop 09/10/18 at 13:14; Status DC Metronidazole 100 ml @ 100 mls/hr Q8HRS IV Last administered on 09/10/18 05:47 ; Start 09/09/18 at 22:00; Stop 09/10/18 at 11:06; Status DC Metronidazole 100 ml @ 100 mls/hr 1X ONCE IV Last administered on 09/09/18 16 :15; Start 09/09/18 at 15:15; Stop 09/09/18 at 16:14; Status DC Vancomycin HCl (Vancomycin Oral Solution) 125 mg [id number] PO Last administered on 09/11/18at 09:35; Start 09/09/18 at 17:00; Stop 09/11/18 at 10:19; Status DC Albuterol Sulfate (Ventolin Neb Soln) 2.5 mg PRN Q4HRS PRN INH SHORTNESS OF BREATH Last administered on 09/12/18 04:00; Start 09/09/18 at 15:15 Amlodipine Besylate (Norvasc) 10 mg DAILY PO Last administered on 09/12/18 09: 32; Start 09/09/18 at 16:00 Aspirin (Ecotrin) 81 mg DAILY PO Last administered on 09/12/18 09:32; Start 09/09/18 at 16:00 Cyclobenzaprine HCl (Flexeril) 10 mg QHS PO Last administered on 09/11/18 21:12 ; Start 09/09/18 at 21:00 Fluticasone Propionate (Flonase) 2 spray DAILY NS Last administered on 09:29; Start 09/10/18 at 09:00 Glimepiride (Amaryl) 2 mg BIDWMEALS PO Last administered on 09/11/18 08:00; Start 09/09/18 at 17:00; Stop 09/11/18 at 14:52; Status DC Acetaminophen/ Hydrocodone Bitart (Lortab 7.5/325) 1 tab PRN TID PRN PO PAIN Last administered on 09/12/18 04:48; Start 09/09/18 at 15:15 Pantoprazole Sodium (Protonix) 40 mg DAILYAC PO Last administered on 09/11/18 06:33; Start 09/09/18 at 16:00; Stop 09/11/18 at 10:09; Status DC Triamcinolone Acetonide (Kenalog) 1 heriberto BID TP Last administered on 09/12/18 09 :31; Start 09/09/18 at 21:00 Non-Formulary Medication (Empagliflozin (Jardiance)) 10 mg DAILY PO ; Start 09/10 at 09:00; Stop 09/11/18 at 14:55; Status DC Non-Formulary Medication (Exenatide Microspheres (Bydureon Pen)) 2 mg WEEKLY SQ ; Start 09/16/18 at 09:00; Stop 09/16/18 at 09:00; Status DC Indapamide (Lozol) 1.25 mg DAILY PO Last administered on 09/12/18 09:30; Start 09/09/18 at 16:00 Non-Formulary Medication (Ipratropium/ Albuterol Sulfate (Combivent Respimat Inhal)) 2 inh BID IH ; Start 09/09/18 at 21:00; Stop 09/09/18 at 21:00; Status DC Metformin HCl (Glucophage Xr) 500 mg DAILYWBKFT PO Last administered on 08:00; Start 09/09/18 at 16:00 Multivitamins (Thera M Plus) 1 tab DAILY PO Last administered on 09/12/18 09:32 ; Start 09/09/18 at 16:00 Non-Formulary Medication (Phentermine Hcl ) 1 cap DAILYWBKFT PO ; Start 09/10/18 at 08:00; Status UNV Enoxaparin Sodium (Lovenox Per Pharmacy Prophylaxis Dosing) 1 each PRN DAILY PRN MC SEE COMMENTS; Start 09/09/18 at 15:15 Albuterol/ Ipratropium (Duoneb) 3 ml RTBID NEB Last administered on 09/12/18 07 :42; Start 09/09/18 at 20:00 Enoxaparin Sodium (Lovenox 60mg Syringe) 60 mg Q12HR SQ Last administered on 09:33; Start 09/09/18 at 21:00 Lactobacillus Rhamnosus (Culturelle) 1 cap BID PO Last administered on 09:32; Start 09/10/18 at 09:00 Potassium Chloride (Klor-Con) 40 meq 1X ONCE PO Last administered on 09/10/18 17:20; Start 09/10/18 at 17:00; Stop 09/10/18 at 17:01; Status DC Potassium Chloride (Klor-Con) 20 meq DAILYWBKFT PO Last administered on 08:00; Start 09/11/18 at 08:00 Dextrose (Dextrose 50%-Water Syringe) 12.5 gm PRN Q15MIN PRN IV SEE COMMENTS Last administered on 09/11/18 11:51; Start 09/11/18 at 06:30; Stop 09/11/18 at 14: 55; Status DC Pantoprazole Sodium (Protonix) 40 mg BIDAC PO Last administered on 09/12/18 06: 03; Start 09/11/18 at 16:30 Fluconazole (Diflucan) 100 mg DAILY PO Last administered on 09/12/18 09:32; Start 09/11/18 at 10:30 Lidocaine HCl (Viscous Lidocaine) 15 ml PRN Q4HRS PRN SWSW odynophagia; Start 09/11/18 at 10:15 Vancomycin HCl (Vancomycin Oral Solution) 250 mg [id number] PO Last administered on 09/12/18 09:29; Start 09/11/18 at 13:00; Stop 09/12/18 at 12:07; Status DC Metronidazole 100 ml @ 100 mls/hr Q8HRS IV Last administered on 09/12/18at 14:02 ; Start 09/11/18 at 14:00 Insulin Human Lispro (HumaLOG) 0-5 UNITS TIDWMEALS SQ ; Start 09/11/18 at 17:00 Dextrose (Dextrose 50%-Water Syringe) 12.5 gm PRN Q15MIN PRN IV SEE COMMENTS; Start 09/11/18 at 15:00 Acetaminophen (Tylenol) 650 mg PRN Q6HRS PRN PO pain/fever Last administered on 09/12/18at 08:38; Start 09/12/18 at 08:15 Vancomycin HCl (Vancomycin Oral Solution) 500 mg [id number] PO Last administered on 09/12/18at 13:14; Start 09/12/18 at 13:00 Active Scripts Active [Fluconazole] 100 MG Tablet 100 Mg PO DAILY MDD 1 14 Days Vancomycin Hcl 500 Mg Vial 125 Mg PO [id number] MDD 1 14 Days Reported Jardiance (Empagliflozin) 10 Mg Tablet 10 Mg PO DAILY Phentermine Hcl 37.5 Mg Capsule 1 Cap PO DAILYWBKFT 30 Days Multivitamins (Multivitamin) 1 Each Tablet 1 Tab PO DAILY 30 Days Glimepiride 2 Mg Tablet 2 Mg PO BID 30 Days Proair Hfa Inhaler (Albuterol Sulfate) 8.5 Gm Hfa.aer.ad 1 Puff INH PRN Q4HRS PRN Hydrocodone-Apap 7.5-325 (Hydrocodone Bit/Acetaminophen) 1 Each Tablet 1 Tab PO PRN TID PRN Combivent Respimat Inhal (Ipratropium/Albuterol Sulfate) 4 Gm Aer.w.adap 2 Inh IH BID Triamcinolone Acetonide 0.1% Oint (Triamcinolone Acetonide) 15 Gm Oint...g. 1 Heriberto TP BID MIX WITH EUCERIN DIRECTED BY PHYSICIAN Manny Pen (Exenatide Microspheres) 2 Mg/0.65 Ml Pen.injctr 2 Mg SQ WEEKLY Indapamide 1.25 Mg Tablet 1 Tab PO DAILY Cyclobenzaprine Hcl 10 Mg Tablet 1 Tab PO QHS Aspir 81 (Aspirin) 81 Mg Tablet.dr 81 Mg PO DAILY Pantoprazole Sodium 40 Mg Tablet.dr 40 Mg PO DAILY Flonase (Fluticasone Propionate) 16 Gm Lorida.susp 16 Gm NS DAILY Diovan (Valsartan) 320 Mg Tablet 320 Mg PO DAILY Norvasc (Amlodipine Besylate) 10 Mg Tablet 10 Mg PO DAILY Metformin Hcl Er (Metformin Hcl) 1,000 Mg Tab.er.24 500 Mg PO DAILY 30 Days Vitals/I & O Vital Sign - Last 24 Hours 09/11/18 09/11/18 09/11/18 09/11/18 16:56 18:04 19:00 20:00 Temp 98.1 98.1 Pulse 89 Resp 16 16 20 B/P (MAP) 138/89 (105) O2 Delivery Room Air Room Air Room Air O2 Flow Rate 2.0 09/11/18 09/11/18 09/11/18 09/12/18 20:56 23:00 23:31 03:00 Temp 98.0 97.3 98.0 97.3 Pulse 76 87 Resp 18 18 B/P (MAP) 132/85 (101) 123/79 (94) Pulse Ox 99 97 O2 Delivery Nasal Cannula Room Air Nasal Cannula Room Air O2 Flow Rate 2.0 2.0 09/12/18 09/12/18 09/12/18 09/12/18 04:00 04:48 06:03 07:00 Temp 98.1 98.1 Pulse 88 Resp 16 18 B/P (MAP) 153/88 (109) Pulse Ox 97 98 O2 Delivery Nasal Cannula Room Air Room Air Room Air O2 Flow Rate 2.0 2.0 2.0 09/12/18 09/12/18 09/12/18 09/12/18 07:34 08:10 09:32 11:00 Temp 97.7 97.7 Pulse 110 93 Resp 18 B/P (MAP) 138/96 139/83 (101) Pulse Ox 98 99 O2 Delivery Nasal Cannula Room Air Room Air O2 Flow Rate 2.0 2.0 2.0 Intake and Output 09/11/18 09/11/18 09/12/18 15:00 23:00 07:00 Intake Total 180 ml 340 ml 310 ml Balance 180 ml 340 ml 310 ml LEONOR BEAR MD Sep 12, 2018 15:33
[2018-09-12] MEDS ORDERED: IV NORMAL SALINE 1000ML BAG 1,000 ML IV PRN (15:45)
--- NOTE | 2018-09-12 15:48 | RAD ---
2 views of the abdomen 09/12/2018 INDICATION: Abdominal pain. Evaluate for ileus. Nausea, diarrhea. COMPARISON STUDY: CT of the abdomen September 01, 2018. FINDINGS: Gas is noted in the proximal and transverse colon. Relative paucity of small bowel gas is seen. Finding findings nonspecific. The overall bowel gas pattern is nonspecific. No acute osseous changes are seen. IMPRESSION: Nonspecific bowel gas pattern, without radiographic evidence of obstruction Electronically signed by: Anand Isidro MD (09/12/2018 3:45 PM) [id number]
[2018-09-12 19:00] VITALS: BP 146/86
[2018-09-12] MEDS: CYCLOBENZAPRINE 10 MG TABLET. PO SCH (21:06)
[2018-09-12 23:00] VITALS: BP 135/90
[2018-09-13 03:00] VITALS: BP 165/98
[2018-09-13] MEDS: ALBUTEROL SULFATE 2.5 MG/3 ML NEBU. INH PRN (03:33)
[2018-09-13 07:00] VITALS: BP 162/118
[2018-09-13] MEDS: INSULIN LISPRO 300 UNITS/3 ML INSULN.PEN. SQ SCH ×3 (08:00→17:00)
[2018-09-13] MEDS ORDERED: BARIUM SULFATE 60% 355 ML SUSP PO ONE (08:45)
[2018-09-13] MEDS ORDERED: BARIUM SULFATE 340 GM SUSPENSION. PO ONE (08:45)
[2018-09-13] MEDS: IPRATRPIUM/ALBUTEROL 0.5/2.5MG 3 ML NEBU. NEB SCH ×2 (08:59→19:45)
[2018-09-13 11:00] VITALS: BP 140/85
--- NOTE | 2018-09-13 11:00 | PDOC ---
Infectious Disease Note Subjective: Subjective Pt says loose bm has improved some today, only 2 times till now had 6 loose bm yesterday awaiting esophagogram today nausea is somewhat better, no vomiting tolerating liquids well no f/c/v ROS: ROS Negative except for above. Vital Signs: Vital Signs Vital Signs Date Time Temp Pulse Resp B/P (MAP) Pulse Ox O2 Delivery O2 Flow Rate FiO2 09/13/18 10:22 Room Air 2.0 09/13/18 09:01 99 09/13/18 07:00 103 20 162/118 (133) 09/13/18 03:00 98.0 98.0 Physical Exam: PHYSICAL EXAM GENERAL: The patient is sitting in bed, alert, in no apparent distress. HEENT: Pupils equally round. Normal conjunctivae. Oral cavity: Pharynx pink and moist. NECK: Supple. LUNGS: Clear to auscultation. HEART: S1 and S2. ABDOMEN: Obese, soft, mildly tender throughout. No rebound. EXTREMITIES: No gross edema or cyanosis. SKIN: Warm without generalized rash. NEUROLOGIC: Alert and oriented x 3. No focal deficits. Medications: Inpatient Meds: Current Medications Medications (Trade) Dose Ordered Sig/Yumi Start Time Stop Time Status Last Admin Dose Admin Acetaminophen (Tylenol) 650 mg PRN Q6HRS PRN 09/12/18 08:15 09/12/18 08:38 650 MG Acetaminophen/ Hydrocodone Bitart (Lortab 7.5/325) 1 tab PRN TID PRN 09/09/18 15:15 09/12/18 18:30 1 TAB Albuterol Sulfate (Ventolin Neb Soln) 2.5 mg PRN Q4HRS PRN 09/09/18 15:15 09/13/18 03:33 2.5 MG Albuterol/ Ipratropium (Duoneb) 3 ml RTBID 09/09/18 20:00 09/13/18 08:59 3 ML Amlodipine Besylate (Norvasc) 10 mg DAILY 09/09/18 16:00 09/12/18 09:32 10 MG Aspirin (Children'S Aspirin) 324 mg 1X ONCE 09/09/18 12:30 09/09/18 12:31 DC 09/09/18 12:53 324 MG Aspirin (Ecotrin) 81 mg DAILY 09/09/18 16:00 09/12/18 09:32 81 MG Barium Sulfate (E-Z-Hd) 340 gm 1X ONCE 09/13/18 08:45 09/13/18 08:46 DC Barium Sulfate (Liquid E-Z Paque) 355 ml 1X ONCE 09/13/18 08:45 09/13/18 08:46 DC Cyclobenzaprine HCl (Flexeril) 10 mg QHS 09/09/18 21:00 09/12/18 21:06 10 MG Dextrose (Dextrose 50%-Water Syringe) 12.5 gm PRN Q15MIN PRN 09/11/18 15:00 Enoxaparin Sodium (Lovenox 60mg Syringe) 60 mg Q12HR 09/09/18 21:00 09/13/18 09:58 60 MG Enoxaparin Sodium (Lovenox Per Pharmacy Prophylaxis Dosing) 1 each PRN DAILY PRN 09/09/18 15:15 Fluconazole (Diflucan) 100 mg DAILY 09/11/18 10:30 09/12/18 09:32 100 MG Fluticasone Propionate (Flonase) 2 spray DAILY 09/10/18 09:00 09/12/18 09:29 2 SPRAY Glimepiride (Amaryl) 2 mg BIDWMEALS 09/09/18 17:00 09/11/18 14:52 DC 09/11/18 08:00 2 MG Hyoscyamine (Anaspaz) 0.125 mg ONCE ONCE 09/09/18 12:30 09/09/18 12:31 DC 09/09/18 12:30 0.125 MG Indapamide (Lozol) 1.25 mg DAILY 09/09/18 16:00 09/12/18 09:30 1.25 MG Insulin Human Lispro (HumaLOG) 0-5 UNITS TIDWMEALS 09/11/18 17:00 Ketorolac Tromethamine (Toradol 30mg Vial) 30 mg 1X ONCE 09/09/18 12:30 09/09/18 12:31 DC 09/09/18 12:53 30 MG Lactobacillus Rhamnosus (Culturelle) 1 cap BID 09/10/18 09:00 09/12/18 21:06 1 CAP Lidocaine HCl (Viscous Lidocaine) 15 ml PRN Q4HRS PRN 09/11/18 10:15 Metformin HCl (Glucophage Xr) 500 mg DAILYWBKFT 09/09/18 16:00 09/12/18 08:00 500 MG Metronidazole 100 ml @ 100 mls/hr Q8HRS 09/11/18 14:00 09/13/18 06:20 100 MLS/HR Multivitamins (Thera M Plus) 1 tab DAILY 09/09/18 16:00 09/12/18 09:32 1 TAB Non-Formulary Medication (Empagliflozin (Jardiance)) 10 mg DAILY 09/10/18 09:00 09/11/18 14:55 DC Non-Formulary Medication (Exenatide Microspheres (Bydureon Pen)) 2 mg WEEKLY 09/16/18 09:00 09/16/18 09:00 DC Non-Formulary Medication (Ipratropium/ Albuterol Sulfate (Combivent Respimat Inhal)) 2 inh BID 09/09/18 21:00 09/09/18 21:00 DC Non-Formulary Medication (Phentermine Hcl ) 1 cap DAILYWBKFT 09/10/18 08:00 UNV Ondansetron HCl (Zofran) 4 mg PRN Q8HRS PRN 09/09/18 13:15 09/10/18 13:14 DC 09/10/18 05:56 4 MG Pantoprazole Sodium (Protonix) 40 mg BIDAC 09/11/18 16:30 09/12/18 16:30 40 MG Potassium Chloride (Klor-Con) 20 meq DAILYWBKFT 09/11/18 08:00 09/12/18 08:00 20 MEQ Prochlorperazine Edisylate (Compazine) 5 mg 1X ONCE 09/09/18 12:30 09/09/18 12:31 DC 09/09/18 12:53 5 MG Sodium Chloride 1,000 ml @ 125 mls/hr CONT PRN 09/12/18 15:45 09/13/18 03:16 125 MLS/HR Triamcinolone Acetonide (Kenalog) 1 daly BID 09/09/18 21:00 09/12/18 21:08 1 DALY Vancomycin HCl (Vancomycin Oral Solution) 500 mg [id number] 09/12/18 13:00 09/12/18 21:07 500 MG Labs: Lab Laboratory Tests Test 09/12/18 10:59 09/12/18 17:12 09/12/18 20:27 09/13/18 07:33 Glucose (Fingerstick) 61 mg/dL (70-99) 79 mg/dL (70-99) 112 mg/dL (70-99) 83 mg/dL (70-99) Objective: Assessment: 1. Clostridium difficile associated diarrhea from 09/01/2018 POA 2. Leukocytosis, improving. 3. Morbid obesity 4. Diabetes type 2. 5. Atrial fibrillation. 6. ? dysphagia with nausea and vomiting Plan: Plan of Care continue po vancomycin 500 mg po QID dc iv flagyl GI following Maintain hydration Contact isolation MARCOS LIVINGSTON MD Sep 13, 2018 11:00
[2018-09-13] MEDS: VANCOMYCIN 125 MG/2.5 ML ORAL SOLUTION. PO SCH ×4 (13:00→21:33)
--- NOTE | 2018-09-13 13:35 | PDOC ---
Subjective: Subjective: Wants regular food, thinks swallowing better. Denies vomiting. Also thinks diarrhea is better. Has epigastric discomfort after drinking barium. Objective: Vital Signs: Vital Signs Date Time Temp Pulse Resp B/P (MAP) Pulse Ox O2 Delivery O2 Flow Rate FiO2 09/13/18 11:00 97.4 102 16 140/85 (103) 99 Room Air 97.4 09/13/18 10:22 2.0 Labs: Laboratory Tests Test 09/12/18 17:12 09/12/18 20:27 09/13/18 07:33 09/13/18 11:02 Glucose (Fingerstick) 79 mg/dL 112 mg/dL 83 mg/dL 73 mg/dL Imaging: Barium swallow pending KUB IMPRESSION: Nonspecific bowel gas pattern, without radiographic evidence of obstruction PE: GEN: NAD LUNGS: CTAB HEART: RRR, ABD: obese, non-tender NEURO/PSYCH: A & O 3 A/P: Recurrent dysphagia - recent esophagram and EGD w/ dilation C Diff diarrhea - atbx per ID, recent colonoscopy -- Better?? Await esophagram. JULI DUTTON Sep 13, 2018 13:35 MASOUD REGAN MD Sep 13, 2018 14:23
[2018-09-13] MEDS: HYDROcodone/APAP 7.5/325MG 1 TAB TABLET PO PRN (13:55)
[2018-09-13] MEDS: metFORMIN XR 500 MG TAB.ER.24H PO SCH (13:55)
[2018-09-13] MEDS: FLUCONAZOLE 100 MG TABLET. PO SCH (13:56)
[2018-09-13] MEDS: INDAPAMIDE 2.5 MG TABLET PO SCH (13:56)
[2018-09-13] MEDS: POTASSIUM CHLORIDE 20 MEQ TABLET.ER. PO SCH (13:56)
[2018-09-13] MEDS: MULTIVITAMIN with MINERAL TABLET. PO SCH (13:56)
[2018-09-13] MEDS: PANTOPRAZOLE 40 MG TABLET.DR. PO SCH ×2 (13:56→17:53)
[2018-09-13] MEDS: ASPIRIN ENTERIC COATED 81 MG TABLET.DR. PO SCH (13:56)
[2018-09-13] MEDS: LACTOBACILLUS RHAMNOSUS GG 1 CAPSULE. PO SCH ×2 (13:56→21:33)
[2018-09-13] MEDS: amLODIPine BESYLATE 10 MG TABLET PO SCH (13:57)
[2018-09-13] MEDS: TRIAMCINOLONE ACETONIDE 0.1% TOPICAL OINTMENT 15GM TUBE. TP SCH ×2 (14:00→21:34)
[2018-09-13] MEDS: FLUTICASONE 50MCG/NASAL SPRAY 16GM BOTTLE. NS SCH (14:04)
--- NOTE | 2018-09-13 14:13 | RAD ---
Esophagram, 09/13/2018: History: Dysphasia The study was performed utilizing thin liquid and high density barium. 2.4 minutes of fluoroscopy time was utilized. 7 dynamic fluoroscopic sequences were recorded. The swallowing mechanism is intact. No aspiration was observed. There is no obstruction to flow of the barium through the cervical or thoracic esophagus. Mild tertiary contractions were noted. No hiatal hernia or gastroesophageal reflux was identified. IMPRESSION: 1. Mild esophageal tertiary contractions. 2. The esophagram is otherwise unremarkable.
--- NOTE | 2018-09-13 14:50 | NUR ---
Patient reported that he had vomited; neither the tech, student nurse or nurse had observed the vomit.
[2018-09-13 15:00] VITALS: BP 134/63
--- NOTE | 2018-09-13 16:48 | PDOC ---
PROGRESS NOTES Chief Complaint Chief Complaint Chest pain secondary to- esophageal stricture w/ GERD and esophageal dilation. C. difficile infection - with Abdominal pain/diarrhea. Community acquired Sepsis - 2/2 c. diff with Leukocytosis, tachycardia SHOSHANA - Vasomotor nephropathy, cont IV fluid Elevated ALT - prior A Fib and DVTs - on ASA VIOLET Morbid obesity, BMI 56. DM - well managed on GLP-1, SGLT-2, metformin, sulfonylurea and insulin. chronic htn and diastolic CHF SIRS Trigeminy --normal echo, NEEDS outpatient event monitor KNOWN TO CARDIOLOGY hypokalemia drop in hgb sec to re- hydration Plan: Follow GI recommendations Continue with IV antibiotics and oral vancomycin for C. difficile Continue with supportive measures improving continue with supportive measures hopefully discharge soon History of Present Illness History of Present Illness Patient continues to have abdominal discomfort secondary to his C. difficile infection. The patient continues to also have esophageal discomfort despite recommendations from GI product/industry consultant. Recommendations greatly appreciated will follow up on the latest orders Vitals Vitals Vital Signs Date Time Temp Pulse Resp B/P (MAP) Pulse Ox O2 Delivery O2 Flow Rate FiO2 09/13/18 15:00 97.2 102 18 134/63 (86) 99 Room Air 97.2 09/13/18 10:22 2.0 Physical Exam Physical Exam GENERAL: The patient is sitting in bed, alert, in no apparent distress. HEENT: Pupils equally round. Normal conjunctivae. Oral cavity: Pharynx pink and moist. NECK: Supple. LUNGS: Clear to auscultation. HEART: S1 and S2. ABDOMEN: Obese, soft, mildly tender throughout. No rebound. EXTREMITIES: No gross edema or cyanosis. SKIN: Warm without generalized rash. NEUROLOGIC: Alert and oriented x 3. No focal deficits. General: Alert, Oriented X3, Cooperative, No acute distress Heart: Regular rate Lungs: Clear Abdomen: Other (obese, tender, lower tender and diffuse) Extremities: No cyanosis, Normal pulses, Other (1+ edema) Skin: No rashes, No significant lesion Labs LABS Laboratory Tests Test 09/12/18 17:12 09/12/18 20:27 09/13/18 07:33 09/13/18 11:02 Glucose (Fingerstick) 79 mg/dL (70-99) 112 mg/dL (70-99) 83 mg/dL (70-99) 73 mg/dL (70-99) Assessment and Plan Assessmemt and Plan Problems Medical Problems: (1) Failure of outpatient treatment Status: Acute (2) Nausea, vomiting, and diarrhea Status: Acute Comment Review of Relevant I have reviewed the following items brigette (where applicable) has been applied. Labs Laboratory Tests Test 09/11/18 16:55 09/11/18 20:07 09/12/18 07:45 09/12/18 10:59 Glucose (Fingerstick) 83 mg/dL (70-99) 78 mg/dL (70-99) 85 mg/dL (70-99) 61 mg/dL (70-99) Test 09/12/18 17:12 09/12/18 20:27 09/13/18 07:33 09/13/18 11:02 Glucose (Fingerstick) 79 mg/dL (70-99) 112 mg/dL (70-99) 83 mg/dL (70-99) 73 mg/dL (70-99) Laboratory Tests Test 09/12/18 17:12 09/12/18 20:27 09/13/18 07:33 09/13/18 11:02 Glucose (Fingerstick) 79 mg/dL (70-99) 112 mg/dL (70-99) 83 mg/dL (70-99) 73 mg/dL (70-99) Medications Current Medications Sodium Chloride 1,000 ml @ 1,000 mls/hr Q1H IV Last administered on 09/09/18 12:54; Start 09/09/18 at 12:20; Stop 09/09/18 at 13:19; Status DC Prochlorperazine Edisylate (Compazine) 5 mg 1X ONCE IV Last administered on 09/09/18at 12:53; Start 09/09/18 at 12:30; Stop 09/09/18 at 12:31; Status DC Ketorolac Tromethamine (Toradol 30mg Vial) 30 mg 1X ONCE IV Last administered on 09/09/18 12:53; Start 09/09/18 at 12:30; Stop 09/09/18 at 12:31; Status DC Hyoscyamine (Anaspaz) 0.125 mg ONCE ONCE PO Last administered on 09/09/18at 12: 30; Start 09/09/18 at 12:30; Stop 09/09/18 at 12:31; Status DC Aspirin (Children'S Aspirin) 324 mg 1X ONCE PO Last administered on 09/09/18 12:53; Start 09/09/18 at 12:30; Stop 09/09/18 at 12:31; Status DC Ondansetron HCl (Zofran) 4 mg PRN Q8HRS PRN IV NAUSEA/VOMITING Last administered on 09/10/18 05:56; Start 09/09/18 at 13:15; Stop 09/10/18 at 13:14; Status DC Sodium Chloride 1,000 ml @ 200 mls/hr Q5H IV Last administered on 09/10/18 04: 42; Start 09/09/18 at 13:12; Stop 09/10/18 at 13:11; Status DC Acetaminophen (Tylenol) 650 mg PRN Q4HRS PRN PO FEVER; Start 09/09/18 at 13:15; Stop 09/10/18 at 13:14; Status DC Metronidazole 100 ml @ 100 mls/hr Q8HRS IV Last administered on 09/10/18 05:47 ; Start 09/09/18 at 22:00; Stop 09/10/18 at 11:06; Status DC Metronidazole 100 ml @ 100 mls/hr 1X ONCE IV Last administered on 09/09/18 16 :15; Start 09/09/18 at 15:15; Stop 09/09/18 at 16:14; Status DC Vancomycin HCl (Vancomycin Oral Solution) 125 mg [id number] PO Last administered on 09/11/18 09:35; Start 09/09/18 at 17:00; Stop 09/11/18 at 10:19; Status DC Albuterol Sulfate (Ventolin Neb Soln) 2.5 mg PRN Q4HRS PRN INH SHORTNESS OF BREATH Last administered on 09/13/18 03:33; Start 09/09/18 at 15:15 Amlodipine Besylate (Norvasc) 10 mg DAILY PO Last administered on 09/13/18 13: 57; Start 09/09/18 at 16:00 Aspirin (Ecotrin) 81 mg DAILY PO Last administered on 09/13/18 13:56; Start 09/09/18 at 16:00 Cyclobenzaprine HCl (Flexeril) 10 mg QHS PO Last administered on 09/12/18 21:06 ; Start 09/09/18 at 21:00 Fluticasone Propionate (Flonase) 2 spray DAILY NS Last administered on 14:04; Start 09/10/18 at 09:00 Glimepiride (Amaryl) 2 mg BIDWMEALS PO Last administered on 09/11/18 08:00; Start 09/09/18 at 17:00; Stop 09/11/18 at 14:52; Status DC Acetaminophen/ Hydrocodone Bitart (Lortab 7.5/325) 1 tab PRN TID PRN PO MODERATE PAIN Last administered on 09/13/18 13:55; Start 09/09/18 at 15:15 Pantoprazole Sodium (Protonix) 40 mg DAILYAC PO Last administered on 09/11/18 06:33; Start 09/09/18 at 16:00; Stop 09/11/18 at 10:09; Status DC Triamcinolone Acetonide (Kenalog) 1 heriberto BID TP Last administered on 09/13/18 14 :00; Start 09/09/18 at 21:00 Non-Formulary Medication (Empagliflozin (Jardiance)) 10 mg DAILY PO ; Start 09/10 at 09:00; Stop 09/11/18 at 14:55; Status DC Non-Formulary Medication (Exenatide Microspheres (Bydureon Pen)) 2 mg WEEKLY SQ ; Start 09/16/18 at 09:00; Stop 09/16/18 at 09:00; Status DC Indapamide (Lozol) 1.25 mg DAILY PO Last administered on 09/13/18 13:56; Start 09/09/18 at 16:00 Non-Formulary Medication (Ipratropium/ Albuterol Sulfate (Combivent Respimat Inhal)) 2 inh BID IH ; Start 09/09/18 at 21:00; Stop 09/09/18 at 21:00; Status DC Metformin HCl (Glucophage Xr) 500 mg DAILYWBKFT PO Last administered on 13:55; Start 09/09/18 at 16:00 Multivitamins (Thera M Plus) 1 tab DAILY PO Last administered on 09/13/18 13:56 ; Start 09/09/18 at 16:00 Non-Formulary Medication (Phentermine Hcl ) 1 cap DAILYWBKFT PO ; Start 09/10/18 at 08:00; Status UNV Enoxaparin Sodium (Lovenox Per Pharmacy Prophylaxis Dosing) 1 each PRN DAILY PRN MC SEE COMMENTS; Start 09/09/18 at 15:15 Albuterol/ Ipratropium (Duoneb) 3 ml RTBID NEB Last administered on 09/13/18 08 :59; Start 09/09/18 at 20:00 Enoxaparin Sodium (Lovenox 60mg Syringe) 60 mg Q12HR SQ Last administered on 09:58; Start 09/09/18 at 21:00 Lactobacillus Rhamnosus (Culturelle) 1 cap BID PO Last administered on 13:56; Start 09/10/18 at 09:00 Potassium Chloride (Klor-Con) 40 meq 1X ONCE PO Last administered on 09/10/18 17:20; Start 09/10/18 at 17:00; Stop 09/10/18 at 17:01; Status DC Potassium Chloride (Klor-Con) 20 meq DAILYWBKFT PO Last administered on 13:56; Start 09/11/18 at 08:00 Dextrose (Dextrose 50%-Water Syringe) 12.5 gm PRN Q15MIN PRN IV SEE COMMENTS Last administered on 09/11/18 11:51; Start 09/11/18 at 06:30; Stop 09/11/18 at 14: 55; Status DC Pantoprazole Sodium (Protonix) 40 mg BIDAC PO Last administered on 09/13/18 13: 56; Start 09/11/18 at 16:30 Fluconazole (Diflucan) 100 mg DAILY PO Last administered on 09/13/18 13:56; Start 09/11/18 at 10:30 Lidocaine HCl (Viscous Lidocaine) 15 ml PRN Q4HRS PRN SWSW odynophagia; Start 09/11/18 at 10:15 Vancomycin HCl (Vancomycin Oral Solution) 250 mg [id number] PO Last administered on 09/12/18 09:29; Start 09/11/18 at 13:00; Stop 09/12/18 at 12:07; Status DC Metronidazole 100 ml @ 100 mls/hr Q8HRS IV Last administered on 09/13/18at 06:20 ; Start 09/11/18 at 14:00; Stop 09/13/18 at 12:40; Status DC Insulin Human Lispro (HumaLOG) 0-5 UNITS TIDWMEALS SQ ; Start 09/11/18 at 17:00 Dextrose (Dextrose 50%-Water Syringe) 12.5 gm PRN Q15MIN PRN IV SEE COMMENTS; Start 09/11/18 at 15:00 Acetaminophen (Tylenol) 650 mg PRN Q6HRS PRN PO MILD PAIN/FEVER Last administered on 09/12/18at 08:38; Start 09/12/18 at 08:15 Vancomycin HCl (Vancomycin Oral Solution) 500 mg [id number] PO Last administered on 09/13/18at 13:55; Start 09/12/18 at 13:00 Sodium Chloride 1,000 ml @ 1,000 mls/hr 1X ONCE IV Last administered on at 15:50; Start 09/12/18 at 15:30; Stop 09/12/18 at 16:29; Status DC Sodium Chloride 1,000 ml @ 125 mls/hr CONT PRN IV FLUIDS Last administered on 09/13/18at 03:16; Start 09/12/18 at 15:45 Barium Sulfate (Liquid E-Z Paque) 355 ml 1X ONCE PO ; Start 09/13/18 at 08:45; Stop 09/13/18 at 08:46; Status DC Barium Sulfate (E-Z-Hd) 340 gm 1X ONCE PO ; Start 09/13/18 at 08:45; Stop at 08:46; Status DC Ringer's Solution 1,000 ml @ 50 mls/hr Q20H IV ; Start 09/14/18 at 07:00; Stop 09/14/18 at 18:59 Active Scripts Active [Fluconazole] 100 MG Tablet 100 Mg PO DAILY MDD 1 14 Days Vancomycin Hcl 500 Mg Vial 125 Mg PO [id number] MDD 1 14 Days Reported Jardiance (Empagliflozin) 10 Mg Tablet 10 Mg PO DAILY Phentermine Hcl 37.5 Mg Capsule 1 Cap PO DAILYWBKFT 30 Days Multivitamins (Multivitamin) 1 Each Tablet 1 Tab PO DAILY 30 Days Glimepiride 2 Mg Tablet 2 Mg PO BID 30 Days Proair Hfa Inhaler (Albuterol Sulfate) 8.5 Gm Hfa.aer.ad 1 Puff INH PRN Q4HRS PRN Hydrocodone-Apap 7.5-325 (Hydrocodone Bit/Acetaminophen) 1 Each Tablet 1 Tab PO PRN TID PRN Combivent Respimat Inhal (Ipratropium/Albuterol Sulfate) 4 Gm Aer.w.adap 2 Inh IH BID Triamcinolone Acetonide 0.1% Oint (Triamcinolone Acetonide) 15 Gm Oint...g. 1 Heriberto TP BID MIX WITH EUCERIN DIRECTED BY PHYSICIAN Manny Pen (Exenatide Microspheres) 2 Mg/0.65 Ml Pen.injctr 2 Mg SQ WEEKLY Indapamide 1.25 Mg Tablet 1 Tab PO DAILY Cyclobenzaprine Hcl 10 Mg Tablet 1 Tab PO QHS Aspir 81 (Aspirin) 81 Mg Tablet.dr 81 Mg PO DAILY Pantoprazole Sodium 40 Mg Tablet.dr 40 Mg PO DAILY Flonase (Fluticasone Propionate) 16 Gm [place].susp 16 Gm NS DAILY Diovan (Valsartan) 320 Mg Tablet 320 Mg PO DAILY Norvasc (Amlodipine Besylate) 10 Mg Tablet 10 Mg PO DAILY Metformin Hcl Er (Metformin Hcl) 1,000 Mg Tab.er.24 500 Mg PO DAILY 30 Days Vitals/I & O Vital Sign - Last 24 Hours 09/12/18 09/12/18 09/12/18 09/12/18 18:30 19:00 19:27 20:00 Temp 98.0 98.0 Pulse 90 Resp 16 18 B/P (MAP) 146/86 (106) Pulse Ox 100 99 O2 Delivery Room Air Room Air Room Air Room Air O2 Flow Rate 2.0 2.0 09/12/18 09/12/18 09/12/18 09/13/18 21:06 23:00 23:20 03:00 Temp 98.0 98.0 98.0 98.0 Pulse 88 87 Resp 18 18 B/P (MAP) 135/90 (105) 165/98 (120) Pulse Ox 99 98 O2 Delivery Room Air Nasal Cannula Room Air O2 Flow Rate 2.0 2.0 2.0 2.0 09/13/18 09/13/18 09/13/18 09/13/18 03:33 07:00 09:01 10:22 Pulse 103 Resp 20 B/P (MAP) 162/118 (133) Pulse Ox 98 99 O2 Delivery Nasal Cannula Room Air Room Air Room Air O2 Flow Rate 2.0 2.0 09/13/18 09/13/18 09/13/18 09/13/18 11:00 13:55 13:57 14:56 Temp 97.4 97.4 Pulse 102 102 Resp 16 20 18 B/P (MAP) 140/85 (103) 140/85 Pulse Ox 99 93 99 O2 Delivery Room Air Room Air Room Air 09/13/18 15:00 Temp 97.2 97.2 Pulse 102 Resp 18 B/P (MAP) 134/63 (86) Pulse Ox 99 O2 Delivery Room Air Intake and Output 09/12/18 09/12/18 09/13/18 15:00 23:00 07:00 Intake Total 480 ml 1460 ml 0 ml Output Total 1700 ml 950 ml Balance 480 ml -240 ml -950 ml LEONOR BEAR MD Sep 13, 2018 16:48
[2018-09-13 19:00] VITALS: BP 168/99
[2018-09-13] MEDS: CYCLOBENZAPRINE 10 MG TABLET. PO SCH (21:33)
[2018-09-13 23:00] VITALS: BP 141/91
[2018-09-14 03:11] VITALS: BP 130/53
[2018-09-14 07:00] VITALS: BP 138/90
[2018-09-14] MEDS ORDERED: IV RINGERS,LACTATED 1000ML 1,000 ML IV SCH (07:00)
[2018-09-14] MEDS: PANTOPRAZOLE 40 MG TABLET.DR. PO SCH ×2 (07:30→17:24)
[2018-09-14] MEDS: IPRATRPIUM/ALBUTEROL 0.5/2.5MG 3 ML NEBU. NEB SCH ×2 (07:49→20:09)
[2018-09-14] MEDS: INSULIN LISPRO 300 UNITS/3 ML INSULN.PEN. SQ SCH ×3 (08:00→17:00)
[2018-09-14] MEDS: VANCOMYCIN 125 MG/2.5 ML ORAL SOLUTION. PO SCH ×4 (09:00→21:34)
[2018-09-14] MEDS: LACTOBACILLUS RHAMNOSUS GG 1 CAPSULE. PO SCH ×2 (09:00→21:34)
[2018-09-14] MEDS: FLUTICASONE 50MCG/NASAL SPRAY 16GM BOTTLE. NS SCH (10:36)
[2018-09-14] MEDS: TRIAMCINOLONE ACETONIDE 0.1% TOPICAL OINTMENT 15GM TUBE. TP SCH ×2 (10:37→21:35)
[2018-09-14] MEDS ORDERED: MIDAZOLAM HCL/PF 2 MG/2 ML VIAL. IV PRN (10:45)
[2018-09-14] MEDS ORDERED: fentaNYL PF VIAL 100 MCG/2 ML VIAL IV PRN ×2 (10:45)
[2018-09-14] MEDS: IV RINGERS,LACTATED 1000ML 1,000 ML IV SCH ×2 (10:45→18:45)
[2018-09-14] MEDS ORDERED: LIDOCAINE 1% PF 2 ML VIAL. ID PRN (10:45)
[2018-09-14 11:00] VITALS: BP 159/117
--- NOTE | 2018-09-14 11:10 | PDOC ---
Infectious Disease Note Subjective: Subjective Pt says loose bm has improved a lot now only one today had 4 loose bm yesterday awaiting egd today nausea is somewhat better, no vomiting has some headache since this am tolerating liquids well no f/c/v ROS: ROS Negative except for above. Vital Signs: Vital Signs Vital Signs Date Time Temp Pulse Resp B/P (MAP) Pulse Ox O2 Delivery O2 Flow Rate FiO2 09/14/18 07:51 100 Room Air 09/14/18 07:00 97.3 91 18 138/90 (106) 97.3 09/13/18 10:22 2.0 Physical Exam: PHYSICAL EXAM GENERAL: The patient is sitting in bed, alert, in no apparent distress. HEENT: Pupils equally round. Normal conjunctivae. Oral cavity: Pharynx pink and moist. NECK: Supple. LUNGS: Clear to auscultation. HEART: S1 and S2. ABDOMEN: Obese, soft, mildly tender throughout. No rebound. EXTREMITIES: No gross edema or cyanosis. SKIN: Warm without generalized rash. NEUROLOGIC: Alert and oriented x 3. No focal deficits. Medications: Inpatient Meds: Current Medications Medications (Trade) Dose Ordered Sig/Yumi Start Time Stop Time Status Last Admin Dose Admin Acetaminophen (Tylenol) 650 mg PRN Q6HRS PRN 09/12/18 08:15 09/12/18 08:38 650 MG Acetaminophen/ Hydrocodone Bitart (Lortab 7.5/325) 1 tab PRN TID PRN 09/09/18 15:15 09/13/18 13:55 1 TAB Albuterol Sulfate (Ventolin Neb Soln) 2.5 mg PRN Q4HRS PRN 09/09/18 15:15 09/13/18 03:33 2.5 MG Albuterol/ Ipratropium (Duoneb) 3 ml RTBID 09/09/18 20:00 09/14/18 07:49 3 ML Amlodipine Besylate (Norvasc) 10 mg DAILY 09/09/18 16:00 09/13/18 13:57 10 MG Aspirin (Children'S Aspirin) 324 mg 1X ONCE 09/09/18 12:30 09/09/18 12:31 DC 09/09/18 12:53 324 MG Aspirin (Ecotrin) 81 mg DAILY 09/09/18 16:00 09/13/18 13:56 81 MG Barium Sulfate (E-Z-Hd) 340 gm 1X ONCE 09/13/18 08:45 09/13/18 08:46 DC Barium Sulfate (Liquid E-Z Paque) 355 ml 1X ONCE 09/13/18 08:45 09/13/18 08:46 DC Cyclobenzaprine HCl (Flexeril) 10 mg QHS 09/09/18 21:00 09/13/18 21:33 10 MG Dextrose (Dextrose 50%-Water Syringe) 12.5 gm PRN Q15MIN PRN 09/11/18 15:00 Enoxaparin Sodium (Lovenox 60mg Syringe) 60 mg Q12HR 09/09/18 21:00 09/14/18 10:36 60 MG Enoxaparin Sodium (Lovenox Per Pharmacy Prophylaxis Dosing) 1 each PRN DAILY PRN 09/09/18 15:15 Fentanyl Citrate (Fentanyl 2ml Vial) 50 mcg PRN Q5MIN PRN 09/14/18 10:45 09/14/18 19:00 Fluconazole (Diflucan) 100 mg DAILY 09/11/18 10:30 09/13/18 13:56 100 MG Fluticasone Propionate (Flonase) 2 spray DAILY 09/10/18 09:00 09/14/18 10:36 2 SPRAY Glimepiride (Amaryl) 2 mg BIDWMEALS 09/09/18 17:00 09/11/18 14:52 DC 09/11/18 08:00 2 MG Hyoscyamine (Anaspaz) 0.125 mg ONCE ONCE 09/09/18 12:30 09/09/18 12:31 DC 09/09/18 12:30 0.125 MG Indapamide (Lozol) 1.25 mg DAILY 09/09/18 16:00 09/13/18 13:56 1.25 MG Insulin Human Lispro (HumaLOG) 0-5 UNITS TIDWMEALS 09/11/18 17:00 Ketorolac Tromethamine (Toradol 30mg Vial) 30 mg 1X ONCE 09/09/18 12:30 09/09/18 12:31 DC 09/09/18 12:53 30 MG Lactobacillus Rhamnosus (Culturelle) 1 cap BID 09/10/18 09:00 09/13/18 21:33 1 CAP Lidocaine HCl (Viscous Lidocaine) 15 ml PRN Q4HRS PRN 09/11/18 10:15 Lidocaine HCl (Xylocaine-Mpf 1% 2ml Vial) 2 ml 1X PRN PRN 09/14/18 10:45 09/14/18 19:00 Metformin HCl (Glucophage Xr) 500 mg DAILYWBKFT 09/09/18 16:00 09/13/18 13:55 500 MG Metronidazole 100 ml @ 100 mls/hr Q8HRS 09/11/18 14:00 09/13/18 12:40 DC 09/13/18 06:20 100 MLS/HR Midazolam HCl (Versed) 2 mg PRN 1X PRN 09/14/18 10:45 09/14/18 19:00 Multivitamins (Thera M Plus) 1 tab DAILY 09/09/18 16:00 09/13/18 13:56 1 TAB Non-Formulary Medication (Empagliflozin (Jardiance)) 10 mg DAILY 09/10/18 09:00 09/11/18 14:55 DC Non-Formulary Medication (Exenatide Microspheres (Bydureon Pen)) 2 mg WEEKLY 09/16/18 09:00 09/16/18 09:00 DC Non-Formulary Medication (Ipratropium/ Albuterol Sulfate (Combivent Respimat Inhal)) 2 inh BID 09/09/18 21:00 09/09/18 21:00 DC Non-Formulary Medication (Phentermine Hcl ) 1 cap DAILYWBKFT 09/10/18 08:00 UNV Ondansetron HCl (Zofran) 4 mg PRN Q8HRS PRN 09/09/18 13:15 09/10/18 13:14 DC 09/10/18 05:56 4 MG Pantoprazole Sodium (Protonix) 40 mg BIDAC 09/11/18 16:30 09/13/18 17:53 40 MG Potassium Chloride (Klor-Con) 20 meq [id number] 09/11/18 08:00 09/13/18 13:56 20 MEQ Prochlorperazine Edisylate (Compazine) 5 mg 1X ONCE 09/09/18 12:30 09/09/18 12:31 DC 09/09/18 12:53 5 MG Ringer's Solution 1,000 ml @ 125 mls/hr Q8H 09/14/18 10:45 09/14/18 19:00 Sodium Chloride 1,000 ml @ 125 mls/hr CONT PRN 09/12/18 15:45 09/13/18 03:16 125 MLS/HR Triamcinolone Acetonide (Kenalog) 1 daly BID 09/09/18 21:00 09/14/18 10:37 1 DALY Vancomycin HCl (Vancomycin Oral Solution) 500 mg [id number] 09/12/18 13:00 09/13/18 21:33 500 MG Labs: Lab Laboratory Tests Test 09/13/18 16:53 09/13/18 20:14 09/14/18 07:39 Glucose (Fingerstick) 109 mg/dL (70-99) 118 mg/dL (70-99) 127 mg/dL (70-99) Objective: Assessment: 1. Clostridium difficile associated diarrhea from 09/01/2018 POA 2. Leukocytosis, improving. 3. Morbid obesity 4. Diabetes type 2. 5. Atrial fibrillation. 6. ? dysphagia with nausea and vomiting barium reported as Mild esophageal tertiary contractions. Plan: Plan of Care continue po vancomycin 500 mg po QID plans for egd Maintain hydration Contact isolation D/W MARCOS FINE MD Sep 14, 2018 11:10
[2018-09-14] MEDS: ALBUTEROL SULFATE 2.5 MG/3 ML NEBU. INH PRN ×2 (11:48→16:09)
[2018-09-14] MEDS ORDERED: LIDOCAINE 1% PF 2 ML VIAL. ONE (14:07)
[2018-09-14] MEDS ORDERED: PROPOFOL 40 ML IV ONE (14:07)
--- NOTE | 2018-09-14 14:19 | PDOC4 ---
Operative Note Operative Note EGD with dilation Meds propofol per anesthesia Pre-op dx dysphagia post-op dx Julianne montgomery S/p 54 FR Seo Plan resume meds and diet MASOUD REGAN MD Sep 14, 2018 14:19
[2018-09-14 15:00] VITALS: BP 144/104
[2018-09-14] MEDS: INDAPAMIDE 2.5 MG TABLET PO SCH (17:23)
[2018-09-14] MEDS: POTASSIUM CHLORIDE 20 MEQ TABLET.ER. PO SCH (17:24)
[2018-09-14] MEDS: metFORMIN XR 500 MG TAB.ER.24H PO SCH (17:24)
[2018-09-14] MEDS: MULTIVITAMIN with MINERAL TABLET. PO SCH (17:24)
[2018-09-14] MEDS: ASPIRIN ENTERIC COATED 81 MG TABLET.DR. PO SCH (17:24)
[2018-09-14] MEDS: FLUCONAZOLE 100 MG TABLET. PO SCH (17:24)
[2018-09-14] MEDS: amLODIPine BESYLATE 10 MG TABLET PO SCH (17:25)
--- NOTE | 2018-09-14 18:43 | PDOC ---
PROGRESS NOTES Chief Complaint Chief Complaint Chest pain secondary to- esophageal stricture w/ GERD and esophageal dilation. C. difficile infection - with Abdominal pain/diarrhea. Community acquired Sepsis - 2/2 c. diff with Leukocytosis, tachycardia SHOSHANA - Vasomotor nephropathy, cont IV fluid Elevated ALT - prior A Fib and DVTs - on ASA VIOLET Morbid obesity, BMI 56. DM - well managed on GLP-1, SGLT-2, metformin, sulfonylurea and insulin. chronic htn and diastolic CHF SIRS Trigeminy --normal echo, NEEDS outpatient event monitor KNOWN TO CARDIOLOGY hypokalemia drop in hgb sec to re- hydration Plan: Follow GI recommendations after EGD Continue with IV antibiotics and oral vancomycin for C. difficile Continue with supportive measures hopefully discharge soon History of Present Illness History of Present Illness Patient much improved today compared to yesterday. The patient will undergo EGD today, no acute events reported overnight. Oral intake is adequate and his diarrhea is almost resolved Vitals Vitals Vital Signs Date Time Temp Pulse Resp B/P (MAP) Pulse Ox O2 Delivery O2 Flow Rate FiO2 09/14/18 17:25 97 144/104 09/14/18 16:09 100 Room Air 09/14/18 15:00 98.0 18 98.0 09/14/18 14:18 2.0 Physical Exam Physical Exam GENERAL: The patient is sitting in bed, alert, in no apparent distress. HEENT: Pupils equally round. Normal conjunctivae. Oral cavity: Pharynx pink and moist. NECK: Supple. LUNGS: Clear to auscultation. HEART: S1 and S2. ABDOMEN: Obese, soft, mildly tender throughout. No rebound. EXTREMITIES: No gross edema or cyanosis. SKIN: Warm without generalized rash. NEUROLOGIC: Alert and oriented x 3. No focal deficits. General: Alert, Oriented X3, Cooperative, No acute distress Heart: Regular rate Lungs: Clear Abdomen: Other (obese, tender, lower tender and diffuse) Extremities: No cyanosis, Normal pulses, Other (1+ edema) Skin: No rashes, No significant lesion Labs LABS Laboratory Tests Test 09/13/18 20:14 09/14/18 07:39 09/14/18 11:44 09/14/18 16:30 Glucose (Fingerstick) 118 mg/dL (70-99) 127 mg/dL (70-99) 103 mg/dL (70-99) 149 mg/dL (70-99) Assessment and Plan Assessmemt and Plan Problems Medical Problems: (1) Failure of outpatient treatment Status: Acute (2) Nausea, vomiting, and diarrhea Status: Acute Comment Review of Relevant I have reviewed the following items brigette (where applicable) has been applied. Labs Laboratory Tests Test 09/12/18 20:27 09/13/18 07:33 09/13/18 11:02 09/13/18 16:53 Glucose (Fingerstick) 112 mg/dL (70-99) 83 mg/dL (70-99) 73 mg/dL (70-99) 109 mg/dL (70-99) Test 09/13/18 20:14 09/14/18 07:39 09/14/18 11:44 09/14/18 16:30 Glucose (Fingerstick) 118 mg/dL (70-99) 127 mg/dL (70-99) 103 mg/dL (70-99) 149 mg/dL (70-99) Laboratory Tests Test 09/13/18 20:14 09/14/18 07:39 09/14/18 11:44 09/14/18 16:30 Glucose (Fingerstick) 118 mg/dL (70-99) 127 mg/dL (70-99) 103 mg/dL (70-99) 149 mg/dL (70-99) Medications Current Medications Sodium Chloride 1,000 ml @ 1,000 mls/hr Q1H IV Last administered on 09/09/18 12:54; Start 09/09/18 at 12:20; Stop 09/09/18 at 13:19; Status DC Prochlorperazine Edisylate (Compazine) 5 mg 1X ONCE IV Last administered on 09/09/18at 12:53; Start 09/09/18 at 12:30; Stop 09/09/18 at 12:31; Status DC Ketorolac Tromethamine (Toradol 30mg Vial) 30 mg 1X ONCE IV Last administered on 09/09/18 12:53; Start 09/09/18 at 12:30; Stop 09/09/18 at 12:31; Status DC Hyoscyamine (Anaspaz) 0.125 mg ONCE ONCE PO Last administered on 09/09/18 12: 30; Start 09/09/18 at 12:30; Stop 09/09/18 at 12:31; Status DC Aspirin (Children'S Aspirin) 324 mg 1X ONCE PO Last administered on 09/09/18at 12:53; Start 09/09/18 at 12:30; Stop 09/09/18 at 12:31; Status DC Ondansetron HCl (Zofran) 4 mg PRN Q8HRS PRN IV NAUSEA/VOMITING Last administered on 09/10/18 05:56; Start 09/09/18 at 13:15; Stop 09/10/18 at 13:14; Status DC Sodium Chloride 1,000 ml @ 200 mls/hr Q5H IV Last administered on 09/10/18 04: 42; Start 09/09/18 at 13:12; Stop 09/10/18 at 13:11; Status DC Acetaminophen (Tylenol) 650 mg PRN Q4HRS PRN PO FEVER; Start 09/09/18 at 13:15; Stop 09/10/18 at 13:14; Status DC Metronidazole 100 ml @ 100 mls/hr Q8HRS IV Last administered on 09/10/18 05:47 ; Start 09/09/18 at 22:00; Stop 09/10/18 at 11:06; Status DC Metronidazole 100 ml @ 100 mls/hr 1X ONCE IV Last administered on 09/09/18 16 :15; Start 09/09/18 at 15:15; Stop 09/09/18 at 16:14; Status DC Vancomycin HCl (Vancomycin Oral Solution) 125 mg [id number] PO Last administered on 09/11/18 09:35; Start 09/09/18 at 17:00; Stop 09/11/18 at 10:19; Status DC Albuterol Sulfate (Ventolin Neb Soln) 2.5 mg PRN Q4HRS PRN INH SHORTNESS OF BREATH Last administered on 09/14/18 16:09; Start 09/09/18 at 15:15 Amlodipine Besylate (Norvasc) 10 mg DAILY PO Last administered on 09/14/18 17: 25; Start 09/09/18 at 16:00 Aspirin (Ecotrin) 81 mg DAILY PO Last administered on 09/14/18 17:24; Start 09/09/18 at 16:00 Cyclobenzaprine HCl (Flexeril) 10 mg QHS PO Last administered on 09/13/18 21:33 ; Start 09/09/18 at 21:00 Fluticasone Propionate (Flonase) 2 spray DAILY NS Last administered on 10:36; Start 09/10/18 at 09:00 Glimepiride (Amaryl) 2 mg BIDWMEALS PO Last administered on 09/11/18 08:00; Start 09/09/18 at 17:00; Stop 09/11/18 at 14:52; Status DC Acetaminophen/ Hydrocodone Bitart (Lortab 7.5/325) 1 tab PRN TID PRN PO MODERATE PAIN Last administered on 09/13/18 13:55; Start 09/09/18 at 15:15 Pantoprazole Sodium (Protonix) 40 mg DAILYAC PO Last administered on 09/11/18 06:33; Start 09/09/18 at 16:00; Stop 09/11/18 at 10:09; Status DC Triamcinolone Acetonide (Kenalog) 1 heriberto BID TP Last administered on 09/14/18 10 :37; Start 09/09/18 at 21:00 Non-Formulary Medication (Empagliflozin (Jardiance)) 10 mg DAILY PO ; Start 09/10 at 09:00; Stop 09/11/18 at 14:55; Status DC Non-Formulary Medication (Exenatide Microspheres (Bydureon Pen)) 2 mg WEEKLY SQ ; Start 09/16/18 at 09:00; Stop 09/16/18 at 09:00; Status DC Indapamide (Lozol) 1.25 mg DAILY PO Last administered on 09/14/18 17:23; Start 09/09/18 at 16:00 Non-Formulary Medication (Ipratropium/ Albuterol Sulfate (Combivent Respimat Inhal)) 2 inh BID IH ; Start 09/09/18 at 21:00; Stop 09/09/18 at 21:00; Status DC Metformin HCl (Glucophage Xr) 500 mg DAILYWBKFT PO Last administered on 17:24; Start 09/09/18 at 16:00 Multivitamins (Thera M Plus) 1 tab DAILY PO Last administered on 09/14/18 17:24 ; Start 09/09/18 at 16:00 Non-Formulary Medication (Phentermine Hcl ) 1 cap DAILYWBKFT PO ; Start 09/10/18 at 08:00; Status UNV Enoxaparin Sodium (Lovenox Per Pharmacy Prophylaxis Dosing) 1 each PRN DAILY PRN MC SEE COMMENTS; Start 09/09/18 at 15:15 Albuterol/ Ipratropium (Duoneb) 3 ml RTBID NEB Last administered on 09/14/18 07 :49; Start 09/09/18 at 20:00 Enoxaparin Sodium (Lovenox 60mg Syringe) 60 mg Q12HR SQ Last administered on 10:36; Start 09/09/18 at 21:00 Lactobacillus Rhamnosus (Culturelle) 1 cap BID PO Last administered on 21:33; Start 09/10/18 at 09:00 Potassium Chloride (Klor-Con) 40 meq 1X ONCE PO Last administered on 09/10/18 17:20; Start 09/10/18 at 17:00; Stop 09/10/18 at 17:01; Status DC Potassium Chloride (Klor-Con) 20 meq DAILYWBKFT PO Last administered on 17:24; Start 09/11/18 at 08:00 Dextrose (Dextrose 50%-Water Syringe) 12.5 gm PRN Q15MIN PRN IV SEE COMMENTS Last administered on 09/11/18 11:51; Start 09/11/18 at 06:30; Stop 09/11/18 at 14: 55; Status DC Pantoprazole Sodium (Protonix) 40 mg BIDAC PO Last administered on 09/14/18 17: 24; Start 09/11/18 at 16:30 Fluconazole (Diflucan) 100 mg DAILY PO Last administered on 09/14/18 17:24; Start 09/11/18 at 10:30 Lidocaine HCl (Viscous Lidocaine) 15 ml PRN Q4HRS PRN SWSW odynophagia; Start 09/11/18 at 10:15 Vancomycin HCl (Vancomycin Oral Solution) 250 mg [id number] PO Last administered on 09/12/18 09:29; Start 09/11/18 at 13:00; Stop 09/12/18 at 12:07; Status DC Metronidazole 100 ml @ 100 mls/hr Q8HRS IV Last administered on 09/13/18at 06:20 ; Start 09/11/18 at 14:00; Stop 09/13/18 at 12:40; Status DC Insulin Human Lispro (HumaLOG) 0-5 UNITS TIDWMEALS SQ ; Start 09/11/18 at 17:00 Dextrose (Dextrose 50%-Water Syringe) 12.5 gm PRN Q15MIN PRN IV SEE COMMENTS; Start 09/11/18 at 15:00 Acetaminophen (Tylenol) 650 mg PRN Q6HRS PRN PO MILD PAIN/FEVER Last administered on 09/12/18at 08:38; Start 09/12/18 at 08:15 Vancomycin HCl (Vancomycin Oral Solution) 500 mg [id number] PO Last administered on 09/14/18at 17:27; Start 09/12/18 at 13:00 Sodium Chloride 1,000 ml @ 1,000 mls/hr 1X ONCE IV Last administered on at 15:50; Start 09/12/18 at 15:30; Stop 09/12/18 at 16:29; Status DC Sodium Chloride 1,000 ml @ 125 mls/hr CONT PRN IV FLUIDS Last administered on 09/13/18at 03:16; Start 09/12/18 at 15:45 Barium Sulfate (Liquid E-Z Paque) 355 ml 1X ONCE PO ; Start 09/13/18 at 08:45; Stop 09/13/18 at 08:46; Status DC Barium Sulfate (E-Z-Hd) 340 gm 1X ONCE PO ; Start 09/13/18 at 08:45; Stop at 08:46; Status DC Ringer's Solution 1,000 ml @ 50 mls/hr Q20H IV ; Start 09/14/18 at 07:00; Stop 09/14/18 at 18:59 Midazolam HCl (Versed) 2 mg PRN 1X PRN IV PRIOR TO PROCEDURE; Start 09/14/18 at 10:45; Stop 09/14/18 at 19:00 Fentanyl Citrate (Fentanyl 2ml Vial) 25 mcg PRN Q5MIN PRN IV X 2 DOSES FOR PAIN ; Start 09/14/18 at 10:45; Stop 09/14/18 at 19:00 Fentanyl Citrate (Fentanyl 2ml Vial) 50 mcg PRN Q5MIN PRN IV X 2 DOSES FOR PAIN ; Start 09/14/18 at 10:45; Stop 09/14/18 at 19:00 Ringer's Solution 1,000 ml @ 125 mls/hr Q8H IV ; Start 09/14/18 at 10:45; Stop 09/14/18 at 19:00 Lidocaine HCl (Xylocaine-Mpf 1% 2ml Vial) 2 ml 1X PRN PRN ID IV START; Start at 10:45; Stop 09/14/18 at 19:00 Propofol 40 ml @ As Directed STK-MED ONCE IV ; Start 09/14/18 at 14:07; Stop 09/14 at 14:09; Status DC Lidocaine HCl (Xylocaine-Mpf 1% 2ml Vial) 2 ml STK-MED ONCE .ROUTE ; Start at 14:07; Stop 09/14/18 at 14:09; Status DC Active Scripts Active [Fluconazole] 100 MG Tablet 100 Mg PO DAILY MDD 1 14 Days Vancomycin Hcl 500 Mg Vial 125 Mg PO [id number] MDD 1 14 Days Reported Jardiance (Empagliflozin) 10 Mg Tablet 10 Mg PO DAILY Phentermine Hcl 37.5 Mg Capsule 1 Cap PO DAILYWBKFT 30 Days Multivitamins (Multivitamin) 1 Each Tablet 1 Tab PO DAILY 30 Days Glimepiride 2 Mg Tablet 2 Mg PO BID 30 Days Proair Hfa Inhaler (Albuterol Sulfate) 8.5 Gm Hfa.aer.ad 1 Puff INH PRN Q4HRS PRN Hydrocodone-Apap 7.5-325 (Hydrocodone Bit/Acetaminophen) 1 Each Tablet 1 Tab PO PRN TID PRN Combivent Respimat Inhal (Ipratropium/Albuterol Sulfate) 4 Gm Aer.w.adap 2 Inh IH BID Triamcinolone Acetonide 0.1% Oint (Triamcinolone Acetonide) 15 Gm Oint...g. 1 Heriberto TP BID MIX WITH EUCERIN DIRECTED BY PHYSICIAN Manny Pen (Exenatide Microspheres) 2 Mg/0.65 Ml Pen.injctr 2 Mg SQ WEEKLY Indapamide 1.25 Mg Tablet 1 Tab PO DAILY Cyclobenzaprine Hcl 10 Mg Tablet 1 Tab PO QHS Aspir 81 (Aspirin) 81 Mg Tablet.dr 81 Mg PO DAILY Pantoprazole Sodium 40 Mg Tablet.dr 40 Mg PO DAILY Flonase (Fluticasone Propionate) 16 Gm [place].susp 16 Gm NS DAILY Diovan (Valsartan) 320 Mg Tablet 320 Mg PO DAILY Norvasc (Amlodipine Besylate) 10 Mg Tablet 10 Mg PO DAILY Metformin Hcl Er (Metformin Hcl) 1,000 Mg Tab.er.24 500 Mg PO DAILY 30 Days Vitals/I & O Vital Sign - Last 24 Hours 09/13/18 09/13/18 09/13/18 09/13/18 19:00 19:46 20:05 23:00 Temp 97.7 97.7 97.7 97.7 Pulse 98 96 Resp 20 20 B/P (MAP) 168/99 (122) 141/91 (108) Pulse Ox 97 99 100 O2 Delivery Room Air Room Air Room Air Nasal Cannula 09/14/18 09/14/18 09/14/18 09/14/18 03:11 03:14 07:00 07:51 Temp 97.9 97.3 97.9 97.3 Pulse 72 91 Resp 20 18 B/P (MAP) 130/53 (78) 138/90 (106) Pulse Ox 98 100 100 O2 Delivery Nasal Cannula Room Air Room Air Room Air 09/14/18 09/14/18 09/14/18 09/14/18 11:00 11:48 13:19 13:21 Temp 97.9 98.0 97.9 98.0 Pulse 100 105 Resp 18 18 B/P (MAP) 159/117 (131) Pulse Ox 100 100 O2 Delivery Room Air Room Air Room Air O2 Flow Rate 2.0 09/14/18 09/14/18 09/14/18 09/14/18 14:18 14:33 14:48 15:00 Temp 98.2 98.0 98.2 98.0 Pulse 96 93 92 97 Resp 18 18 18 18 B/P (MAP) 171/98 154/76 151/73 144/104 (117) Pulse Ox 100 99 94 100 O2 Delivery Room Air Nasal Cannula Room Air Room Air O2 Flow Rate 2.0 09/14/18 09/14/18 16:09 17:25 Pulse 97 B/P (MAP) 144/104 Pulse Ox 100 O2 Delivery Room Air Intake and Output 09/13/18 09/13/18 09/14/18 15:00 23:00 07:00 Intake Total 0 ml 500 ml Output Total 0 ml 0 ml Balance 0 ml 500 ml 0 ml LEONOR BEAR MD Sep 14, 2018 18:43
[2018-09-14 19:00] VITALS: BP 161/127
[2018-09-14] MEDS: CYCLOBENZAPRINE 10 MG TABLET. PO SCH (21:35)
[2018-09-14 23:00] VITALS: BP 124/80
[2018-09-15] MEDS: ALBUTEROL SULFATE 2.5 MG/3 ML NEBU. INH PRN ×2 (00:12→03:54)
[2018-09-15 03:00] VITALS: BP 139/91
[2018-09-15 04:15] LABS: BASO # 0.2 x10^3/uL (0.0-0.2); BASO % 1 % (0-3); EOS # 0.2 x10^3/uL (0.0-0.7); EOS % 2 % (0-3); HEMATOCRIT 39.9 % (39.0-53.0); LYMPH # 3.4 x10^3/uL (1.0-4.8); LYMPH % 28 % (24-48); MEAN CORPUSCULAR HEMOGLOBIN 29 pg (25-35); MEAN CORPUSCULAR HGB CONC 33 g/dL (31-37); MEAN CORPUSCULAR VOLUME 90 fL (79-100); MONO # 1.1 x10^3/uL (0.0-1.1); MONO % 9 % (0-9); NEUT # 7.4 x10^3uL (1.8-7.7); NEUT % 60 % (31-73); PLATELET COUNT 280 x10^3/uL (140-400); RED BLOOD COUNT 4.44 x10^6/uL (4.30-5.70); RED CELL DISTRIBUTION WIDTH 16.5 % (11.5-14.5); WHITE BLOOD COUNT 12.3 x10^3/uL (4.0-11.0)
[2018-09-15 04:46] LABS: ALBUMIN/GLOBULIN RATIO 0.8 (1.0-1.7); CALCIUM 9.4 mg/dL (8.5-10.1); CREATININE 1.2 mg/dL (0.7-1.3); GFR 75.5; TOTAL BILIRUBIN 0.2 mg/dL (0.2-1.0); TOTAL PROTEIN 6.6 g/dL (6.4-8.2)
[2018-09-15 07:00] VITALS: BP 140/101
[2018-09-15] MEDS: PANTOPRAZOLE 40 MG TABLET.DR. PO SCH (07:30)
[2018-09-15] MEDS: INSULIN LISPRO 300 UNITS/3 ML INSULN.PEN. SQ SCH (07:56)
[2018-09-15] MEDS: FLUTICASONE 50MCG/NASAL SPRAY 16GM BOTTLE. NS SCH (08:24)
[2018-09-15] MEDS: ASPIRIN ENTERIC COATED 81 MG TABLET.DR. PO SCH (08:24)
[2018-09-15] MEDS: metFORMIN XR 500 MG TAB.ER.24H PO SCH (08:24)
[2018-09-15] MEDS: LACTOBACILLUS RHAMNOSUS GG 1 CAPSULE. PO SCH (08:25)
[2018-09-15] MEDS: POTASSIUM CHLORIDE 20 MEQ TABLET.ER. PO SCH (08:25)
[2018-09-15] MEDS: FLUCONAZOLE 100 MG TABLET. PO SCH (08:25)
[2018-09-15] MEDS: MULTIVITAMIN with MINERAL TABLET. PO SCH (08:25)
[2018-09-15 08:26] VITALS: BP 140/101
[2018-09-15] MEDS: amLODIPine BESYLATE 10 MG TABLET PO SCH (08:26)
[2018-09-15] MEDS: VANCOMYCIN 125 MG/2.5 ML ORAL SOLUTION. PO SCH (08:29)
[2018-09-15] MEDS: TRIAMCINOLONE ACETONIDE 0.1% TOPICAL OINTMENT 15GM TUBE. TP SCH (08:30)
[2018-09-15] MEDS: INDAPAMIDE 2.5 MG TABLET PO SCH (08:34)
--- NOTE | 2018-09-15 08:58 | PDOC ---
Infectious Disease Note Subjective: Subjective Pt says feels better no more n/v stools are forming no headache no f/c ready for dc home today ROS: ROS Negative except for above. Vital Signs: Vital Signs Vital Signs Date Time Temp Pulse Resp B/P (MAP) Pulse Ox O2 Delivery O2 Flow Rate FiO2 09/15/18 08:26 104 140/101 09/15/18 08:12 97 Room Air 09/15/18 07:00 97.9 18 97.9 09/14/18 14:18 2.0 Physical Exam: PHYSICAL EXAM GENERAL: The patient is sitting in bed, alert, in no apparent distress. HEENT: Pupils equally round. Normal conjunctivae. Oral cavity: Pharynx pink and moist. NECK: Supple. LUNGS: Clear to auscultation. HEART: S1 and S2. ABDOMEN: Obese, soft, mildly tender throughout. No rebound. EXTREMITIES: No gross edema or cyanosis. SKIN: Warm without generalized rash. NEUROLOGIC: Alert and oriented x 3. No focal deficits. Medications: Inpatient Meds: Current Medications Medications (Trade) Dose Ordered Sig/Yumi Start Time Stop Time Status Last Admin Dose Admin Acetaminophen (Tylenol) 650 mg PRN Q6HRS PRN 09/12/18 08:15 09/12/18 08:38 650 MG Acetaminophen/ Hydrocodone Bitart (Lortab 7.5/325) 1 tab PRN TID PRN 09/09/18 15:15 09/13/18 13:55 1 TAB Albuterol Sulfate (Ventolin Neb Soln) 2.5 mg PRN Q4HRS PRN 09/09/18 15:15 09/15/18 03:54 2.5 MG Albuterol/ Ipratropium (Duoneb) 3 ml RTBID 09/09/18 20:00 09/14/18 20:09 3 ML Amlodipine Besylate (Norvasc) 10 mg DAILY 09/09/18 16:00 09/15/18 08:26 10 MG Aspirin (Children'S Aspirin) 324 mg 1X ONCE 09/09/18 12:30 09/09/18 12:31 DC 09/09/18 12:53 324 MG Aspirin (Ecotrin) 81 mg DAILY 09/09/18 16:00 09/15/18 08:24 81 MG Barium Sulfate (E-Z-Hd) 340 gm 1X ONCE 09/13/18 08:45 09/13/18 08:46 DC Barium Sulfate (Liquid E-Z Paque) 355 ml 1X ONCE 09/13/18 08:45 09/13/18 08:46 DC Cyclobenzaprine HCl (Flexeril) 10 mg QHS 09/09/18 21:00 09/14/18 21:35 10 MG Dextrose (Dextrose 50%-Water Syringe) 12.5 gm PRN Q15MIN PRN 09/11/18 15:00 Enoxaparin Sodium (Lovenox 60mg Syringe) 60 mg Q12HR 09/09/18 21:00 09/15/18 08:31 60 MG Enoxaparin Sodium (Lovenox Per Pharmacy Prophylaxis Dosing) 1 each PRN DAILY PRN 09/09/18 15:15 Fentanyl Citrate (Fentanyl 2ml Vial) 50 mcg PRN Q5MIN PRN 09/14/18 10:45 09/14/18 19:00 DC Fluconazole (Diflucan) 100 mg DAILY 09/11/18 10:30 09/15/18 08:25 100 MG Fluticasone Propionate (Flonase) 2 spray DAILY 09/10/18 09:00 09/15/18 08:24 2 SPRAY Glimepiride (Amaryl) 2 mg BIDWMEALS 09/09/18 17:00 09/11/18 14:52 DC 09/11/18 08:00 2 MG Hyoscyamine (Anaspaz) 0.125 mg ONCE ONCE 09/09/18 12:30 09/09/18 12:31 DC 09/09/18 12:30 0.125 MG Indapamide (Lozol) 1.25 mg DAILY 09/09/18 16:00 09/15/18 08:34 1.25 MG Insulin Human Lispro (HumaLOG) 0-5 UNITS TIDWMEALS 09/11/18 17:00 Ketorolac Tromethamine (Toradol 30mg Vial) 30 mg 1X ONCE 09/09/18 12:30 09/09/18 12:31 DC 09/09/18 12:53 30 MG Lactobacillus Rhamnosus (Culturelle) 1 cap BID 09/10/18 09:00 09/15/18 08:25 1 CAP Lidocaine HCl (Viscous Lidocaine) 15 ml PRN Q4HRS PRN 09/11/18 10:15 Lidocaine HCl (Xylocaine-Mpf 1% 2ml Vial) 2 ml STK-MED ONCE 09/14/18 14:07 09/14/18 14:09 DC Metformin HCl (Glucophage Xr) 500 mg DAILYWBKFT 09/09/18 16:00 09/15/18 08:24 500 MG Metronidazole 100 ml @ 100 mls/hr Q8HRS 09/11/18 14:00 09/13/18 12:40 DC 09/13/18 06:20 100 MLS/HR Midazolam HCl (Versed) 2 mg PRN 1X PRN 09/14/18 10:45 09/14/18 19:00 DC Multivitamins (Thera M Plus) 1 tab DAILY 09/09/18 16:00 09/15/18 08:25 1 TAB Non-Formulary Medication (Empagliflozin (Jardiance)) 10 mg DAILY 09/10/18 09:00 09/11/18 14:55 DC Non-Formulary Medication (Exenatide Microspheres (Bydureon Pen)) 2 mg WEEKLY 09/16/18 09:00 09/16/18 09:00 DC Non-Formulary Medication (Ipratropium/ Albuterol Sulfate (Combivent Respimat Inhal)) 2 inh BID 09/09/18 21:00 09/09/18 21:00 DC Non-Formulary Medication (Phentermine Hcl ) 1 cap DAILYWBKFT 09/10/18 08:00 UNV Ondansetron HCl (Zofran) 4 mg PRN Q8HRS PRN 09/09/18 13:15 09/10/18 13:14 DC 09/10/18 05:56 4 MG Pantoprazole Sodium (Protonix) 40 mg BIDAC 09/11/18 16:30 09/15/18 07:30 40 MG Potassium Chloride (Klor-Con) 20 meq DAILYWBKFT 09/11/18 08:00 09/15/18 08:25 20 MEQ Prochlorperazine Edisylate (Compazine) 5 mg 1X ONCE 09/09/18 12:30 09/09/18 12:31 DC 09/09/18 12:53 5 MG Propofol 40 ml @ As Directed STK-MED ONCE 3/7/19 14:07 09/14/18 14:09 DC Ringer's Solution 1,000 ml @ 125 mls/hr Q8H 09/14/18 10:45 09/14/18 19:00 DC Sodium Chloride 1,000 ml @ 125 mls/hr CONT PRN 09/12/18 15:45 09/13/18 03:16 125 MLS/HR Triamcinolone Acetonide (Kenalog) 1 daly BID 09/09/18 21:00 09/15/18 08:30 1 DALY Vancomycin HCl (Vancomycin Oral Solution) 500 mg [id number] 09/12/18 13:00 09/15/18 08:29 500 MG Labs: Lab Laboratory Tests Test 09/14/18 11:44 09/14/18 16:30 09/14/18 20:00 09/15/18 03:20 Glucose (Fingerstick) 103 mg/dL (70-99) 149 mg/dL (70-99) 147 mg/dL (70-99) White Blood Count 12.3 x10^3/uL (4.0-11.0) Red Blood Count 4.44 x10^6/uL (4.30-5.70) Hemoglobin 13.0 g/dL (13.0-17.5) Hematocrit 39.9 % (39.0-53.0) Mean Corpuscular Volume 90 fL (79-100) Mean Corpuscular Hemoglobin 29 pg (25-35) Mean Corpuscular Hemoglobin Concent 33 g/dL (31-37) Red Cell Distribution Width 16.5 % (11.5-14.5) Platelet Count 280 x10^3/uL (140-400) Neutrophils (%) (Auto) 60 % (31-73) Lymphocytes (%) (Auto) 28 % (24-48) Monocytes (%) (Auto) 9 % (0-9) Eosinophils (%) (Auto) 2 % (0-3) Basophils (%) (Auto) 1 % (0-3) Neutrophils # (Auto) 7.4 x10^3uL (1.8-7.7) Lymphocytes # (Auto) 3.4 x10^3/uL (1.0-4.8) Monocytes # (Auto) 1.1 x10^3/uL (0.0-1.1) Eosinophils # (Auto) 0.2 x10^3/uL (0.0-0.7) Basophils # (Auto) 0.2 x10^3/uL (0.0-0.2) Sodium Level 141 mmol/L (136-145) Potassium Level 4.0 mmol/L (3.5-5.1) Chloride Level 105 mmol/L (98-107) Carbon Dioxide Level 24 mmol/L (21-32) Anion Gap 12 (6-14) Blood Urea Nitrogen 8 mg/dL (8-26) Creatinine 1.2 mg/dL (0.7-1.3) Estimated GFR (Cockcroft-Gault) 75.5 BUN/Creatinine Ratio 7 (6-20) Glucose Level 162 mg/dL (70-99) Calcium Level 9.4 mg/dL (8.5-10.1) Total Bilirubin 0.2 mg/dL (0.2-1.0) Aspartate Amino Transf (AST/SGOT) 50 U/L (15-37) Alanine Aminotransferase (ALT/SGPT) 99 U/L (16-63) Alkaline Phosphatase 77 U/L (46-116) Total Protein 6.6 g/dL (6.4-8.2) Albumin 3.0 g/dL (3.4-5.0) Albumin/Globulin Ratio 0.8 (1.0-1.7) Test 09/15/18 07:20 Glucose (Fingerstick) 120 mg/dL (70-99) Objective: Assessment: 1. Clostridium difficile associated diarrhea from 09/01/2018 POA improving 2. Leukocytosis, improving. 3. Morbid obesity 4. Diabetes type 2. 5. Atrial fibrillation. 6. ? dysphagia with nausea and vomiting barium reported as Mild esophageal tertiary contractions. egd with dilatation 09/14 Plan: Plan of Care continue po vancomycin 500 mg po QID for 14 days followed by vanco 125mgpo bid for 14 days f/u with us if needed d/w RN and MARCOS Bartlett MD Sep 15, 2018 08:58
[2018-09-15] MEDS ORDERED: VANC500V PO (10:02)
[2018-09-15] MEDS ORDERED: VANC125C10 PO (10:02)
--- NOTE | 2018-09-15 10:26 | PDOC ---
Objective: Objective: Was in shower when I went by earlier this morning - according to staff, tolerating PO (ate 75% of breakfast w/o swallowing complaints) and diarrhea is better. Vital Signs: Vital Signs Date Time Temp Pulse Resp B/P (MAP) Pulse Ox O2 Delivery O2 Flow Rate FiO2 09/15/18 08:26 104 140/101 09/15/18 08:12 97 Room Air 09/15/18 07:00 97.9 18 97.9 09/14/18 14:18 2.0 Labs: Laboratory Tests Test 09/14/18 11:44 09/14/18 16:30 09/14/18 20:00 09/15/18 03:20 Glucose (Fingerstick) 103 mg/dL 149 mg/dL 147 mg/dL White Blood Count 12.3 x10^3/uL Red Blood Count 4.44 x10^6/uL Hemoglobin 13.0 g/dL Hematocrit 39.9 % Mean Corpuscular Volume 90 fL Mean Corpuscular Hemoglobin 29 pg Mean Corpuscular Hemoglobin Concent 33 g/dL Red Cell Distribution Width 16.5 % Platelet Count 280 x10^3/uL Neutrophils (%) (Auto) 60 % Lymphocytes (%) (Auto) 28 % Monocytes (%) (Auto) 9 % Eosinophils (%) (Auto) 2 % Basophils (%) (Auto) 1 % Neutrophils # (Auto) 7.4 x10^3uL Lymphocytes # (Auto) 3.4 x10^3/uL Monocytes # (Auto) 1.1 x10^3/uL Eosinophils # (Auto) 0.2 x10^3/uL Basophils # (Auto) 0.2 x10^3/uL Sodium Level 141 mmol/L Potassium Level 4.0 mmol/L Chloride Level 105 mmol/L Carbon Dioxide Level 24 mmol/L Anion Gap 12 Blood Urea Nitrogen 8 mg/dL Creatinine 1.2 mg/dL Estimated GFR (Cockcroft-Gault) 75.5 BUN/Creatinine Ratio 7 Glucose Level 162 mg/dL Calcium Level 9.4 mg/dL Total Bilirubin 0.2 mg/dL Aspartate Amino Transf (AST/SGOT) 50 U/L Alanine Aminotransferase (ALT/SGPT) 99 U/L Alkaline Phosphatase 77 U/L Total Protein 6.6 g/dL Albumin 3.0 g/dL Albumin/Globulin Ratio 0.8 Test 09/15/18 07:20 Glucose (Fingerstick) 120 mg/dL Imaging: Barium Swallow 09/13 IMPRESSION: 1. Mild esophageal tertiary contractions. 2. The esophagram is otherwise unremarkable. EGD 09/14 Julianne ring S/p 54 FR Gabbi PE: no exam, in shower A/P: Recurrent dysphagia C Diff diarrhea -- Improved per staff, DC per primary. Stop Diflucan, reduce PPI from BID to QD. JULI DUTTON Sep 15, 2018 10:25
--- NOTE | 2018-09-15 10:48 | SNU/HH DC ---
DISCHARGE WITH HOME HEALTH DISCHARGE INFORMATION: Discharge Date: Sep 15, 2018 Final Diagnosis: Problems Medical Problems: (1) Failure of outpatient treatment Status: Acute (2) Nausea, vomiting, and diarrhea Status: Acute Condition on Discharge: Stable HOME HEALTH: Face to Face: I certify this patient is under my care and that I, or a nurse practitioner or physician's assistant curator working with me, had a face to face encounter that meets the physician face to face encounter requirements with this patient on []. POST DISCHARGE ORDERS: Activity Instructions for Disc: Activity as tolerated Weight Bearing Status after Di: As tolerated DIET AFTER DISCHARGE: Cardiac CHECKS AFTER DISCHARGE: Checks after discharge: Check blood press - daily, Check blood sugar, ac/hs, Check your Temp as needed, Weigh Yourself Daily FOLLOW-UP: Follow up with: Primary in 2 weeks Follow Up With: Dr. Mckenzie as needed: [phone] TREATMENT/EQUIPMENT ORDERS: Adaptive Equipment Issued: None CERTIFICATION STATEMENT: Certification Statement: Certification Statement: Based on the above finding, I certify that this patient is confined to the home and needs intermittent long-term care, physical therapy and/or speech therapy, or continues to need occupational therapy.~ This patient is under my care, and I have initiated the establishment of the plan of care.~ This patient will be followed by myself or a community physician who will periodically review the plan of care. Home Meds Active Scripts Vancomycin Hcl (VANCOCIN HCL) 125 Mg Capsule, 125 MG PO QID for c diff for 14 Days, #56 CAP Prov:LEONOR BEAR MD 09/15/18 Vancomycin Hcl (VANCOMYCIN HCL) 500 Mg Vial, 500 MG PO [id number] for c diff for 8 Days, #32 EACH Prov:LEONOR BEAR MD 09/15/18 [Fluconazole] 100 MG TABLET No Conflict Check, 100 MG PO DAILY for fumgal infectioj MDD 1 for 14 Days, #14 TAB Prov:ALMA SEGURA MD 09/07/18 Reported Medications Empagliflozin (Jardiance) 10 Mg Tablet, 10 MG PO DAILY for diabetes , TAB 09/01/18 Phentermine Hcl (PHENTERMINE HCL) 37.5 Mg Capsule, 1 CAP PO DAILYWBKFT for weight loss for 30 Days, #30 CAP 2 Refills 09/01/18 Multivitamin (MULTIVITAMINS) 1 Each Tablet, 1 TAB PO DAILY for supplement for 30 Days, #30 TAB 3 Refills 09/01/18 Glimepiride (GLIMEPIRIDE) 2 Mg Tablet, 2 MG PO BID for Diabetes for 30 Days, # 60 TAB 09/01/18 Albuterol Sulfate (PROAIR HFA INHALER) 8.5 Gm Hfa.aer.ad, 1 PUFF INH PRN Q4HRS PRN for SHORTNESS OF BREATH, INHALER 0 Refills 03/15/18 Hydrocodone Bit/Acetaminophen (HYDROCODONE-APAP 7.5-325 ) 1 Each Tablet, 1 TAB PO PRN TID PRN for PAIN, TAB 0 Refills 03/15/18 Ipratropium/Albuterol Sulfate (COMBIVENT RESPIMAT INHAL) 4 Gm Aer.w.adap, 2 INH IH BID, INHALER 03/15/18 Triamcinolone Acetonide (TRIAMCINOLONE ACETONIDE 0.1% OINT) 15 Gm Oint...g., 1 ALISON TP BID for WOUND CARE, #1 TUBE MIX WITH EUCERIN DIRECTED BY PHYSICIAN 03/15/18 Exenatide Microspheres (Bydureon Pen) 2 Mg/0.65 Ml Pen.injctr, 2 MG SQ WEEKLY, EACH 03/15/18 Indapamide (INDAPAMIDE) 1.25 Mg Tablet, 1 TAB PO DAILY, #30 TAB 5 Refills 03/15/18 Cyclobenzaprine Hcl (CYCLOBENZAPRINE HCL) 10 Mg Tablet, 1 TAB PO QHS, #30 TAB 03/15/18 Aspirin (ASPIR 81) 81 Mg Tablet.dr, 81 MG PO DAILY 09/17/13 Pantoprazole Sodium (PANTOPRAZOLE SODIUM) 40 Mg Tablet.dr, 40 MG PO DAILY 09/17/13 Fluticasone Propionate (FLONASE) 16 Gm [place].susp, 16 GM NS DAILY 09/17/13 Valsartan (DIOVAN) 320 Mg Tablet, 320 MG PO DAILY 09/17/13 Amlodipine Besylate (NORVASC) 10 Mg Tablet, 10 MG PO DAILY 09/17/13 Metformin Hcl (METFORMIN HCL ER) 1,000 Mg Tab.er.24, 500 MG PO DAILY for Diabetes for 30 Days 09/17/13 Discontinued Scripts Vancomycin Hcl (VANCOMYCIN HCL) 500 Mg Vial, 125 MG PO [id number] for c diff MDD 1 for 14 Days, #12 EACH Prov:ALMA SEGURA MD 09/07/18 LEONOR BEAR MD Sep 15, 2018 10:48
--- NOTE | 2018-09-15 11:30 | PDOC3 ---
Discharge Summary Visit Information Date of Admission: Sep 09, 2018 Date of Discharge: Sep 15, 2018 Final Diagnosis Problems Medical Problems: (1) Failure of outpatient treatment Status: Acute (2) Nausea, vomiting, and diarrhea Status: Acute Brief Hospital Course Allergies Allergies Coded Allergies Type Severity Reaction Last Updated Verified No Known Drug Allergies 09/14/18 No Vital Signs Vital Signs Date Time Temp Pulse Resp B/P (MAP) Pulse Ox O2 Delivery O2 Flow Rate FiO2 09/15/18 08:26 104 140/101 09/15/18 08:12 97 Room Air 09/15/18 07:00 97.9 18 97.9 09/14/18 14:18 2.0 Lab Results Laboratory Tests Test 09/13/18 16:53 09/13/18 20:14 09/14/18 07:39 09/14/18 11:44 Glucose (Fingerstick) 109 mg/dL (70-99) 118 mg/dL (70-99) 127 mg/dL (70-99) 103 mg/dL (70-99) Test 09/14/18 16:30 09/14/18 20:00 09/15/18 03:20 09/15/18 07:20 Glucose (Fingerstick) 149 mg/dL (70-99) 147 mg/dL (70-99) 120 mg/dL (70-99) White Blood Count 12.3 x10^3/uL (4.0-11.0) Red Blood Count 4.44 x10^6/uL (4.30-5.70) Hemoglobin 13.0 g/dL (13.0-17.5) Hematocrit 39.9 % (39.0-53.0) Mean Corpuscular Volume 90 fL (79-100) Mean Corpuscular Hemoglobin 29 pg (25-35) Mean Corpuscular Hemoglobin Concent 33 g/dL (31-37) Red Cell Distribution Width 16.5 % (11.5-14.5) Platelet Count 280 x10^3/uL (140-400) Neutrophils (%) (Auto) 60 % (31-73) Lymphocytes (%) (Auto) 28 % (24-48) Monocytes (%) (Auto) 9 % (0-9) Eosinophils (%) (Auto) 2 % (0-3) Basophils (%) (Auto) 1 % (0-3) Neutrophils # (Auto) 7.4 x10^3uL (1.8-7.7) Lymphocytes # (Auto) 3.4 x10^3/uL (1.0-4.8) Monocytes # (Auto) 1.1 x10^3/uL (0.0-1.1) Eosinophils # (Auto) 0.2 x10^3/uL (0.0-0.7) Basophils # (Auto) 0.2 x10^3/uL (0.0-0.2) Sodium Level 141 mmol/L (136-145) Potassium Level 4.0 mmol/L (3.5-5.1) Chloride Level 105 mmol/L (98-107) Carbon Dioxide Level 24 mmol/L (21-32) Anion Gap 12 (6-14) Blood Urea Nitrogen 8 mg/dL (8-26) Creatinine 1.2 mg/dL (0.7-1.3) Estimated GFR (Cockcroft-Gault) 75.5 BUN/Creatinine Ratio 7 (6-20) Glucose Level 162 mg/dL (70-99) Calcium Level 9.4 mg/dL (8.5-10.1) Total Bilirubin 0.2 mg/dL (0.2-1.0) Aspartate Amino Transf (AST/SGOT) 50 U/L (15-37) Alanine Aminotransferase (ALT/SGPT) 99 U/L (16-63) Alkaline Phosphatase 77 U/L (46-116) Total Protein 6.6 g/dL (6.4-8.2) Albumin 3.0 g/dL (3.4-5.0) Albumin/Globulin Ratio 0.8 (1.0-1.7) Laboratory Tests Test 09/14/18 11:44 09/14/18 16:30 09/14/18 20:00 09/15/18 03:20 Glucose (Fingerstick) 103 mg/dL (70-99) 149 mg/dL (70-99) 147 mg/dL (70-99) White Blood Count 12.3 x10^3/uL (4.0-11.0) Red Blood Count 4.44 x10^6/uL (4.30-5.70) Hemoglobin 13.0 g/dL (13.0-17.5) Hematocrit 39.9 % (39.0-53.0) Mean Corpuscular Volume 90 fL (79-100) Mean Corpuscular Hemoglobin 29 pg (25-35) Mean Corpuscular Hemoglobin Concent 33 g/dL (31-37) Red Cell Distribution Width 16.5 % (11.5-14.5) Platelet Count 280 x10^3/uL (140-400) Neutrophils (%) (Auto) 60 % (31-73) Lymphocytes (%) (Auto) 28 % (24-48) Monocytes (%) (Auto) 9 % (0-9) Eosinophils (%) (Auto) 2 % (0-3) Basophils (%) (Auto) 1 % (0-3) Neutrophils # (Auto) 7.4 x10^3uL (1.8-7.7) Lymphocytes # (Auto) 3.4 x10^3/uL (1.0-4.8) Monocytes # (Auto) 1.1 x10^3/uL (0.0-1.1) Eosinophils # (Auto) 0.2 x10^3/uL (0.0-0.7) Basophils # (Auto) 0.2 x10^3/uL (0.0-0.2) Sodium Level 141 mmol/L (136-145) Potassium Level 4.0 mmol/L (3.5-5.1) Chloride Level 105 mmol/L (98-107) Carbon Dioxide Level 24 mmol/L (21-32) Anion Gap 12 (6-14) Blood Urea Nitrogen 8 mg/dL (8-26) Creatinine 1.2 mg/dL (0.7-1.3) Estimated GFR (Cockcroft-Gault) 75.5 BUN/Creatinine Ratio 7 (6-20) Glucose Level 162 mg/dL (70-99) Calcium Level 9.4 mg/dL (8.5-10.1) Total Bilirubin 0.2 mg/dL (0.2-1.0) Aspartate Amino Transf (AST/SGOT) 50 U/L (15-37) Alanine Aminotransferase (ALT/SGPT) 99 U/L (16-63) Alkaline Phosphatase 77 U/L (46-116) Total Protein 6.6 g/dL (6.4-8.2) Albumin 3.0 g/dL (3.4-5.0) Albumin/Globulin Ratio 0.8 (1.0-1.7) Test 09/15/18 07:20 Glucose (Fingerstick) 120 mg/dL (70-99) Brief Hospital Course Mr. Rivera, is a 58 year old male, just DC here a few days ago with colitis, on PO vanc for c. diff. He presented to ER with nausea vomiting, and diarrhea. he reports he cannot keep meds or food down today. chest pain, but after vomiting, just DC 2 days ago, no bleeding, but marked waekenss some new dyspnea Patient readmitted to the hospital for evaluation by infectious disease. The patient had also a history of Chatzkys ring and previous esophageal dilatations. The patient complaining of the beginning of his hospital stay off inability to swallow and severe dysphagia. The patient was started on fluconazole and continued with vancomycin her dose of 500 mg by mouth 4 times a day. Patient slowly improved and he had a EGD performed as part of his workup and treatment on 09/14/2018 Findings of his GI workup are as follows: Barium Swallow 09/13 IMPRESSION: 1. Mild esophageal tertiary contractions. 2. The esophagram is otherwise unremarkable. EGD 09/14 Schatzki ring S/p 54 FR Gabbi His diarrhea improved and he was deemed appropriate for discharge on today's date. He will be following up with his doctors as usual and if she is diarrhea persists after his 2 weeks of vancomycin treatment was recommended to follow up with Dr. Abad in the outpatient setting thank you for allowing [facility] care for the patient greater than 35 minutes were spent in the discharge brother the patient counseling coronation of care and arrangements were safe discharge Discharge Information Condition at Discharge: Improved Follow Up: Weeks (1 week with) Disposition/Orders: D/C to Home Scheduled Amlodipine Besylate (Norvasc) 10 Mg Tablet, 10 MG PO DAILY, (Reported) Entered as Reported by: Pamella Murillo on 09/17/132303 Last Action: Continued on 09/09/181508 by MAY FOLEY Aspirin (Aspir 81) 81 Mg Tablet.dr, 81 MG PO DAILY, (Reported) Entered as Reported by: Pamella Murillo on 09/17/132303 Last Action: Continued on 09/09/181508 by MAY FOLEY Cyclobenzaprine Hcl (Cyclobenzaprine Hcl) 10 Mg Tablet, 1 TAB PO QHS, #30 ( Reported) Entered as Reported by: YOLIE LOVELL on 03/15/182203 Last Action: Continued on 09/09/181508 by MAY FOLEY Empagliflozin (Jardiance) 10 Mg Tablet, 10 MG PO DAILY for diabetes , (Reported) Entered as Reported by: DANTE KLINE RN on 09/01/181653 Last Action: Converted on 09/09/181508 by MAY FOLEY Exenatide Microspheres (Bydureon Pen) 2 Mg/0.65 Ml Pen.injctr, 2 MG SQ WEEKLY, ( Reported) Entered as Reported by: YOLIE LOVELL on 03/15/182203 Last Action: Converted on 09/09/181508 by MAY FOLEY Fluticasone Propionate (Flonase) 16 Gm [place].susp, 16 GM NS DAILY, (Reported) Entered as Reported by: Pamella Murillo on 09/17/132303 Last Action: Continued on 09/09/181508 by MAY FOLEY Glimepiride (Glimepiride) 2 Mg Tablet, 2 MG PO BID for Diabetes for 30 Days, # 60 (Reported) Entered as Reported by: DANTE KLINE RN on 09/01/181642 Last Action: Continued on 09/09/181508 by MAY FOLEY Indapamide (Indapamide) 1.25 Mg Tablet, 1 TAB PO DAILY, #30 Ref 5 (Reported) Entered as Reported by: YOLIE LOVELL on 03/15/182203 Last Action: Converted on 09/09/181508 by MAY FOLEY Ipratropium/Albuterol Sulfate (Combivent Respimat Inhal) 4 Gm Aer.w.adap, 2 INH IH BID, (Reported) Entered as Reported by: YOLIE LOVELL on 03/15/182203 Last Action: Converted on 09/09/181508 by MAY FOLEY Metformin Hcl (Metformin Hcl Er) 1,000 Mg Tab.er.24, 500 MG PO DAILY for Diabetes for 30 Days, (Reported) Entered as Reported by: Pamella Murillo on 09/17/132303 Last Action: Converted on 09/09/181508 by MAY FOLEY Multivitamin (Multivitamins) 1 Each Tablet, 1 TAB PO DAILY for supplement for 30 Days, #30 Ref 3 (Reported) Entered as Reported by: DANTE KLINE RN on 09/01/181653 Last Action: Converted on 09/09/181508 by MAY FOLEY Pantoprazole Sodium (Pantoprazole Sodium) 40 Mg Tablet.dr, 40 MG PO DAILY, ( Reported) Entered as Reported by: Pamella Murillo on 09/17/132303 Last Action: Continued on 09/09/181508 by MAY FOLEY Phentermine Hcl (Phentermine Hcl) 37.5 Mg Capsule, 1 CAP PO DAILYWBKFT for weight loss for 30 Days, #30 Ref 2 (Reported) Entered as Reported by: DANTE KLINE RN on 09/01/181653 Last Action: Converted on 09/09/181508 by MAY FOLEY Triamcinolone Acetonide (Triamcinolone Acetonide 0.1% Oint) 15 Gm Oint...g., 1 ALISON TP BID for WOUND CARE, #1 (Reported) MIX WITH EUCERIN DIRECTED BY PHYSICIAN Entered as Reported by: YOLIE LOVELL on 03/15/182203 Last Action: Continued on 09/09/181508 by MAY FOLEY Valsartan (Diovan) 320 Mg Tablet, 320 MG PO DAILY, (Reported) Entered as Reported by: Pamella Murillo on 09/17/132303 Last Action: HELD on 09/09/181508 by MAY FOLEY Vancomycin Hcl (Vancomycin Hcl) 500 Mg Vial, 500 MG PO [id number] for c diff for 8 Days, #32 Prescribed by: LEONOR BEAR MD on 09/15/18 1002 Vancomycin Hcl (Vancocin Hcl) 125 Mg Capsule, 125 MG PO QID for c diff for 14 Days, #56 Prescribed by: LEONOR BEAR MD on 09/15/18 1002 [Fluconazole] 100 MG TABLET, 100 MG PO DAILY for fumgal infectioj MDD 1 for 14 Days, #14 Prescribed by: ALMA SEGURA on 09/07/18 1207 Last Action: HELD on 09/09/181508 by MAY FOLEY Scheduled PRN Albuterol Sulfate (Proair Hfa Inhaler) 8.5 Gm Hfa.aer.ad, 1 PUFF INH PRN Q4HRS PRN for SHORTNESS OF BREATH, Ref 0 (Reported) Entered as Reported by: YOLIE LOVELL on 03/15/182203 Last Action: Continued on 09/09/181508 by MAY FOLEY Hydrocodone Bit/Acetaminophen (Hydrocodone-Apap 7.5-325 ) 1 Each Tablet, 1 TAB PO PRN TID PRN for PAIN, Ref 0 (Reported) Entered as Reported by: YOLIE LOVELL on 03/15/182203 Last Action: Continued on 09/09/181508 by MAY FOLEY Discontinued Medications Vancomycin Hcl (Vancomycin Hcl) 500 Mg Vial, 125 MG PO [id number] for c diff MDD 1 for 14 Days, #12 Prescribed by: ALMA SEGURA on 09/07/18 1207 Last Action: HELD on 09/09/181508 by LEONOR MANCINI MD Sep 15, 2018 11:30
--- NOTE | 2018-09-15 11:46 | NUR ---
Patient discharged home with home health by [facility], set up by courtesy of social work. Patient understands discharge instructions. Patient requested prescriptions to be called in to his [facility], this RN did so with call back number given in case questions arise. IV line discontinued. All belongings with patient. Patient alert and stable upon discharge. Was taken home by .
--- NOTE | 2018-09-15 11:51 | NUR ---
ABIOLA following pt. ABIOLA notified by RN pt is interested in HH. ABIOLA phoned and faxed orders to [facility]. FABIANA LORENZO.
[2018-09-16] MEDS ORDERED: PANTOPRAZOLE 40 MG TABLET.DR. PO SCH (07:30)
[2018-09-16] MEDS ORDERED: NON FORMULARY ITEM (Exenatide Microspheres (Bydureon Pen) 2 MG) SQ SCH (09:00)
== END 2018-09-15 11:52 | disposition home health service (06) | DRG 871 ==
LOC: ER 11:43 → 5 NORTH 13:19
PROVIDERS: ADMIT Internal Medicine; ATTEND Internal Medicine
PROC: 0D758ZZ Dilation of Esophagus, Via Natural or Artificial Opening Endoscopic (ICD-10-PCS; principal; 2018-09-14 14:00)
DX: A41.9 Sepsis, unspecified organism (principal); N17.0 Acute kidney failure with tubular necrosis; A04.71 Enterocolitis due to Clostridium difficile, recurrent; Z68.43 Body mass index [BMI] 50.0-59.9, adult; I50.30 Unspecified diastolic (congestive) heart failure; K22.2 Esophageal obstruction; E66.01 Morbid (severe) obesity due to excess calories; I11.0 Hypertensive heart disease with heart failure; E87.6 Hypokalemia; I48.91 Unspecified atrial fibrillation; K21.9 Gastro-esophageal reflux disease without esophagitis; R32 Unspecified urinary incontinence; G47.33 Obstructive sleep apnea (adult) (pediatric); E11.649 Type 2 diabetes mellitus with hypoglycemia without coma; F41.9 Anxiety disorder, unspecified; M19.90 Unspecified osteoarthritis, unspecified site; J44.9 Chronic obstructive pulmonary disease, unspecified; K76.0 Fatty (change of) liver, not elsewhere classified; Z82.3 Family history of stroke; Z82.49 Family history of ischemic heart disease and other diseases of the circulatory system; Z86.010 Personal history of colon polyps; Z90.49 Acquired absence of other specified parts of digestive tract; Z83.3 Family history of diabetes mellitus; Z86.718 Personal history of other venous thrombosis and embolism; Z84.1 Family history of disorders of kidney and ureter
CPT/HCPCS: 36415; 43450; 71045; 74018; 74220; 80048; 80053; 81001; 82962; 83605; 83690; 83735; 84484; 85025; 85610; 93005; 94640; 94760; 96374; 96375; J0780; J1650; J1815; J1885; J2405; J2704; J3490; J7030; J7042; J7613; J7620; 99285-25

== ENCOUNTER 2018-09-20 11:49 | Inpatient (IN) | payer OTHER ==
[~2018-09-20] VITALS: Ht 160 cm; Wt 137.9 kg
[~2018-09-20 11:49] MED LIST changes: +VANC125C10 PO
[2018-09-20] MEDS ORDERED: IV NORMAL SALINE 1000ML BAG 1,000 ML IV SCH (12:01)
[2018-09-20] MEDS ORDERED: IOHEXOL 350 MG/ML 100 ML VIAL. IV ONE ×2 (12:15→13:00)
--- NOTE | 2018-09-20 12:15 | PHYS DOC ---
Past Medical History Past Medical History: A-Fib, Anxiety, Asthma, COPD, Diabetes-Type II, DVT, GERD , Hypertension, Other Additional Past Medical Histor: SLEEP APNEA, OBESITY Past Surgical History: Cholecystectomy, Tonsillectomy Alcohol Use: None Drug Use: None Adult General HPI HPI Patient is a 58-year-old male who presents to the emergency department for evaluation. He states he went to see his doctor today, and follow up from her recent hospital stay, and he became disoriented and confused on his way home. He wound up in a strange town and was uncertain of his name or where he was. He seems to be back to baseline at this time. He denies any pain. He is noted to be tachycardic. He is wearing a heart monitor for possibility of a "irregular heartbeat". He denies any numbness or focal weakness at this time, dizziness or lightheadedness. He does report some ongoing abdominal discomfort related to recent diagnosis of Clostridium difficile and reports continuing diarrhea. He has not had any bloody stools. There are no alleviating or exacerbating factors to his symptoms otherwise. Review of Systems Review of Systems Constitutional: Denies fever or chills [] Eyes: Denies change in visual acuity, redness, or eye pain [] HENT: Denies nasal congestion or sore throat [] Respiratory: Denies cough or shortness of breath [] Cardiovascular: The patient denies any shortness of breath, chest pain, palpitations, or orthopnea [] GI: Denies nausea, vomiting, bloody stools [] : Denies dysuria or hematuria [] Musculoskeletal: Denies back pain or joint pain [] Integument: Denies rash or skin lesions [] Neurologic: Denies headache, focal weakness or sensory changes [] Endocrine: Denies polyuria or polydipsia [] All other systems were reviewed and found to be within normal limits, except as documented in this note. Current Medications Current Medications Current Medications Medications (Trade) Dose Ordered Sig/Yumi Start Time Stop Time Status Last Admin Dose Admin Aspirin (Children'S Aspirin) 324 mg 1X ONCE 09/20/18 14:00 09/20/18 14:01 DC 09/20/18 14:06 324 MG Info (CONTRAST GIVEN -- Rx MONITORING) 1 each PRN DAILY PRN 09/20/18 13:00 09/22/18 12:59 Iohexol (Omnipaque 350 Mg/ml) 100 ml 1X ONCE 09/20/18 13:00 09/20/18 13:01 DC 09/20/18 12:50 100 ML Potassium Chloride (Klor-Con) 40 meq 1X ONCE 09/20/18 14:00 09/20/18 14:01 DC 09/20/18 14:07 40 MEQ Sodium Chloride 1,000 ml @ 1,000 mls/hr 1X ONCE 09/20/18 14:00 09/20/18 14:59 Allergies Allergies Allergies Coded Allergies Type Severity Reaction Last Updated Verified No Known Drug Allergies 09/14/18 No Physical Exam Physical Exam PHYSICAL EXAM: CONSTITUTIONAL: Well developed, well nourished HEAD: normocephalic, atraumatic EENT: PERRL, EOMI. Conjunctivae normal color, sclerae non-icteric; moist mucous membranes. NECK: Supple, non-tender; no meningismus. LUNGS: Lungs CTA, breathing even and unlabored. Normal air movement. HEART: Regular tachycardia, no murmur CHEST: No deformity; non-tender ABDOMEN: The abdomen is soft, mildly diffusely tender without focal tenderness, rebound or guarding, no masses or bruits. EXTREM: Normal ROM; no deformity, no calf tenderness. Normal pulses palpable in all extremities. There is mild pedal edema. SKIN: No rash; no diaphoresis NEURO: Alert; normal speech and cognition; CN's grossly intact; strength grossly intact without focal deficit. BACK: No CVA TTP. Current Patient Data Vital Signs Vital Signs Date Time Temp Pulse Resp B/P (MAP) Pulse Ox O2 Delivery O2 Flow Rate FiO2 09/20/18 13:41 110 19 99 09/20/18 12:00 98.2 159/102 (121) Room Air 98.2 Lab Values Laboratory Tests Test 09/20/18 12:15 White Blood Count 9.1 x10^3/uL (4.0-11.0) Red Blood Count 4.66 x10^6/uL (4.30-5.70) Hemoglobin 13.6 g/dL (13.0-17.5) Hematocrit 41.7 % (39.0-53.0) Mean Corpuscular Volume 90 fL (79-100) Mean Corpuscular Hemoglobin 29 pg (25-35) Mean Corpuscular Hemoglobin Concent 33 g/dL (31-37) Red Cell Distribution Width 16.4 % (11.5-14.5) H Platelet Count 247 x10^3/uL (140-400) Neutrophils (%) (Auto) 68 % (31-73) Lymphocytes (%) (Auto) 22 % (24-48) L Monocytes (%) (Auto) 8 % (0-9) Eosinophils (%) (Auto) 1 % (0-3) Basophils (%) (Auto) 1 % (0-3) Neutrophils # (Auto) 6.1 x10^3uL (1.8-7.7) Lymphocytes # (Auto) 2.0 x10^3/uL (1.0-4.8) Monocytes # (Auto) 0.8 x10^3/uL (0.0-1.1) Eosinophils # (Auto) 0.1 x10^3/uL (0.0-0.7) Basophils # (Auto) 0.1 x10^3/uL (0.0-0.2) Prothrombin Time 12.8 SEC (11.7-14.0) Prothrombin Time INR 1.0 (0.8-1.1) Sodium Level 138 mmol/L (136-145) Potassium Level 3.0 mmol/L (3.5-5.1) L Chloride Level 98 mmol/L (98-107) Carbon Dioxide Level 24 mmol/L (21-32) Anion Gap 16 (6-14) H Blood Urea Nitrogen 28 mg/dL (8-26) H Creatinine 1.6 mg/dL (0.7-1.3) H Estimated GFR (Cockcroft-Gault) 54.2 BUN/Creatinine Ratio 18 (6-20) Glucose Level 180 mg/dL (70-99) H Lactic Acid Level 3.2 mmol/L (0.4-2.0) H Calcium Level 9.3 mg/dL (8.5-10.1) Magnesium Level 1.5 mg/dL (1.8-2.4) L Total Bilirubin 0.5 mg/dL (0.2-1.0) Aspartate Amino Transferase (AST) 26 U/L (15-37) Alanine Aminotransferase (ALT) 81 U/L (16-63) H Alkaline Phosphatase 74 U/L (46-116) Creatine Kinase 85 U/L (39-308) Creatine Kinase MB (Mass) 1.2 ng/mL (0.0-3.6) Creatine Kinase MB Relative Index 1.4 % (0-4) Troponin I Quantitative < 0.017 ng/mL (0.000-0.055) FS-Utj-G-Type Natriuretic Peptide 98 pg/mL (0-124) Total Protein 7.1 g/dL (6.4-8.2) Albumin 3.4 g/dL (3.4-5.0) Albumin/Globulin Ratio 0.9 (1.0-1.7) L Thyroid Stimulating Hormone (TSH) 1.769 uIU/mL (0.358-3.74) Laboratory Tests 09/20/18 12:15 Laboratory Tests 09/20/18 12:15 EKG EKG [Sinus tachycardia at a rate of 120 beats for minute, left axis deviation, normal intervals, occasional PVCs, without acute ischemic ST/T changes.] Radiology/Procedures Radiology/Procedures [PROCEDURE: PORTABLE CHEST 1V PORTABLE CHEST 1V Clinical Indication: ams Comparison: AP chest, 09/09/2018. Findings: The cardiomediastinal silhouette is normal. Lungs are clear. There is no pneumothorax. No pleural effusion is appreciated. No acute bone abnormality. Degenerative endplate spurring of the thoracic spine. IMPRESSION: No acute cardiopulmonary process] PROCEDURE: CT HEAD WO CONTRAST PQRS Compliance Statement: One or more of the following individualized dose reduction techniques were utilized for this examination: 1. Automated exposure control 2. Adjustment of the mA and/or kV according to patient size 3. Use of iterative reconstruction technique CT HEAD WITHOUT CONTRAST History: TIA SYMPTOMS Comparison: None. Procedure: Axial images are obtained of the head from the skull base through the vertex without IV contrast. Findings: The ventricles and sulci are normal for the patient's age. No mass-effect, midline shift, hemorrhage, extra-axial fluid collection, or obvious acute infarction is identified. Basilar cisterns are patent. Bone windows demonstrate no acute calvarial abnormality. The visualized paranasal sinuses are clear. Mastoid air cells are well aerated. IMPRESSION: No acute intracranial abnormality. PROCEDURE: CT ANGIOGRAPHY HEAD AND NECK PQRS Compliance Statement: One or more of the following individualized dose reduction techniques were utilized for this examination: 1. Automated exposure control 2. Adjustment of the mA and/or kV according to patient size 3. Use of iterative reconstruction technique CTA HEAD/NECK Clinical Indication: TIA SYMPTOMS Comparison: CT head without contrast, same day. Technique: Helical CT imaging from inferior to the aortic arch to the skull vertex is performed after 100 cc of Omnipaque [address] angiogram protocol. 3-D MIP reconstructions of the cervical carotid arteries and [place] are performed. PQRS Compliance Statement - Stenosis calculations for CT, MR and conventional angiography are based upon measurement of the distal ICA diameter in accordance with the NASCET methodology. Stenosis calculations for carotid ultrasound studies are derived from validated velocity criteria which are known to correlate with the NASCET methodology. Findings: Image quality is moderately degraded due to to venous contamination and beam hardening artifact. Aortic arch branches are patent. There is no high-grade narrowing of the common carotid arteries. Small calcification at the origin of the left external carotid artery. Internal card arteries are patent. No obvious abnormality the origins of the vertebral arteries. Proximal left vertebral artery cannot be evaluated due to venous contamination. Otherwise the vertebral arteries are patent. No dissection is identified. Basilar artery is patent. There are small caliber P1 segments. There is persistent origin of the bilateral posterior cerebral arteries. There is about 50% narrowing in the distal right cavernous internal carotid artery due to atherosclerotic calcification, image 220. Anterior cerebral arteries are patent. Middle cerebral artery branches are patent. No focal stenosis or abrupt truncation of intracranial arteries or aneurysm is identified. No abnormal enhancement in the brain parenchyma is identified. There is no cervical adenopathy. There is a 1.5 cm right thyroid nodule. Please refer to recent thyroid ultrasound for additional details. Upper lungs are clear. Straightening of normal cervical lordosis. IMPRESSION: 1. No significant narrowing of cervical carotid arteries. 2. About 50% narrowing in the distal right cavernous internal carotid artery due to atherosclerotic calcification. 3. No large branch intracranial occlusion. 4. Persistent origin of the bilateral inspector and mender. Course & Med Decision Making Course & Med Decision Making Pertinent Labs and Imaging studies reviewed. (See chart for details) [2:20 PM: The patient's condition remained stable. I do not concern for either a TIA or TGA episode. The case was discussed with the hospitalist who will admit the patient for further evaluation.] Dragon Disclaimer Dragon Disclaimer This electronic medical record was generated, in whole or in part, using a voice recognition dictation system. Departure Departure Impression: Primary Impression: Altered mental status Additional Impression: Acute renal insufficiency Disposition: 09 ADMITTED INPATIENT Admitting Physician: Alka Mcfarlane Condition: STABLE Referrals: NETTIE BROWNING MD (PCP) Problem Qualifiers MATT HENDERSON MD Sep 20, 2018 12:15
[2018-09-20 12:32] LABS: BASO # 0.1 x10^3/uL (0.0-0.2); BASO % 1 % (0-3); EOS # 0.1 x10^3/uL (0.0-0.7); EOS % 1 % (0-3); HEMATOCRIT 41.7 % (39.0-53.0); HEMOGLOBIN 13.6 g/dL (13.0-17.5); LYMPH % 22 % (24-48); MEAN CORPUSCULAR HEMOGLOBIN 29 pg (25-35); MEAN CORPUSCULAR HGB CONC 33 g/dL (31-37); MEAN CORPUSCULAR VOLUME 90 fL (79-100); MONO # 0.8 x10^3/uL (0.0-1.1); MONO % 8 % (0-9); NEUT # 6.1 x10^3uL (1.8-7.7); NEUT % 68 % (31-73); PLATELET COUNT 247 x10^3/uL (140-400); RED BLOOD COUNT 4.66 x10^6/uL (4.30-5.70); RED CELL DISTRIBUTION WIDTH 16.4 % (11.5-14.5); WHITE BLOOD COUNT 9.1 x10^3/uL (4.0-11.0)
[2018-09-20 12:43] LABS: PROTHROMBIN TIME PATIENT 12.8 SEC (11.7-14.0)
--- NOTE | 2018-09-20 12:47 | EKG ---
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
[2018-09-20 12:56] LABS: CALCIUM 9.3 mg/dL (8.5-10.1); CREATININE 1.6 mg/dL (0.7-1.3); GFR 54.2
[2018-09-20] MEDS ORDERED: CONTRAST GIVEN. MC PRN (13:00)
[2018-09-20 13:02] LABS: ALBUMIN 3.4 g/dL (3.4-5.0); ALBUMIN/GLOBULIN RATIO 0.9 (1.0-1.7); MAGNESIUM 1.5 mg/dL (1.8-2.4); TOTAL BILIRUBIN 0.5 mg/dL (0.2-1.0); TOTAL PROTEIN 7.1 g/dL (6.4-8.2)
--- NOTE | 2018-09-20 13:07 | RAD ---
PORTABLE CHEST 1V Clinical Indication: ams Comparison: AP chest, 09/09/2018. Findings: The cardiomediastinal silhouette is normal. Lungs are clear. There is no pneumothorax. No pleural effusion is appreciated. No acute bone abnormality. Degenerative endplate spurring of the thoracic spine. IMPRESSION: No acute cardiopulmonary process. Electronically signed by: Arnaldo Torres MD (09/20/2018 1:04 PM) [id number]
--- NOTE | 2018-09-20 13:29 | RAD ---
PQRS Compliance Statement: One or more of the following individualized dose reduction techniques were utilized for this examination: 1. Automated exposure control 2. Adjustment of the mA and/or kV according to patient size 3. Use of iterative reconstruction technique CT HEAD WITHOUT CONTRAST History: TIA SYMPTOMS Comparison: None. Procedure: Axial images are obtained of the head from the skull base through the vertex without IV contrast. Findings: The ventricles and sulci are normal for the patient's age. No mass-effect, midline shift, hemorrhage, extra-axial fluid collection, or obvious acute infarction is identified. Basilar cisterns are patent. Bone windows demonstrate no acute calvarial abnormality. The visualized paranasal sinuses are clear. Mastoid air cells are well aerated. IMPRESSION: No acute intracranial abnormality. Electronically signed by: Arnaldo Torres MD (09/20/2018 1:26 PM) [id number]
--- NOTE | 2018-09-20 13:40 | RAD ---
PQRS Compliance Statement: One or more of the following individualized dose reduction techniques were utilized for this examination: 1. Automated exposure control 2. Adjustment of the mA and/or kV according to patient size 3. Use of iterative reconstruction technique CTA HEAD/NECK Clinical Indication: TIA SYMPTOMS Comparison: CT head without contrast, same day. Technique: Helical CT imaging from inferior to the aortic arch to the skull vertex is performed after 100 cc of Omnipaque [address] angiogram protocol. 3-D MIP reconstructions of the cervical carotid arteries and [place] are performed. PQRS Compliance Statement - Stenosis calculations for CT, MR and conventional angiography are based upon measurement of the distal ICA diameter in accordance with the NASCET methodology. Stenosis calculations for carotid ultrasound studies are derived from validated velocity criteria which are known to correlate with the NASCET methodology. Findings: Image quality is moderately degraded due to to venous contamination and beam hardening artifact. Aortic arch branches are patent. There is no high-grade narrowing of the common carotid arteries. Small calcification at the origin of the left external carotid artery. Internal card arteries are patent. No obvious abnormality the origins of the vertebral arteries. Proximal left vertebral artery cannot be evaluated due to venous contamination. Otherwise the vertebral arteries are patent. No dissection is identified. Basilar artery is patent. There are small caliber P1 segments. There is persistent origin of the bilateral posterior cerebral arteries. There is about 50% narrowing in the distal right cavernous internal carotid artery due to atherosclerotic calcification, image 220. Anterior cerebral arteries are patent. Middle cerebral artery branches are patent. No focal stenosis or abrupt truncation of intracranial arteries or aneurysm is identified. No abnormal enhancement in the brain parenchyma is identified. There is no cervical adenopathy. There is a 1.5 cm right thyroid nodule. Please refer to recent thyroid ultrasound for additional details. Upper lungs are clear. Straightening of normal cervical lordosis. IMPRESSION: 1. No significant narrowing of cervical carotid arteries. 2. About 50% narrowing in the distal right cavernous internal carotid artery due to atherosclerotic calcification. 3. No large branch intracranial occlusion. 4. Persistent origin of the bilateral fleet manager. Electronically signed by: Arnaldo Torres MD (09/20/2018 1:37 PM) [id number]
[2018-09-20] MEDS ORDERED: ASPIRIN CHEWABLE 81 MG TABLET. PO ONE (14:00)
[2018-09-20] MEDS ORDERED: POTASSIUM CHLORIDE 20 MEQ TABLET.ER. PO ONE (14:00)
[2018-09-20] MEDS ORDERED: IV NORMAL SALINE 1000ML BAG 1,000 ML IV ONE (14:00)
[2018-09-20] MEDS ORDERED: HYDROcodone/APAP 7.5/325MG 1 TAB TABLET PO PRN (14:30)
[2018-09-20] MEDS ORDERED: MAGNESIUM SULFATE 2GM 50 ML IV ONE (14:30)
--- NOTE | 2018-09-20 14:36 | PDOC1 ---
History and Physical Date of Admission Date of Admission DATE: 09/20/18 TIME: 14:31 Identification/Chief Complaint Chief Complaint confusiion Source Source: Chart review, Patient History of Present Illness History of Present Illness Mr. Rivera is a 58-year-old male admti for confusion, found by police disoriented and confused on his way home. He was unsure of where he was. Family is here to help with history, they are concerned about possible fluid around his heart. He has been treated for c. diff recently, but has ongoing diarrhea, 3x daily he is wearing a cafeteria monitor for recent arrhymia or symptoms related to such. has afib, ER eval concernd about TIA or CVA risk, aspirin given, . He has not had any bloody stools. There are no alleviating or exacerbating factors to his symptoms otherwise. Past Medical History Cardiovascular: AFIB, HTN Pulmonary: COPD, Other GI: GERD Heme/Onc: Other Musculoskeletal: Osteoarthritis Infectious disease: No pertinent hx Renal/: No pertinent hx Endocrine: Diabetes Past Surgical History Past Surgical History: Cholecystectomy, Tonsillectomy, Other Family History Family History: Heart Disease, Hypertension Social History Smoke: No ALCOHOL: none Drugs: None Current Problem List Problem List Problems Medical Problems: (1) Acute renal insufficiency Status: Acute (2) Altered mental status Status: Acute Current Medications Current Medications Current Medications Sodium Chloride 1,000 ml @ 1,000 mls/hr Q1H IV Last administered on 09/20/18at 12:01; Start 09/20/18 at 12:01; Stop 09/20/18 at 13:00; Status DC Iohexol (Omnipaque 350 Mg/ml) 75 ml 1X ONCE IV ; Start 09/20/18 at 12:15; Stop 09/20/18 at 12:16; Status DC Iohexol (Omnipaque 350 Mg/ml) 100 ml 1X ONCE IV Last administered on at 12:50; Start 09/20/18 at 13:00; Stop 09/20/18 at 13:01; Status DC Info (CONTRAST GIVEN -- Rx MONITORING) 1 each PRN DAILY PRN MC SEE COMMENTS; Start 09/20/18 at 13:00; Stop 09/22/18 at 12:59 Sodium Chloride 1,000 ml @ 1,000 mls/hr 1X ONCE IV ; Start 09/20/18 at 14:00; Stop 09/20/18 at 14:59 Potassium Chloride (Klor-Con) 40 meq 1X ONCE PO Last administered on at 14:07; Start 09/20/18 at 14:00; Stop 09/20/18 at 14:01; Status DC Aspirin (Children'S Aspirin) 324 mg 1X ONCE PO Last administered on 09/20/18at 14:06; Start 09/20/18 at 14:00; Stop 09/20/18 at 14:01; Status DC Active Scripts Active Vancocin Hcl (Vancomycin Hcl) 125 Mg Capsule 125 Mg PO QID 14 Days Vancomycin Hcl 500 Mg Vial 500 Mg PO [id number] 8 Days [Fluconazole] 100 MG Tablet 100 Mg PO DAILY MDD 1 14 Days Reported Jardiance (Empagliflozin) 10 Mg Tablet 10 Mg PO DAILY Phentermine Hcl 37.5 Mg Capsule 1 Cap PO [id number] 30 Days Multivitamins (Multivitamin) 1 Each Tablet 1 Tab PO DAILY 30 Days Glimepiride 2 Mg Tablet 2 Mg PO BID 30 Days Proair Hfa Inhaler (Albuterol Sulfate) 8.5 Gm Hfa.aer.ad 1 Puff INH PRN Q4HRS PRN Hydrocodone-Apap 7.5-325 (Hydrocodone Bit/Acetaminophen) 1 Each Tablet 1 Tab PO PRN TID PRN Combivent Respimat Inhal (Ipratropium/Albuterol Sulfate) 4 Gm Aer.w.adap 2 Inh IH BID Triamcinolone Acetonide 0.1% Oint (Triamcinolone Acetonide) 15 Gm Oint...g. 1 Heriberto TP BID MIX WITH EUCERIN DIRECTED BY PHYSICIAN Manny Pen (Exenatide Microspheres) 2 Mg/0.65 Ml Pen.injctr 2 Mg SQ WEEKLY Indapamide 1.25 Mg Tablet 1 Tab PO DAILY Cyclobenzaprine Hcl 10 Mg Tablet 1 Tab PO QHS Aspir 81 (Aspirin) 81 Mg Tablet.dr 81 Mg PO DAILY Pantoprazole Sodium 40 Mg Tablet.dr 40 Mg PO DAILY Flonase (Fluticasone Propionate) 16 Gm Carter.susp 16 Gm NS DAILY Diovan (Valsartan) 320 Mg Tablet 320 Mg PO DAILY Norvasc (Amlodipine Besylate) 10 Mg Tablet 10 Mg PO DAILY Metformin Hcl Er (Metformin Hcl) 1,000 Mg Tab.er.24 500 Mg PO DAILY 30 Days Allergies Allergies: Coded Allergies: No Known Drug Allergies (Unverified , 09/14/18) ROS General: YES: Fatigue, Malaise; No: Chills, Night Sweats, Appetite, Other PSYCHOLOGICAL ROS: YES: Concentration difficultie, Memory difficulties, Sleep disturbances; No: Anxiety, Behavioral Disorder, Decreased libido, Depression, Disorientation, Hallucinations, Hostility, Irritablity, Mood Swings, Obsessive thoughts Eyes: No Blurry vision, No Decreased vision, No Double vision, No Dry eyes, No Excessive tearing, No Eye Pain, No Itchy Eyes, No Loss of vision, No Photophobia , No Scotomata, No Uses contacts, No Uses glasses, No Other HEENT: YES: Heacaches; No: Visual Changes, Hearing change, Nasal congestion, Nasal discharge, Oral lesions, Sinus pain, Sore Throat, Epistaxis, Sneezing, Other Respiratory: No: Cough, Hemoptysis, Orthopnea, Pleuritic Pain, Shortness of breath, SOB with excertion, Sputum Changes, Stridor, Tachypnea, Wheezing, Other Gastrointestinal: Yes Nausea, Yes Abdominal Pain, Yes Diarrhea Genitourinary: No Dysuria, No Frequency, No Incontinence, No Hematuria, No Retention, No Discharge, No Urgency, No Pain, No Flank Pain, No Other, No , No , No , No , No , No , No Musculoskeletal: Yes Joint Pain, Yes Joint Stiffness Neurological: Yes Confusion, Yes Dizziness, Yes Gait Disturbance, Yes Weakness ; No Behavorial Changes, No Bowel/Bladder ControlChng, No Headaches, No Impaired Coord/balance, No Memory Loss, No Numbness/Tingling, No Seizures, No Other Skin: Yes Dry Skin Physical Exam General: Alert, Cooperative, moderate distress, severe distress, Other (not oriented 2/4) Abdomen: Soft (obese, mild tender, midline, normal sounds) Rectal Exam: not examined Extremities: No cyanosis, Other (1+ LE edema) Skin: No rashes Neuro: Sensation intact Psych/Mental Status: Other (distress, confused) Vitals Vitals Vital Signs Date Time Temp Pulse Resp B/P (MAP) Pulse Ox O2 Delivery O2 Flow Rate FiO2 09/20/18 13:41 110 19 99 09/20/18 12:00 98.2 159/102 (121) Room Air 98.2 Labs Labs Laboratory Tests Test 09/20/18 12:15 White Blood Count 9.1 x10^3/uL (4.0-11.0) Red Blood Count 4.66 x10^6/uL (4.30-5.70) Hemoglobin 13.6 g/dL (13.0-17.5) Hematocrit 41.7 % (39.0-53.0) Mean Corpuscular Volume 90 fL (79-100) Mean Corpuscular Hemoglobin 29 pg (25-35) Mean Corpuscular Hemoglobin Concent 33 g/dL (31-37) Red Cell Distribution Width 16.4 % (11.5-14.5) Platelet Count 247 x10^3/uL (140-400) Neutrophils (%) (Auto) 68 % (31-73) Lymphocytes (%) (Auto) 22 % (24-48) Monocytes (%) (Auto) 8 % (0-9) Eosinophils (%) (Auto) 1 % (0-3) Basophils (%) (Auto) 1 % (0-3) Neutrophils # (Auto) 6.1 x10^3uL (1.8-7.7) Lymphocytes # (Auto) 2.0 x10^3/uL (1.0-4.8) Monocytes # (Auto) 0.8 x10^3/uL (0.0-1.1) Eosinophils # (Auto) 0.1 x10^3/uL (0.0-0.7) Basophils # (Auto) 0.1 x10^3/uL (0.0-0.2) Prothrombin Time 12.8 SEC (11.7-14.0) Prothromb Time International Ratio 1.0 (0.8-1.1) Sodium Level 138 mmol/L (136-145) Potassium Level 3.0 mmol/L (3.5-5.1) Chloride Level 98 mmol/L (98-107) Carbon Dioxide Level 24 mmol/L (21-32) Anion Gap 16 (6-14) Blood Urea Nitrogen 28 mg/dL (8-26) Creatinine 1.6 mg/dL (0.7-1.3) Estimated GFR (Cockcroft-Gault) 54.2 BUN/Creatinine Ratio 18 (6-20) Glucose Level 180 mg/dL (70-99) Lactic Acid Level 3.2 mmol/L (0.4-2.0) Calcium Level 9.3 mg/dL (8.5-10.1) Magnesium Level 1.5 mg/dL (1.8-2.4) Total Bilirubin 0.5 mg/dL (0.2-1.0) Aspartate Amino Transf (AST/SGOT) 26 U/L (15-37) Alanine Aminotransferase (ALT/SGPT) 81 U/L (16-63) Alkaline Phosphatase 74 U/L (46-116) Creatine Kinase 85 U/L (39-308) Creatine Kinase MB (Mass) 1.2 ng/mL (0.0-3.6) Creatine Kinase MB Relative Index 1.4 % (0-4) Troponin I Quantitative < 0.017 ng/mL (0.000-0.055) KN-[id number]-[id number]-Type Natriuretic Peptide 98 pg/mL (0-124) Total Protein 7.1 g/dL (6.4-8.2) Albumin 3.4 g/dL (3.4-5.0) Albumin/Globulin Ratio 0.9 (1.0-1.7) Thyroid Stimulating Hormone (TSH) 1.769 uIU/mL (0.358-3.74) Laboratory Tests Test 09/20/18 12:15 White Blood Count 9.1 x10^3/uL (4.0-11.0) Red Blood Count 4.66 x10^6/uL (4.30-5.70) Hemoglobin 13.6 g/dL (13.0-17.5) Hematocrit 41.7 % (39.0-53.0) Mean Corpuscular Volume 90 fL (79-100) Mean Corpuscular Hemoglobin 29 pg (25-35) Mean Corpuscular Hemoglobin Concent 33 g/dL (31-37) Red Cell Distribution Width 16.4 % (11.5-14.5) Platelet Count 247 x10^3/uL (140-400) Neutrophils (%) (Auto) 68 % (31-73) Lymphocytes (%) (Auto) 22 % (24-48) Monocytes (%) (Auto) 8 % (0-9) Eosinophils (%) (Auto) 1 % (0-3) Basophils (%) (Auto) 1 % (0-3) Neutrophils # (Auto) 6.1 x10^3uL (1.8-7.7) Lymphocytes # (Auto) 2.0 x10^3/uL (1.0-4.8) Monocytes # (Auto) 0.8 x10^3/uL (0.0-1.1) Eosinophils # (Auto) 0.1 x10^3/uL (0.0-0.7) Basophils # (Auto) 0.1 x10^3/uL (0.0-0.2) Prothrombin Time 12.8 SEC (11.7-14.0) Prothromb Time International Ratio 1.0 (0.8-1.1) Sodium Level 138 mmol/L (136-145) Potassium Level 3.0 mmol/L (3.5-5.1) Chloride Level 98 mmol/L (98-107) Carbon Dioxide Level 24 mmol/L (21-32) Anion Gap 16 (6-14) Blood Urea Nitrogen 28 mg/dL (8-26) Creatinine 1.6 mg/dL (0.7-1.3) Estimated GFR (Cockcroft-Gault) 54.2 BUN/Creatinine Ratio 18 (6-20) Glucose Level 180 mg/dL (70-99) Lactic Acid Level 3.2 mmol/L (0.4-2.0) Calcium Level 9.3 mg/dL (8.5-10.1) Magnesium Level 1.5 mg/dL (1.8-2.4) Total Bilirubin 0.5 mg/dL (0.2-1.0) Aspartate Amino Transf (AST/SGOT) 26 U/L (15-37) Alanine Aminotransferase (ALT/SGPT) 81 U/L (16-63) Alkaline Phosphatase 74 U/L (46-116) Creatine Kinase 85 U/L (39-308) Creatine Kinase MB (Mass) 1.2 ng/mL (0.0-3.6) Creatine Kinase MB Relative Index 1.4 % (0-4) Troponin I Quantitative < 0.017 ng/mL (0.000-0.055) AV-Ffc-P-Type Natriuretic Peptide 98 pg/mL (0-124) Total Protein 7.1 g/dL (6.4-8.2) Albumin 3.4 g/dL (3.4-5.0) Albumin/Globulin Ratio 0.9 (1.0-1.7) Thyroid Stimulating Hormone (TSH) 1.769 uIU/mL (0.358-3.74) VTE Prophylaxis Ordered VTE Prophylaxis Devices: Yes VTE Pharmacological Prophylaxi: Yes Assessment/Plan Assessment/Plan acute metabolic encephalopathy sepsis c. diff colitis morbid obesity, BMI 54 htn, CHF, CAD, chronic combined chf admit from [facility] MD Sep 20, 2018 14:36
[2018-09-20] MEDS: GLIMEPIRIDE 2 MG TABLET. PO SCH (17:01)
[2018-09-20] MEDS: PANTOPRAZOLE 40 MG TABLET.DR. PO SCH (17:01)
[2018-09-20] MEDS: VANCOMYCIN 125 MG/2.5 ML ORAL SOLUTION. PO SCH ×2 (17:01→20:33)
[2018-09-20 17:06] VITALS: BP 107/66
[2018-09-20 19:00] VITALS: BP 96/75
[2018-09-20] MEDS: IPRATRPIUM/ALBUTEROL 0.5/2.5MG 3 ML NEBU. NEB SCH (19:27)
[2018-09-20] MEDS ORDERED: CYCLOBENZAPRINE 10 MG TABLET. PO SCH (21:00)
[2018-09-20] MEDS ORDERED: NON FORMULARY ITEM (Ipratropium/Albuterol Sulfate (Combivent Respimat Inhal) 2 INH) IH SCH (21:00)
[2018-09-20] MEDS: TRIAMCINOLONE ACETONIDE 0.1% TOPICAL OINTMENT 15GM TUBE. TP SCH (22:53)
[2018-09-20 23:00] VITALS: BP 97/70
[2018-09-21 03:00] VITALS: BP 125/79
[2018-09-21 07:00] VITALS: BP 111/79
[2018-09-21 07:00] LABS: BASO # 0.1 x10^3/uL (0.0-0.2); BASO % 1 % (0-3); EOS # 0.2 x10^3/uL (0.0-0.7); EOS % 2 % (0-3); HEMATOCRIT 39.2 % (39.0-53.0); LYMPH # 2.7 x10^3/uL (1.0-4.8); LYMPH % 31 % (24-48); MEAN CORPUSCULAR HEMOGLOBIN 30 pg (25-35); MEAN CORPUSCULAR HGB CONC 33 g/dL (31-37); MEAN CORPUSCULAR VOLUME 89 fL (79-100); MONO # 0.9 x10^3/uL (0.0-1.1); MONO % 10 % (0-9); NEUT # 4.9 x10^3uL (1.8-7.7); NEUT % 56 % (31-73); PLATELET COUNT 217 x10^3/uL (140-400); RED BLOOD COUNT 4.38 x10^6/uL (4.30-5.70); RED CELL DISTRIBUTION WIDTH 16.9 % (11.5-14.5); WHITE BLOOD COUNT 8.7 x10^3/uL (4.0-11.0)
[2018-09-21 07:41] LABS: ALBUMIN/GLOBULIN RATIO 0.8 (1.0-1.7); CALCIUM 9.2 mg/dL (8.5-10.1); CREATININE 1.1 mg/dL (0.7-1.3); GFR 83.5; POTASSIUM 3.6 mmol/L (3.5-5.1); TOTAL BILIRUBIN 0.3 mg/dL (0.2-1.0); TOTAL PROTEIN 6.8 g/dL (6.4-8.2)
[2018-09-21] MEDS: IPRATRPIUM/ALBUTEROL 0.5/2.5MG 3 ML NEBU. NEB SCH (07:46)
[2018-09-21] MEDS ORDERED: NON FORMULARY ITEM (Phentermine Hcl 1 CAP) PO SCH (08:00)
[2018-09-21] MEDS: GLIMEPIRIDE 2 MG TABLET. PO SCH (08:43)
[2018-09-21] MEDS: VANCOMYCIN 125 MG/2.5 ML ORAL SOLUTION. PO SCH (08:43)
[2018-09-21] MEDS: PANTOPRAZOLE 40 MG TABLET.DR. PO SCH (08:45)
[2018-09-21] MEDS: TRIAMCINOLONE ACETONIDE 0.1% TOPICAL OINTMENT 15GM TUBE. TP SCH (08:59)
[2018-09-21] MEDS ORDERED: POTASSIUM CHLORIDE 20 MEQ TABLET.ER. PO SCH (09:00)
[2018-09-21] MEDS ORDERED: MULTIVITAMIN with MINERAL TABLET. PO SCH (09:00)
[2018-09-21] MEDS ORDERED: amLODIPine BESYLATE 10 MG TABLET PO SCH (09:00)
[2018-09-21] MEDS ORDERED: INDAPAMIDE 2.5 MG TABLET PO SCH (09:00)
[2018-09-21] MEDS ORDERED: LOSARTAN POTASSIUM 50 MG TABLET. PO SCH (09:00)
[2018-09-21] MEDS ORDERED: NON FORMULARY ITEM (Empagliflozin (Jardiance) 10 MG) PO SCH (09:00)
[2018-09-21] MEDS ORDERED: ASPIRIN ENTERIC COATED 81 MG TABLET.DR. PO SCH (09:00)
[2018-09-21] MEDS ORDERED: ONDANSETRON ODT 4 MG TAB.RAPDIS. PO PRN (09:15)
[2018-09-21] MEDS ORDERED: ONDANSETRON PF 4 MG/2 ML VIAL. IV PRN (09:15)
[2018-09-21] MEDS ORDERED: DEXTROSE 50% 25 GM / 50ML DISP.SYRIN. IV PRN (09:15)
[2018-09-21] MEDS ORDERED: ACETAMINOPHEN 500 MG TABLET PO PRN (09:15)
--- NOTE | 2018-09-21 10:54 | PDOC ---
Infectious Disease Note Subjective Subjective pt is known to us. Returned with change in MS, drove to different town , could not remember to go home some lose stool still, still on po vanco ROS ROS no n/v//fever Vital Sign Vital Signs Vital Signs Date Time Temp Pulse Resp B/P (MAP) Pulse Ox O2 Delivery O2 Flow Rate FiO2 09/21/18 08:45 97 111/79 09/21/18 08:00 Room Air 09/21/18 07:47 100 09/21/18 07:00 97.8 18 97.8 Physical Exam PHYSICAL EXAM GENERAL: The patient is sitting in bed, alert, in no apparent distress. HEENT: Pupils equally round. Normal conjunctivae. Oral cavity: Pharynx pink and moist. NECK: Supple. LUNGS: Clear to auscultation. HEART: S1 and S2. ABDOMEN: Obese, soft, mildly tender throughout. No rebound. EXTREMITIES: No gross edema or cyanosis. SKIN: Warm without generalized rash. NEUROLOGIC: Alert and oriented x 3. No focal deficits. Labs Lab Laboratory Tests Test 09/20/18 12:15 09/20/18 20:37 09/20/18 23:05 09/21/18 06:06 White Blood Count 9.1 x10^3/uL (4.0-11.0) 8.7 x10^3/uL (4.0-11.0) Red Blood Count 4.66 x10^6/uL (4.30-5.70) 4.38 x10^6/uL (4.30-5.70) Hemoglobin 13.6 g/dL (13.0-17.5) 13.0 g/dL (13.0-17.5) Hematocrit 41.7 % (39.0-53.0) 39.2 % (39.0-53.0) Mean Corpuscular Volume 90 fL (79-100) 89 fL (79-100) Mean Corpuscular Hemoglobin 29 pg (25-35) 30 pg (25-35) Mean Corpuscular Hemoglobin Concent 33 g/dL (31-37) 33 g/dL (31-37) Red Cell Distribution Width 16.4 % (11.5-14.5) 16.9 % (11.5-14.5) Platelet Count 247 x10^3/uL (140-400) 217 x10^3/uL (140-400) Neutrophils (%) (Auto) 68 % (31-73) 56 % (31-73) Lymphocytes (%) (Auto) 22 % (24-48) 31 % (24-48) Monocytes (%) (Auto) 8 % (0-9) 10 % (0-9) Eosinophils (%) (Auto) 1 % (0-3) 2 % (0-3) Basophils (%) (Auto) 1 % (0-3) 1 % (0-3) Neutrophils # (Auto) 6.1 x10^3uL (1.8-7.7) 4.9 x10^3uL (1.8-7.7) Lymphocytes # (Auto) 2.0 x10^3/uL (1.0-4.8) 2.7 x10^3/uL (1.0-4.8) Monocytes # (Auto) 0.8 x10^3/uL (0.0-1.1) 0.9 x10^3/uL (0.0-1.1) Eosinophils # (Auto) 0.1 x10^3/uL (0.0-0.7) 0.2 x10^3/uL (0.0-0.7) Basophils # (Auto) 0.1 x10^3/uL (0.0-0.2) 0.1 x10^3/uL (0.0-0.2) Prothrombin Time 12.8 SEC (11.7-14.0) Prothromb Time International Ratio 1.0 (0.8-1.1) Sodium Level 138 mmol/L (136-145) 140 mmol/L (136-145) Potassium Level 3.0 mmol/L (3.5-5.1) 3.6 mmol/L (3.5-5.1) Chloride Level 98 mmol/L (98-107) 103 mmol/L (98-107) Carbon Dioxide Level 24 mmol/L (21-32) 25 mmol/L (21-32) Anion Gap 16 (6-14) 12 (6-14) Blood Urea Nitrogen 28 mg/dL (8-26) 21 mg/dL (8-26) Creatinine 1.6 mg/dL (0.7-1.3) 1.1 mg/dL (0.7-1.3) Estimated GFR (Cockcroft-Gault) 54.2 83.5 BUN/Creatinine Ratio 18 (6-20) 19 (6-20) Glucose Level 180 mg/dL (70-99) 93 mg/dL (70-99) Lactic Acid Level 3.2 mmol/L (0.4-2.0) 2.6 mmol/L (0.4-2.0) Calcium Level 9.3 mg/dL (8.5-10.1) 9.2 mg/dL (8.5-10.1) Magnesium Level 1.5 mg/dL (1.8-2.4) Total Bilirubin 0.5 mg/dL (0.2-1.0) 0.3 mg/dL (0.2-1.0) Aspartate Amino Transf (AST/SGOT) 26 U/L (15-37) 21 U/L (15-37) Alanine Aminotransferase (ALT/SGPT) 81 U/L (16-63) 70 U/L (16-63) Alkaline Phosphatase 74 U/L (46-116) 64 U/L (46-116) Creatine Kinase 85 U/L (39-308) Creatine Kinase MB (Mass) 1.2 ng/mL (0.0-3.6) Creatine Kinase MB Relative Index 1.4 % (0-4) Troponin I Quantitative < 0.017 ng/mL (0.000-0.055) AY-Ygz-G-Type Natriuretic Peptide 98 pg/mL (0-124) Total Protein 7.1 g/dL (6.4-8.2) 6.8 g/dL (6.4-8.2) Albumin 3.4 g/dL (3.4-5.0) 3.0 g/dL (3.4-5.0) Albumin/Globulin Ratio 0.9 (1.0-1.7) 0.8 (1.0-1.7) Thyroid Stimulating Hormone (TSH) 1.769 uIU/mL (0.358-3.74) Glucose (Fingerstick) 228 mg/dL (70-99) Test 09/21/18 07:57 Glucose (Fingerstick) 110 mg/dL (70-99) Objective Assessment 1. Clostridium difficile associated diarrhea from 09/01/2018 POA 2. Leukocytosis, improving. 3. Morbid obesity 4. Diabetes type 2. 5. Atrial fibrillation. 6. ? dysphagia with nausea and vomiting barium reported as Mild esophageal tertiary contractions. Plan Plan of Care ? reason for change in MS not related to c diff cont po vanc bid now KELLY LIVINGSTON MD Sep 21, 2018 10:54
[2018-09-21 11:00] VITALS: BP 106/67
--- NOTE | 2018-09-21 11:08 | PDOC ---
Subjective: Subjective: Please see GI consult note from 09/01/18 and following progress note from that admission and then another beginning 09/10/18. This time was driving home from doctor's office, got lost and didn't know where he was. Better today. GI-miller, swallowing okay. Has some abd pain and reports three stools today. Has remained on vanco. Objective: Objective: D/w RN - no stools today. Vital Signs: Vital Signs Date Time Temp Pulse Resp B/P (MAP) Pulse Ox O2 Delivery O2 Flow Rate FiO2 09/21/18 08:45 97 111/79 09/21/18 08:00 Room Air 09/21/18 07:47 100 09/21/18 07:00 97.8 18 97.8 Labs: Laboratory Tests Test 09/20/18 12:15 09/20/18 20:37 09/20/18 23:05 09/21/18 06:06 White Blood Count 9.1 x10^3/uL 8.7 x10^3/uL Red Blood Count 4.66 x10^6/uL 4.38 x10^6/uL Hemoglobin 13.6 g/dL 13.0 g/dL Hematocrit 41.7 % 39.2 % Mean Corpuscular Volume 90 fL 89 fL Mean Corpuscular Hemoglobin 29 pg 30 pg Mean Corpuscular Hemoglobin Concent 33 g/dL 33 g/dL Red Cell Distribution Width 16.4 % 16.9 % Platelet Count 247 x10^3/uL 217 x10^3/uL Neutrophils (%) (Auto) 68 % 56 % Lymphocytes (%) (Auto) 22 % 31 % Monocytes (%) (Auto) 8 % 10 % Eosinophils (%) (Auto) 1 % 2 % Basophils (%) (Auto) 1 % 1 % Neutrophils # (Auto) 6.1 x10^3uL 4.9 x10^3uL Lymphocytes # (Auto) 2.0 x10^3/uL 2.7 x10^3/uL Monocytes # (Auto) 0.8 x10^3/uL 0.9 x10^3/uL Eosinophils # (Auto) 0.1 x10^3/uL 0.2 x10^3/uL Basophils # (Auto) 0.1 x10^3/uL 0.1 x10^3/uL Prothrombin Time 12.8 SEC Prothromb Time International Ratio 1.0 Sodium Level 138 mmol/L 140 mmol/L Potassium Level 3.0 mmol/L 3.6 mmol/L Chloride Level 98 mmol/L 103 mmol/L Carbon Dioxide Level 24 mmol/L 25 mmol/L Anion Gap 16 12 Blood Urea Nitrogen 28 mg/dL 21 mg/dL Creatinine 1.6 mg/dL 1.1 mg/dL Estimated GFR (Cockcroft-Gault) 54.2 83.5 BUN/Creatinine Ratio 18 19 Glucose Level 180 mg/dL 93 mg/dL Lactic Acid Level 3.2 mmol/L 2.6 mmol/L Calcium Level 9.3 mg/dL 9.2 mg/dL Magnesium Level 1.5 mg/dL Total Bilirubin 0.5 mg/dL 0.3 mg/dL Aspartate Amino Transf (AST/SGOT) 26 U/L 21 U/L Alanine Aminotransferase (ALT/SGPT) 81 U/L 70 U/L Alkaline Phosphatase 74 U/L 64 U/L Creatine Kinase 85 U/L Creatine Kinase MB (Mass) 1.2 ng/mL Creatine Kinase MB Relative Index 1.4 % Troponin I Quantitative < 0.017 ng/mL OZ-Itw-Q-Type Natriuretic Peptide 98 pg/mL Total Protein 7.1 g/dL 6.8 g/dL Albumin 3.4 g/dL 3.0 g/dL Albumin/Globulin Ratio 0.9 0.8 Thyroid Stimulating Hormone (TSH) 1.769 uIU/mL Glucose (Fingerstick) 228 mg/dL Test 09/21/18 07:57 Glucose (Fingerstick) 110 mg/dL PE: GEN: NAD LUNGS: CTAB HEART: RRR ABD: obese, soft, BS+, not particularly tender NEURO/PSYCH: A & O 3 A/P: AMS, lactic acidosis H/o dysphagia - resolved, has esophagram and EGD w/ dilation last week, on PPI C Diff diarrhea - seems better overall, has been on PO vanco, followed by ID Mildly elevated ALT (again), hepatic steatosis -- Seems stable GI-miller. JULI DUTTON Sep 21, 2018 11:08
[2018-09-21 11:39] LABS: BARBITURATES NEG (NEG); BENZODIAZEPINES NEG (NEG); CANNABINOIDS NEG (NEG); COCAINE NEG (NEG); METHADONE NEG (NEG); OPIATES NEG (NEG); PHENCYCLIDINE NEG (NEG)
[2018-09-21 11:40] LABS: AMPHETAMINE/METHAMPHETAMINE NEG (NEG)
--- NOTE | 2018-09-21 11:49 | NUR ---
SW following pt for anticipated dc needs. Chart reviewed. Pt lives at home with spouse. Pt was recently discharged home with [facility]. Susu at [place] confirmed plan of resumption upon dc. Will continue to evaluate dc needs.
[2018-09-21 11:50] LABS: BILIRUBIN,URINE NEGATIVE (NEG); CLARITY,URINE CLEAR; COLOR,URINE YELLOW; NITRITE,URINE NEGATIVE (NEG); PROTEIN,URINE NEGATIVE (NEG-TRACE); UROBILINOGEN,URINE 0.2 mg/dL (0.2 mg/dL)
[2018-09-21] MEDS ORDERED: INSULIN LISPRO 300 UNITS/3 ML INSULN.PEN. SQ SCH (12:00)
[2018-09-21 12:04] LABS: SQUAMOUS EPITHELIAL CELL,UR FEW /LPF
[2018-09-21 12:05] LABS: BACTERIA,URINE FEW /HPF (0-FEW); RBC,URINE 0 /HPF (0-2); WBC,URINE OCC /HPF (0-4)
--- NOTE | 2018-09-21 12:07 | PDOC3 ---
Discharge Summary Visit Information Date of Admission: Sep 20, 2018 Date of Discharge: Sep 21, 2018 Admitting Diagnosis Comment: 1. Clostridium difficile associated diarrhea from 09/01/2018 POA 2. Leukocytosis, improving. 3. Morbid obesity 4. Diabetes type 2. 5. Atrial fibrillation. 6. ? dysphagia s/p EGD diltn, recent 7. ? transient confusion, resolved on its own Final Diagnosis Problems Medical Problems: (1) Acute renal insufficiency Status: Acute (2) Altered mental status Status: Acute Brief Hospital Course Allergies Allergies Coded Allergies Type Severity Reaction Last Updated Verified No Known Drug Allergies 09/14/18 No Vital Signs Vital Signs Date Time Temp Pulse Resp B/P (MAP) Pulse Ox O2 Delivery O2 Flow Rate FiO2 09/21/18 08:45 97 111/79 09/21/18 08:00 Room Air 09/21/18 07:47 100 09/21/18 07:00 97.8 18 97.8 Lab Results Laboratory Tests Test 09/20/18 12:15 09/20/18 20:37 09/20/18 23:05 09/21/18 06:06 White Blood Count 9.1 x10^3/uL (4.0-11.0) 8.7 x10^3/uL (4.0-11.0) Red Blood Count 4.66 x10^6/uL (4.30-5.70) 4.38 x10^6/uL (4.30-5.70) Hemoglobin 13.6 g/dL (13.0-17.5) 13.0 g/dL (13.0-17.5) Hematocrit 41.7 % (39.0-53.0) 39.2 % (39.0-53.0) Mean Corpuscular Volume 90 fL (79-100) 89 fL (79-100) Mean Corpuscular Hemoglobin 29 pg (25-35) 30 pg (25-35) Mean Corpuscular Hemoglobin Concent 33 g/dL (31-37) 33 g/dL (31-37) Red Cell Distribution Width 16.4 % (11.5-14.5) 16.9 % (11.5-14.5) Platelet Count 247 x10^3/uL (140-400) 217 x10^3/uL (140-400) Neutrophils (%) (Auto) 68 % (31-73) 56 % (31-73) Lymphocytes (%) (Auto) 22 % (24-48) 31 % (24-48) Monocytes (%) (Auto) 8 % (0-9) 10 % (0-9) Eosinophils (%) (Auto) 1 % (0-3) 2 % (0-3) Basophils (%) (Auto) 1 % (0-3) 1 % (0-3) Neutrophils # (Auto) 6.1 x10^3uL (1.8-7.7) 4.9 x10^3uL (1.8-7.7) Lymphocytes # (Auto) 2.0 x10^3/uL (1.0-4.8) 2.7 x10^3/uL (1.0-4.8) Monocytes # (Auto) 0.8 x10^3/uL (0.0-1.1) 0.9 x10^3/uL (0.0-1.1) Eosinophils # (Auto) 0.1 x10^3/uL (0.0-0.7) 0.2 x10^3/uL (0.0-0.7) Basophils # (Auto) 0.1 x10^3/uL (0.0-0.2) 0.1 x10^3/uL (0.0-0.2) Prothrombin Time 12.8 SEC (11.7-14.0) Prothromb Time International Ratio 1.0 (0.8-1.1) Sodium Level 138 mmol/L (136-145) 140 mmol/L (136-145) Potassium Level 3.0 mmol/L (3.5-5.1) 3.6 mmol/L (3.5-5.1) Chloride Level 98 mmol/L (98-107) 103 mmol/L (98-107) Carbon Dioxide Level 24 mmol/L (21-32) 25 mmol/L (21-32) Anion Gap 16 (6-14) 12 (6-14) Blood Urea Nitrogen 28 mg/dL (8-26) 21 mg/dL (8-26) Creatinine 1.6 mg/dL (0.7-1.3) 1.1 mg/dL (0.7-1.3) Estimated GFR (Cockcroft-Gault) 54.2 83.5 BUN/Creatinine Ratio 18 (6-20) 19 (6-20) Glucose Level 180 mg/dL (70-99) 93 mg/dL (70-99) Lactic Acid Level 3.2 mmol/L (0.4-2.0) 2.6 mmol/L (0.4-2.0) Calcium Level 9.3 mg/dL (8.5-10.1) 9.2 mg/dL (8.5-10.1) Magnesium Level 1.5 mg/dL (1.8-2.4) Total Bilirubin 0.5 mg/dL (0.2-1.0) 0.3 mg/dL (0.2-1.0) Aspartate Amino Transf (AST/SGOT) 26 U/L (15-37) 21 U/L (15-37) Alanine Aminotransferase (ALT/SGPT) 81 U/L (16-63) 70 U/L (16-63) Alkaline Phosphatase 74 U/L (46-116) 64 U/L (46-116) Creatine Kinase 85 U/L (39-308) Creatine Kinase MB (Mass) 1.2 ng/mL (0.0-3.6) Creatine Kinase MB Relative Index 1.4 % (0-4) Troponin I Quantitative < 0.017 ng/mL (0.000-0.055) FR-Hbd-V-Type Natriuretic Peptide 98 pg/mL (0-124) Total Protein 7.1 g/dL (6.4-8.2) 6.8 g/dL (6.4-8.2) Albumin 3.4 g/dL (3.4-5.0) 3.0 g/dL (3.4-5.0) Albumin/Globulin Ratio 0.9 (1.0-1.7) 0.8 (1.0-1.7) Thyroid Stimulating Hormone (TSH) 1.769 uIU/mL (0.358-3.74) Glucose (Fingerstick) 228 mg/dL (70-99) Test 09/21/18 07:57 09/21/18 11:09 09/21/18 11:19 Glucose (Fingerstick) 110 mg/dL (70-99) 109 mg/dL (70-99) Urine Opiates Screen Neg (NEG) Urine Methadone Screen Neg (NEG) Urine Barbiturates Neg (NEG) Urine Phencyclidine Screen Neg (NEG) Urine Amphetamine/Methamphetamine Neg (NEG) Urine Benzodiazepines Screen Neg (NEG) Urine Cocaine Screen Neg (NEG) Urine Cannabinoids Screen Neg (NEG) Urine Ethyl Alcohol Neg (NEG) Laboratory Tests Test 09/20/18 12:15 09/20/18 20:37 09/20/18 23:05 09/21/18 06:06 White Blood Count 9.1 x10^3/uL (4.0-11.0) 8.7 x10^3/uL (4.0-11.0) Red Blood Count 4.66 x10^6/uL (4.30-5.70) 4.38 x10^6/uL (4.30-5.70) Hemoglobin 13.6 g/dL (13.0-17.5) 13.0 g/dL (13.0-17.5) Hematocrit 41.7 % (39.0-53.0) 39.2 % (39.0-53.0) Mean Corpuscular Volume 90 fL (79-100) 89 fL (79-100) Mean Corpuscular Hemoglobin 29 pg (25-35) 30 pg (25-35) Mean Corpuscular Hemoglobin Concent 33 g/dL (31-37) 33 g/dL (31-37) Red Cell Distribution Width 16.4 % (11.5-14.5) 16.9 % (11.5-14.5) Platelet Count 247 x10^3/uL (140-400) 217 x10^3/uL (140-400) Neutrophils (%) (Auto) 68 % (31-73) 56 % (31-73) Lymphocytes (%) (Auto) 22 % (24-48) 31 % (24-48) Monocytes (%) (Auto) 8 % (0-9) 10 % (0-9) Eosinophils (%) (Auto) 1 % (0-3) 2 % (0-3) Basophils (%) (Auto) 1 % (0-3) 1 % (0-3) Neutrophils # (Auto) 6.1 x10^3uL (1.8-7.7) 4.9 x10^3uL (1.8-7.7) Lymphocytes # (Auto) 2.0 x10^3/uL (1.0-4.8) 2.7 x10^3/uL (1.0-4.8) Monocytes # (Auto) 0.8 x10^3/uL (0.0-1.1) 0.9 x10^3/uL (0.0-1.1) Eosinophils # (Auto) 0.1 x10^3/uL (0.0-0.7) 0.2 x10^3/uL (0.0-0.7) Basophils # (Auto) 0.1 x10^3/uL (0.0-0.2) 0.1 x10^3/uL (0.0-0.2) Prothrombin Time 12.8 SEC (11.7-14.0) Prothromb Time International Ratio 1.0 (0.8-1.1) Sodium Level 138 mmol/L (136-145) 140 mmol/L (136-145) Potassium Level 3.0 mmol/L (3.5-5.1) 3.6 mmol/L (3.5-5.1) Chloride Level 98 mmol/L (98-107) 103 mmol/L (98-107) Carbon Dioxide Level 24 mmol/L (21-32) 25 mmol/L (21-32) Anion Gap 16 (6-14) 12 (6-14) Blood Urea Nitrogen 28 mg/dL (8-26) 21 mg/dL (8-26) Creatinine 1.6 mg/dL (0.7-1.3) 1.1 mg/dL (0.7-1.3) Estimated GFR (Cockcroft-Gault) 54.2 83.5 BUN/Creatinine Ratio 18 (6-20) 19 (6-20) Glucose Level 180 mg/dL (70-99) 93 mg/dL (70-99) Lactic Acid Level 3.2 mmol/L (0.4-2.0) 2.6 mmol/L (0.4-2.0) Calcium Level 9.3 mg/dL (8.5-10.1) 9.2 mg/dL (8.5-10.1) Magnesium Level 1.5 mg/dL (1.8-2.4) Total Bilirubin 0.5 mg/dL (0.2-1.0) 0.3 mg/dL (0.2-1.0) Aspartate Amino Transf (AST/SGOT) 26 U/L (15-37) 21 U/L (15-37) Alanine Aminotransferase (ALT/SGPT) 81 U/L (16-63) 70 U/L (16-63) Alkaline Phosphatase 74 U/L (46-116) 64 U/L (46-116) Creatine Kinase 85 U/L (39-308) Creatine Kinase MB (Mass) 1.2 ng/mL (0.0-3.6) Creatine Kinase MB Relative Index 1.4 % (0-4) Troponin I Quantitative < 0.017 ng/mL (0.000-0.055) XJ-Git-C-Type Natriuretic Peptide 98 pg/mL (0-124) Total Protein 7.1 g/dL (6.4-8.2) 6.8 g/dL (6.4-8.2) Albumin 3.4 g/dL (3.4-5.0) 3.0 g/dL (3.4-5.0) Albumin/Globulin Ratio 0.9 (1.0-1.7) 0.8 (1.0-1.7) Thyroid Stimulating Hormone (TSH) 1.769 uIU/mL (0.358-3.74) Glucose (Fingerstick) 228 mg/dL (70-99) Test 09/21/18 07:57 09/21/18 11:09 09/21/18 11:19 Glucose (Fingerstick) 110 mg/dL (70-99) 109 mg/dL (70-99) Urine Opiates Screen Neg (NEG) Urine Methadone Screen Neg (NEG) Urine Barbiturates Neg (NEG) Urine Phencyclidine Screen Neg (NEG) Urine Amphetamine/Methamphetamine Neg (NEG) Urine Benzodiazepines Screen Neg (NEG) Urine Cocaine Screen Neg (NEG) Urine Cannabinoids Screen Neg (NEG) Urine Ethyl Alcohol Neg (NEG) Brief Hospital Course Mr. Rivera is a 58 old [place] male who recently had C. difficile and is still being treated with vancomycin. Admitted because of transient confusion was driving and he ended up in a place where he wasn't planning to be Blood workup is negative comanage with ID and cardiology because of some arrhythmia last admission and he still has loop recorder. Back to his normal baseline mentally, diarrhea 4 times from c diff but keepin PO > cleared from ID. Already on vancomycin. No change in meds. Okay to go home today cleared by GI and ID, most that he will cleared by cardiology too Patient seen and examined, DC time less than 30 minutes Consults performed ID GI, cards Procedures performed none Discharge Information Condition at Discharge: Improved, Stable Disposition/Orders: D/C to Home Scheduled Amlodipine Besylate (Norvasc) 10 Mg Tablet, 10 MG PO DAILY, (Reported) Entered as Reported by: Pamella Murillo on 09/17/132303 Last Action: Continued on 09/20/181430 by MAY FOLEY Aspirin (Aspir 81) 81 Mg Tablet.dr, 81 MG PO DAILY, (Reported) Entered as Reported by: Pamella Murillo on 09/17/132303 Last Action: Continued on 09/20/181430 by MAY FOLEY Cyclobenzaprine Hcl (Cyclobenzaprine Hcl) 10 Mg Tablet, 1 TAB PO QHS, #30 ( Reported) Entered as Reported by: YOLIE LOVELL on 03/15/182203 Last Action: Continued on 09/20/181430 by MAY FOLEY Empagliflozin (Jardiance) 10 Mg Tablet, 10 MG PO DAILY for diabetes , (Reported) Entered as Reported by: DANTE KLINE RN on 09/01/181653 Last Action: Converted on 09/20/181430 by MAY FOLEY Exenatide Microspheres (Bydureon Pen) 2 Mg/0.65 Ml Pen.injctr, 2 MG SQ WEEKLY, ( Reported) Entered as Reported by: YOLIE LOVELL on 03/15/182203 Last Action: Converted on 09/20/181430 by MAY FOLEY Fluticasone Propionate (Flonase) 16 Gm [place].susp, 16 GM NS DAILY, (Reported) Entered as Reported by: Pamella Murillo on 09/17/132303 Glimepiride (Glimepiride) 2 Mg Tablet, 2 MG PO BID for Diabetes for 30 Days, # 60 (Reported) Entered as Reported by: DANTE KLINE RN on 09/01/181642 Last Action: Continued on 09/20/181430 by MAY FOLEY Indapamide (Indapamide) 1.25 Mg Tablet, 1 TAB PO DAILY, #30 Ref 5 (Reported) Entered as Reported by: YOLIE LOVELL on 03/15/182203 Last Action: Converted on 09/20/181430 by MAY FOLEY Ipratropium/Albuterol Sulfate (Combivent Respimat Inhal) 4 Gm Aer.w.adap, 2 INH IH BID, (Reported) Entered as Reported by: YOLIE LOVELL on 03/15/182203 Last Action: Converted on 09/20/181430 by MAY FOLEY Metformin Hcl (Metformin Hcl Er) 1,000 Mg Tab.er.24, 500 MG PO DAILY for Diabetes for 30 Days, (Reported) Entered as Reported by: Pamella Murillo on 09/17/132303 Last Action: Converted on 09/20/181430 by MAY FOLEY Multivitamin (Multivitamins) 1 Each Tablet, 1 TAB PO DAILY for supplement for 30 Days, #30 Ref 3 (Reported) Entered as Reported by: DANTE KLINE RN on 09/01/181653 Last Action: Converted on 09/20/181430 by MAY FOLEY Pantoprazole Sodium (Pantoprazole Sodium) 40 Mg Tablet.dr, 40 MG PO DAILY, ( Reported) Entered as Reported by: Pamella Murillo on 09/17/132303 Last Action: Continued on 09/20/181430 by MAY FOLEY Phentermine Hcl (Phentermine Hcl) 37.5 Mg Capsule, 1 CAP PO [id number] for weight loss for 30 Days, #30 Ref 2 (Reported) Entered as Reported by: DANTE KLINE RN on 09/01/181653 Last Action: Converted on 09/20/181430 by MAY FOLEY Triamcinolone Acetonide (Triamcinolone Acetonide 0.1% Oint) 15 Gm Oint...g., 1 ALISON TP BID for WOUND CARE, #1 (Reported) MIX WITH EUCERIN DIRECTED BY PHYSICIAN Entered as Reported by: YOLIE LOVELL on 03/15/182203 Last Action: Continued on 09/20/181430 by MAY FOLEY Valsartan (Diovan) 320 Mg Tablet, 320 MG PO DAILY, (Reported) Entered as Reported by: Pamella Murillo on 09/17/132303 Last Action: Converted on 09/20/181430 by MAY FOLEY Vancomycin Hcl (Vancomycin Hcl) 500 Mg Vial, 500 MG PO [id number] for c diff for 8 Days, #32 Prescribed by: LEONOR BEAR MD on 09/15/181001 Vancomycin Hcl (Vancocin Hcl) 125 Mg Capsule, 125 MG PO QID for c diff for 14 Days, #56 Prescribed by: LEONOR BEAR MD on 09/15/18 1002 Last Action: Converted on 09/20/181430 by MAY FOLEY [Fluconazole] 100 MG TABLET, 100 MG PO DAILY for fumgal infectioj MDD 1 for 14 Days, #14 Prescribed by: ALMA SEGURA on 09/07/18 1207 Last Action: HELD on 09/20/181430 by MAY FOLEY Scheduled PRN Albuterol Sulfate (Proair Hfa Inhaler) 8.5 Gm Hfa.aer.ad, 1 PUFF INH PRN Q4HRS PRN for SHORTNESS OF BREATH, Ref 0 (Reported) Entered as Reported by: YOLIE LOVELL on 03/15/182203 Hydrocodone Bit/Acetaminophen (Hydrocodone-Apap 7.5-325 ) 1 Each Tablet, 1 TAB PO PRN TID PRN for PAIN, Ref 0 (Reported) Entered as Reported by: YOLIE LOVELL on 03/15/182203 Last Action: Continued on 09/20/181430 by MAY FOLEY Discontinued Medications Vancomycin Hcl (Vancomycin Hcl) 500 Mg Vial, 125 MG PO [id number] for c diff MDD 1 for 14 Days, #12 Prescribed by: ALMA SEGURA on 09/07/18 1207 ALMA SEGURA MD Sep 21, 2018 12:07
--- NOTE | 2018-09-21 12:56 | PDOC2 ---
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 At one point he was driving and ended up at a different place and confused about how he got there. He continues to have some diarrhea and was recently noted with D-diff, His BP is currently is marginal but asymptomatic. No CP or SOA. He is not wheezing and no complains of palpitations, passing out or falls. He does have a outpt heart monitor prompting this consult to note afib burden and PVC burden and was evaluated recently. PAST MEDICAL HISTORY Past Medical History Cardiovascular: AFIB, HTN, PVC Pulmonary: COPD, LE bilateral LE DVT treated with 2 yrs coumadin, Uses PRN O2 and CPAP GI: GERD Heme/Onc: Other Musculoskeletal: Osteoarthritis Infectious disease: C-diff Renal/: No pertinent hx Endocrine: Diabetes PAST SURGICAL HISTORY Past Surgical History Cholecystectomy, Tonsillectomy, Other (Oral surgery for his VIOLET) FAMILY HISTORY Family History: Hypertension SOCIAL HISTORY Smoke: No ALCOHOL: none Drugs: None Lives: with Family CURRENT MEDICATIONS CURRENT MEDICATIONS Current Medications Medications (Trade) Dose Ordered Sig/Yumi Route PRN Reason Start Time Stop Time Status Last Admin Dose Admin Iohexol (Omnipaque 350 Mg/ml) 100 ml 1X ONCE IV 09/20/18 13:00 09/20/18 13:01 DC 09/20/18 12:50 Sodium Chloride 1,000 ml @ 1,000 mls/hr 1X ONCE IV 09/20/18 14:00 09/20/18 14:59 DC 09/20/18 14:59 Potassium Chloride (Klor-Con) 40 meq 1X ONCE PO 09/20/18 14:00 09/20/18 14:01 DC 09/20/18 14:07 Aspirin (Children'S Aspirin) 324 mg 1X ONCE PO 09/20/18 14:00 09/20/18 14:01 DC 09/20/18 14:06 Magnesium Sulfate 50 ml @ 25 mls/hr 1X ONCE IV 09/20/18 14:30 09/20/18 16:29 DC 09/20/18 14:59 Potassium Chloride (Klor-Con) 20 meq DAILY PO 09/21/18 09:00 09/21/18 08:43 Amlodipine Besylate (Norvasc) 10 mg DAILY PO 09/21/18 09:00 09/21/18 08:45 Aspirin (Ecotrin) 81 mg DAILY PO 09/21/18 09:00 09/21/18 08:58 Cyclobenzaprine HCl (Flexeril) 10 mg QHS PO 09/20/18 21:00 09/20/18 20:33 Glimepiride (Amaryl) 2 mg BIDAC PO 09/20/18 16:30 09/21/18 08:43 Acetaminophen/ Hydrocodone Bitart (Lortab 7.5/325) 1 tab PRN TID PRN PO MODERATE PAIN 09/20/18 14:30 09/21/18 12:36 Pantoprazole Sodium (Protonix) 40 mg DAILYAC PO 09/20/18 16:30 09/21/18 08:45 Triamcinolone Acetonide (Kenalog) 1 daly BID TP 09/20/18 21:00 09/21/18 08:59 Indapamide (Lozol) 2.5 mg DAILY PO 09/21/18 09:00 09/21/18 08:46 Multivitamins (Thera M Plus) 1 tab DAILY PO 09/21/18 09:00 09/21/18 08:58 Losartan Potassium (Cozaar) 100 mg DAILY PO 09/21/18 09:00 09/21/18 08:45 Vancomycin HCl (Vancomycin Oral Solution) 125 mg [id number] PO 09/20/18 17:00 09/21/18 13:00 09/21/18 08:43 Albuterol/ Ipratropium (Duoneb) 3 ml RTBID NEB 09/20/18 20:00 09/21/18 07:46 ALLERGIES ALLERGIES: Coded Allergies: No Known Drug Allergies (Unverified , 09/14/18) ROS Review of System 14 point ROS evaluated with pertinent positives noted per HPI PHYSICAL EXAM General: Alert, Oriented X3, Cooperative, No acute distress HEENT: Atraumatic, Mucous membr. moist/pink Lungs: Clear to auscultation, Normal air movement Heart: Regular rate (SR with PVCs), Normal S1, Normal S2, No murmurs Abdomen: Soft, Other (truncal obesity) Extremities: No cyanosis, No edema Skin: No significant lesion Neuro: Normal speech, Sensation intact Psych/Mental Status: Mental status NL, Mood NL MUSCULOSKELETAL: Osteoarthritic changes both hands VITALS VITALS Vital Signs Date Time Temp Pulse Resp B/P (MAP) Pulse Ox O2 Delivery O2 Flow Rate FiO2 09/21/18 12:36 16 Room Air 09/21/18 11:00 97.5 95 106/67 (80) 99 97.5 LABS Lab: Laboratory Tests Test 09/20/18 20:37 09/20/18 23:05 09/21/18 06:06 09/21/18 07:57 Glucose (Fingerstick) 228 mg/dL (70-99) 110 mg/dL (70-99) Lactic Acid Level 2.6 mmol/L (0.4-2.0) White Blood Count 8.7 x10^3/uL (4.0-11.0) Red Blood Count 4.38 x10^6/uL (4.30-5.70) Hemoglobin 13.0 g/dL (13.0-17.5) Hematocrit 39.2 % (39.0-53.0) Mean Corpuscular Volume 89 fL (79-100) Mean Corpuscular Hemoglobin 30 pg (25-35) Mean Corpuscular Hemoglobin Concent 33 g/dL (31-37) Red Cell Distribution Width 16.9 % (11.5-14.5) Platelet Count 217 x10^3/uL (140-400) Neutrophils (%) (Auto) 56 % (31-73) Lymphocytes (%) (Auto) 31 % (24-48) Monocytes (%) (Auto) 10 % (0-9) Eosinophils (%) (Auto) 2 % (0-3) Basophils (%) (Auto) 1 % (0-3) Neutrophils # (Auto) 4.9 x10^3uL (1.8-7.7) Lymphocytes # (Auto) 2.7 x10^3/uL (1.0-4.8) Monocytes # (Auto) 0.9 x10^3/uL (0.0-1.1) Eosinophils # (Auto) 0.2 x10^3/uL (0.0-0.7) Basophils # (Auto) 0.1 x10^3/uL (0.0-0.2) Sodium Level 140 mmol/L (136-145) Potassium Level 3.6 mmol/L (3.5-5.1) Chloride Level 103 mmol/L (98-107) Carbon Dioxide Level 25 mmol/L (21-32) Anion Gap 12 (6-14) Blood Urea Nitrogen 21 mg/dL (8-26) Creatinine 1.1 mg/dL (0.7-1.3) Estimated GFR (Cockcroft-Gault) 83.5 BUN/Creatinine Ratio 19 (6-20) Glucose Level 93 mg/dL (70-99) Calcium Level 9.2 mg/dL (8.5-10.1) Total Bilirubin 0.3 mg/dL (0.2-1.0) Aspartate Amino Transf (AST/SGOT) 21 U/L (15-37) Alanine Aminotransferase (ALT/SGPT) 70 U/L (16-63) Alkaline Phosphatase 64 U/L (46-116) Total Protein 6.8 g/dL (6.4-8.2) Albumin 3.0 g/dL (3.4-5.0) Albumin/Globulin Ratio 0.8 (1.0-1.7) Test 09/21/18 11:09 09/21/18 11:19 Glucose (Fingerstick) 109 mg/dL (70-99) Urine Collection Type Unknown Urine Color Yellow Urine Clarity Clear Urine pH 5.0 Urine Specific [place] >=1.030 Urine Protein Negative mg/dL (NEG-TRACE) Urine Glucose (UA) >=1000 mg/dL (NEG) Urine Ketones (Stick) Negative mg/dL (NEG) Urine Blood Negative (NEG) Urine Nitrite Negative (NEG) Urine Bilirubin Negative (NEG) Urine Urobilinogen Dipstick 0.2 mg/dL (0.2 mg/dL) Urine Leukocyte Esterase Negative (NEG) Urine RBC 0 /HPF (0-2) Urine WBC Occ /HPF (0-4) Urine Squamous Epithelial Cells Few /LPF Urine Bacteria Few /HPF (0-FEW) Urine Mucus Slight /LPF Urine Opiates Screen Neg (NEG) Urine Methadone Screen Neg (NEG) Urine Barbiturates Neg (NEG) Urine Phencyclidine Screen Neg (NEG) Urine Amphetamine/Methamphetamine Neg (NEG) Urine Benzodiazepines Screen Neg (NEG) Urine Cocaine Screen Neg (NEG) Urine Cannabinoids Screen Neg (NEG) Urine Ethyl Alcohol Neg (NEG) ASSESSMENT/PLAN ASSESSMENT/PLAN 1. Metabolic encephalopathy: resolved 2. ?PAFIB: event monitor started on 09/08 no AFIb so far but 18% PVC burden 3. Arrhythmia: frequent PVCs asymptomatic 4. Abd pain/diarrhea: recent D-Diff Recommendations 1. continue outpt event monitor. Continue ASA. 2. EP referral as outpt. 3. DC norvasc, and will start metoprolol IR bid 4. discussed home BP monitoring 5. Follow up as scheduled SHELIA BUCHANAN MD 09/22/18 0930: CARDIAC CONSULT ASSESSMENT/PLAN ASSESSMENT/PLAN Patient seen and examined 09/21/18. Agree with SHEARING MACHINE TENDER's assessment and plan. Metabolic encephalopathy presently resolved Continue management of diarrhea per IM Event monitor showed 18% PVC burden so far without any episodes of atrial fibrillation Follow-up with our office as previously scheduled Thank you for your consultation DEVI AUSTIN APRN Sep 21, 2018 12:56 SHELIA BUCHANAN MD Sep 22, 2018 09:30
--- NOTE | 2018-09-21 13:45 | NUR ---
DISCHARGE INSTRUCTIONS GIVEN, QUESTIONS AND CONCERNS ANSWERED, PATIENT AND AT THE BEDSIDE VERBALIZED UNDERSTANDING OF DISCHARGE INFORMATION INCLUDING TAKING ALL MEDICATIONS INSTRUCTED AND FOLLOWING UP WITH HIS PRIMARY PROVIDER IN 1-2 WEEKS. PATIENT GIVEN PRESCRIPTION FOR METOPROL PER CARDIOLOGY, ALL PERSONAL BELONGINGS GATHERED BY THE PATIENT AND AND PLACED IN BAGS FOR DISCHARGE, SALINE LOCK REMOVED PRIOR TO DISCHARGE.
--- NOTE | 2018-09-21 14:10 | NUR ---
PATIENT LEAVES THE UNIT PER W/C ALONGSIDE HIS AND ACCOMPANIED BY THIS DIETITIAN TEACHING, EMOTIONAL SUPPORT GIVEN FOLLOW UP APPOINTMENTS ENCOURAGED.
[2018-09-21] MEDS ORDERED: VANCOMYCIN 125 MG/2.5 ML ORAL SOLUTION. PO SCH (21:00)
[2018-09-21] MEDS ORDERED: METOPROLOL TART IMMED RELEASE 25 MG TABLET. PO SCH (21:00)
[2018-09-23] MEDS ORDERED: metFORMIN XR 500 MG TAB.ER.24H PO SCH (08:00)
[2018-09-27] MEDS ORDERED: NON FORMULARY ITEM (Exenatide Microspheres (Bydureon Pen) 2 MG) SQ SCH (09:00)
== END 2018-09-21 14:10 | disposition home or self-care (01) | DRG 871 ==
LOC: ER 11:49 → 5 NORTH 14:20
PROVIDERS: ADMIT Internal Medicine; ATTEND Internal Medicine
DX: A41.9 Sepsis, unspecified organism (principal); G93.41 Metabolic encephalopathy; A04.72 Enterocolitis due to Clostridium difficile, not specified as recurrent; I50.42 Chronic combined systolic (congestive) and diastolic (congestive) heart failure; Z68.43 Body mass index [BMI] 50.0-59.9, adult; E66.01 Morbid (severe) obesity due to excess calories; N28.9 Disorder of kidney and ureter, unspecified; E11.9 Type 2 diabetes mellitus without complications; G47.33 Obstructive sleep apnea (adult) (pediatric); I11.0 Hypertensive heart disease with heart failure; I25.10 Atherosclerotic heart disease of native coronary artery without angina pectoris; I48.91 Unspecified atrial fibrillation; F41.9 Anxiety disorder, unspecified; I49.3 Ventricular premature depolarization; J44.9 Chronic obstructive pulmonary disease, unspecified; M19.90 Unspecified osteoarthritis, unspecified site; K21.9 Gastro-esophageal reflux disease without esophagitis; K76.0 Fatty (change of) liver, not elsewhere classified; R13.10 Dysphagia, unspecified; Z79.82 Long term (current) use of aspirin; Z79.84 Long term (current) use of oral hypoglycemic drugs; Z79.899 Other long term (current) drug therapy; Z82.49 Family history of ischemic heart disease and other diseases of the circulatory system; Z86.718 Personal history of other venous thrombosis and embolism; Z90.49 Acquired absence of other specified parts of digestive tract
CPT/HCPCS: 36415; 70450; 70496; 70498; 71045; 80053; 80307; 81001; 82553; 82962; 83605; 83735; 83880; 84443; 84484; 85025; 85610; 87040; 93005; 94640; 94760; 96361; 96365; 96366; J1815; J3475; J7030; J7620; Q9967; 99285-25

== ENCOUNTER → 2018-11-13 | Outpatient (CLI) | payer OTHER ==
[~2018-11-13] MED LIST changes: +GADOBUTROL 10 MMOL/10 ML VIAL IV ONE; +HYDR-2761 PO
--- NOTE | 2018-11-13 17:12 | KCIC ---
MRI study of the abdomen with and without contrast Clinical indications: Further evaluation of right renal lesion seen by ultrasound and CT. Technique: T1 and T2 weighted MRI sequences of the kidneys were performed in the axial and coronal planes. In phase and out of phase MRI sequences were performed as well. After IV infusion of 10 cc of Gadavist, postcontrast enhanced multiphase sequences of both kidneys are performed. Findings: Breathing motion artifact is evident. This degrades many of the sequences. The liver and spleen are not completely evaluated in this study. No pancreatic mass is seen. The gallbladder surgically absent. No abnormal dilatation of the extrahepatic biliary tree is seen. No adrenal mass is evident. There is a round nodule of the posterior lateral aspect of the mid to lower portion of the right kidney measuring 13 mm in greatest dimension. It demonstrates loss of signal on the out of phase sequence consistent with microscopic fat. There is internal heterogeneous enhancement. This is intermediate to low signal intensity on the T2-weighted images. Therefore, this is consistent with a renal cell malignancy. Left kidney is unremarkable. No hydronephrosis is seen. No focal aneurysmal dilatation of the abdominal aorta is seen. No enlarged abdominal lymphadenopathy is seen. No ascites is seen.. Impression: 13 mm solid lesion of the right kidney. Signal characteristics and enhancement are consistent with a renal cell malignancy. Electronically signed by: Damien Romero MD (11/13/2018 5:09 PM) [facility]
== END | disposition home or self-care (01) ==
LOC: KCIC MRI 10:56
PROVIDERS: ATTEND Nurse Practitioner Family
DX: N28.89 Other specified disorders of kidney and ureter (principal)
CPT/HCPCS: 74183; 82565; A9585

== ENCOUNTER 2018-11-20 05:42 | Observation (INO) | payer OTHER ==
[2018-11-20] VITALS (11 sets, daily range): BP systolic 103–141; BP diastolic 48–85
[~2018-11-20] VITALS: Ht 160 cm; Wt 140.6 kg
[~2018-11-20 05:42] MED LIST changes: -GADOBUTROL 10 MMOL/10 ML VIAL IV ONE; -HYDR-2761 PO
[2018-11-20] MEDS ORDERED: ceFAZolin SODIUM 3 GM in IV DEXTROSE 5% 100ML 100 ML IV PRN (06:00)
[2018-11-20] MEDS ORDERED: PROPOFOL 100 ML IV ONE (06:57)
[2018-11-20] MEDS ORDERED: fentaNYL PF VIAL 100 MCG/2 ML VIAL IV PRN (07:00)
[2018-11-20] MEDS ORDERED: HYDROmorphone 2 MG/ML VIAL IV PRN (07:00)
[2018-11-20] MEDS ORDERED: ONDANSETRON PF 4 MG/2 ML VIAL. IV PRN ×2 (07:00→09:45)
[2018-11-20] MEDS ORDERED: LIDOCAINE 1% PF 2 ML VIAL. ID PRN (07:00)
[2018-11-20] MEDS ORDERED: PROCHLORPERAZINE 10 MG/2 ML VIAL. IV PRN (07:00)
[2018-11-20] MEDS ORDERED: IV RINGERS,LACTATED 1000ML 1,000 ML IV SCH (07:00)
[2018-11-20] MEDS ORDERED: REMIFENTANIL 2 MG VIAL. IV ONE (07:02)
[2018-11-20] MEDS ORDERED: 0.9 % SODIUM CHLORIDE 20 ML VIAL. IJ ONE ×2 (07:06)
[2018-11-20] MEDS ORDERED: LIDOCAINE 4% KIT 4 ML SOLUTION. TP ONE (07:06)
[2018-11-20] MEDS ORDERED: PROPOFOL 20 ML IV ONE (07:07)
[2018-11-20] MEDS ORDERED: ONDANSETRON PF 4 MG/2 ML VIAL. ONE (07:08)
[2018-11-20] MEDS ORDERED: LIDOCAINE 2% PF 5 ML VIAL. ONE (07:08)
[2018-11-20] MEDS ORDERED: SUCCINYLCHOLINE 200 MG/10 ML VIAL. ONE (07:09)
[2018-11-20] MEDS ORDERED: fentaNYL PF VIAL 100 MCG/2 ML VIAL ONE (07:10)
[2018-11-20] MEDS ORDERED: ALBUTEROL SULFATE 2.5 MG/3 ML NEBU. ONE (07:10)
[2018-11-20] MEDS ORDERED: MIDAZOLAM HCL/PF 2 MG/2 ML VIAL. ONE (07:11)
[2018-11-20] MEDS ORDERED: DEXAMETHASONE SOD PHOS 4 MG/ML VIAL ONE (07:12)
[2018-11-20] MEDS ORDERED: FAMOTIDINE 20 MG/2 ML VIAL ONE ×2 (07:13→08:04)
[2018-11-20] MEDS ORDERED: ePHEDrine PF IN SALINE 50 MG/10 ML SYRINGE. IV ONE (08:04)
[2018-11-20] MEDS ORDERED: PHENYLEPHRINE in 0.9% NACL PF 1 MG/10 ML SYRINGE. IV ONE (08:05)
[2018-11-20] MEDS ORDERED: GLYCOPYRROLATE 1 MG/5 ML VIAL. ONE (08:06)
[2018-11-20] MEDS ORDERED: SEVOFLURANE > 120 MINUTES. IH ONE ×2 (08:21→10:02)
[2018-11-20] MEDS ORDERED: HYDROcodone/APAP 5/325MG 1 TAB TABLET PO PRN (09:45)
[2018-11-20] MEDS ORDERED: 0.9 % SODIUM CHLORIDE 10 ML DISP.SYRIN. IV PRN (09:45)
--- NOTE | 2018-11-20 09:55 | PDOC4 ---
Operative Note Operative Note Operative Note: Preoperative Diagnosis: Multinodular thyroid Postoperative Diagnosis: Same Procedure: Right thyroidectomy Surgeon: Cory Mortgage Field Inspector: Gloria Aponte Anesthesia: Gen. EBL: 25 mL Specimen: Right thyroid to pathology, stitch at superior pole Drains: None Complications: None Indication: The patient is a 58-year-old male who was found to have for nodules of the right thyroid lobe. None were present on the left side. He was offered further evaluation with needle biopsies versus hemithyroidectomy. He prefers a complete hemithyroidectomy to avoid multiple biopsies and provided definitive diagnosis. The risks of surgery were discussed which include bleeding, infection, recurrent laryngeal nerve injury, hypoparathyroidism, pain, voice changes, anesthetic risk, potential need for additional surgery or procedure. He understands and would like to proceed. Description: The patient was taken to the operating room and placed supine on the operating table. Gen. anesthesia was performed. The neck was then extended and the Nims device was assembled. The anterior neck was prepped with ChloraPrep and draped in a standard surgical manner. An incision was made 2 fingerbreadths above the sternal notch with a scalpel. Cautery dissection was carried through the platysma. Subplatysmal flaps were then developed superiorly and inferiorly. The strap muscle fascia was divided in the midline and attention was directed to the right thyroid lobe. The strap muscles were mobilized away from the right lobe. The vessels of the superior pole with then dissected free, ligated with 2- 0 Vicryl, and divided. The Harmonic scalpel assisted with some thyroid mobilization as well during the case. A glandular structure near the superior pole appeared consistent with a parathyroid gland and it was left in situ. In a similar manner the inferior polar vessels were dissected free, ligated with 3-0 Vicryl and divided. The lateral portion of the thyroid was then mobilized in a medial direction. The recurrent laryngeal nerve was identified and stimulated appropriately with the Nims device. The nerve was carefully preserved and we were able to mobilize the thyroid gland away from it toward the trachea. The border of the isthmus and tracheal attachments were divided with the Harmonic scalpel. A stitch was used to brigette the superior pole of the right thyroid and was sent to pathology. Frozen section evaluation favored benign nodules and could not confirm the presence of cancer. We therefore concluded the case. Hemostasis was good. The strap muscle fascia was approximated with 3-0 Vicryl. The platysma was closed with 3-0 Vicryl. The skin was approximated with 4-0 Monocryl. Steri-Strips and a sterile dressing were applied. The patient tolerated the procedure well and was sent to the recovery room in stable condition. At the end of the case all counts were correct. MASOUD MACKAY MD November 20, 2018 09:54
[2018-11-20] MEDS: fentaNYL PF VIAL 100 MCG/2 ML VIAL IV PRN ×2 (10:00→10:26)
[2018-11-20] MEDS ORDERED: IPRATRPIUM/ALBUTEROL 0.5/2.5MG 3 ML NEBU. NEB ONE (10:15)
[2018-11-20] MEDS ORDERED: IPRATRPIUM/ALBUTEROL 0.5/2.5MG 3 ML NEBU. ONE (10:15)
[2018-11-20] MEDS ORDERED: INSULIN LISPRO 100 UNIT/ML 3ML VIAL. SQ PRN (10:15)
[2018-11-20] MEDS: MORPHINE SULFATE 2 MG/ML VIAL. IV PRN ×2 (10:49→11:05)
[2018-11-20] MEDS: IV 1/2 NORMAL SALINE 1,000 ML IV SCH ×3 (11:54→23:18)
[2018-11-20] MEDS: IPRATRPIUM/ALBUTEROL 0.5/2.5MG 3 ML NEBU. NEB SCH ×3 (12:00→20:00)
[2018-11-20] MEDS: HYDROcodone/APAP 5/325MG 1 TAB TABLET PO PRN ×3 (12:37→21:38)
[2018-11-20] MEDS: VANCOMYCIN 125 MG/2.5 ML ORAL SOLUTION. PO SCH ×3 (12:37→21:47)
--- NOTE | 2018-11-20 15:27 | PDOC2 ---
CONSULT Date of Consult Date of Consult DATE: 11/20/18 TIME: 15:18 Reason for Consult Reason for Consult: Medication management, diabetes Referring Physician Referring Physician: Dr. Roger Ray Identification/Chief Complaint Chief Complaint Right hemithyroidectomy Source Source: Caregiver, Chart review, Patient History of Present Illness Reason for Visit: Mr Rivera is a 58yo male w/ PMHx DM, ?afib (PVCs), DVTs, morbid obesity, HTN, dCHF, VIOLET, history of c. difficile colitis and right renal mass who was recently found with multiple thyroid nodules, admitted for right thyroid nodule, hemithyroidectomy this morning. Has a bit of abdominal pain and diarrhea now, sore throat, otherwise feels well. Historically was found with c. difficile positive on 09/02/18, likely community acquired was discharged and readmitted for the same again last month. Also has a right renal mass that was noted back in August on CT scan, had positive PET scan recently for this. Past Medical History Cardiovascular: AFIB, HTN Pulmonary: COPD, Other GI: GERD Heme/Onc: Other Musculoskeletal: Osteoarthritis Infectious disease: No pertinent hx Renal/: No pertinent hx Endocrine: Diabetes Past Surgical History Past Surgical History: Cholecystectomy, Tonsillectomy, Other (Right hemithyroidectomy) Family History Family History: Hypertension Social History No ALCOHOL: none Drugs: None Lives: with Family Domestic Violence: Neg Current Medications Current Medications Current Medications Ondansetron HCl (Zofran) 4 mg PRN Q6HRS PRN IV NAUSEA/VOMITING; Start 11/20/18 at 07:00; Stop 11/21/18 at 06:59 Fentanyl Citrate (Fentanyl 2ml Vial) 25 mcg PRN Q5MIN PRN IV MILD PAIN; Start 11/20/18 at 07:00; Stop 11/21/18 at 06:59 Fentanyl Citrate (Fentanyl 2ml Vial) 50 mcg PRN Q5MIN PRN IV MODERATE TO SEVERE PAIN Last administered on 11/20/18at 10:26; Start 11/20/18 at 07:00; Stop 11/21/18 at 06:59 Morphine Sulfate (Morphine Sulfate) 1 mg PRN Q10MIN PRN IV SEVERE PAIN Last administered on 11/20/18at 11:05; Start 11/20/18 at 07:00; Stop 11/21/18 at 06:59 Ringer's Solution 1,000 ml @ 30 mls/hr Q24H IV Last administered on 11/20/18at 07:00; Start 11/20/18 at 07:00; Stop 11/20/18 at 18:59 Lidocaine HCl (Xylocaine-Mpf 1% 2ml Vial) 2 ml PRN 1X PRN ID PRIOR TO IV START; Start 11/20/18 at 07:00; Stop 11/21/18 at 06:59 Hydromorphone HCl (Dilaudid) 0.5 mg PRN Q10MIN PRN IV SEV PAIN, Second choice; Start 11/20/18 at 07:00; Stop 11/21/18 at 06:59 Prochlorperazine Edisylate (Compazine) 5 mg PACU PRN PRN IV NAUSEA, MRX1 Last administered on 11/20/18at 10:00; Start 11/20/18 at 07:00; Stop 11/21/18 at 06:59 Cefazolin Sodium 3 gm/Dextrose 100 ml @ 200 mls/hr 1X PREOP PRN IV PRIOR TO PROCEDURE Last administered on 11/20/18at 07:31; Start 11/20/18 at 06:00; Stop 11/20/18 at 15:00; Status DC Remifentanil HCl (Ultiva) 2 mg STK-MED ONCE IV ; Start 11/20/18 at 07:02; Stop 11/20/18 at 07:03; Status DC Lidocaine HCl (Lta Kit) 4 ml STK-MED ONCE TP ; Start 11/20/18 at 07:06; Stop 11/20/18 at 07:07; Status DC Sodium Chloride (SODIUM CHLORIDE 20ml) 20 ml STK-MED ONCE IJ ; Start 11/20/18 at 07:06; Stop 11/20/18 at 07:07; Status DC Sodium Chloride (SODIUM CHLORIDE 20ml) 20 ml STK-MED ONCE IJ ; Start 11/20/18 at 07:06; Stop 11/20/18 at 07:07; Status DC Propofol 20 ml @ As Directed STK-MED ONCE IV ; Start 11/20/18 at 07:07; Stop 11/20/18 at 07:08; Status DC Lidocaine HCl (Lidocaine Pf 2% Vial) 5 ml STK-MED ONCE .ROUTE ; Start 11/20/18 at 07:08; Stop 11/20/18 at 07:09; Status DC Ondansetron HCl (Zofran) 4 mg STK-MED ONCE .ROUTE ; Start 11/20/18 at 07:08; Stop 11/20/18 at 07:09; Status DC Succinylcholine Chloride (Anectine) 200 mg STK-MED ONCE .ROUTE ; Start 11/20/18 at 07:09; Stop 11/20/18 at 07:10; Status DC Albuterol Sulfate (Ventolin Neb Soln) 2.5 mg STK-MED ONCE .ROUTE ; Start 11/20/18 at 07:10; Stop 11/20/18 at 07:11; Status DC Fentanyl Citrate (Fentanyl 2ml Vial) 100 mcg STK-MED ONCE .ROUTE ; Start 11/20/18 at 07:10; Stop 11/20/18 at 07:11; Status DC Midazolam HCl (Versed) 2 mg STK-MED ONCE .ROUTE ; Start 11/20/18 at 07:11; Stop 11/20/18 at 07:12; Status DC Dexamethasone Sodium Phosphate (Decadron) 4 mg STK-MED ONCE .ROUTE ; Start 11/20/18 at 07:12; Stop 11/20/18 at 07:13; Status DC Famotidine (Pepcid Vial) 20 mg STK-MED ONCE .ROUTE ; Start 11/20/18 at 07:13; Stop 11/20/18 at 07:14; Status DC Propofol 100 ml @ As Directed STK-MED ONCE IV ; Start 11/20/18 at 06:57; Stop 11/20/18 at 07:57; Status DC Famotidine (Pepcid Vial) 20 mg STK-MED ONCE .ROUTE ; Start 11/20/18 at 08:04; Stop 11/20/18 at 08:05; Status DC Ephedrine Sulfate (ePHEDrine PF IN SALINE SYRINGE) 50 mg STK-MED ONCE IV ; S tart 11/20/18 at 08:04; Stop 11/20/18 at 08:05; Status DC Phenylephrine HCl (PHENYLEPHRINE in 0.9% NACL PF) 1 mg STK-MED ONCE IV ; Start 11/20/18 at 08:05; Stop 11/20/18 at 08:06; Status DC Glycopyrrolate (Robinul) 1 mg STK-MED ONCE .ROUTE ; Start 11/20/18 at 08:06; Stop 11/20/18 at 08:07; Status DC Sevoflurane (Ultane) 90 ml STK-MED ONCE IH ; Start 11/20/18 at 08:21; Stop 11/20/18 at 08:22; Status DC Sodium Chloride (Normal Saline Flush) 3 ml QSHIFT PRN IV AFTER MEDS AND BLOOD DRAWS; Start 11/20/18 at 09:45 Sodium Chloride 1,000 ml @ 75 mls/hr [id number] IV Last administered on 11/20/18at 11:54; Start 11/20/18 at 09:45 Acetaminophen/ Hydrocodone Bitart (Lortab 5/325) 1 tab PRN Q4HRS PRN PO MILD PAIN; Start 11/20/18 at 09:45 Acetaminophen/ Hydrocodone Bitart (Lortab 5/325) 2 tab PRN Q4HRS PRN PO MODERATE PAIN, SEVERE PAIN Last administered on 11/20/18at 12:37; Start 11/20/18 at 09:45 Hydromorphone HCl (Dilaudid) 0.2 mg PRN Q1HR PRN IV PAIN; Start 11/20/18 at 09:45 Ondansetron HCl (Zofran) 4 mg PRN Q6HRS PRN IV NAUESA, 1ST CHOICE; Start 11/20/18 at 09:45 Amlodipine Besylate (Norvasc) 10 mg DAILY PO ; Start 11/21/18 at 09:00 Aspirin (Ecotrin) 81 mg DAILY PO ; Start 11/21/18 at 09:00 Cyclobenzaprine HCl (Flexeril) 10 mg QHS PO ; Start 11/20/18 at 21:00 Glimepiride (Amaryl) 2 mg BID PO ; Start 11/20/18 at 21:00 Pantoprazole Sodium (Protonix) 40 mg DAILYAC PO ; Start 11/21/18 at 07:30 Triamcinolone Acetonide (Kenalog) 1 heriberto BID TP ; Start 11/20/18 at 21:00 Non-Formulary Medication (Empagliflozin (Jardiance)) 10 mg DAILY PO ; Start 11/21/18 at 09:00; Status UNV Non-Formulary Medication (Exenatide Microspheres (Bydureon Pen)) 2 mg WEEKLY SQ ; Start 11/27/18 at 09:00; Status UNV Indapamide (Lozol) 1.25 mg DAILY PO ; Start 11/21/18 at 09:00 Non-Formulary Medication (Ipratropium/ Albuterol Sulfate (Combivent Respimat Inhal)) 2 inh BID IH ; Start 11/20/18 at 21:00; Status UNV Metformin HCl (Glucophage Xr) 500 mg DAILYWBKFT PO ; Start 11/21/18 at 08:00 Multivitamins (Thera M Plus) 1 tab DAILY PO ; Start 11/21/18 at 09:00 Losartan Potassium (Cozaar) 100 mg DAILY PO ; Start 11/21/18 at 09:00 Vancomycin HCl (Vancomycin Oral Solution) 125 mg [id number] PO Last administered on 11/20/18at 12:37; Start 11/20/18 at 13:00 Non-Formulary Medication ([Fluconazole] ) 100 mg DAILY PO ; Start 11/21/18 at 09:00; Status UNV Sevoflurane (Ultane) 90 ml STK-MED ONCE IH ; Start 11/20/18 at 10:02; Stop 11/20/18 at 10:03; Status DC Insulin Human Lispro (HumaLOG VIAL) 0-10 units SSI PRN SQ PER PROTOCOL Last administered on 11/20/18at 10:38; Start 11/20/18 at 10:15; Stop 11/21/18 at 10:14 Albuterol/ Ipratropium (Duoneb) 3 ml STK-MED ONCE .ROUTE ; Start 11/20/18 at 10:15; Stop 11/20/18 at 10:16; Status DC Albuterol/ Ipratropium (Duoneb) 3 ml 1X ONCE NEB Last administered on 11/20/18at 10:20; Start 11/20/18 at 10:15; Stop 11/20/18 at 10:44; Status DC Albuterol/ Ipratropium (Duoneb) 3 ml RTQID NEB ; Start 11/20/18 at 12:00 Active Scripts Active Vancocin Hcl (Vancomycin Hcl) 125 Mg Capsule 125 Mg PO QID 14 Days [Fluconazole] 100 MG Tablet 100 Mg PO DAILY MDD 1 14 Days Reported Jardiance (Empagliflozin) 10 Mg Tablet 10 Mg PO DAILY Multivitamins (Multivitamin) 1 Each Tablet 1 Tab PO DAILY 30 Days Glimepiride 2 Mg Tablet 2 Mg PO BID 30 Days Proair Hfa Inhaler (Albuterol Sulfate) 8.5 Gm Hfa.aer.ad 1 Puff INH PRN Q4HRS PRN Hydrocodone-Apap 7.5-325 (Hydrocodone Bit/Acetaminophen) 1 Each Tablet 1 Tab PO PRN TID PRN Combivent Respimat Inhal (Ipratropium/Albuterol Sulfate) 4 Gm Aer.w.adap 2 Inh IH BID Triamcinolone Acetonide 0.1% Oint (Triamcinolone Acetonide) 15 Gm Oint...g. 1 Heriberto TP BID MIX WITH EUCERIN DIRECTED BY PHYSICIAN Manny Pen (Exenatide Microspheres) 2 Mg/0.65 Ml Pen.injctr 2 Mg SQ WEEKLY Indapamide 1.25 Mg Tablet 1 Tab PO DAILY Cyclobenzaprine Hcl 10 Mg Tablet 1 Tab PO QHS Aspir 81 (Aspirin) 81 Mg Tablet.dr 81 Mg PO DAILY Pantoprazole Sodium 40 Mg Tablet.dr 40 Mg PO DAILY Flonase (Fluticasone Propionate) 16 Gm [place].susp 16 Gm NS DAILY Diovan (Valsartan) 320 Mg Tablet 320 Mg PO DAILY Norvasc (Amlodipine Besylate) 10 Mg Tablet 10 Mg PO DAILY Metformin Hcl Er (Metformin Hcl) 1,000 Mg Tab.er.24 500 Mg PO DAILY 30 Days Allergies Allergies: Coded Allergies: No Known Drug Allergies (Unverified , 11/20/18) ROS General: YES: Fatigue, Malaise; No: Chills, Night Sweats, Appetite, Other PSYCHOLOGICAL ROS: YES: Anxiety; No: Behavioral Disorder, Concentration difficultie, Decreased libido, Depression, Disorientation, Hallucinations, Hostility, Irritablity, Memory difficulties, Mood Swings, Obsessive thoughts, Physical abuse, Sexual abuse, Sleep disturbances, Suicidal ideation, Other Eyes: No Blurry vision, No Decreased vision, No Double vision, No Dry eyes, No Excessive tearing, No Eye Pain, No Itchy Eyes, No Loss of vision, No Photophobia, No Scotomata, No Uses contacts, No Uses glasses, No Other HEENT: YES: Sore Throat; No: Heacaches, Visual Changes, Hearing change, Nasal congestion, Nasal discharge, Oral lesions, Sinus pain, Epistaxis, Sneezing, Snoring, Tinnitus, Vertigo, Vocal changes, Other ALLERGY AND IMMUNOLOGY: No: Hives, Insect Bite Sensitivity, Itchy/Watery Eyes, Nasal Congestion, Post Nasal Drip, Seasonal Allergies, Other Hematological and Lymphatic: YES: Blood Clots; No: Bleeding Problems, Blood Transfusions, Brusing, Night Sweats, Pallor, Swollen Lymph Nodes, Other ENDOCRINE: No: Breast Changes, Galactorrhea, Hair Pattern Changes, Hot Flashes, Malaise/lethargy, Mood Swings, Palpitations, Polydipsia/polyuria, Skin Changes, Temperature Intolerance, Unexpected Weight Changes, Other Breast: No New/Changing Breast Lumps, No Nipple changes, No Nipple discharge, No Other Respiratory: No: Cough, Hemoptysis, Orthopnea, Pleuritic Pain, Shortness of breath, SOB with excertion, Sputum Changes, Stridor, Tachypnea, Wheezing, Other Cardiovascular: No Chest Pain, No Palpitations, No Orthopnea, No Paroxysmal Noc. Dyspnea, No Edema, No Lt Headedness, No Other Gastrointestinal: Yes Nausea, Yes Diarrhea; No Vomiting, No Abdominal Pain, No Constipation, No Melena, No Hematochezia, No Other Genitourinary: No Dysuria, No Frequency, No Incontinence, No Hematuria, No Retention, No Discharge, No Urgency, No Pain, No Flank Pain, No Other, No , No , No , No , No , No , No Musculoskeletal: No Gait Disturbance, No Joint Pain, No Joint Stiffness, No Joint Swelling, No Muscle Pain, No Muscular Weakness, No Pain In:, No Swelling In:, No Other Neurological: No Behavorial Changes, No Bowel/Bladder ControlChng, No Confusion, No Dizziness, No Gait Disturbance, No Headaches, No Impaired Coord/balance, No Memory Loss, No Numbness/Tingling, No Seizures, No Speech Problems, No Tremors, No Visual Changes, No Weakness, No Other Skin: No Dry Skin, No Eczema, No Hair Changes, No Lumps, No Mole Changes, No Mottling, No Nail Changes, No Pruritus, No Rash, No Skin Lesion Changes, No Other, No Acne Physical Exam General: Alert, Oriented X3, Cooperative, No acute distress HEENT: PERRLA, EOMI, Mucous membr. moist/pink, Other (surgical dressing clean d ry and intact) Lungs: Clear to auscultation, Normal air movement Heart: Regular rate, Normal S1, Normal S2, No murmurs Abdomen: Normal bowel sounds, Soft, No tenderness, No hepatosplenomegaly, No masses Extremities: No clubbing, No cyanosis, No edema, Normal pulses, No tenderness/swelling Skin: No rashes, No breakdown Psych/Mental Status: Mental status NL, Mood NL MUSCULOSKELETAL: No joint tenderness, No deformity, No swelling, No muscular tenderness noted, Full range of motion without pain Vitals VITALS Vital Signs Date Time Temp Pulse Resp B/P (MAP) Pulse Ox O2 Delivery O2 Flow Rate FiO2 11/20/18 13:43 Room Air 11/20/18 12:37 2.0 11/20/18 11:05 20 97 11/20/18 11:00 97.9 96 122/71 97.9 Labs Labs Laboratory Tests Test 11/20/18 10:04 11/20/18 11:50 Glucose (Fingerstick) 242 mg/dL (70-99) 262 mg/dL (70-99) Laboratory Tests Test 11/20/18 10:04 11/20/18 11:50 Glucose (Fingerstick) 242 mg/dL (70-99) 262 mg/dL (70-99) Images Images PET SCAN - Breathing motion artifact is evident. This degrades many of the sequences. The liver and spleen are not completely evaluated in this study. No pancreatic mass is seen. The gallbladder surgically absent. No abnormal dilatation of the extrahepatic biliary tree is seen. No adrenal mass is evident. There is a round nodule of the posterior lateral aspect of the mid to lower portion of the right kidney measuring 13 mm in greatest dimension. It demonstrates loss of signal on the out of phase sequence consistent with microscopic fat. There is internal heterogeneous enhancement. This is intermediate to low signal intensity on the T2-weighted images. Therefore, this is consistent with a renal cell malignancy. Left kidney is unremarkable. No hydronephrosis is seen. No focal aneurysmal dilatation of the abdominal aorta is seen. No enlarged abdominal lymphadenopathy is seen. No ascites is seen Assessment/Plan Assessment/Plan A/P: Abdominal pain - with N/V/D could be a viral gastroenteritis, ALT slightly elevated, otherwise his CT was not too revealing except for renal mass on right which appears on PET to be renal cell carcinoma SHOSHANA - likely vasomotor nephropathy, will give fluids GERD - with h/o dysphagia/odynophagia - on PPI and H2 isela, recent EGD w/ dilation, tertiary contractions on esophagram A Fib and DVTs - on ASA VIOLET - on CPAP, should continue DM - well managed on GLP-1, SGLT-2, metformin, sulfonylurea and insulin. will hold his GLP-1, SGLT-2, metformin, sulfonylurea for SHOSHANA. Basal bolus plus insulin while in house Morbid obesity - on phentermine and GLP-1 and has been counseled on weight loss. Will hold his weight loss meds while inpatient COPD - may be OHS, will give nebs for his wheezing. Right renal mass - looks irregular, PET scan confirms, needs urgent urology planning for surgery vs radiation oncology consultation Thyroid nodules - found incidentally. I did not palpate them initially. s/p hemithyroidectomy with preserved parathyroid. Would recommend checking a TSH at 6 and 12 weeks in follow up H/o c diff - with loose stools, will check c diff. Trigeminy --normal echo, NEEDS outpatient event monitor KNOWN TO CARDIOLOGY FEN - LR 100cc/hr, ADA diet PPX - Lovenox FULL CODE Inpatient for thyroidectomy recovery, discharge at discretion of surgery. NICOLETTE DOAN MD November 20, 2018 15:27
[2018-11-20] MEDS ORDERED: DEXTROSE 50% 25 GM / 50ML DISP.SYRIN. IV PRN (15:30)
[2018-11-20] MEDS: INSULIN LISPRO 300 UNITS/3 ML INSULN.PEN. SQ SCH ×2 (17:18→21:54)
[2018-11-20] MEDS ORDERED: INSULIN GLARGINE 300 UNITS/3 ML INSULN.PEN. SQ SCH (21:00)
[2018-11-20] MEDS ORDERED: CYCLOBENZAPRINE 10 MG TABLET. PO SCH (21:00)
[2018-11-20] MEDS ORDERED: NON FORMULARY ITEM (Ipratropium/Albuterol Sulfate (Combivent Respimat Inhal) 2 INH) IH SCH (21:00)
[2018-11-20] MEDS: GLIMEPIRIDE 2 MG TABLET. PO SCH (21:39)
[2018-11-20] MEDS ORDERED: ALBUTEROL SULFATE 2.5 MG/3 ML NEBU. NEB PRN (21:45)
[2018-11-20] MEDS: TRIAMCINOLONE ACETONIDE 0.1% TOPICAL OINTMENT 15GM TUBE. TP SCH (21:55)
[2018-11-20] MEDS: HYDROmorphone 2 MG/ML VIAL IV PRN (23:16)
--- NOTE | 2018-11-20 23:28 | NUR ---
Pt. is tolerating PO fluids. Non-administered IVF.
[2018-11-21] MEDS: HYDROcodone/APAP 5/325MG 1 TAB TABLET PO PRN ×3 (03:32→15:14)
[2018-11-21 04:00] VITALS: BP 133/87
[2018-11-21] MEDS: HYDROmorphone 2 MG/ML VIAL IV PRN (04:41)
[2018-11-21 07:00] VITALS: BP_SYST 142; BP_SYST 162; BP_DIAS 73; BP_DIAS 95
[2018-11-21] MEDS: IPRATRPIUM/ALBUTEROL 0.5/2.5MG 3 ML NEBU. NEB SCH ×2 (07:10→11:33)
[2018-11-21] MEDS ORDERED: PANTOPRAZOLE 40 MG TABLET.DR. PO SCH (07:30)
[2018-11-21] MEDS ORDERED: metFORMIN XR 500 MG TAB.ER.24H PO SCH (08:00)
--- NOTE | 2018-11-21 08:09 | PDOC ---
JEANIE ROBERTSON [employer]2EE PROGRAMMER 11/21/18 0809: SURGICAL PROGRESS NOTE Subjective eating without issue some hoarse voice Vital Signs Vital Signs Date Time Temp Pulse Resp B/P (MAP) Pulse Ox O2 Delivery O2 Flow Rate FiO2 11/21/18 07:11 96 Nasal Cannula 2.0 11/21/18 07:00 98.7 79 17 142/73 (96) 98.7 I&O Intake and Output 11/21/18 06:59 Intake Total 1275 ml Output Total 25 ml Balance 1250 ml Intake Oral 175 ml IV Total 1100 ml Output Estimated Blood Loss 25 ml # Voids 2 # Bowel Movements 4 General: Alert, Oriented X3, Cooperative, No acute distress HEENT: Other (incision c/d/i, no erythema, no swelling) Labs Laboratory Tests Test 11/20/18 10:04 11/20/18 11:50 11/20/18 16:42 11/20/18 21:48 Glucose (Fingerstick) 242 mg/dL (70-99) 262 mg/dL (70-99) 292 mg/dL (70-99) 324 mg/dL (70-99) Laboratory Tests Test 11/20/18 10:04 11/20/18 11:50 11/20/18 16:42 11/20/18 21:48 Glucose (Fingerstick) 242 mg/dL (70-99) 262 mg/dL (70-99) 292 mg/dL (70-99) 324 mg/dL (70-99) Problem List s/p right thyroidectomy BS high-last was 324, will have IPC eval before DC plans ?o2 at home, says they are setting up--will check MASOUD MACKAY MD 11/21/18 0952: SURGICAL PROGRESS NOTE Assessment/Plan Agree with above JEANIE ROBERTSON APRN November 21, 2018 08:09 MASOUD MACKAY MD November 21, 2018 09:52
--- NOTE | 2018-11-21 08:27 | PDOC ---
PROGRESS NOTES Chief Complaint Chief Complaint A/P: Abdominal pain - with N/V/D could be a viral gastroenteritis, ALT slightly elevated, otherwise his CT was not too revealing except for renal mass on right which appears on PET to be renal cell carcinoma SHOSHANA - likely vasomotor nephropathy, will give fluids GERD - with h/o dysphagia/odynophagia - on PPI and H2 isela, recent EGD w/ dilation, tertiary contractions on esophagram A Fib and DVTs - on ASA VIOLET - on CPAP, should continue DM - well managed on GLP-1, SGLT-2, metformin, sulfonylurea and insulin. will hold his GLP-1, SGLT-2, metformin, sulfonylurea for SHOSHANA. Basal bolus plus insulin while in house Morbid obesity - on phentermine and GLP-1 and has been counseled on weight loss. Will hold his weight loss meds while inpatient COPD - may be OHS, will give nebs for his wheezing. Right renal mass - looks irregular, PET scan confirms, needs urgent urology planning for surgery vs radiation oncology consultation Thyroid nodules - found incidentally. I did not palpate them initially. s/p hemithyroidectomy with preserved parathyroid. Would recommend checking a TSH at 6 and 12 weeks in follow up H/o c diff - with loose stools, will check c diff. Trigeminy --normal echo, NEEDS outpatient event monitor KNOWN TO CARDIOLOGY FEN - LR 100cc/hr, ADA diet PPX - Lovenox FULL CODE Inpatient for thyroidectomy recovery, discharge at discretion of surgery. History of Present Illness History of Present Illness Mr Rivera is a 58yo male w/ PMHx DM, ?afib (PVCs), DVTs, morbid obesity, HTN, dCHF, VIOLET, history of c. difficile colitis and right renal mass who was recently found with multiple thyroid nodules, admitted for right thyroid nodule, hemithyroidectomy this morning. Has a bit of abdominal pain and diarrhea now, sore throat, otherwise feels well. Historically was found with c. difficile positive on 09/02/18, likely community acquired was discharged and readmitted for the same again last month. Also has a right renal mass that was noted back in August on CT scan, had positive PET scan recently for this. He is feeling much better, no further loose bowels. Feels ready to discharge. Has f/u for his right renal mass with [facility]. Vitals Vitals Vital Signs Date Time Temp Pulse Resp B/P (MAP) Pulse Ox O2 Delivery O2 Flow Rate FiO2 11/21/18 07:11 96 Nasal Cannula 2.0 11/21/18 04:41 18 11/21/18 04:00 98.7 103 133/87 (102) 98.7 Physical Exam General: Alert, Oriented X3, Cooperative, No acute distress Heart: Regular rate, Normal S1, Normal S2, No murmurs Lungs: Clear Abdomen: Normal bowel sounds, Soft, No tenderness, No hepatosplenomegaly, No masses Extremities: No clubbing, No cyanosis, No edema, Normal pulses, No tenderness/swelling Skin: No rashes, No breakdown Labs LABS Laboratory Tests Test 11/20/18 10:04 11/20/18 11:50 11/20/18 16:42 11/20/18 21:48 Glucose (Fingerstick) 242 mg/dL (70-99) 262 mg/dL (70-99) 292 mg/dL (70-99) 324 mg/dL (70-99) Test 11/21/18 07:56 Glucose (Fingerstick) 212 mg/dL (70-99) Comment Review of Relevant I have reviewed the following items brigette (where applicable) has been applied. Labs Laboratory Tests Test 11/20/18 10:04 11/20/18 11:50 11/20/18 16:42 11/20/18 21:48 Glucose (Fingerstick) 242 mg/dL (70-99) 262 mg/dL (70-99) 292 mg/dL (70-99) 324 mg/dL (70-99) Test 11/21/18 07:56 Glucose (Fingerstick) 212 mg/dL (70-99) Laboratory Tests Test 11/20/18 10:04 11/20/18 11:50 11/20/18 16:42 11/20/18 21:48 Glucose (Fingerstick) 242 mg/dL (70-99) 262 mg/dL (70-99) 292 mg/dL (70-99) 324 mg/dL (70-99) Test 11/21/18 07:56 Glucose (Fingerstick) 212 mg/dL (70-99) Medications Current Medications Ondansetron HCl (Zofran) 4 mg PRN Q6HRS PRN IV NAUSEA/VOMITING; Start 11/20/18 at 07:00; Stop 11/21/18 at 06:59; Status DC Fentanyl Citrate (Fentanyl 2ml Vial) 25 mcg PRN Q5MIN PRN IV MILD PAIN; Start 11/20/18 at 07:00; Stop 11/21/18 at 06:59; Status DC Fentanyl Citrate (Fentanyl 2ml Vial) 50 mcg PRN Q5MIN PRN IV MODERATE TO SEVERE PAIN Last administered on 11/20/18at 10:26; Start 11/20/18 at 07:00; Stop 11/21/18 at 06:59; Status DC Morphine Sulfate (Morphine Sulfate) 1 mg PRN Q10MIN PRN IV SEVERE PAIN Last administered on 11/20/18at 11:05; Start 11/20/18 at 07:00; Stop 11/21/18 at 06:59; Status DC Ringer's Solution 1,000 ml @ 30 mls/hr Q24H IV Last administered on 11/20/18at 07:00; Start 11/20/18 at 07:00; Stop 11/20/18 at 18:59; Status DC Lidocaine HCl (Xylocaine-Mpf 1% 2ml Vial) 2 ml PRN 1X PRN ID PRIOR TO IV START; Start 11/20/18 at 07:00; Stop 11/21/18 at 06:59; Status DC Hydromorphone HCl (Dilaudid) 0.5 mg PRN Q10MIN PRN IV SEV PAIN, Second choice; Start 11/20/18 at 07:00; Stop 11/21/18 at 06:59; Status DC Prochlorperazine Edisylate (Compazine) 5 mg PACU PRN PRN IV NAUSEA, MRX1 Last administered on 11/20/18at 10:00; Start 11/20/18 at 07:00; Stop 11/21/18 at 06:59; Status DC Cefazolin Sodium 3 gm/Dextrose 100 ml @ 200 mls/hr 1X PREOP PRN IV PRIOR TO PROCEDURE Last administered on 11/20/18at 07:31; Start 11/20/18 at 06:00; Stop 11/20/18 at 15:00; Status DC Remifentanil HCl (Ultiva) 2 mg STK-MED ONCE IV ; Start 11/20/18 at 07:02; Stop 11/20/18 at 07:03; Status DC Lidocaine HCl (Lta Kit) 4 ml STK-MED ONCE TP ; Start 11/20/18 at 07:06; Stop 11/20/18 at 07:07; Status DC Sodium Chloride (SODIUM CHLORIDE 20ml) 20 ml STK-MED ONCE IJ ; Start 11/20/18 at 07:06; Stop 11/20/18 at 07:07; Status DC Sodium Chloride (SODIUM CHLORIDE 20ml) 20 ml STK-MED ONCE IJ ; Start 11/20/18 at 07:06; Stop 11/20/18 at 07:07; Status DC Propofol 20 ml @ As Directed STK-MED ONCE IV ; Start 11/20/18 at 07:07; Stop 11/20/18 at 07:08; Status DC Lidocaine HCl (Lidocaine Pf 2% Vial) 5 ml STK-MED ONCE .ROUTE ; Start 11/20/18 at 07:08; Stop 11/20/18 at 07:09; Status DC Ondansetron HCl (Zofran) 4 mg STK-MED ONCE .ROUTE ; Start 11/20/18 at 07:08; Stop 11/20/18 at 07:09; Status DC Succinylcholine Chloride (Anectine) 200 mg STK-MED ONCE .ROUTE ; Start 11/20/18 at 07:09; Stop 11/20/18 at 07:10; Status DC Albuterol Sulfate (Ventolin Neb Soln) 2.5 mg STK-MED ONCE .ROUTE ; Start 11/20/18 at 07:10; Stop 11/20/18 at 07:11; Status DC Fentanyl Citrate (Fentanyl 2ml Vial) 100 mcg STK-MED ONCE .ROUTE ; Start 11/20/18 at 07:10; Stop 11/20/18 at 07:11; Status DC Midazolam HCl (Versed) 2 mg STK-MED ONCE .ROUTE ; Start 11/20/18 at 07:11; Stop 11/20/18 at 07:12; Status DC Dexamethasone Sodium Phosphate (Decadron) 4 mg STK-MED ONCE .ROUTE ; Start 11/20/18 at 07:12; Stop 11/20/18 at 07:13; Status DC Famotidine (Pepcid Vial) 20 mg STK-MED ONCE .ROUTE ; Start 11/20/18 at 07:13; Stop 11/20/18 at 07:14; Status DC Propofol 100 ml @ As Directed STK-MED ONCE IV ; Start 11/20/18 at 06:57; Stop 11/20/18 at 07:57; Status DC Famotidine (Pepcid Vial) 20 mg STK-MED ONCE .ROUTE ; Start 11/20/18 at 08:04; Stop 11/20/18 at 08:05; Status DC Ephedrine Sulfate (ePHEDrine PF IN SALINE SYRINGE) 50 mg STK-MED ONCE IV ; Start 11/20/18 at 08:04; Stop 11/20/18 at 08:05; Status DC Phenylephrine HCl (PHENYLEPHRINE in 0.9% NACL PF) 1 mg STK-MED ONCE IV ; Start 11/20/18 at 08:05; Stop 11/20/18 at 08:06; Status DC Glycopyrrolate (Robinul) 1 mg STK-MED ONCE .ROUTE ; Start 11/20/18 at 08:06; Stop 11/20/18 at 08:07; Status DC Sevoflurane (Ultane) 90 ml STK-MED ONCE IH ; Start 11/20/18 at 08:21; Stop 11/20/18 at 08:22; Status DC Sodium Chloride (Normal Saline Flush) 3 ml QSHIFT PRN IV AFTER MEDS AND BLOOD DRAWS; Start 11/20/18 at 09:45 Sodium Chloride 1,000 ml @ 75 mls/hr [id number] IV Last administered on 11/20/18at 11:54; Start 11/20/18 at 09:45 Acetaminophen/ Hydrocodone Bitart (Lortab 5/325) 1 tab PRN Q4HRS PRN PO MILD PAIN; Start 11/20/18 at 09:45 Acetaminophen/ Hydrocodone Bitart (Lortab 5/325) 2 tab PRN Q4HRS PRN PO MODERATE PAIN, SEVERE PAIN Last administered on 11/21/18at 03:32; Start 11/20/18 at 09:45 Hydromorphone HCl (Dilaudid) 0.2 mg PRN Q1HR PRN IV PAIN Last administered on 11/21/18at 04:41; Start 11/20/18 at 09:45 Ondansetron HCl (Zofran) 4 mg PRN Q6HRS PRN IV NAUESA, 1ST CHOICE; Start 11/20/18 at 09:45 Amlodipine Besylate (Norvasc) 10 mg DAILY PO ; Start 11/21/18 at 09:00 Aspirin (Ecotrin) 81 mg DAILY PO ; Start 11/21/18 at 09:00 Cyclobenzaprine HCl (Flexeril) 10 mg QHS PO Last administered on 11/20/18at 21:39; Start 11/20/18 at 21:00 Glimepiride (Amaryl) 2 mg BID PO Last administered on 11/20/18at 21:39; Start 11/20/18 at 21:00 Pantoprazole Sodium (Protonix) 40 mg DAILYAC PO ; Start 11/21/18 at 07:30 Triamcinolone Acetonide (Kenalog) 1 heriberto BID TP Last administered on 11/20/18at 21:55; Start 11/20/18 at 21:00 Non-Formulary Medication (Empagliflozin (Jardiance)) 10 mg DAILY PO ; Start 11/21/18 at 09:00; Status UNV Non-Formulary Medication (Exenatide Microspheres (Bydureon Pen)) 2 mg WEEKLY SQ ; Start 11/27/18 at 09:00; Status UNV Indapamide (Lozol) 1.25 mg DAILY PO ; Start 11/21/18 at 09:00 Non-Formulary Medication (Ipratropium/ Albuterol Sulfate (Combivent Respimat Inhal)) 2 inh BID IH ; Start 11/20/18 at 21:00; Status UNV Metformin HCl (Glucophage Xr) 500 mg DAILYWBKFT PO ; Start 11/21/18 at 08:00 Multivitamins (Thera M Plus) 1 tab DAILY PO ; Start 11/21/18 at 09:00 Losartan Potassium (Cozaar) 100 mg DAILY PO ; Start 11/21/18 at 09:00 Vancomycin HCl (Vancomycin Oral Solution) 125 mg [id number] PO Last administered on 11/20/18at 21:47; Start 11/20/18 at 13:00 Non-Formulary Medication ([Fluconazole] ) 100 mg DAILY PO ; Start 11/21/18 at 09:00; Status UNV Sevoflurane (Ultane) 90 ml STK-MED ONCE IH ; Start 11/20/18 at 10:02; Stop 11/20/18 at 10:03; Status DC Insulin Human Lispro (HumaLOG VIAL) 0-10 units SSI PRN SQ PER PROTOCOL Last administered on 11/20/18at 10:38; Start 11/20/18 at 10:15; Stop 11/20/18 at 15:23; Status DC Albuterol/ Ipratropium (Duoneb) 3 ml STK-MED ONCE .ROUTE ; Start 11/20/18 at 10:15; Stop 11/20/18 at 10:16; Status DC Albuterol/ Ipratropium (Duoneb) 3 ml 1X ONCE NEB Last administered on 11/20/18at 10:20; Start 11/20/18 at 10:15; Stop 11/20/18 at 10:44; Status DC Albuterol/ Ipratropium (Duoneb) 3 ml RTQID NEB Last administered on 11/21/18at 07:10; Start 11/20/18 at 12:00 Insulin Glargine (Lantus) 5 units QHS SQ Last administered on 11/20/18at 21:53; Start 11/20/18 at 21:00 Insulin Human Lispro (HumaLOG) 0-7 UNITS TIDWMEALHC SQ Last administered on 11/20/18at 21:54; Start 11/20/18 at 17:00 Dextrose (Dextrose 50%-Water Syringe) 12.5 gm PRN Q15MIN PRN IV SEE COMMENTS; Start 11/20/18 at 15:30 Albuterol Sulfate (Ventolin Neb Soln) 2.5 mg PRN Q4HRS PRN NEB SHORTNESS OF BREATH Last administered on 11/20/18at 23:28; Start 11/20/18 at 21:45 Active Scripts Active Vancocin Hcl (Vancomycin Hcl) 125 Mg Capsule 125 Mg PO QID 14 Days [Fluconazole] 100 MG Tablet 100 Mg PO DAILY MDD 1 14 Days Reported Jardiance (Empagliflozin) 10 Mg Tablet 10 Mg PO DAILY Multivitamins (Multivitamin) 1 Each Tablet 1 Tab PO DAILY 30 Days Glimepiride 2 Mg Tablet 2 Mg PO BID 30 Days Proair Hfa Inhaler (Albuterol Sulfate) 8.5 Gm Hfa.aer.ad 1 Puff INH PRN Q4HRS PRN Hydrocodone-Apap 7.5-325 (Hydrocodone Bit/Acetaminophen) 1 Each Tablet 1 Tab PO PRN TID PRN Combivent Respimat Inhal (Ipratropium/Albuterol Sulfate) 4 Gm Aer.w.adap 2 Inh IH BID Triamcinolone Acetonide 0.1% Oint (Triamcinolone Acetonide) 15 Gm Oint...g. 1 Heriberto TP BID MIX WITH EUCERIN DIRECTED BY PHYSICIAN Manny Pen (Exenatide Microspheres) 2 Mg/0.65 Ml Pen.injctr 2 Mg SQ WEEKLY Indapamide 1.25 Mg Tablet 1 Tab PO DAILY Cyclobenzaprine Hcl 10 Mg Tablet 1 Tab PO QHS Aspir 81 (Aspirin) 81 Mg Tablet.dr 81 Mg PO DAILY Pantoprazole Sodium 40 Mg Tablet.dr 40 Mg PO DAILY Flonase (Fluticasone Propionate) 16 Gm [place].susp 16 Gm NS DAILY Diovan (Valsartan) 320 Mg Tablet 320 Mg PO DAILY Norvasc (Amlodipine Besylate) 10 Mg Tablet 10 Mg PO DAILY Metformin Hcl Er (Metformin Hcl) 1,000 Mg Tab.er.24 500 Mg PO DAILY 30 Days Vitals/I & O Vital Sign - Last 24 Hours 11/20/18 11/20/18 11/20/18 11/20/18 09:53 09:53 10:00 10:15 Temp 98.0 98.0 98.0 98.0 Pulse 98 92 Resp 20 15 10 B/P (MAP) 126/85 119/77 Pulse Ox 99 100 95 O2 Delivery Simple Mask Mask Simple Mask O2 Flow Rate 10 10 10.0 11/20/18 11/20/18 11/20/18 11/20/18 10:26 10:30 10:45 10:49 Temp 98.0 97.9 98.0 97.9 Pulse 96 98 Resp 16 16 15 13 B/P (MAP) 137/74 121/74 Pulse Ox 100 100 94 92 O2 Delivery Room Air Room Air Room Air Room Air 11/20/18 11/20/18 11/20/18 11/20/18 11:00 11:05 11:35 11:45 Temp 97.9 97.9 97.9 97.9 Pulse 96 103 Resp 18 20 17 B/P (MAP) 122/71 113/75 (88) Pulse Ox 92 97 96 O2 Delivery Nasal Cannula Nasal Cannula Nasal Cannula Nasal Cannula O2 Flow Rate 2.0 2.0 2.0 2.0 11/20/18 11/20/18 11/20/18 11/20/18 11:55 11:56 12:00 12:15 Pulse 100 103 Resp 17 17 B/P (MAP) 129/81 (97) 120/79 (93) Pulse Ox 94 95 O2 Delivery Nasal Cannula Room Air Nasal Cannula Nasal Cannula O2 Flow Rate 2.0 2.0 2.0 11/20/18 11/20/18 11/20/18 11/20/18 12:30 12:37 12:45 13:00 Pulse 96 94 88 Resp 17 B/P (MAP) 126/74 (91) 115/74 (88) 127/64 (85) Pulse Ox 93 96 96 O2 Delivery Nasal Cannula Nasal Cannula Nasal Cannula Nasal Cannula O2 Flow Rate 2.0 2.0 2.0 2.0 11/20/18 11/20/18 11/20/18 11/20/18 13:30 14:00 15:00 15:55 Pulse 94 90 88 B/P (MAP) 111/67 (82) 103/64 (77) 106/74 (85) Pulse Ox 97 96 97 93 O2 Delivery Nasal Cannula Nasal Cannula Nasal Cannula Nasal Cannula O2 Flow Rate 2.0 2.0 2.0 2.0 11/20/18 11/20/18 11/20/18 11/20/18 17:15 19:00 20:00 20:01 Temp 97.5 97.5 Pulse 114 Resp 20 B/P (MAP) 141/85 (103) Pulse Ox 95 94 O2 Delivery Room Air Nasal Cannula Nasal Cannula Nasal Cannula O2 Flow Rate 2.0 2.0 2.0 11/20/18 11/20/18 11/20/18 11/20/18 21:38 23:00 23:16 23:28 Temp 97.9 97.9 Pulse 100 Resp 18 20 20 B/P (MAP) 132/48 (76) Pulse Ox 96 O2 Delivery Room Air Nasal Cannula Room Air Nasal Cannula O2 Flow Rate 2.0 2.0 11/20/18 11/21/18 11/21/18 11/21/18 23:46 03:32 04:00 04:32 Temp 98.7 98.7 Pulse 103 Resp 20 20 20 18 B/P (MAP) 133/87 (102) Pulse Ox 98 O2 Delivery Nasal Cannula Nasal Cannula Nasal Cannula Nasal Cannula O2 Flow Rate 2.0 2.0 2.0 2.0 11/21/18 11/21/18 04:41 07:11 Resp 18 Pulse Ox 96 O2 Delivery Nasal Cannula Nasal Cannula O2 Flow Rate 2.0 2.0 Intake and Output 11/20/18 11/20/18 11/21/18 14:59 22:59 06:59 Intake Total 1100 ml 175 ml Output Total 25 ml Balance 1075 ml 175 ml NICOLETTE DOAN MD November 21, 2018 08:27
[2018-11-21] MEDS: VANCOMYCIN 125 MG/2.5 ML ORAL SOLUTION. PO SCH ×2 (08:38→12:04)
[2018-11-21] MEDS: GLIMEPIRIDE 2 MG TABLET. PO SCH (08:40)
[2018-11-21] MEDS: TRIAMCINOLONE ACETONIDE 0.1% TOPICAL OINTMENT 15GM TUBE. TP SCH (08:42)
[2018-11-21] MEDS: INSULIN LISPRO 300 UNITS/3 ML INSULN.PEN. SQ SCH ×2 (08:46→12:07)
[2018-11-21] MEDS ORDERED: HYDR-2761 PO (08:59)
[2018-11-21] MEDS ORDERED: NON FORMULARY ITEM (Empagliflozin (Jardiance) 10 MG) PO SCH (09:00)
[2018-11-21] MEDS ORDERED: LOSARTAN POTASSIUM 50 MG TABLET. PO SCH (09:00)
[2018-11-21] MEDS ORDERED: FLUCONAZOLE 100 MG PO SCH (09:00)
[2018-11-21] MEDS ORDERED: INDAPAMIDE 2.5 MG TABLET PO SCH (09:00)
[2018-11-21] MEDS ORDERED: ASPIRIN ENTERIC COATED 81 MG TABLET.DR. PO SCH (09:00)
[2018-11-21] MEDS ORDERED: amLODIPine BESYLATE 10 MG TABLET PO SCH (09:00)
[2018-11-21] MEDS ORDERED: MULTIVITAMIN with MINERAL TABLET. PO SCH (09:00)
--- NOTE | 2018-11-21 09:00 | DISCH ---
DISCHARGE INSTRUCTIONS Condition on Discharge Condition on Discharge: Stable Activity After Discharge Activity Instructions for Disc: Activity as tolerated Exercise Instruction after Dis: Progress as tolerated Driving Instructions after Dis: Do not drive today Weight Bearing Status after Di: As tolerated Diet after Discharge Diet after Discharge: Cardiac Diet Texture: Regular Liquid Texture: Thin Liquid Swallowing Supervision: None needed Wound Incision Care Wound/Incision Care: No wound care needed Other wound/incision instructi: OK TO SHOWER, CAN GET INCISION WET Checks after Discharge Checks after discharge: Check blood sugar, ac/hs Contacting the DRRonni after DC Call your doctor for: Concerns you may have Follow-Up Follow up with: Dr Ray 2 weeks, call to schedule [phone] Treatment/Equipment after DC Adaptive Equipment Issued: None JEANIE ROBERTSON APRN November 21, 2018 09:00
[2018-11-21 10:02] LABS: CALCIUM 9.8 mg/dL (8.5-10.1); CREATININE 1.4 mg/dL (0.7-1.3); GFR 63.2; POTASSIUM 3.7 mmol/L (3.5-5.1)
[2018-11-21 11:00] VITALS: BP 138/78
[2018-11-21] MEDS: IV 1/2 NORMAL SALINE 1,000 ML IV SCH (11:57)
--- NOTE | 2018-11-21 12:09 | NUR ---
SW following for discharge planning. Discussed with RN, pt is from home with . RN advised no SW needs and probable discharge home today.
[2018-11-21 15:00] VITALS: BP 143/77
--- NOTE | 2018-11-21 16:24 | NUR ---
Discharge: Pt DC to home per private car accompanied by family. Discussed DC instructions, incisional care, pain control, s/s of infection, and medication. Clarified with Dr. Ray that pt does not need to be on a thyroid medication, he will have labs drawn in 4-6 weeks. IV DC'ed no complications. No concerns at this time.
--- NOTE | 2018-11-21 18:06 | PATHOLOGY ---
[facility] Accession Number: [id number] . 01 Material submitted: . thyroid gland - RIGHT THYROID STITCH AT SUPERIOR HOLE. Modifiers: right, superior . 01 Clinical history: . Right thyroid nodule . 01 Frozen section diagnosis: . INTRAOPERATIVE CONSULTATION WITH FROZEN SECTION: (Vince Lopez MD) . Thyroid lobe, right thyroidectomy: - Favor adenomatous nodules. Definitive diagnosis pending permanent sections. . The results are reported to Dr. Ray in the pathology area. . The remainder of the thyroid lobe is submitted from superior to inferior as A2-A10. (JPM:sherrie; 11/20/2018) . Frozen section performed at [facility], [address] [place] [address], [place] [address]. . FROZEN SECTION GROSS DESCRIPTION: . The specimen is received fresh for intraoperative consultation and is designated "right thyroid". This consists of a multinodular lobe of reddish-purple thyroid tissue which weighs 14 grams and which measures 4.5 x 4.5 x 2.0 cm in greatest dimension. A suture is attached to the superior pole. The external capsular surface generally appears intact and is focally disrupted inferiorly where there is focal brown roughening. The margin is inked with black ink. The lobe is serially sectioned. There are several gold gelatinous thyroid nodules, the largest of which is present in the inferior pole and measures up to 1.8 cm and is focally gritty. A apparel trimmings sales representative section from the nodule in the inferior pole is submitted for frozen section as FSA1. The tissue remaining from frozen section is submitted for permanent sections as A1. (JPM:sherrie; 11/20/2018) /QMS . 02 Diagnosis: Thyroid lobe, right thyroidectomy: - Adenomatous nodules, multiple, the largest measuring 1.8 cm in greatest dimension, showing focal sclerosis and remote hemorrhage. - No parathyroid glands identified. (JPM:brionna; 11/21/2018) MBR/11/21/2018 . 02 Comment: There is no evidence of malignancy. (JPM:brionna; 11/21/2018) . 02 Electronically signed: . Vince Lopez MD, Pathologist NPI- [id number] . 03 Gross description: . Please see frozen section gross description dictated by the pathologist located under the Frozen Section part of this report. /MBR . 02 Pathologist provided ICD-10: E04.1, E07.89 . 02 CPT . 875652, 418806 Specimen Comment: A courtesy copy of this report has been sent to Specimen Comment: [phone]. Specimen Comment: Report sent to Performed at: [address] [facility] [address] [id number] MD Antione Oro MD Phone: [phone] Performed at: 02 [facility] [address] [place], [place] [id number] MD Vince Lopez MD Phone: [phone] Performed at: [address] [facility] [address] [facility], [place], [place] [id number] MD Antione Oro MD Phone: [phone]
--- NOTE | 2018-11-24 10:55 | PDOC3 ---
Discharge Summary Visit Information Date of Admission: November 20, 2018 Date of Discharge: November 21, 2018 Admitting Diagnosis: Multinodular thyroid Final Diagnosis Multinodular thyroid Brief Hospital Course Allergies Allergies Coded Allergies Type Severity Reaction Last Updated Verified No Known Drug Allergies 11/20/18 No Brief Hospital Course Mr. Rivera is a 58 old male who underwent right thyroidectomy. Postoperatively tolerating diet, ambulating, and pain managed. Voice is strong. Swallowing appropriately. Discharge home Discharge Information Condition at Discharge: Improved Follow Up: Weeks (2) Disposition/Orders: D/C to Home Scheduled Amlodipine Besylate (Norvasc) 10 Mg Tablet, 10 MG PO DAILY, (Reported) Entered as Reported by: Pamella Murillo on 09/17/132303 Last Action: Continued on 11/20/18956 by MASOUD MACKAY Aspirin (Aspir 81) 81 Mg Tablet.dr, 81 MG PO DAILY, (Reported) Entered as Reported by: Pamella Murillo on 09/17/132303 Last Taken: Unknown Dose on 11/07/18 Last Action: Continued on 11/20/18956 by MASOUD MACKAY Cyclobenzaprine Hcl (Cyclobenzaprine Hcl) 10 Mg Tablet, 1 TAB PO QHS, #30 (Reported) Entered as Reported by: YOLIE LOVELL on 03/15/182203 Last Taken: Unknown Dose on 11/13/18 Last Action: Continued on 11/20/18956 by MASOUD MACKAY Empagliflozin (Jardiance) 10 Mg Tablet, 10 MG PO DAILY for diabetes , (Reported) Entered as Reported by: DANTE KLINE RN on 09/01/181653 Last Taken: Unknown Dose on 11/19/18 Last Action: Converted on 11/20/18956 by MASOUD MACKAY Exenatide Microspheres (Bydureon Pen) 2 Mg/0.65 Ml Pen.injctr, 2 MG SQ WEEKLY, (Reported) Entered as Reported by: YOLIE LOVELL on 03/15/182203 Last Taken: Unknown Dose on 11/18/18 Last Action: Converted on 11/20/18956 by MASOUD MACKAY Fluticasone Propionate (Flonase) 16 Gm [place].susp, 16 GM NS DAILY, (Reported) Entered as Reported by: Pamella Murillo on 09/17/132303 Last Taken: Unknown Dose on 11/19/18 Last Action: HELD on 11/20/18956 by MASOUD MACKAY Glimepiride (Glimepiride) 2 Mg Tablet, 2 MG PO BID for Diabetes for 30 Days, #60 (Reported) Entered as Reported by: DANTE KLINE RN on 09/01/18 1643 Last Taken: Unknown Dose on 11/19/18 Last Action: Continued on 11/20/18956 by MASOUD MACKAY Indapamide (Indapamide) 1.25 Mg Tablet, 1 TAB PO DAILY, #30 Ref 5 (Reported) Entered as Reported by: YOLIE LOVELL on 03/15/182203 Last Taken: Unknown Dose on 11/20/18499 Last Action: Converted on 11/20/18956 by MASOUD MACKAY Ipratropium/Albuterol Sulfate (Combivent Respimat Inhal) 4 Gm Aer.w.adap, 2 INH IH BID, (Reported) Entered as Reported by: YOLIE LOVELL on 03/15/182203 Last Taken: Unknown Dose on 11/19/18 Last Action: Converted on 11/20/18956 by MASOUD MACKAY Metformin Hcl (Metformin Hcl Er) 1,000 Mg Tab.er.24, 500 MG PO DAILY for Diabetes for 30 Days, (Reported) Entered as Reported by: Pamella Murillo on 09/17/132303 Last Taken: Unknown Dose on 11/19/18 0900 Last Action: Converted on 11/20/18956 by MASOUD MACKAY Multivitamin (Multivitamins) 1 Each Tablet, 1 TAB PO DAILY for supplement for 30 Days, #30 Ref 3 (Reported) Entered as Reported by: DANTE KLINE RN on 09/01/18 1654 Last Taken: Unknown Dose on 11/13/18 Last Action: Converted on 11/20/18956 by MASOUD MACKAY Pantoprazole Sodium (Pantoprazole Sodium) 40 Mg Tablet.dr, 40 MG PO DAILY, (Reported) Entered as Reported by: Pamella Murillo on 09/17/132303 Last Taken: Unknown Dose on 11/20/18 0500 Last Action: Continued on 956 by MASOUD MACKAY Triamcinolone Acetonide (Triamcinolone Acetonide 0.1% Oint) 15 Gm Oint...g., 1 ALISON TP BID for WOUND CARE, #1 (Reported) MIX WITH EUCERIN DIRECTED BY PHYSICIAN Entered as Reported by: YOLIE LOVELL on 03/15/182203 Last Taken: Unknown Dose on 11/18/18 Last Action: Continued on 11/20/18956 by MASOUD MACKAY Valsartan (Diovan) 320 Mg Tablet, 320 MG PO DAILY, (Reported) Entered as Reported by: Pamella Murillo on 09/17/13 2304 Last Taken: Unknown Dose on 11/20/18 0500 Last Action: Converted on 11/20/18956 by MASOUD MACKAY Vancomycin Hcl (Vancocin Hcl) 125 Mg Capsule, 125 MG PO QID for c diff for 14 Days, #56 Prescribed by: LEONOR BEAR MD on 09/15/18 1002 Last Taken: Unknown Dose on 11/19/18 1100 Last Action: Converted on 11/20/18956 by MASOUD MACKAY [Fluconazole] 100 MG TABLET, 100 MG PO DAILY for fumgal infectioj MDD 1 for 14 Days, #14 Prescribed by: ALMA SEGURA on 09/07/18 1207 Last Taken: Unknown Dose on 11/13/18 Last Action: Converted on 11/20/18956 by MASOUD MACKAY Scheduled PRN Albuterol Sulfate (Proair Hfa Inhaler) 8.5 Gm Hfa.aer.ad, 1 PUFF INH PRN Q4HRS PRN for SHORTNESS OF BREATH, Ref 0 (Reported) Entered as Reported by: YOLIE LOVELL on 03/15/182203 Last Taken: Unknown Dose on 11/19/18 Last Action: HELD on 11/20/18956 by MASOUD MACKAY Hydrocodone Bit/Acetaminophen (Hydrocodone-Apap 5-325 ) 1 Tab Tablet, 1 TAB PO PRN Q4HRS PRN for MILD PAIN, #30 Ref 0 Prescribed by: Jeanie Griggs on 11/21/18 0859 Discontinued Medications Hydrocodone Bit/Acetaminophen (Hydrocodone-Apap 7.5-325 ) 1 Each Tablet, 1 TAB PO PRN TID PRN for PAIN, Ref 0 (Reported) Entered as Reported by: YOLIE LOVELL on 03/15/182203 Last Taken: Unknown Dose on 11/13/18 Last Action: HELD on 11/20/1857 by JEANIE HUMPHREYS APRN November 24, 2018 10:55
[2018-11-27] MEDS ORDERED: NON FORMULARY ITEM (Exenatide Microspheres (Bydureon Pen) 2 MG) SQ SCH (09:00)
== END 2018-11-21 16:27 | disposition home or self-care (01) ==
LOC: SURG 05:42 → 4 NORTH 10:00 → OBSVTOIN 11-21 07:00 → INTOOBSV 11-21 07:00
PROVIDERS: ADMIT Surgery; ATTEND Surgery
DX: E04.2 Nontoxic multinodular goiter (principal); J44.9 Chronic obstructive pulmonary disease, unspecified; I10 Essential (primary) hypertension; E11.9 Type 2 diabetes mellitus without complications; Z86.718 Personal history of other venous thrombosis and embolism; Z98.890 Other specified postprocedural states; Z86.31 Personal history of diabetic foot ulcer; G47.30 Sleep apnea, unspecified; E66.01 Morbid (severe) obesity due to excess calories; Z68.43 Body mass index [BMI] 50.0-59.9, adult
CPT/HCPCS: 36415; 60210; 80048; 82962; 88307; 88331; 94640; 94760; 96372; 96374; 96376; A7015; G0378; G0379; J0171; J0330; J0780; J1100; J1170; J1815; J2001; J2270; J2370; J2405; J2704; J3010; J3490; J7120; J7613; J7620; J2250

== ENCOUNTER → 2019-04-12 | Outpatient (CLI) | payer OTHER ==
[2019-02-16 16:31] VITALS: BP 106/68
[~2019-04-12] MED LIST changes: +AMOX1TAB11 PO; +CARV3.1210 PO; +CARV6.2511 PO; +DOXY100C2 PO; +DOXY100T PO; +EMPA25TA PO; -GLIM2TAB2 PO; +GLIM2TAB3 PO; -GLIM4TAB2 PO; +GLIM4TAB4 PO; +HYDR-2761 PO; +HYDR-52 PO; +LACT1CAP2 PO; +METF500T11 PO; +METO10TA PO; +NORT25CA PO; +NYST100054 SWSW; -PANT40TA5 PO; +PANT40TA77 PO
== END | disposition home or self-care (01) ==
LOC: LAB 12:45
PROVIDERS: ATTEND Internal Medicine Infectious Disease
DX: A04.72 Enterocolitis due to Clostridium difficile, not specified as recurrent (principal); R19.7 Diarrhea, unspecified
CPT/HCPCS: 36415; 87493

== ENCOUNTER → 2020-08-13 | Outpatient (CLI) | payer OTHER ==
[2019-02-16 16:31] VITALS: BP 106/68
[~2020-08-13] MED LIST changes: -GLIM2TAB3 PO; +GLIM2TAB7 PO; -GLIM4TAB4 PO; +GLIM4TAB8 PO; +HYDR-2767 PO; -HYDR-52 PO; +METF-658 PO; -METF500T11 PO; +MULT-445 PO; -MULT1TAB52 PO; +NAPR-514 PO; +PERFLUTREN PROTEIN-A MICROSPHR 0.22 MG/ML 3 ML VIAL. IV ONE
--- NOTE | 2020-08-14 15:04 | CARD ---
MR#: [id number] Date of Study: 08/13/2020 Ordering Physician: SHELIA BUCHANAN, Referring Physician: SHELIA BUCHANAN Tech: Mae Slater RDCS APPROVED REPORT EXAM: Two-dimensional and M-mode echocardiogram with Doppler and color Doppler. Other Information Quality : Technically Limited Technically limited study due to body habitus. INDICATION PVC's Echo Enhancing Agent Agent/Amount Used: Optison 3mL RISK FACTORS Obesity 2D DIMENSIONS Left Atrium(2D)3.0 (1.6-4.0cm)IVSd1.2 (0.7-1.1cm) Aortic Root(2D)2.2 (2.0-3.7cm)LVDd3.8 (3.9-5.9cm) LVOT Diameter2.0 (1.8-2.4cm)PWd1.2 (0.7-1.1cm) LVDs2.7 (2.5-4.0cm)FS (%) 30.8 % SV37.5 mlLVEF(%)59.1 (>50%) Aortic Valve AoV Peak Zach.115.4cm/sAoV VTI19.3cm AO Peak GR.5.3mmHgLVOT Peak Zach.97.2cm/s AO Mean GR.3mmHgAVA (VMAX)2.65cm2 JOSE L (VTI)2.90cm2 Mitral Valve MV E Zvwpwsjf13.6cm/sMV DECEL [id number] MV A Nvzohntb64.0cm/sE/A Ratio0.8 LEFT VENTRICLE The left ventricle is normal size. There is mild concentric left ventricular hypertrophy. The left ve ntricular systolic function is normal and the ejection fraction is within normal range. The Ejection Fraction is 55-60%. There is normal LV segmental wall motion. Transmitral Doppler flow pattern is Gra de I-abnormal relaxation pattern. RIGHT VENTRICLE The right ventricle is normal size. The right ventricular systolic function is normal. ATRIA The left atrium size is normal. The right atrium size is normal. The interatrial septum is intact wit h no evidence for an atrial septal defect or patent foramen ovale as noted on 2-D or Doppler imaging. AORTIC VALVE The aortic valve is not well visualized. Doppler and Color Flow revealed no significant aortic regurg itation. There is no significant aortic valvular stenosis. MITRAL VALVE The mitral valve is normal in structure and function. There is no evidence of mitral valve prolapse. There is no mitral valve stenosis. Doppler and Color Flow revealed no mitral valve regurgitation note d. TRICUSPID VALVE The tricuspid valve is normal in structure and function. Doppler and Color Flow revealed no tricuspid valve regurgitation noted. There is no tricuspid valve stenosis. PULMONIC VALVE The pulmonic valve is not well visualized. Doppler and Color Flow revealed no pulmonic valvular regur gitation. There is no pulmonic valvular stenosis. GREAT VESSELS The aortic root is normal in size. The ascending aorta is not well seen. The IVC was not visualized. PERICARDIAL EFFUSION There is no evidence of significant pericardial effusion. Critical Notification Critical Value: No <Conclusion> The left ventricular systolic function is normal and the ejection fraction is within normal range. Th e Ejection Fraction is 55-60%. There is normal LV segmental wall motion. Signed by : Mynor Chowdhury, Electronically Approved : 08/14/2020 15:03:50
== END ==
LOC: ECHO 07:33
PROVIDERS: ATTEND Internal Medicine Cardiovascular Disease
DX: I49.3 Ventricular premature depolarization (principal); I51.7 Cardiomegaly
CPT/HCPCS: C8929; Q9956

== ENCOUNTER 2020-09-13 16:41 | Emergency (ER) | payer OTHER ==
[~2020-09-13] VITALS: Ht 157.5 cm; Wt 139.0 kg
[~2020-09-13 16:41] MED LIST changes: -NAPR-514 PO; -PERFLUTREN PROTEIN-A MICROSPHR 0.22 MG/ML 3 ML VIAL. IV ONE
[2020-09-13 17:00] VITALS: BP 137/72
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
[2020-09-13] MEDS ORDERED: NAPR-514 PO (18:35)
[2020-09-13] MEDS ORDERED: CYCL10TA2 PO (18:35)
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
== END 2020-09-13 19:10 | disposition home or self-care (01) ==
LOC: ER 16:41
DX: M54.2 Cervicalgia (principal); M25.551 Pain in right hip; M25.512 Pain in left shoulder; M25.561 Pain in right knee; M54.9 Dorsalgia, unspecified; I48.91 Unspecified atrial fibrillation; J44.9 Chronic obstructive pulmonary disease, unspecified; E11.9 Type 2 diabetes mellitus without complications; K21.9 Gastro-esophageal reflux disease without esophagitis; I10 Essential (primary) hypertension; Z86.718 Personal history of other venous thrombosis and embolism; G89.11 Acute pain due to trauma; V44.5XXA Car driver injured in collision with heavy transport vehicle or bus in traffic accident, initial encounter; Y92.488 Other paved roadways as the place of occurrence of the external cause; Y93.89 Activity, other specified; Y99.8 Other external cause status
CPT/HCPCS: 72125; 72128; 72131; 73020; 73502; 73562; 99285-25

== ENCOUNTER 2021-01-03 19:03 | Emergency (ER) | payer OTHER ==
[~2021-01-03] VITALS: Ht 157.5 cm; Wt 145.0 kg
[~2021-01-03 19:03] MED LIST changes: +NAPR-514 PO
[2021-01-03 19:20] VITALS: BP 176/94
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
[2021-01-03] MEDS ORDERED: ACET1TAB33 PO (21:31)
[2021-01-03] MEDS ORDERED: CYCL10TA2 PO (21:31)
== END 2021-01-03 22:03 | disposition home or self-care (01) ==
LOC: ER 19:03
DX: M54.2 Cervicalgia (principal); M54.5 Low back pain; M54.6 Pain in thoracic spine; I48.91 Unspecified atrial fibrillation; G89.11 Acute pain due to trauma; J44.9 Chronic obstructive pulmonary disease, unspecified; E11.9 Type 2 diabetes mellitus without complications; K21.9 Gastro-esophageal reflux disease without esophagitis; I10 Essential (primary) hypertension; Z86.718 Personal history of other venous thrombosis and embolism; Z04.9 Encounter for examination and observation for unspecified reason; V49.59XA Passenger injured in collision with other motor vehicles in traffic accident, initial encounter; Y93.89 Activity, other specified; Y92.488 Other paved roadways as the place of occurrence of the external cause; Y99.8 Other external cause status
CPT/HCPCS: 72040; 72072; 72100; 99284

== ENCOUNTER → 2021-09-16 | Outpatient (CLI) | payer OTHER ==
[~2021-09-16] MED LIST changes: +ACET1TAB33 PO; +CYCL10TA19 PO; -CYCL10TA2 PO; -DOXY100C2 PO; +DOXY100C3 PO; -EMPA10TA PO; +EMPA10TA3 PO; -EMPA25TA PO; +EMPA25TA3 PO; +PERFLUTREN PROTEIN-A MICROSPHR 0.22 MG/ML 3 ML VIAL. IV ONE
--- NOTE | 2021-09-17 11:30 | CARD ---
MR#: [id number] Date of Study: 09/16/2021 Ordering Physician: SHELIA BUCHANAN, Referring Physician: SHELIA BUCHANAN Tech: Sis [place] [facility] APPROVED REPORT EXAM: Two-dimensional and M-mode echocardiogram with Doppler and color Doppler. Other Information Quality : Technically LimitedHR: 75bpm Rhythm : NSRTechnically limited study due to body habitus. INDICATION Dyspnea RISK FACTORS Hypertension Obesity Hyperlipidemia 2D DIMENSIONS Left Atrium(2D)3.1 (1.6-4.0cm)IVSd1.2 (0.7-1.1cm) Aortic Root(2D)3.0 (2.0-3.7cm)LVDd3.1 (3.9-5.9cm) LVOT Diameter2.0 (1.8-2.4cm)PWd1.4 (0.7-1.1cm) LVDs2.0 (2.5-4.0cm)FS (%) 35.7 % SV25.3 mlLVEF(%)66.7 (>50%) Aortic Valve AoV Peak Zach.115.2cm/sAoV VTI18.7cm AO Peak GR.5.3mmHgLVOT Peak Zach.90.4cm/s AO Mean GR.3mmHgAVA (VMAX)2.41cm2 LEFT VENTRICLE The left ventricle is normal size. There is mild concentric left ventricular hypertrophy. The left ve ntricular systolic function is normal and the ejection fraction is within normal range. EF 55% There is grossly normal LV segmental wall motion. Tissue Doppler imaging reveals moderate left ventricular diastolic dysfunction. RIGHT VENTRICLE The right ventricle is normal size. There is normal right ventricular wall thickness. The right ventr icular systolic function is normal. ATRIA The left atrium is moderately dilated. The right atrium is moderately dilated. Atrial septum not well visualized. AORTIC VALVE Not well visualized. Doppler and Color Flow revealed no significant aortic regurgitation. There is no significant aortic valvular stenosis. MITRAL VALVE Not well visualized. There is no evidence of mitral valve prolapse. There is no mitral valve stenosis . Doppler and Color Flow revealed no mitral valve regurgitation noted. TRICUSPID VALVE Not well visualized. PULMONIC VALVE Not well visualized. GREAT VESSELS The aortic root is normal in size. The IVC is normal in size and collapses >50% with inspiration. PERICARDIAL EFFUSION There is no evidence of significant pericardial effusion. Critical Notification Critical Value: No <Conclusion> The left ventricular systolic function is normal and the ejection fraction is within normal range. E F 55% There is grossly normal LV segmental wall motion. Technically very difficult study. Unable to visualize the valvular structures adequately. Signed by : Mynor Chowdhury, Electronically Approved : 09/17/2021 11:30:23
== END ==
LOC: ECHO 10:56
PROVIDERS: ATTEND Internal Medicine Cardiovascular Disease
DX: I51.7 Cardiomegaly (principal); I49.3 Ventricular premature depolarization
CPT/HCPCS: 93306; Q9956; C8929

== ENCOUNTER 2021-11-11 11:41 | Emergency (ER) | payer OTHER ==
[~2021-11-11] VITALS: Ht 160 cm; Wt 144.0 kg
[~2021-11-11 11:41] MED LIST changes: -ACET1TAB33 PO; +ACET1TAB56 PO; -PERFLUTREN PROTEIN-A MICROSPHR 0.22 MG/ML 3 ML VIAL. IV ONE
[2021-11-11] MEDS ORDERED: LIDOCAINE (700MG/PATCH) PATCH. TD ONE (12:15)
--- NOTE | 2021-11-11 12:24 | PHYS DOC ---
Past Medical History Past Medical History: A-Fib, Anxiety, Asthma, COPD, Diabetes-Type II, DVT, GERD, Hypertension, Other Additional Past Medical Histor: SLEEP APNEA, OBESITY, kidney cancer Past Surgical History: Cholecystectomy, Tonsillectomy Smoking Status: Never Smoker Alcohol Use: None Drug Use: None General Adult EDM: Chief Complaint: BACK PAIN - NO INJURY HPI: HPI: Patient is a 61 year old male who presents with 4 days of left low back pain with a sharp shooting pain down his leg. Rates his pain an 8 out of 10. Its worse with sitting and standing most movements and walking. He states that he had been walking a little bit more than usual. He denies focal weakness, numbness or tingling, loss of bowel or bladder, pain with urination or frequent urination, fever, fall, injury, chest pain, shortness of air, abdominal pain, nausea, vomiting, diarrhea. History of obesity, kidney cancer, A. fib, anxiety, hypertension, GERD, DVT, COPD, asthma, diabetes, sleep apnea, tonsillectomy, cholecystectomy. Review of Systems: Review of Systems: Constitutional: Denies fever or chills. [] Eyes: Denies change in visual acuity. [] HENT: Denies nasal congestion or sore throat. [] Respiratory: Denies cough or shortness of breath. [] Cardiovascular: Denies chest pain or edema. [] GI: Denies abdominal pain, nausea, vomiting, bloody stools or diarrhea. [] : Denies dysuria. [] Musculoskeletal: + Left lower back pain or denies joint pain. + Left lateral leg [] Integument: Denies rash. [] Neurologic: Denies headache, focal weakness or sensory changes. [] Endocrine: Denies polyuria or polydipsia. [] Lymphatic: Denies swollen glands. [] Psychiatric: Denies depression or anxiety. [] Heart Score: C/O Chest Pain: No Current Medications: Current Medications Medications (Trade) Dose Ordered Sig/Yumi Start Time Stop Time Status Last Admin Dose Admin Lidocaine (Lidoderm) 1 patch 1X ONCE 11/11/21 12:15 11/11/21 12:16 UNV Allergies: Allergies: Allergies Coded Allergies Type Severity Reaction Last Updated Verified No Known Drug Allergies 11/20/18 No Physical Exam: PE: Constitutional: Well developed, well nourished, no acute distress, non-toxic appearance. [] HENT: Normocephalic, atraumatic, bilateral external ears normal, oropharynx moist, no oral exudates, nose normal. [] Eyes: PERRLA, EOMI, conjunctiva normal, no discharge. [] Neck: Normal range of motion, no tenderness, supple, no stridor. [] Cardiovascular:Heart rate regular rhythm, no murmur [] Lungs & Thorax: Bilateral breath sounds clear to auscultation [] Abdomen: Bowel sounds normal, soft, no tenderness, no masses, no pulsatile masses. [] Skin: Warm, dry, no erythema, no rash. [] Back: No tenderness, no CVA tenderness. [] Extremities: No tenderness, no cyanosis, no clubbing, ROM intact, bilateral lower 2+ edema. [] Neurologic: Alert and oriented X 3, normal motor function, normal sensory function, no focal deficits noted. [] Psychologic: Affect normal, judgement normal, mood normal. [] Current Patient Data: Vital Signs: Vital Signs Date Time Temp Pulse Resp B/P (MAP) Pulse Ox O2 Delivery O2 Flow Rate FiO2 11/11/21 11:45 97.8 79 16 140/77 (98) 96 Room Air 97.8 EKG: EKG: [] Radiology/Procedures: Radiology/Procedures: [][facility] [address] [place] [address] IMAGING REPORT Signed PATIENT: VANCE HERNANDEZ LACCOUNT: [id number] : 1960 LOCATION: ER AGE: 61 SEX: M EXAM STATUS: REG ER ORD. PHYSICIAN: NEELA SAUNDERS APRN REASON: pain in left lower with radiation down leg PROCEDURE: CT LUMBAR SPINE WO CONTRAST EXAM: CT lumbar spine without IV contrast CLINICAL HISTORY: pain in left lower back with radiation down leg COMPARISON: 09/13/2020, 02/09/2019, 11/13/2018 TECHNIQUE: Helical CT was performed through the lumbar spine. Axial, coronal and sagittal reformatted images were generated. PQRS compliance statement - One or more of the following individualized dose reduction techniques were utilized for this study: 1. Automated exposure control 2. Adjustment of the mA and/or kV according to patient size 3. Use of iterative reconstruction technique FINDINGS: 4 nonrib-bearing lumbar-type vertebral bodies. Partial sacralization of the L5 vertebral body. Vertebral body heights are preserved. No acute fracture. Moderate facet degenerative changes are seen. SI joint sclerosis, likely degenerative change. Bulky multilevel endplate osteophytes are seen most prominent at the thoracolumbar junction. Right renal lesion is partially profiled. IMPRESSION: 1. Multilevel spondylosis as above. SI joint DJD. 2. Negative acute fracture or subluxation. 3. The known right renal lesion is partially profiled. This was previously described as renal malignancy but cannot be accurately measured or profiled on this CT. Electronically signed by: Musa Dickinson MD (11/11/2021 1:08 PM) [id number] DICTATED and SIGNED BY: MUSA DICKINSON MD DATE: 11/11/21 1467 Course & Med Decision Making: Course & Med Decision Making Pertinent Labs and Imaging studies reviewed. (See chart for details) See HPI. Alert and oriented x4. Ambulatory with a steady gait. Speaks in full clear sentences. Moving all extremities equal with equal strengths and movements. No unilateral swelling. Skin pink warm and dry. He is on blood thinners. No saddle anesthesia. No swelling or focal bony spinal tenderness. Cap refill less than 2 seconds. Pedal pulse present. [] Dragon Disclaimer: Dragon Disclaimer: This electronic medical record was generated, in whole or in part, using a voice recognition dictation system. Departure Departure Impression: Primary Impression: Acute back pain Qualified Codes: M54.42 - Lumbago with sciatica, left side Disposition: 01 HOME / SELF CARE / HOMELESS Condition: STABLE Referrals: NETTIE BROWNING MD (PCP) ANATOLY MUNOZ MD Patient Instructions: Low Back Sprain with [facility], Sciatica with [facility] Additional Instructions: Follow up with primary care provider. Take medication as soon as possible. If you begin having focal weakness or loos bowel or bladder return to the ED Scripts Lidocaine (Lidocaine PATCH ) 1 Each Adh..patch 1 EACH TP DAILY for FOR LOCAL PAIN, #5 PATCH REMOVE AFTER 12 HOURS Prov: NEELA SAUNDERS VICE PRESIDENT INTEGRATED 11/11/21 Cyclobenzaprine Hcl (CYCLOBENZAPRINE HCL) 10 Mg Tablet 1 TAB PO TID, #21 TAB Prov: NEELA SAUNDERS APRN 11/11/21 NEELA SAUNDERS APRN November 11, 2021 12:24
--- NOTE | 2021-11-11 13:10 | RAD ---
EXAM: CT lumbar spine without IV contrast CLINICAL HISTORY: pain in left lower back with radiation down leg COMPARISON: 09/13/2020, 02/09/2019, 11/13/2018 TECHNIQUE: Helical CT was performed through the lumbar spine. Axial, coronal and sagittal reformatted images were generated. PQRS compliance statement - One or more of the following individualized dose reduction techniques wer e utilized for this study: 1. Automated exposure control 2. Adjustment of the mA and/or kV according to patient size 3. Use of iterative reconstruction technique FINDINGS: 4 nonrib-bearing lumbar-type vertebral bodies. Partial sacralization of the L5 vertebral body. Vertebral body heights are preserved. No acute fracture. Moderate facet degenerative changes are seen. SI joint sclerosis, likely degenerative change. Bulky multilevel endplate osteophytes are seen most p rominent at the thoracolumbar junction. Right renal lesion is partially profiled. IMPRESSION: 1. Multilevel spondylosis as above. SI joint DJD. 2. Negative acute fracture or subluxation. 3. The known right renal lesion is partially profiled. This was previously described as renal malign renee but cannot be accurately measured or profiled on this CT. Electronically signed by: Musa Zamudio MD (11/11/2021 1:08 PM) [id number]
[2021-11-11] MEDS ORDERED: CYCL10TA19 PO (13:17)
[2021-11-11] MEDS ORDERED: LIDO700A21 TP (13:17)
[2021-11-11 13:20] VITALS: BP 136/78
== END 2021-11-11 13:20 | disposition home or self-care (01) ==
LOC: ER 11:41
DX: M54.42 Lumbago with sciatica, left side (principal); I48.91 Unspecified atrial fibrillation; J44.9 Chronic obstructive pulmonary disease, unspecified; E11.9 Type 2 diabetes mellitus without complications; K21.9 Gastro-esophageal reflux disease without esophagitis; I10 Essential (primary) hypertension; Z86.718 Personal history of other venous thrombosis and embolism; Z90.49 Acquired absence of other specified parts of digestive tract
CPT/HCPCS: 72131; 99284-25

== ENCOUNTER 2021-11-15 01:37 | Observation (INO) | payer OTHER ==
[~2021-11-15] VITALS: Ht 167.6 cm; Wt 147.5 kg
[~2021-11-15 01:37] MED LIST changes: +LIDO700A21 TP
--- NOTE | 2021-11-15 01:56 | EKG ---
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
[2021-11-15] MEDS ORDERED: ASPIRIN 325 MG TABLET PO ONE (02:00)
[2021-11-15] MEDS ORDERED: IV NORMAL SALINE 1000ML BAG 1,000 ML IV ONE (02:00)
--- NOTE | 2021-11-15 02:04 | PHYS DOC ---
Past Medical History Past Medical History: A-Fib, Anxiety, Asthma, COPD, Diabetes-Type II, DVT, GERD, Hypertension, Other Additional Past Medical Histor: SLEEP APNEA, OBESITY, kidney cancer Past Surgical History: Cholecystectomy, Tonsillectomy Smoking Status: Never Smoker Alcohol Use: None Drug Use: None General Adult EDM: Chief Complaint: CHEST PAIN HPI: HPI: 61-year-old male presents with report of chest discomfort with associated dyspnea that is been ongoing today. Reports associated nausea. Patient reports history of DVT in the past. Reports he is currently not on any anticoagulation. Patient denies any fever or chills. Denies cough. Denies known exposure to COVID-19. Patient has been COVID vaccinated with [employer] Denies increased leg swelling or calf tenderness. Review of Systems: Review of Systems: Constitutional: Denies fever or chills Eyes: Denies redness or eye pain HENT: Denies nasal congestion or sore throat Respiratory: Denies cough or shortness of breath Cardiovascular: Reports chest pain; denies palpitations GI: Denies abdominal pain or vomiting; reports nausea : Denies dysuria or hematuria Musculoskeletal: Denies back pain or joint pain Integument: Denies rash or skin lesions Neurologic: Denies headache, focal weakness or sensory changes Complete systems were reviewed and found to be within normal limits, except as documented in this note. Heart Score: C/O Chest Pain: Yes HEART Score for Chest Pain: HEART Score for Chest Pain Response (Comments) Value History Moderately Suspicious 1 ECG Normal 0 Age >45 - < 65 1 Risk Factors >3 Risk Factors or Hx CAD 2 Troponin < Normal Limit 0 Total 4 Risk Factors: Risk Factors: DM, Current or recent (<one month) smoker, HTN, HLP, family history of CAD, obesity. Risk Scores: Score 0 - 3: 2.5% MACE over next 6 weeks - Discharge Home Score 4 - 6: 20.3% MACE over next 6 weeks - Admit for Clinical Observation Score 7 - 10: 72.7% MACE over next 6 weeks - Early Invasive Strategies Current Medications: Current Medications Medications (Trade) Dose Ordered Sig/Yumi Start Time Stop Time Status Last Admin Dose Admin Aspirin (Polly Aspirin) 325 mg 1X ONCE 11/15/21 02:00 11/15/21 02:01 DC Fentanyl Citrate (Fentanyl 2ml Vial) 50 mcg 1X ONCE 11/15/21 02:30 11/15/21 02:31 Sodium Chloride 1,000 ml @ 1,000 mls/hr 1X ONCE 11/15/21 02:00 11/15/21 02:59 Allergies: Allergies: Allergies Coded Allergies Type Severity Reaction Last Updated Verified No Known Drug Allergies 11/20/18 No Physical Exam: PE: Constitutional: Well developed, morbidly obese, no acute distress, non-toxic appearance HENT: Normocephalic, atraumatic Eyes: Conjunctiva normal, no discharge Neck: Normal range of motion, no tenderness, supple Lungs & Thorax: No respiratory distress, equal chest rise and fall Abdomen: Soft, no tenderness, no guarding/rebound tenderness/distention Skin: Warm, dry, no erythema, no rash Back: No tenderness, no CVA tenderness Extremities: No tenderness, ROM intact, no edema Neurologic: Alert and oriented X 3, no focal deficits noted Psychologic: Affect normal, judgment normal EKG: EKG: @0142 Sinus tachycardia at 106bpm, NO ST elevation, QRS 80ms, QT/QTc 338/451ms @0447 Normal sine rehythm, baeline artifactg noted, NO ST elevation, QRS 104ms, QT/QT 378/467ms Radiology/Procedures: Radiology/Procedures: PROCEDURE: CT ANGIOGRAPHY CHEST PQRS Compliance Statement: One or more of the following individualized dose reduction techniques were utilized for this examination: 1. Automated exposure control 2. Adjustment of the mA and/or kV according to patient size 3. Use of iterative reconstruction technique CT CHEST WITH CONTRAST, PULMONARY ANGIOGRAM History: Reason: chest pain, eval for PE;OMNI 350,90ML / Spl. Instructions: / History: Comparison: CTPA January 07, 2019. Technique: Helical CT of the chest was performed after the administration of 95 cc of Omnipaque 350 intravenous contrast according to PE protocol. Axial and coronal reconstructions were obtained. 3-D MIP images were constructed to better evaluate the pulmonary arteries. Findings: Pulmonary arteries are adequately opacified. There is no evidence of pulmonary embolism. The right thyroid lobe is not identified. The thyroid is incompletely imaged. There is no thoracic aortic dissection. The great vessels are normal caliber. There is no adenopathy in the chest. The cardiac size is normal, no pericardial effusion. There is no pleural abnormality. There are anterior right upper lobe calcified granulomas. The central airways are patent. There is respiratory motion artifact in the lungs limiting evaluation. There is minimal discoid atelectasis or scarring in the lateral left upper lobe. There is no lung consolidation. Cholecystectomy. Thoracic spine alignment is maintained. There is severe degenerative endplate spurring. IMPRESSION: There is no pulmonary embolus. Electronically signed by: Arnaldo Torres MD (11/15/2021 4:23 AM) [facility] Course & Med Decision Making: Course & Med Decision Making Pertinent Labs and Imaging studies reviewed. (See chart for details) Patient presents with report of chest pain with associated shortness of air and nausea. EKG stable. Labs obtained and posted to chart. Initial troponin within normal limits. Hypokalemia addressed. Patient does have history of prior DVT. CTA chest therefore obtained without acute signs of PE. Symptomatic treatment provided with interval improvement of symptoms. HEART score 4. Patient requiring admission for further evaluation and treatment. Discussed with Dr. Crane (hospitalist) who is in agreement with admission. Discussed findings and plan with patient, who acknowledges understanding and agreement. Aniya Disclaimer: Aniya Disclaimer: This electronic medical record was generated, in whole or in part, using a voice recognition dictation system. Departure Departure Impression: Primary Impression: Chest pain Qualified Codes: R07.9 - Chest pain, unspecified Additional Impression: Hypokalemia Disposition: ADMITTED INPATIENT Admitting Physician: DUDLEY (Royce) Condition: STABLE Referrals: NETTIE BROWNING MD (PCP) PIERO ROLAND DO November 15, 2021 02:04
[2021-11-15 02:15] LABS: BASO # 0.1 x10^3/uL (0.0-0.2); BASO % 1 % (0-3); EOS # 0.3 x10^3/uL (0.0-0.7); EOS % 2 % (0-3); HEMATOCRIT 44.1 % (39.0-53.0); HEMOGLOBIN 14.7 g/dL (13.0-17.5); LYMPH # 3.1 x10^3/uL (1.0-4.8); LYMPH % 27 % (24-48); MEAN CORPUSCULAR HEMOGLOBIN 30 pg (25-35); MEAN CORPUSCULAR HGB CONC 33 g/dL (31-37); MEAN CORPUSCULAR VOLUME 90 fL (79-100); MONO # 1.5 x10^3/uL (0.0-1.1); MONO % 13 % (0-9); NEUT # 6.5 x10^3/uL (1.8-7.7); NEUT % 57 % (31-73); PLATELET COUNT 303 x10^3/uL (140-400); RED CELL DISTRIBUTION WIDTH 16.1 % (11.5-14.5); WHITE BLOOD COUNT 11.5 x10^3/uL (4.0-11.0)
[2021-11-15 02:26] LABS: PROTHROMBIN TIME PATIENT 12.6 SEC (11.7-14.0)
[2021-11-15] MEDS ORDERED: fentaNYL PF VIAL 100 MCG/2 ML VIAL IVP ONE (02:30)
[2021-11-15 02:35] LABS: D-DIMER 0.44 ug/mlFEU (0.00-0.50)
[2021-11-15] MEDS ORDERED: CONTRAST GIVEN. MC PRN (02:45)
[2021-11-15] MEDS ORDERED: IOHEXOL 350 MG/ML 100 ML VIAL. IV ONE (03:00)
[2021-11-15 03:27] LABS: CALCIUM 8.9 mg/dL (8.5-10.1); CREATININE 1.5 mg/dL (0.7-1.3); GFR 57.8; POTASSIUM 3.1 mmol/L (3.5-5.1)
[2021-11-15 03:34] LABS: ALBUMIN 3.1 g/dL (3.4-5.0); ALBUMIN/GLOBULIN RATIO 0.8 (1.0-1.7); MAGNESIUM 2.1 mg/dL (1.8-2.4); TOTAL BILIRUBIN 0.3 mg/dL (0.2-1.0)
[2021-11-15] MEDS ORDERED: POTASSIUM CHLORIDE 20 MEQ TABLET.ER. PO ONE (04:00)
--- NOTE | 2021-11-15 04:26 | RAD ---
PQRS Compliance Statement: One or more of the following individualized dose reduction techniques were utilized for this examinat ion: 1. Automated exposure control 2. Adjustment of the mA and/or kV according to patient size 3. Use of iterative reconstruction technique CT CHEST WITH CONTRAST, PULMONARY ANGIOGRAM History: Reason: chest pain, eval for PE;OMNI 350,90ML / Spl. Instructions: / History: Comparison: CTPA January 07, 2019. Technique: Helical CT of the chest was performed after the administration of 95 cc of Omnipaque 350 intravenous contrast according to PE protocol. Axial and coronal reconstructions were obtained. 3-D MIP images were constructed to better evaluate the pulmonary arteries. Findings: Pulmonary arteries are adequately opacified. There is no evidence of pulmonary embolism. The right thyroid lobe is not identified. The thyroid is incompletely imaged. There is no thoracic ao rtic dissection. The great vessels are normal caliber. There is no adenopathy in the chest. The cardi ac size is normal, no pericardial effusion. There is no pleural abnormality. There are anterior right upper lobe calcified granulomas. The centra l airways are patent. There is respiratory motion artifact in the lungs limiting evaluation. There is minimal discoid atelectasis or scarring in the lateral left upper lobe. There is no lung consolidati on. Cholecystectomy. Thoracic spine alignment is maintained. There is severe degenerative endplate spurring. IMPRESSION: There is no pulmonary embolus. Electronically signed by: Arnaldo Torres MD (11/15/2021 4:23 AM) [facility]
[2021-11-15] MEDS ORDERED: DEXTROSE 50% 25 GM / 50ML DISP.SYRIN. IV PRN (04:45)
[2021-11-15] MEDS ORDERED: ONDANSETRON PF 4 MG/2 ML VIAL. IVP PRN ×2 (04:45→10:15)
[2021-11-15] MEDS: fentaNYL PF VIAL 100 MCG/2 ML VIAL IVP PRN ×2 (05:28→08:06)
[2021-11-15 05:51] VITALS: BP 145/86
--- NOTE | 2021-11-15 05:59 | EKG ---
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
[2021-11-15 07:00] VITALS: BP 123/80
[2021-11-15] MEDS: INSULIN LISPRO 300 UNITS/3 ML VIAL. SQ SCH ×3 (08:00→17:24)
[2021-11-15] MEDS ORDERED: CYCLOBENZAPRINE 10 MG TABLET. PO PRN (10:15)
[2021-11-15] MEDS ORDERED: oxyCODONE/APAP 5/325 1 TAB TABLET PO PRN (10:15)
[2021-11-15] MEDS ORDERED: ACETAMINOPHEN 325 MG TABLET. PO PRN (10:15)
[2021-11-15] MEDS ORDERED: ELECTROLYTE (NON-ICU) PROTOCOL. MC PRN (10:15)
[2021-11-15] MEDS ORDERED: ZOLPIDEM 5 MG TABLET. PO PRN (10:15)
[2021-11-15] MEDS ORDERED: CALCIUM CARBONATE 500 MG TAB.CHEW PO PRN (10:15)
--- NOTE | 2021-11-15 10:27 | PDOC1 ---
History and Physical Date of Service: DOS: DATE: 11/15/21 TIME: 10:17 Chief Complaint: Chief Complain: Chest pain History of Present Illness: HPI: 61-year-old male presented to the emergency room due to 1 day history of chest pain and shortness of breath. Patient reported the chest pain began around 6:00 last night and persisted thus presented to the emergency room. He was given a dose of aspirin with good improvement in his chest pain. Was i evaluated him this morning he was denying any further chest pain. Was however reporting of right leg pain that began last night as well. 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 Says that his right leg feels a little bit more swollen than his left and on exam it does appear mildly more swollen. With history will at least order duplex scan. CT PE protocol in emergency room was negative. Admitted for further evaluation, Cards consulted. Past Medical/Surgical History: PMH/PSH: Past Medical History: A-Fib, Anxiety, Asthma, COPD, Diabetes-Type II, DVT, GERD, Hypertension Additional Past Medical Histor: SLEEP APNEA, OBESITY, kidney cancer Past Surgical History: Cholecystectomy, Tonsillectomy Smoking Status: Never Smoker Alcohol Use: None Drug Use: None Allergies: Allergies: Coded Allergies: No Known Drug Allergies (Unverified , 11/20/18) Family History: Family History: Diabetes hypertension Current Medications: Current Medications Current Medications Aspirin (Polly Aspirin) 325 mg 1X ONCE PO Last administered on 11/15/21at 02:20; Start 11/15/21 at 02:00; Stop 11/15/21 at 02:01; Status DC Sodium Chloride 1,000 ml @ 1,000 mls/hr 1X ONCE IV Last administered on 11/15/21at 02:20; Start 11/15/21 at 02:00; Stop 11/15/21 at 02:59; Status DC Fentanyl Citrate (Fentanyl 2ml Vial) 50 mcg 1X ONCE IVP Last administered on 11/15/21at 02:39; Start 11/15/21 at 02:30; Stop 11/15/21 at 02:31; Status DC Iohexol (Omnipaque 350 Mg/ml) 100 ml 1X ONCE IV Last administered on 11/15/21at 03:45; Start 11/15/21 at 03:00; Stop 11/15/21 at 03:01; Status DC Info (CONTRAST GIVEN -- Rx MONITORING) 1 each PRN DAILY PRN MC SEE COMMENTS; Start 11/15/21 at 02:45; Stop 11/17/21 at 02:44 Potassium Chloride (Klor-Con) 40 meq 1X ONCE PO Last administered on 11/15/21at 03:57; Start 11/15/21 at 04:00; Stop 11/15/21 at 04:01; Status DC Ondansetron HCl (Zofran) 4 mg PRN Q8HRS PRN IVP NAUSEA/VOMITING 1ST CHOICE; Start 11/15/21 at 04:45; Stop 11/16/21 at 04:44 Fentanyl Citrate (Fentanyl 2ml Vial) 50 mcg PRN Q2HRS PRN IVP SEVERE PAIN 7-10 Last administered on 11/15/21at 08:06; Start 11/15/21 at 04:45 Insulin Human Lispro (HumaLOG) 0-5 UNITS TIDWMEALS SQ ; Start 11/15/21 at 08:00 Dextrose (Dextrose 50%-Water Syringe) 12.5 gm PRN Q15MIN PRN IV SEE COMMENTS; Start 11/15/21 at 04:45 Amlodipine Besylate (Norvasc) 10 mg DAILY PO ; Start 11/15/21 at 11:00 Aspirin (Ecotrin) 81 mg DAILY PO ; Start 11/15/21 at 11:00 Carvedilol (Coreg) 6.25 mg BIDWMEALS PO ; Start 11/15/21 at 11:00 Cyclobenzaprine HCl (Flexeril) 10 mg TID PRN PO MUSCLE PAIN; Start 11/15/21 at 10:15 Empaglifozin (Jardiance) 25 mg DAILY PO ; Start 11/15/21 at 11:00 Fluticasone Propionate (Flonase) 1 spray DAILY NS ; Start 11/15/21 at 11:00 Glimepiride (Amaryl) 2 mg BID PO ; Start 11/15/21 at 21:00; Status UNV Metformin HCl (Glucophage Xr) 500 mg DAILYWBKFT PO ; Start 11/16/21 at 08:00; Status UNV Metoclopramide HCl (Reglan) 10 mg BIDAC PO ; Start 11/15/21 at 16:30; Status UNV Pantoprazole Sodium (Protonix) 40 mg DAILY PO ; Start 11/16/21 at 09:00; Status UNV Non-Formulary Medication (Indapamide ) 1 tab DAILY PO ; Start 11/16/21 at 09:00; Status UNV Ondansetron HCl (Zofran) 4 mg PRN Q6HRS PRN IVP NAUSEA/VOMITING; Start 11/15/21 at 10:15; Status UNV Calcium Carbonate/ Glycine (Tums) 500 mg PRN Q3HRS PRN PO UPSET STOMACH; Start 11/15/21 at 10:15; Status UNV Zolpidem Tartrate (Ambien) 5 mg PRN QHS PRN PO INSOMNIA, MAY REPEAT IN 1HR; Start 11/15/21 at 10:15; Status UNV Info (Non-Icu Electrolyte Protocol) 1 ea PRN DAILY PRN MC SEE COMMENTS; Start 11/15/21 at 10:15; Status UNV Oxycodone/ Acetaminophen (Percocet 5/325) 1 tab PRN Q4HRS PRN PO MILD PAIN, 1ST CHOICE; Start 11/15/21 at 10:15; Status UNV Oxycodone/ Acetaminophen (Percocet 5/325) 2 tab PRN Q4HRS PRN PO MODERATE PAIN, SEVERE PAIN; Start 11/15/21 at 10:15; Status UNV Acetaminophen (Tylenol) 650 mg PRN Q6HRS PRN PO Headaches, Temp > 101.5F; Start 11/15/21 at 10:15; Status UNV Senna/Docusate Sodium (Senna Plus) 1 tab BID PO ; Start 11/15/21 at 21:00; Sta tus UNV Heparin Sodium (Porcine) (Heparin Sodium) 5,000 unit Q8HRS SQ ; Start 11/15/21 at 14:00; Status UNV Active Scripts Active Lidocaine PATCH (Lidocaine) 1 Each Adh..patch 1 Each TP DAILY REMOVE AFTER 12 HOURS Cyclobenzaprine Hcl 10 Mg Tablet 1 Tab PO TID Acetaminophen-Cod #3 Tablet (Acetaminophen/Codeine Phosphate) 1 Each Tablet 1 Tab PO PRN Q6HRS PRN 3 Days Cyclobenzaprine Hcl 10 Mg Tablet 1 Tab PO TID PRN 5 Days Naproxen 500 Mg Tablet 1 Tab PO BID PRN 10 Days Cyclobenzaprine Hcl 10 Mg Tablet 1 Tab PO TID PRN 10 Days Nystatin 100,000 Unit/1 Ml Oral.susp 5 Ml SWSW [id number] 14 Days Hydrocodone-Apap 5-325 (Hydrocodone Bit/Acetaminophen) 1 Tab Tablet 1 Tab PO PRN Q4HRS PRN Reported Metoclopramide Hcl 10 Mg Tablet 10 Mg PO BIDAC Carvedilol (Carvedilol) 6.25 Mg Tablet 6.25 Mg PO BIDWMEALS Jardiance (Empaglifozin) 25 Mg Tablet 25 Mg PO DAILY Metformin Hcl Er (Metformin Hcl) 500 Mg Tab.er.24h 500 Mg PO DAILYWBKFT Acidophilus (Lactobacillus Acidophilus) 1 Each Capsule 1 Each PO DAILY Hydrocodone-Acetamin 10-325 mg (Hydrocodone/Acetaminophen) 1 Each Tablet 1 Each PO PRN TID PRN Multivitamins (Multivitamin) 1 Each Tablet 1 Tab PO DAILY 30 Days Glimepiride 2 Mg Tablet 2 Mg PO BID 30 Days Proair Hfa Inhaler (Albuterol Sulfate) 8.5 Gm Hfa.aer.ad 1 Puff INH PRN Q4HRS PRN Combivent Respimat Inhal (Ipratropium/Albuterol Sulfate) 4 Gm Aer.w.adap 2 Inh IH BID Triamcinolone Acetonide 0.1% Oint (Triamcinolone Acetonide) 15 Gm Oint...g. 1 Heriberto TP BID MIX WITH EUCERIN DIRECTED BY PHYSICIAN Manny Pen (Exenatide Microspheres) 2 Mg/0.65 Ml Pen.injctr 2 Mg SQ WEEKLY Indapamide 1.25 Mg Tablet 1 Tab PO DAILY Cyclobenzaprine Hcl 10 Mg Tablet 1 Tab PO QHS Aspir 81 (Aspirin) 81 Mg Tablet. 81 Mg PO DAILY Pantoprazole Sodium (Pantoprazole Sodium) 40 Mg Tablet. 40 Mg PO DAILY Flonase (Fluticasone Propionate) 16 Gm [place].susp 16 Gm NS DAILY Diovan (Valsartan) 320 Mg Tablet 320 Mg PO DAILY Norvasc (Amlodipine Besylate) 10 Mg Tablet 10 Mg PO DAILY ROS: Review of Systems Review of System unless noted in HPI 14pt ros negative Physical Exam: Vital Signs: Vital Signs Date Time Temp Pulse Resp B/P (MAP) Pulse Ox O2 Delivery O2 Flow Rate FiO2 11/15/21 08:06 20 93 Room Air 11/15/21 07:00 98.2 87 123/80 (94) 98.2 11/15/21 05:58 2.0 Physcial Exam: GEN: No apparent distress. Alert and oriented. Obese HEENT: Normal cephalic, atraumatic, external auditory canals are patent EYES: Extraocular muscles are intact, pupil are equally round and reactive to light and accommodation MUSCULOSKELETAL: Well developed , well nourished, good range of motion ENDOCRINE: No thyromegaly was palpated LYMPHATICS: No cervical chain or axillary nodes were noted HEMATOPOIETIC: No bruising NECK: Supple, no JVD, no thyromegaly was noted LUNGS: Clear to auscultation in all lung [place] without rhonchi or wheezing HEART: RRR, S1, S2 present. Peripheral pulses intact, no obvious murmurs noted ABDOMEN: Soft, nontender. Positive bowel sounds, no organomegaly, normal bowel sounds EXTREMITIES: Swelling on the right side mildly worse than the left in the lower extremities NEUROLOGIC: Normal speech and tone. A&O x 3, moves all extremities, no obvious focal deficits PSYCHIATRIC: Normal affect, normal mood. Stable SKIN: No ulcerations or rashes, good skin turgor, no jaundice VASCULAR: Good capillary refill, neurovascular bundle appears to be intact Labs: Labs: Laboratory Tests Test 11/15/21 02:05 11/15/21 03:00 11/15/21 05:22 11/15/21 07:32 White Blood Count 11.5 x10^3/uL (4.0-11.0) Red Blood Count 4.90 x10^6/uL (4.30-5.70) Hemoglobin 14.7 g/dL (13.0-17.5) Hematocrit 44.1 % (39.0-53.0) Mean Corpuscular Volume 90 fL (79-100) Mean Corpuscular Hemoglobin 30 pg (25-35) Mean Corpuscular Hemoglobin Concent 33 g/dL (31-37) Red Cell Distribution Width 16.1 % (11.5-14.5) Platelet Count 303 x10^3/uL (140-400) Neutrophils (%) (Auto) 57 % (31-73) Lymphocytes (%) (Auto) 27 % (24-48) Monocytes (%) (Auto) 13 % (0-9) Eosinophils (%) (Auto) 2 % (0-3) Basophils (%) (Auto) 1 % (0-3) Neutrophils # (Auto) 6.5 x10^3/uL (1.8-7.7) Lymphocytes # (Auto) 3.1 x10^3/uL (1.0-4.8) Monocytes # (Auto) 1.5 x10^3/uL (0.0-1.1) Eosinophils # (Auto) 0.3 x10^3/uL (0.0-0.7) Basophils # (Auto) 0.1 x10^3/uL (0.0-0.2) Prothrombin Time 12.6 SEC (11.7-14.0) Prothromb Time International Ratio 1.0 (0.8-1.1) Activated Partial Thromboplast Time 25 SEC (24-38) D-Dimer (Yodit) 0.44 ug/mlFEU (0.00-0.50) Sodium Level 138 mmol/L (136-145) Potassium Level 3.1 mmol/L (3.5-5.1) Chloride Level 99 mmol/L (98-107) Carbon Dioxide Level 29 mmol/L (21-32) Anion Gap 10 (6-14) Blood Urea Nitrogen 22 mg/dL (8-26) Creatinine 1.5 mg/dL (0.7-1.3) Estimated GFR (Cockcroft-Gault) 57.8 BUN/Creatinine Ratio 15 (6-20) Glucose Level 181 mg/dL (70-99) Calcium Level 8.9 mg/dL (8.5-10.1) Magnesium Level 2.1 mg/dL (1.8-2.4) Total Bilirubin 0.3 mg/dL (0.2-1.0) Aspartate Amino Transf (AST/SGOT) 16 U/L (15-37) Alanine Aminotransferase (ALT/SGPT) 20 U/L (16-63) Alkaline Phosphatase 79 U/L (46-116) Troponin I High Sensitivity 6 ng/L (4-75) 6 ng/L (4-75) TQ-Rbx-M-Type Natriuretic Peptide 40 pg/mL (0-124) Total Protein 7.0 g/dL (6.4-8.2) Albumin 3.1 g/dL (3.4-5.0) Albumin/Globulin Ratio 0.8 (1.0-1.7) Lipase 32 U/L (73-393) Glucose (Fingerstick) 140 mg/dL (70-99) Test 11/15/21 09:13 Troponin I High Sensitivity 6 ng/L (4-75) Laboratory Tests Test 11/15/21 02:05 11/15/21 03:00 11/15/21 05:22 11/15/21 07:32 White Blood Count 11.5 x10^3/uL (4.0-11.0) Red Blood Count 4.90 x10^6/uL (4.30-5.70) Hemoglobin 14.7 g/dL (13.0-17.5) Hematocrit 44.1 % (39.0-53.0) Mean Corpuscular Volume 90 fL (79-100) Mean Corpuscular Hemoglobin 30 pg (25-35) Mean Corpuscular Hemoglobin Concent 33 g/dL (31-37) Red Cell Distribution Width 16.1 % (11.5-14.5) Platelet Count 303 x10^3/uL (140-400) Neutrophils (%) (Auto) 57 % (31-73) Lymphocytes (%) (Auto) 27 % (24-48) Monocytes (%) (Auto) 13 % (0-9) Eosinophils (%) (Auto) 2 % (0-3) Basophils (%) (Auto) 1 % (0-3) Neutrophils # (Auto) 6.5 x10^3/uL (1.8-7.7) Lymphocytes # (Auto) 3.1 x10^3/uL (1.0-4.8) Monocytes # (Auto) 1.5 x10^3/uL (0.0-1.1) Eosinophils # (Auto) 0.3 x10^3/uL (0.0-0.7) Basophils # (Auto) 0.1 x10^3/uL (0.0-0.2) Prothrombin Time 12.6 SEC (11.7-14.0) Prothromb Time International Ratio 1.0 (0.8-1.1) Activated Partial Thromboplast Time 25 SEC (24-38) D-Dimer (Yodit) 0.44 ug/mlFEU (0.00-0.50) Sodium Level 138 mmol/L (136-145) Potassium Level 3.1 mmol/L (3.5-5.1) Chloride Level 99 mmol/L (98-107) Carbon Dioxide Level 29 mmol/L (21-32) Anion Gap 10 (6-14) Blood Urea Nitrogen 22 mg/dL (8-26) Creatinine 1.5 mg/dL (0.7-1.3) Estimated GFR (Cockcroft-Gault) 57.8 BUN/Creatinine Ratio 15 (6-20) Glucose Level 181 mg/dL (70-99) Calcium Level 8.9 mg/dL (8.5-10.1) Magnesium Level 2.1 mg/dL (1.8-2.4) Total Bilirubin 0.3 mg/dL (0.2-1.0) Aspartate Amino Transf (AST/SGOT) 16 U/L (15-37) Alanine Aminotransferase (ALT/SGPT) 20 U/L (16-63) Alkaline Phosphatase 79 U/L (46-116) Troponin I High Sensitivity 6 ng/L (4-75) 6 ng/L (4-75) EO-Xvj-M-Type Natriuretic Peptide 40 pg/mL (0-124) Total Protein 7.0 g/dL (6.4-8.2) Albumin 3.1 g/dL (3.4-5.0) Albumin/Globulin Ratio 0.8 (1.0-1.7) Lipase 32 U/L (73-393) Glucose (Fingerstick) 140 mg/dL (70-99) Test 11/15/21 09:13 Troponin I High Sensitivity 6 ng/L (4-75) Assessment/Plan Assessment/Plan Chest pain shortness of breath; history of anxiety asthma type 2 diabetes DVTs not on current anticoagulation hypertension GERD -Presented emergency room overnight with couple hour history of chest pain. Received aspirin in emergency room and this resolved -Given DVT history CT PE performed negative for pulmonary embolus. Also no signs of infection or fluid overload -With a little bit more swelling in his right lower extremity compared to the left we will check duplex scan this morning -Cardiology consulted regarding chest pain. Patient follows with Dr. Medina outpatient -Echo in September of this year showed 50% ejection fraction. Unable to visualize valves however difficult study -Troponins remain negative -home meds as indicated -DVT prophylaxis; if found to have DVT will start treatment dosing -Cardiac diet -Does reports difficulty with ambulation at home over the past few days. will see if therapy can evaluate Justifications for Admission Other Justification NICOLETTE LUA MD November 15, 2021 10:27
[2021-11-15 11:00] VITALS: BP_SYST 130; BP_SYST 30; BP_DIAS 75
[2021-11-15] MEDS ORDERED: MORPHINE SULFATE 4 MG/ML INJ. IVP ONE (11:45)
[2021-11-15] MEDS: PANTOPRAZOLE 40 MG TABLET.DR. PO SCH (11:46)
[2021-11-15] MEDS: EMPAGLIFLOZIN 25 MG TABLET. PO SCH (11:46)
[2021-11-15] MEDS: ASPIRIN ENTERIC COATED 81 MG TABLET.DR. PO SCH (11:46)
[2021-11-15] MEDS: FLUTICASONE 50MCG/NASAL SPRAY 16GM BOTTLE. NS SCH (11:47)
[2021-11-15] MEDS: INDAPAMIDE 2.5 MG TABLET PO SCH (11:47)
[2021-11-15] MEDS: CARVEDILOL 6.25 MG TABLET. PO SCH ×2 (11:54→17:19)
[2021-11-15] MEDS: oxyCODONE/APAP 5/325 1 TAB TABLET PO PRN ×2 (11:55→17:23)
--- NOTE | 2021-11-15 14:53 | PDOC2 ---
CONSULT Date of Consult Date of Consult DATE: 11/15/21 TIME: 14:47 Reason for Consult Reason for Consult: Chest pain Referring Physician Referring Physician: Dr. Crane Identification/Chief Complaint Chief Complaint Chest pain Source Source: Chart review, Patient History of Present Illness Reason for Visit: The patient is a 61-year-old male who was admitted from the emergency room yesterday for episodes of chest pain and increasing dyspnea on exertion. His initial EKG showed no acute ischemic changes. His troponin has been normal x3. He has been monitored overnight and is pain-free today. Testing included a CTA of the chest that showed no evidence of pulmonary emboli. Initial lab was significant for a potassium of 3.2 and creatinine 1.5 and a glucose of 181. Patient's records include an echocardiogram from 09/16/21 that showed an ejection fraction of 55% but a technically difficult study in regard to his valves. He had a heart catheterization on 03/16/[address] Paredes that showed no coronary disease. He reports a history of a DVT approximately 5 years ago but has been off anticoagulation. Past Medical History Cardiovascular: HTN, Other (Possibly atrial fibrillation) Pulmonary: Asthma, COPD, Other GI: GERD Heme/Onc: Other Musculoskeletal: Osteoarthritis Infectious disease: No pertinent hx, Other Renal/: No pertinent hx Endocrine: Diabetes Past Surgical History Past Surgical History: Cholecystectomy, Tonsillectomy, Hysterectomy, Other Family History Family History: Hypertension Social History No ALCOHOL: none Drugs: None Lives: with Family Domestic Violence: Neg Current Problem List Problem List Problems Medical Problems: (1) Hypokalemia Status: Acute Current Medications Current Medications Current Medications Aspirin (Polly Aspirin) 325 mg 1X ONCE PO Last administered on 11/15/21at 02:20; Start 11/15/21 at 02:00; Stop 11/15/21 at 02:01; Status DC Sodium Chloride 1,000 ml @ 1,000 mls/hr 1X ONCE IV Last administered on 11/15/21at 02:20; Start 11/15/21 at 02:00; Stop 11/15/21 at 02:59; Status DC Fentanyl Citrate (Fentanyl 2ml Vial) 50 mcg 1X ONCE IVP Last administered on 11/15/21at 02:39; Start 11/15/21 at 02:30; Stop 11/15/21 at 02:31; Status DC Iohexol (Omnipaque 350 Mg/ml) 100 ml 1X ONCE IV Last administered on 11/15/21at 03:45; Start 11/15/21 at 03:00; Stop 11/15/21 at 03:01; Status DC Info (CONTRAST GIVEN -- Rx MONITORING) 1 each PRN DAILY PRN MC SEE COMMENTS; Start 11/15/21 at 02:45; Stop 11/17/21 at 02:44 Potassium Chloride (Klor-Con) 40 meq 1X ONCE PO Last administered on 11/15/21at 03:57; Start 11/15/21 at 04:00; Stop 11/15/21 at 04:01; Status DC Ondansetron HCl (Zofran) 4 mg PRN Q8HRS PRN IVP NAUSEA/VOMITING 1ST CHOICE; Start 11/15/21 at 04:45; Stop 11/16/21 at 04:44 Fentanyl Citrate (Fentanyl 2ml Vial) 50 mcg PRN Q2HRS PRN IVP SEVERE PAIN 7-10 Last administered on 11/15/21at 08:06; Start 11/15/21 at 04:45 Insulin Human Lispro (HumaLOG) 0-5 UNITS TIDWMEALS SQ ; Start 11/15/21 at 08:00 Dextrose (Dextrose 50%-Water Syringe) 12.5 gm PRN Q15MIN PRN IV SEE COMMENTS; Start 11/15/21 at 04:45 Amlodipine Besylate (Norvasc) 10 mg DAILY PO Last administered on 11/15/21at 11:56; Start 11/15/21 at 11:00 Aspirin (Ecotrin) 81 mg DAILY PO Last administered on 11/15/21at 11:46; Start 11/15/21 at 11:00 Carvedilol (Coreg) 6.25 mg BIDWMEALS PO Last administered on 11/15/21 11:54; Start 11/15/21 at 11:00 Cyclobenzaprine HCl (Flexeril) 10 mg TID PRN PO MUSCLE PAIN; Start 11/15/21 at 10:15 Empaglifozin (Jardiance) 25 mg DAILY PO Last administered on 11/15/21at 11:46; Start 11/15/21 at 11:00 Fluticasone Propionate (Flonase) 1 spray DAILY NS Last administered on 11/15/21at 11:47; Start 11/15/21 at 11:00 Glimepiride (Amaryl) 2 mg BID PO ; Start 11/15/21 at 21:00 Metformin HCl (Glucophage Xr) 500 mg DAILYWBKFT PO ; Start 11/17/21 at 08:00 Metoclopramide HCl (Reglan) 10 mg BIDAC PO ; Start 11/15/21 at 16:30 Pantoprazole Sodium (Protonix) 40 mg DAILY PO Last administered on 11/15/21at 11:46; Start 11/15/21 at 11:00 Indapamide (Lozol) 1.25 mg DAILY PO Last administered on 11/15/21at 11:47; Start 11/15/21 at 11:00 Ondansetron HCl (Zofran) 4 mg PRN Q6HRS PRN IVP NAUSEA/VOMITING; Start 11/15/21 at 10:15 Calcium Carbonate/ Glycine (Tums) 500 mg PRN Q3HRS PRN PO UPSET STOMACH; Start 11/15/21 at 10:15 Zolpidem Tartrate (Ambien) 5 mg PRN QHS PRN PO INSOMNIA, MAY REPEAT IN 1HR; Start 11/15/21 at 10:15 Info (Non-Icu Electrolyte Protocol) 1 ea PRN DAILY PRN MC SEE COMMENTS; Start 11/15/21 at 10:15 Oxycodone/ Acetaminophen (Percocet 5/325) 1 tab PRN Q4HRS PRN PO MILD PAIN, 1ST CHOICE; Start 11/15/21 at 10:15 Oxycodone/ Acetaminophen (Percocet 5/325) 2 tab PRN Q4HRS PRN PO MODERATE PAIN, SEVERE PAIN Last administered on 11/15/21at 11:55; Start 11/15/21 at 10:15 Acetaminophen (Tylenol) 650 mg PRN Q6HRS PRN PO Headaches, Temp > 101.5F; Start 11/15/21 at 10:15 Senna/Docusate Sodium (Senna Plus) 1 tab BID PO ; Start 11/15/21 at 21:00 Heparin Sodium (Porcine) (Heparin Sodium) 5,000 unit Q8HRS SQ ; Start 11/15/21 at 14:00 Morphine Sulfate (Morphine Sulfate) 4 mg 1X ONCE IVP Last administered on 11/15/21at 12:35; Start 11/15/21 at 11:45; Stop 11/15/21 at 11:52; Status DC Active Scripts Active Lidocaine PATCH (Lidocaine) 1 Each Adh..patch 1 Each TP DAILY REMOVE AFTER 12 HOURS Cyclobenzaprine Hcl 10 Mg Tablet 1 Tab PO TID Acetaminophen-Cod #3 Tablet (Acetaminophen/Codeine Phosphate) 1 Each Tablet 1 Tab PO PRN Q6HRS PRN 3 Days Cyclobenzaprine Hcl 10 Mg Tablet 1 Tab PO TID PRN 5 Days Naproxen 500 Mg Tablet 1 Tab PO BID PRN 10 Days Cyclobenzaprine Hcl 10 Mg Tablet 1 Tab PO TID PRN 10 Days Nystatin 100,000 Unit/1 Ml Oral.susp 5 Ml SWSW [id number] 14 Days Hydrocodone-Apap 5-325 (Hydrocodone Bit/Acetaminophen) 1 Tab Tablet 1 Tab PO PRN Q4HRS PRN Reported Metoclopramide Hcl 10 Mg Tablet 10 Mg PO BIDAC Carvedilol (Carvedilol) 6.25 Mg Tablet 6.25 Mg PO BIDWMEALS Jardiance (Empaglifozin) 25 Mg Tablet 25 Mg PO DAILY Metformin Hcl Er (Metformin Hcl) 500 Mg Tab.er.24h 500 Mg PO DAILYWBKFT Acidophilus (Lactobacillus Acidophilus) 1 Each Capsule 1 Each PO DAILY Hydrocodone-Acetamin 10-325 mg (Hydrocodone/Acetaminophen) 1 Each Tablet 1 Each PO PRN TID PRN Multivitamins (Multivitamin) 1 Each Tablet 1 Tab PO DAILY 30 Days Glimepiride 2 Mg Tablet 2 Mg PO BID 30 Days Proair Hfa Inhaler (Albuterol Sulfate) 8.5 Gm Hfa.aer.ad 1 Puff INH PRN Q4HRS PRN Combivent Respimat Inhal (Ipratropium/Albuterol Sulfate) 4 Gm Aer.w.adap 2 Inh IH BID Triamcinolone Acetonide 0.1% Oint (Triamcinolone Acetonide) 15 Gm Oint...g. 1 Heriberto TP BID MIX WITH EUCERIN DIRECTED BY PHYSICIAN Manny Pen (Exenatide Microspheres) 2 Mg/0.65 Ml Pen.injctr 2 Mg SQ WEEKLY Indapamide 1.25 Mg Tablet 1 Tab PO DAILY Cyclobenzaprine Hcl 10 Mg Tablet 1 Tab PO QHS Aspir 81 (Aspirin) 81 Mg Tablet.dr 81 Mg PO DAILY Pantoprazole Sodium (Pantoprazole Sodium) 40 Mg Tablet.dr 40 Mg PO DAILY Flonase (Fluticasone Propionate) 16 Gm [place].susp 16 Gm NS DAILY Diovan (Valsartan) 320 Mg Tablet 320 Mg PO DAILY Norvasc (Amlodipine Besylate) 10 Mg Tablet 10 Mg PO DAILY Allergies Allergies: Coded Allergies: No Known Drug Allergies (Unverified , 11/20/18) ROS General: YES: Fatigue Respiratory: YES: Shortness of breath Cardiovascular: yes Chest Pain Physical Exam General: No acute distress HEENT: Atraumatic Lungs: Other (Minimally decreased breath sounds) Heart: Regular rate Abdomen: Normal bowel sounds Vitals VITALS Vital Signs Date Time Temp Pulse Resp B/P (MAP) Pulse Ox O2 Delivery O2 Flow Rate FiO2 11/15/21 12:35 19 93 11/15/21 12:25 Room Air 11/15/21 11:56 91 118/87 11/15/21 11:00 97.7 97.7 11/15/21 05:58 2.0 Labs Labs Laboratory Tests Test 11/15/21 02:05 11/15/21 03:00 11/15/21 05:22 11/15/21 07:32 White Blood Count 11.5 x10^3/uL (4.0-11.0) Red Blood Count 4.90 x10^6/uL (4.30-5.70) Hemoglobin 14.7 g/dL (13.0-17.5) Hematocrit 44.1 % (39.0-53.0) Mean Corpuscular Volume 90 fL (79-100) Mean Corpuscular Hemoglobin 30 pg (25-35) Mean Corpuscular Hemoglobin Concent 33 g/dL (31-37) Red Cell Distribution Width 16.1 % (11.5-14.5) Platelet Count 303 x10^3/uL (140-400) Neutrophils (%) (Auto) 57 % (31-73) Lymphocytes (%) (Auto) 27 % (24-48) Monocytes (%) (Auto) 13 % (0-9) Eosinophils (%) (Auto) 2 % (0-3) Basophils (%) (Auto) 1 % (0-3) Neutrophils # (Auto) 6.5 x10^3/uL (1.8-7.7) Lymphocytes # (Auto) 3.1 x10^3/uL (1.0-4.8) Monocytes # (Auto) 1.5 x10^3/uL (0.0-1.1) Eosinophils # (Auto) 0.3 x10^3/uL (0.0-0.7) Basophils # (Auto) 0.1 x10^3/uL (0.0-0.2) Prothrombin Time 12.6 SEC (11.7-14.0) Prothromb Time International Ratio 1.0 (0.8-1.1) Activated Partial Thromboplast Time 25 SEC (24-38) D-Dimer (Yodit) 0.44 ug/mlFEU (0.00-0.50) Sodium Level 138 mmol/L (136-145) Potassium Level 3.1 mmol/L (3.5-5.1) Chloride Level 99 mmol/L (98-107) Carbon Dioxide Level 29 mmol/L (21-32) Anion Gap 10 (6-14) Blood Urea Nitrogen 22 mg/dL (8-26) Creatinine 1.5 mg/dL (0.7-1.3) Estimated GFR (Cockcroft-Gault) 57.8 BUN/Creatinine Ratio 15 (6-20) Glucose Level 181 mg/dL (70-99) Calcium Level 8.9 mg/dL (8.5-10.1) Magnesium Level 2.1 mg/dL (1.8-2.4) Total Bilirubin 0.3 mg/dL (0.2-1.0) Aspartate Amino Transf (AST/SGOT) 16 U/L (15-37) Alanine Aminotransferase (ALT/SGPT) 20 U/L (16-63) Alkaline Phosphatase 79 U/L (46-116) Troponin I High Sensitivity 6 ng/L (4-75) 6 ng/L (4-75) TO-Gmr-A-Type Natriuretic Peptide 40 pg/mL (0-124) Total Protein 7.0 g/dL (6.4-8.2) Albumin 3.1 g/dL (3.4-5.0) Albumin/Globulin Ratio 0.8 (1.0-1.7) Lipase 32 U/L (73-393) Glucose (Fingerstick) 140 mg/dL (70-99) Test 11/15/21 09:13 11/15/21 11:08 Troponin I High Sensitivity 6 ng/L (4-75) Glucose (Fingerstick) 133 mg/dL (70-99) Laboratory Tests Test 11/15/21 02:05 11/15/21 03:00 11/15/21 05:22 11/15/21 07:32 White Blood Count 11.5 x10^3/uL (4.0-11.0) Red Blood Count 4.90 x10^6/uL (4.30-5.70) Hemoglobin 14.7 g/dL (13.0-17.5) Hematocrit 44.1 % (39.0-53.0) Mean Corpuscular Volume 90 fL (79-100) Mean Corpuscular Hemoglobin 30 pg (25-35) Mean Corpuscular Hemoglobin Concent 33 g/dL (31-37) Red Cell Distribution Width 16.1 % (11.5-14.5) Platelet Count 303 x10^3/uL (140-400) Neutrophils (%) (Auto) 57 % (31-73) Lymphocytes (%) (Auto) 27 % (24-48) Monocytes (%) (Auto) 13 % (0-9) Eosinophils (%) (Auto) 2 % (0-3) Basophils (%) (Auto) 1 % (0-3) Neutrophils # (Auto) 6.5 x10^3/uL (1.8-7.7) Lymphocytes # (Auto) 3.1 x10^3/uL (1.0-4.8) Monocytes # (Auto) 1.5 x10^3/uL (0.0-1.1) Eosinophils # (Auto) 0.3 x10^3/uL (0.0-0.7) Basophils # (Auto) 0.1 x10^3/uL (0.0-0.2) Prothrombin Time 12.6 SEC (11.7-14.0) Prothromb Time International Ratio 1.0 (0.8-1.1) Activated Partial Thromboplast Time 25 SEC (24-38) D-Dimer (Yodit) 0.44 ug/mlFEU (0.00-0.50) Sodium Level 138 mmol/L (136-145) Potassium Level 3.1 mmol/L (3.5-5.1) Chloride Level 99 mmol/L (98-107) Carbon Dioxide Level 29 mmol/L (21-32) Anion Gap 10 (6-14) Blood Urea Nitrogen 22 mg/dL (8-26) Creatinine 1.5 mg/dL (0.7-1.3) Estimated GFR (Cockcroft-Gault) 57.8 BUN/Creatinine Ratio 15 (6-20) Glucose Level 181 mg/dL (70-99) Calcium Level 8.9 mg/dL (8.5-10.1) Magnesium Level 2.1 mg/dL (1.8-2.4) Total Bilirubin 0.3 mg/dL (0.2-1.0) Aspartate Amino Transf (AST/SGOT) 16 U/L (15-37) Alanine Aminotransferase (ALT/SGPT) 20 U/L (16-63) Alkaline Phosphatase 79 U/L (46-116) Troponin I High Sensitivity 6 ng/L (4-75) 6 ng/L (4-75) UD-Jdc-M-Type Natriuretic Peptide 40 pg/mL (0-124) Total Protein 7.0 g/dL (6.4-8.2) Albumin 3.1 g/dL (3.4-5.0) Albumin/Globulin Ratio 0.8 (1.0-1.7) Lipase 32 U/L (73-393) Glucose (Fingerstick) 140 mg/dL (70-99) Test 11/15/21 09:13 11/15/21 11:08 Troponin I High Sensitivity 6 ng/L (4-75) Glucose (Fingerstick) 133 mg/dL (70-99) Images Images CTA of the chest as above with no pulmonary emboli. Assessment/Plan Assessment/Plan 1. Chest pain. Patient has no acute ischemic EKG changes. Troponins have been normal x3. His pain has resolved. Heart catheterization by Dr. Paredes in 2018 showed no coronary disease. We will continue medical treatment. 2. Increasing dyspnea on exertion. Improved today. Echocardiogram from [facility] this year showed normal LV systolic function but was a difficult study to interpret valvular function. The patient CTA shows no pulmonary embolism. We will continue present medications and gradually increase activities. 3. Hypokalemia. Being replaced. 4. Hypertension. Under better control. 5 Diabetes. Initial glucose of 181. Patient's medications are being adjusted by the primary service. MAXIMO WHALEN MD November 15, 2021 14:53
[2021-11-15 15:00] VITALS: BP 126/79
[2021-11-15] MEDS: HEPARIN for SUB-Q USE 5,000 UNIT/ML VIAL. SQ SCH ×2 (15:07→22:07)
[2021-11-15] MEDS: METOCLOPRAMIDE 10 MG TABLET. PO SCH (17:18)
[2021-11-15 19:00] VITALS: BP 127/74
[2021-11-15] MEDS: SENNOSIDES/DOCUSATE 8.6/50MG TABLET. PO SCH (20:34)
[2021-11-15] MEDS: GLIMEPIRIDE 2 MG TABLET. PO SCH (20:34)
--- NOTE | 2021-11-15 21:53 | RAD ---
STUDY: US BILATERAL LOWEREXTREMITY VENOUS DOPPLER INDICATION: Lower shotty pain and swelling. DVT. TECHNIQUE: Color-flow and pulsed wave duplex ultrasound with compression of venous structures of the bilateral lower extremities. COMPARISON: None recently. FINDINGS: Duplex ultrasound with compression of the deep venous structures of the bilateral lower extremities f rom the common femoral vein through the popliteal vein is negative for DVT. The posterior tibial and peroneal veins are segmentally visualized and patent where seen. Normal veno us waveforms and augmentation are noted throughout. IMPRESSION: No deep venous thrombosis identified throughout either lower extremity. Electronically signed by: CARMEN BRYANT MD (11/15/2021 9:51 PM) ROCIO
[2021-11-15 23:05] VITALS: BP 122/75
[2021-11-15 23:24] LABS: BACTERIA,URINE 0 /HPF (0-FEW)
[2021-11-16] MEDS: oxyCODONE/APAP 5/325 1 TAB TABLET PO PRN ×2 (02:07→07:04)
[2021-11-16 03:13] VITALS: BP 128/82
[2021-11-16 07:00] VITALS: BP 133/77
[2021-11-16] MEDS: HEPARIN for SUB-Q USE 5,000 UNIT/ML VIAL. SQ SCH ×2 (07:02→14:16)
[2021-11-16] MEDS: METOCLOPRAMIDE 10 MG TABLET. PO SCH ×2 (07:30→17:02)
[2021-11-16] MEDS: INSULIN LISPRO 300 UNITS/3 ML VIAL. SQ SCH ×3 (07:59→17:00)
[2021-11-16] MEDS: ASPIRIN ENTERIC COATED 81 MG TABLET.DR. PO SCH (08:57)
[2021-11-16] MEDS: INDAPAMIDE 2.5 MG TABLET PO SCH (08:57)
[2021-11-16] MEDS: PANTOPRAZOLE 40 MG TABLET.DR. PO SCH (08:58)
[2021-11-16] MEDS: CARVEDILOL 6.25 MG TABLET. PO SCH ×2 (08:58→17:05)
[2021-11-16] MEDS: GLIMEPIRIDE 2 MG TABLET. PO SCH (08:58)
[2021-11-16] MEDS: EMPAGLIFLOZIN 25 MG TABLET. PO SCH (08:58)
[2021-11-16] MEDS: SENNOSIDES/DOCUSATE 8.6/50MG TABLET. PO SCH (08:58)
[2021-11-16] MEDS: FLUTICASONE 50MCG/NASAL SPRAY 16GM BOTTLE. NS SCH (09:00)
[2021-11-16 10:40] LABS: CALCIUM 8.8 mg/dL (8.5-10.1); CREATININE 1.5 mg/dL (0.7-1.3); GFR 57.8; POTASSIUM 3.1 mmol/L (3.5-5.1)
[2021-11-16 11:00] VITALS: BP 120/89
[2021-11-16] MEDS ORDERED: OXYC1TAB15 PO (12:22)
[2021-11-16] MEDS ORDERED: POTASSIUM CHLORIDE 20 MEQ TABLET.ER. PO ONE (12:30)
--- NOTE | 2021-11-16 12:45 | PDOC ---
LYNSEY LOPEZ HARISH 11/16/21 1245: CARDIO Progress Notes Date and Time Date of Service 11/16/21 Time of Evaluation 1240 Subjective Subjective: No Chest Pain, No shortness of breath, No Palpitations, No Dizziness Vitals Vitals Vital Signs Date Time Temp Pulse Resp B/P (MAP) Pulse Ox O2 Delivery O2 Flow Rate FiO2 11/16/21 11:00 98.1 102 18 120/89 (99) 96 Room Air 98.1 11/16/21 08:00 2.0 Weight Weight [ ] Input and Output Intake and Output Intake and Output 11/16/21 07:00 Intake Total 960 ml Output Total 200 ml Balance 760 ml Intake Oral 960 ml Output Urine Total 200 ml Laboratory Labs Laboratory Tests Test 11/15/21 16:53 11/15/21 21:55 11/16/21 07:35 11/16/21 10:15 Glucose (Fingerstick) 162 mg/dL (70-99) 131 mg/dL (70-99) Urine Collection Type Unknown Urine Color (Auto) Light yellow Urine Turbidity Clear Urine pH (Auto) 5.0 (<5.0-8.0) Urine Specific [place] 1.034 (1.000-1.030) Urine Protein (Auto) Negative mg/dL (Negative) Urine Glucose (Auto)(UA) >=1000 mg/dL (Negative) Urine Ketones (Auto) Negative mg/dL (Negative) Urine Blood (Auto) Negative (Negative) Urine Nitrite Negative (Negative) Urine Bilirubin (Auto) Negative (Negative) Urine Urobilinogen (Auto) Normal mg/dL (Normal) Urine Leukocyte Esterase (Auto) Negative (Negative) Urine RBC 1-2 /HPF (0-2) Urine WBC 1-4 /HPF (0-4) Urine Squamous Epithelial Cells Few /LPF Urine Bacteria 0 /HPF (0-FEW) Sodium Level 136 mmol/L (136-145) Potassium Level 3.1 mmol/L (3.5-5.1) Chloride Level 97 mmol/L (98-107) Carbon Dioxide Level 30 mmol/L (21-32) Anion Gap 9 (6-14) Blood Urea Nitrogen 25 mg/dL (8-26) Creatinine 1.5 mg/dL (0.7-1.3) Estimated GFR (Cockcroft-Gault) 57.8 Glucose Level 159 mg/dL (70-99) Calcium Level 8.8 mg/dL (8.5-10.1) Magnesium Level 2.0 mg/dL (1.8-2.4) Test 11/16/21 11:58 Glucose (Fingerstick) 154 mg/dL (70-99) Physical Exam HEENT: Neck Supple W Full Motion Chest: Symmetric LUNGS: Clear to Auscultation Heart: RRR Abdomen: Soft N/T Extremities: No Edema Neurology: alert, oriented, follow commands Assessment Assessment 1. Chest pain, atypical; AMI ruled out. EKG without significant acute changes. [facility] 2018 showed no CAD. Patient reports increase life stressors as he is currently going through divorce. Outpatient ischemic evaluation. Follow up in our office with Dr. Medina as scheduled. 2. MORTENSEN; multifactorial. suspected obesity/decondition is contributing factor. CXR without pulmonary edema. Echo 09/29 with LVEF 55%. CTA without PE. 3. Hypertension; now controlled 4. Diabetes, II 5. CKD; Cr stable 6. Hypokalemia; replaced 7. H/o DVT- LE US negative for DVT 8. H/o PVC's- on BB for suppression Justicifation of Admission Dx: Justifications for Admission: Justification of Admission Dx: Yes Comments: Chest pain MORTENSEN SHELIA MEDINA MD 11/16/21 1806: CARDIO Progress Notes Assessment Assessment Patient seen and examined. Agree with BASE BRANDER's assessment and plan. CP with atypical features [place] ruled out Plan outpatient ischemic evaluation Follow up as scheduled LYNSEY LOPEZ APRN November 16, 2021 12:45 SHELIA MEDINA MD November 16, 2021 18:06
[2021-11-16] MEDS: POTASSIUM CHLORIDE 10MEQ 100 ML IV SCH ×4 (13:00→16:00)
--- NOTE | 2021-11-16 13:25 | RAD ---
EXAM: Right knee, 2 views. HISTORY: Pain. COMPARISON: 09/07/2021 FINDINGS: 2 views of the right knee are obtained. There is medial compartment joint space narrowing a nd subchondral sclerosis. There is mild to moderate tricompartment marginal spurring. There is a susp ected degenerative subchondral cyst or subchondral sclerosis along the articular aspect of the latera l femoral condyle. There is enthesopathy along the patella. There are few tiny joint loose bodies. Th ere is no joint effusion. IMPRESSION: Moderate medial compartment predominant tricompartmental osteoarthritis of the right knee . Electronically signed by: Radha Neil MD (11/16/2021 1:23 PM) [id number]
[2021-11-16] MEDS ORDERED: Diclofenac Sodium TP (13:42)
--- NOTE | 2021-11-16 13:43 | DISCH ---
DISCHARGE INSTRUCTIONS Condition on Discharge Condition on Discharge: Stable Activity After Discharge Activity Instructions for Disc: Activity as tolerated Bathing Instructions: Shower-keep dressing dry, No Tub Bath until see Lifting Instructions after Dis: No heavy lifting Exercise Instruction after Dis: Progress as tolerated Driving Instructions after Dis: Do not drive Weight Bearing Status after Di: As tolerated Diet after Discharge Diet after Discharge: Clear Liquid Diet Texture: Regular Liquid Texture: Thin Liquid Swallowing Supervision: None needed Wound Incision Care Wound/Incision Care: Keep wound/cast CDI, Change dressing Checks after Discharge Checks after discharge: Check blood sugar, ac/hs Contacting the DRRonni after DC Call your doctor for: Concerns you may have Follow-Up Follow up with: PCP within 2 weeks of discharge Treatment/Equipment after DC Adaptive Equipment Issued: FERDINAND Irwin MD November 16, 2021 13:42
--- NOTE | 2021-11-16 14:00 | NUR ---
SS following for discharge planning. SS reviewed pt chart and discussed with pt RN. Pt is currently on room air. Cardiology following. PT/OT ordered. Discharge order on the chart for home with self care. Pt requesting Healthcare DPOA. SS met with pt and son in room and completed Healthcare DPOA. Pt's RN notified.
[2021-11-16 15:00] VITALS: BP 110/87
[2021-11-16 17:05] VITALS: BP 110/87
[2021-11-16] MEDS ORDERED: DICLOFENAC SODIUM 1% TOPICAL GEL 100GM TUBE. TP SCH (21:00)
[2021-11-17 00:08] LABS: HEMOGLOBIN A1C 8.1 % (4.8-5.6)
[2021-11-17] MEDS ORDERED: metFORMIN XR 500 MG TAB.ER.24H PO SCH (08:00)
--- NOTE | 2021-11-18 18:39 | PDOC3 ---
[facility]-Discharge Summary Date of Admission: Date of Admission: November 15, 2021 Date of Discharge: Date of Discharge: November 16, 2021 Discharge Diagnosis: Discharge Diagnosis: Atypical chest pain, AMI ruled out Hypertension now controlled History of diabetes mellitus type 2 History of DVT History of PVCs History of CKD creatinine stable. Consults: Consults: Per cardiology: Assessment 1. Chest pain, atypical; AMI ruled out. EKG without significant acute changes. [facility] 2018 showed no CAD. Patient reports increase life stressors as he is currently going through divorce. Outpatient ischemic evaluation. Follow up in our office with Dr. Medina as scheduled. 2. [place]; multifactorial. suspected obesity/decondition is contributing factor. CXR without pulmonary edema. Echo 09/29 with LVEF 55%. CTA without PE. 3. Hypertension; now controlled 4. Diabetes, II 5. CKD; Cr stable 6. Hypokalemia; replaced 7. H/o DVT- LE US negative for DVT 8. H/o PVC's- on BB for suppression Hospital Course: Hospital Course: 61-year-old male presented to the emergency room due to 1 day history of chest pain and shortness of breath. Patient reported the chest pain began around 6:00 last night and persisted thus presented to the emergency room. He was given a dose of aspirin with good improvement in his chest pain. Was i evaluated him this morning he was denying any further chest pain. Was however reporting of right leg pain that began last night as well. 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 Says that his right leg feels a little bit more swollen than his left and on exam it does appear mildly more swollen. With history will at least order duplex scan. CT PE protocol in emergency room was negative. Admitted for further evaluation, Cards consulted. By day of discharge patient was chest pain-free and evaluated by cardiology. Please see recommendations above. Rest of hospital course was uneventful. Disposition: Disposition/Orders: D/C to Home Activity: Activity: Resume previous activity Diet: Diet: Cardiac, Consistent Carbohydrate Medications: Home Meds Active Scripts [Diclofenac Sodium 1% Topical] 100 GM GEL..GRAM. No Conflict Check, 1 ALISON TP BID for knee pain for 30 Days, #1 BOTTLE Prov:FERDINAND YANCEY MD 11/16/21 Oxycodone/Apap 5-325 (PERCOCET 5-325 MG TABLET ) 1 Each Tablet, 1 TAB PO PRN Q4HRS PRN for PAIN for 3 Days, #18 TAB Prov:FERDINAND YANCEY MD 11/16/21 Lidocaine (Lidocaine PATCH ) 1 Each Adh..patch, 1 EACH TP DAILY for FOR LOCAL PAIN, #5 PATCH REMOVE AFTER 12 HOURS Prov:NEELA SAUNDERS QUALITY IMPROVEMENT COORDINATOR (RN) 11/11/21 Acetaminophen With Codeine (ACETAMINOPHEN-COD #3 TABLET) 1 Each Tablet, 1 TAB PO PRN Q6HRS PRN for PAIN for 3 Days, #10 TAB Prov:DESTIN SAUCEDA MD 01/03/21 Naproxen (NAPROXEN) 500 Mg Tablet, 1 TAB PO BID PRN for PAIN for 10 Days, #20 TAB 0 Refills Prov:MICAH SAMAYOA QUALITY IMPROVEMENT COORDINATOR (RN) 09/13/20 Nystatin (NYSTATIN) 100,000 Unit/1 Ml Oral.susp, 5 ML SWSW [id number] for thrush for 14 Days, #120 MISC Prov:JANE OSBORNE MD 02/16/19 Hydrocodone Bit/Acetaminophen (HYDROCODONE-APAP 5-325 ) 1 Tab Tablet, 1 TAB PO PRN Q4HRS PRN for MILD PAIN, #30 TAB 0 Refills Prov:JEANIE ROBERTSON QUALITY IMPROVEMENT COORDINATOR (RN) 11/21/18 Reported Medications Metoclopramide Hcl (METOCLOPRAMIDE HCL) 10 Mg Tablet, 10 MG PO BIDAC for GERD, #60 TAB 0 Refills 02/10/19 Carvedilol (CARVEDILOL ) 6.25 Mg Tablet, 6.25 MG PO BIDWMEALS for CARDIAC, TAB 02/10/19 Empagliflozin (JARDIANCE) 25 Mg Tablet, 25 MG PO DAILY for DIABETES, TAB 02/10/19 Metformin Hcl (METFORMIN HCL ER) 500 Mg Tab.er.24h, 500 MG PO DAILYWBKFT for ANTI-DIABETIC, TAB 0 Refills 01/07/19 Lactobacillus Acidophilus (ACIDOPHILUS) 1 Each Capsule, 1 EACH PO DAILY for supplement, CAP 01/07/19 Hydrocodone/Acetaminophen (Hydrocodone-Acetamin 10-325 mg) 1 Each Tablet, 1 EACH PO PRN TID PRN for PAIN, TAB 01/07/19 Multivitamin (MULTIVITAMINS) 1 Each Tablet, 1 TAB PO DAILY for supplement for 30 Days, #30 TAB 3 Refills 09/01/18 Glimepiride (GLIMEPIRIDE) 2 Mg Tablet, 2 MG PO BID for Diabetes for 30 Days, #60 TAB 09/01/18 Albuterol Sulfate (PROAIR HFA INHALER) 8.5 Gm Hfa.aer.ad, 1 PUFF INH PRN Q4HRS PRN for SHORTNESS OF BREATH, INHALER 0 Refills 03/15/18 Ipratropium/Albuterol Sulfate (COMBIVENT RESPIMAT INHAL) 4 Gm Aer.w.adap, 2 INH IH BID, INHALER 03/15/18 Triamcinolone Acetonide (TRIAMCINOLONE ACETONIDE 0.1% OINT) 15 Gm Oint...g., 1 ALISON TP BID for WOUND CARE, #1 TUBE MIX WITH EUCERIN DIRECTED BY PHYSICIAN 03/15/18 Exenatide Microspheres (Bydureon Pen) 2 Mg/0.65 Ml Pen.injctr, 2 MG SQ WEEKLY, EACH 03/15/18 Indapamide (INDAPAMIDE) 1.25 Mg Tablet, 1 TAB PO DAILY, #30 TAB 5 Refills 03/15/18 Aspirin (ASPIR 81) 81 Mg Tablet.dr, 81 MG PO DAILY 09/17/13 Pantoprazole Sodium (PANTOPRAZOLE SODIUM ) 40 Mg Tablet.dr, 40 MG PO DAILY 09/17/13 Fluticasone Propionate (FLONASE) 16 Gm [place].susp, 16 GM NS DAILY 09/17/13 Amlodipine Besylate (NORVASC) 10 Mg Tablet, 10 MG PO DAILY 09/17/13 Discontinued Reported Medications Cyclobenzaprine Hcl (CYCLOBENZAPRINE HCL) 10 Mg Tablet, 1 TAB PO QHS, #30 TAB 03/15/18 Valsartan (DIOVAN) 320 Mg Tablet, 320 MG PO DAILY 09/17/13 Discontinued Scripts Cyclobenzaprine Hcl (CYCLOBENZAPRINE HCL) 10 Mg Tablet, 1 TAB PO TID, #21 TAB Prov:NEELA SAUNDERS APRN 11/11/21 Cyclobenzaprine Hcl (CYCLOBENZAPRINE HCL) 10 Mg Tablet, 1 TAB PO TID PRN for MUSCLE PAIN for 5 Days, #15 TAB Prov:DESTIN SAUCEDA MD 01/03/21 Cyclobenzaprine Hcl (CYCLOBENZAPRINE HCL) 10 Mg Tablet, 1 TAB PO TID PRN for MUSCLE PAIN for 10 Days, #30 TAB 0 Refills Prov:MICAH SAMAYOA HARISH 09/13/20 Scheduled Amlodipine Besylate (Norvasc), 10 MG PO DAILY, (Reported) Aspirin (Aspir 81), 81 MG PO DAILY, (Reported) Carvedilol (Carvedilol ), 6.25 MG PO BIDWMEALS, (Reported) Empagliflozin (Jardiance), 25 MG PO DAILY, (Reported) Exenatide Microspheres (Bydureon Pen), 2 MG SQ WEEKLY, (Reported) Fluticasone Propionate (Flonase), 16 GM NS DAILY, (Reported) Glimepiride (Glimepiride), 2 MG PO BID, (Reported) Indapamide (Indapamide), 1 TAB PO DAILY, (Reported) Ipratropium/Albuterol Sulfate (Combivent Respimat Inhal), 2 INH IH BID, (Reported) Lactobacillus Acidophilus (Acidophilus), 1 EACH PO DAILY, (Reported) Lidocaine (Lidocaine PATCH ), 1 EACH TP DAILY Metformin Hcl (Metformin Hcl Er), 500 MG PO DAILYWBKFT, (Reported) Metoclopramide Hcl (Metoclopramide Hcl), 10 MG PO BIDAC, (Reported) Multivitamin (Multivitamins), 1 TAB PO DAILY, (Reported) Nystatin (Nystatin), 5 ML SWSW [id number] Pantoprazole Sodium (Pantoprazole Sodium ), 40 MG PO DAILY, (Reported) Triamcinolone Acetonide (Triamcinolone Acetonide 0.1% Oint), 1 ALISON TP BID, (Reported) [Diclofenac Sodium], 1 ALISON TP BID Scheduled PRN Acetaminophen With Codeine (Acetaminophen-Cod #3 Tablet), 1 TAB PO PRN Q6HRS PRN for PAIN Albuterol Sulfate (Proair Hfa Inhaler), 1 PUFF INH PRN Q4HRS PRN for SHORTNESS OF BREATH, (Reported) Hydrocodone Bit/Acetaminophen (Hydrocodone-Apap 5-325 ), 1 TAB PO PRN Q4HRS PRN for MILD PAIN Hydrocodone/Acetaminophen (Hydrocodone-Acetamin 10-325 mg), 1 EACH PO PRN TID PRN for PAIN, (Reported) Naproxen (Naproxen), 1 TAB PO BID PRN for PAIN Oxycodone/Apap 5-325 (Percocet 5-325 Mg Tablet ), 1 TAB PO PRN Q4HRS PRN for PAIN Discontinued Medications Cyclobenzaprine Hcl (Cyclobenzaprine Hcl), 1 TAB PO QHS, (Reported) Cyclobenzaprine Hcl (Cyclobenzaprine Hcl), 1 TAB PO TID PRN for MUSCLE PAIN Cyclobenzaprine Hcl (Cyclobenzaprine Hcl), 1 TAB PO TID PRN for MUSCLE PAIN Cyclobenzaprine Hcl (Cyclobenzaprine Hcl), 1 TAB PO TID Valsartan (Diovan), 320 MG PO DAILY, (Reported) Total Time: Total Time: Total time spent was 32 minutes in preparing scripts, discharge planning with SWI and RN and preparing this discharge summary Patient seen and examined on day of discharge. No acute abnormal findings. Justicifation of Admission Dx: Justifications for Admission: Justification of Admission Dx: Yes FERDINAND YANCEY MD November 18, 2021 18:39
== END 2021-11-16 17:55 | disposition home or self-care (01) ==
LOC: ER 01:37 → 5 NORTH 04:34
PROVIDERS: ADMIT Student in an Organized Health Care Education/Training Program; ATTEND Student in an Organized Health Care Education/Training Program
DX: R07.89 Other chest pain (principal); I12.9 Hypertensive chronic kidney disease with stage 1 through stage 4 chronic kidney disease, or unspecified chronic kidney disease; N18.9 Chronic kidney disease, unspecified; E11.22 Type 2 diabetes mellitus with diabetic chronic kidney disease; I48.91 Unspecified atrial fibrillation; J44.9 Chronic obstructive pulmonary disease, unspecified; K21.9 Gastro-esophageal reflux disease without esophagitis; E87.6 Hypokalemia; F41.9 Anxiety disorder, unspecified; G47.30 Sleep apnea, unspecified; M19.90 Unspecified osteoarthritis, unspecified site; E66.9 Obesity, unspecified; Z85.528 Personal history of other malignant neoplasm of kidney; Z86.718 Personal history of other venous thrombosis and embolism; Z90.49 Acquired absence of other specified parts of digestive tract; Z79.899 Other long term (current) drug therapy; Z98.890 Other specified postprocedural states; Z79.82 Long term (current) use of aspirin; Z79.4 Long term (current) use of insulin; Z79.84 Long term (current) use of oral hypoglycemic drugs; Z68.43 Body mass index [BMI] 50.0-59.9, adult
CPT/HCPCS: 36415; 71275; 73560; 80048; 80053; 81001; 82962; 83036; 83690; 83735; 83880; 84484; 85025; 85379; 85610; 85730; 93005; 93970; 96361; 96365; 96366; 96372; 96375; 96376; 97110; 97116; 97162; 97165; 99285; G0378; J1644; J1815; J2270; J3010; J3480; J7030; Q9967; G0379